=== PATIENT | male | born 1940 | race Caucasian/White ===

== ENCOUNTER 2017-11-10 05:59 | Day surgery (SDC) | payer BC ==
[2017-11-10] VITALS (8 sets, daily range): BP systolic 124–151; BP diastolic 70–96; PULSE 68–101; RESP 18–20; TEMP 97.5–97.6; O2SAT 90–95
[~2017-11-10] VITALS: Ht 182.9 cm; Wt 79.5 kg
[2017-11-10] MEDS ORDERED: ASPI-516 CHEW (06:42)
[2017-11-10] MEDS ORDERED: MULTTAB67 PO (06:42)
[2017-11-10] MEDS ORDERED: SODIUM CHLOR 0.9% 1000 ML INJ 1,000 ML IV SCH (07:00)
[2017-11-10 07:24] LABS: AUTOMATED NEUTROPHIL # 7.4 TH/MM3 (1.8-7.7); BASOPHIL # 0.1 TH/MM3 (0-0.2); BASOPHIL % 1.3 % (0.0-2.0); EOSINOPHIL # 0.4 TH/MM3 (0-0.4); EOSINOPHIL % 3.5 % (0.0-4.0); HEMATOCRIT 37.8 % (39.0-51.0); HEMOGLOBIN 12.8 GM/DL (13.0-17.0); LYMPH % 15.6 % (9.0-44.0); LYMPHOCYTE # 1.6 TH/MM3 (1.0-4.8); MEAN CELL VOLUME 76.3 FL (80.0-100.0); MEAN CORPUSCULAR HEMOGLOBIN 25.8 PG (27.0-34.0); MEAN CORPUSCULAR HGB CONC 33.8 % (32.0-36.0); MEAN PLATELET VOLUME 7.3 FL (7.0-11.0); MONO % 9.2 % (0.0-8.0); NEUT % 70.4 % (16.0-70.0); PLATELET COUNT 310 TH/MM3 (150-450); RED BLOOD COUNT 4.95 MIL/MM3 (4.50-5.90); RED CELL DISTRIBUTION WIDTH 15.3 % (11.6-17.2); WHITE BLOOD COUNT 10.5 TH/MM3 (4.0-11.0)
[2017-11-10 07:41] LABS: INTERNATIONAL NORMALIZED RATIO 1.1 RATIO; PROTHROMBIN TIME - PATIENT 11.5 SEC (9.8-11.6)
[2017-11-10] MEDS ORDERED: LIDOCAINE HCL 1% 20 ML VIAL ONE (07:41)
[2017-11-10] MEDS ORDERED: MIDAZOLAM HCL 2 MG/2 ML VIAL ONE (08:14)
--- NOTE | 2017-11-10 09:54 | RADRPT ---
EXAM DATE/TIME: 11/10/2017 09:19 [facility] COMPARISON: No previous studies available for comparison. INDICATIONS : Evaluate for pneumothorax, post biopsy. MEDICAL HISTORY : None. SURGICAL HISTORY : None. ENCOUNTER: Initial ACUITY: 1 day PAIN SCORE: 0/10 LOCATION: Bilateral chest FINDINGS: There is no evidence of pneumothorax status post right lung biopsy. Right lung base mass is noted. Sc attered streakiness is noted bilaterally. CONCLUSION: No evidence of pneumothorax status post right lung biopsy. Jeffrey Quintero MD on November 10, 2017 at 9:51 Board Certified Radiologist. This report was verified electronically.
--- NOTE | 2017-11-10 10:51 | RADRPT ---
EXAM DATE/TIME: 11/10/2017 08:29 [facility] COMPARISON: No previous studies available for comparison. INDICATIONS : Right lung mass. SEDATION TIME: 20 minutes BIOPSY SITE: Right MEDICATION(S): 1.) 2 mg midazolam (Versed) IV 2.) 75 mcg fentanyl (Sublimaze) IV DEVICE(S): 1.) 18 gauge Temno core biopsy needle MEDICAL HISTORY : Chronic obstructive pulmonary disease. SURGICAL HISTORY : Appendectomy. ENCOUNTER: Initial ACUITY: 1 day PAIN SCORE: 0/10 LOCATION: Right lung A total of one core specimen(s) were obtained and sent to the laboratory for pathologic evaluation. PROCEDURE: 1. CT guided lung biopsy. 2. Conscious sedation with continuous EKG and oximetry monitoring. 3. EKG and oximetry remained stable throughout the procedure. Prior to the procedure informed consent was obtained. Any appropriate prior imaging studies were rev iewed. Using automated exposure control and adjustment of the mA and/or kV according to patient size, radiation dose was kept as low as reasonably achievable to obtain optimal diagnostic quality images. DICOM format image data is available electronically for review and comparison. The site was prepped in a sterile fashion. Full sterile technique was used, including cap, mask, marco rile gloves and gown and a large sterile sheet. Hand hygiene and 2% chlorhexidine and/or betadine/al cohol prep was utilized per protocol for cutaneous antisepsis. The skin and subcutaneous tissues wer e infiltrated with local anesthetic solution. With CT guidance the previously identified target was localized. Biopsy was performed using the presc ribed needle as above. Adequate hemostasis was obtained with compression at the puncture site. Follow-up CT scan reveals no pneumothorax. Conscious sedation was performed with the prescribed dosages and duration as above in the presence of an independent trained radiology nurse to assist in the monitoring of the patient. EKG and oximetry remained stable throughout the procedure. The patient tolerated the procedure well and there were no complications. The patient was sent to Radiology Outpatient Unit in stable condition. CONCLUSION: Uncomplicated CT guided biopsy. Jeffrey Quintero MD on November 10, 2017 at 10:49 Board Certified Radiologist. This report was verified electronically.
== END 2017-11-10 13:22 | disposition home or self-care (01) ==
LOC: HRAD 05:59 → HRIP 06:06 → HRAD 13:22
PROVIDERS: ATTEND Internal Medicine
DX: R91.8 Other nonspecific abnormal finding of lung field (principal); J44.9 Chronic obstructive pulmonary disease, unspecified
CPT/HCPCS: 32405; 71045; 77012; 85025; 85610; 85730; 88305; J2250; J3010; J7030

== ENCOUNTER 2017-11-28 08:16 | Day surgery (SDC) | payer BC ==
[~2017-11-28] VITALS: Ht 182.9 cm; Wt 81.8 kg
[~2017-11-28 08:16] MED LIST: ASPI-516 CHEW; MULTTAB67 PO
[2017-11-28] MEDS ORDERED: ceFAZolin 2 GM PREMIX 50 ML - implanted port/tunneled catheter insertion IV SCH (08:45)
[2017-11-28] MEDS ORDERED: VANCOMYCIN 1000 MG/NS 250 ML - implanted port/tunneled catheter IV SCH ×2 (08:45)
[2017-11-28] MEDS ORDERED: POVIDONE IODINE 5% (ANTISEPSIS KIT) 4 APPLICATIONS EACH NARE SCH (08:45)
[2017-11-28] MEDS ORDERED: CHLORHEXIDINE GLUCONATE 2 % 1 PACK (2 CLOTHS) TOPICAL SCH (08:45)
[2017-11-28 08:58] VITALS: BP 110/68; PULSE 94; RESP 18; TEMP 97.7; O2SAT 92
[2017-11-28] MEDS ORDERED: SODIUM CHLORIDE 0.9% 1000 ML IV SCH (09:00)
[2017-11-28 09:06] LABS: AUTOMATED NEUTROPHIL # 7.9 TH/MM3 (1.8-7.7); BASOPHIL # 0.1 TH/MM3 (0-0.2); BASOPHIL % 1.2 % (0.0-2.0); EOSINOPHIL # 0.2 TH/MM3 (0-0.4); EOSINOPHIL % 2.2 % (0.0-4.0); HEMATOCRIT 37.4 % (39.0-51.0); HEMOGLOBIN 12.6 GM/DL (13.0-17.0); LYMPH % 15.2 % (9.0-44.0); LYMPHOCYTE # 1.6 TH/MM3 (1.0-4.8); MEAN CELL VOLUME 76.3 FL (80.0-100.0); MEAN CORPUSCULAR HEMOGLOBIN 25.7 PG (27.0-34.0); MEAN CORPUSCULAR HGB CONC 33.6 % (32.0-36.0); MEAN PLATELET VOLUME 7.2 FL (7.0-11.0); MONO % 7.9 % (0.0-8.0); MONOCYTE # 0.8 TH/MM3 (0-0.9); NEUT % 73.5 % (16.0-70.0); PLATELET COUNT 354 TH/MM3 (150-450); RED CELL DISTRIBUTION WIDTH 15.4 % (11.6-17.2); WHITE BLOOD COUNT 10.7 TH/MM3 (4.0-11.0)
[2017-11-28 09:19] LABS: INTERNATIONAL NORMALIZED RATIO 1.2 RATIO; PROTHROMBIN TIME - PATIENT 11.7 SEC (9.8-11.6)
[2017-11-28] MEDS ORDERED: LIDOCAINE 1%/EPINEPHrine 1:100,000 SOLN 30 ML VIAL ONE (12:04)
[2017-11-28 13:15] VITALS: BP 150/69; PULSE 93; RESP 18; TEMP 97.5; O2SAT 92
[2017-11-28] MEDS ORDERED: SODIUM CHLORIDE 0.9% FLUSH 10 ML FLUSH IVF PRN (13:15)
--- NOTE | 2017-11-28 13:16 | PD.RAD ---
Post Procedure Progress Note Pre Procedure Diagnosis: (1) Lung cancer Post Procedure Diagnosis: (1) Lung cancer Procedure Date: Nov 28, 2017 Supervising Radiologist: Domenico Brown JR Proceduralist/Assist: Obinna Ragsdale, RT(R), Alex Leroy RT(R) Anesthesia: Local Plan of Activity Patient to Unit: ROPU Patient Condition: Good See PACS Report for procedural detail/treatment Central Venous Access Device Procedure 1 Left Internal Jugular Infusaport Placement single lumen Jamaican: 8 Findings: Patient requested no anesthesia. Port placed utilizing local only. Port in good position and ready for use. OK to use. Plan F/U with IR or a physician in 10-14 days for a site check. Jr Kevin.,Domenico Parks MD Nov 28, 2017 13:16
[2017-11-28 13:30] VITALS: BP 163/75; PULSE 90; RESP 18; O2SAT 92
--- NOTE | 2017-11-28 15:51 | RADRPT ---
EXAM DATE/TIME: 11/28/2017 13:11 [facility] COMPARISON: No previous studies available for comparison. INDICATIONS : Patient presents with lung mass in need of port placement for treatment. MEDICAL HISTORY : Kidney stone COPD Lung cancer History of smoking SURGICAL HISTORY : Appendectomy Cataract surgery Colonoscopy Hernia repair Prostate biopsy Tonsillectomy ENCOUNTER: Initial ACUITY: 3 months PAIN SCORE: 0/10 LOCATION: N/A FLUORO TIME: 1.1 minutes IMAGE SERIES: 1 SEDATION TIME: 0 minutes ACCESS: Left internal jugular vein Prophylactic antibiotics were administered with appropriate pre-procedure timing. Vancomycin within 2 hours of procedure, Ancef (or alternative) within 1 hour of procedure. DEVICE: 1. 8 Frisian single lumen Bard Power Port Vaccess CT PROCEDURE : 1. Continuous pulse oximetry and EKG monitoring. 2. Ultrasound guidance for venous access. 3. Fluoroscopic guided implantable central venous port placement. The patient requested no sedation. The patient was placed supine. The neck was prepped in sterile fas hion. Full sterile technique was used, including cap, mask, sterile gloves and gown, and a large marco rile sheet. Hand hygiene and 2% chlorhexidine Betadine was utilized per protocol for cutaneous antis epsis with appropriate dry time for site. Sterile gel and sterile probe cover were utilized for ultr asound guidance. The skin and subcutaneous tissues were infiltrated with local anesthetic solution. Under direct ultrasound guidance, central venous access was accomplished in the targeted vessel. The ultrasound images depicting access guidance were stored and saved to PACS for permanent record. A s ubcutaneous pocket was created using blunt dissection. The port was introduced to the pocket. The c atheter tubing was fed through a subcutaneous tunnel to the venotomy site. The catheter tubing was c ut to a suitable length and then was introduced through a valved Peel-Away sheath and positioned with catheter tubing tip at the cavo-atrial junction level. The pocket incision was closed with subcutic ular Vicryl suture. Steri-Strips were applied. The port was flushed and locked with heparin solutio n per protocol. Sterile dressing was applied to the site. The patient tolerated the procedure well. EKG and oximetry remained stable throughout the procedure. The patient tolerated the procedure well a nd there were no complications. The patient was sent to post anesthesia recovery in stable condition. CONCLUSION: Uncomplicated ultrasound and fluoroscopic guided implanted central venous port catheter placement as described in detail above. An 8 Frisian Power port was placed. Domenico Brown Jr., MD on November 28, 2017 at 15:47 Board Certified Radiologist. This report was verified electronically.
== END 2017-11-28 14:10 | disposition home or self-care (01) ==
LOC: HROP 08:16 → HRIP 08:18 → HROP 14:10
PROVIDERS: ATTEND Internal Medicine
DX: C34.90 Malignant neoplasm of unspecified part of unspecified bronchus or lung (principal); J44.9 Chronic obstructive pulmonary disease, unspecified; Z87.442 Personal history of urinary calculi; Z87.891 Personal history of nicotine dependence; Z01.818 Encounter for other preprocedural examination
CPT/HCPCS: 36561; 76937; 77001; 85025; 85610; 85730; C1788; J0690; J1642; J3010; J3370; J7030; J7050

== ENCOUNTER 2018-01-19 11:52 | Inpatient (IN) | payer MEDICARE, BC ==
[2018-01-19] VITALS (12 sets, daily range): BP systolic 99–142; BP diastolic 58–77; PULSE 66–122; RESP 16–22; TEMP 97.3–97.6; O2SAT 97–100
[~2018-01-19] VITALS: Ht 182.9 cm; Wt 75.5 kg
--- NOTE | 2018-01-19 12:36 | RADRPT ---
EXAM DATE/TIME: 01/19/2018 12:24 [facility] COMPARISON: CT NEEDLE BIOPSY LUNG, RIGHT, November 10, 2017, 8:29. CHEST EXPIRATION ONLY, November 10, 2017, 9:1 9. INDICATIONS : Chest pain. MEDICAL HISTORY : Chronic obstructive pulmonary disease. Carcinoma, lung. Renal calculi. SURGICAL HISTORY : Appendectomy. Tonsillectomy. Hernia repair. Infusaport placement. ENCOUNTER: Initial ACUITY: 1 week PAIN SCORE: 2/10 LOCATION: Bilateral chest FINDINGS: Frontal and lateral views of the chest demonstrate a normal-sized cardiac silhouette. Left chest wall [id number] is present with distal tip in the SVC. There is a posterior right lower lobe mass, sta ble from the prior study. Abnormal interstitial opacities remain present in the lower lung zones. The re is slight blunting of the right costophrenic sulcus. No pneumothorax is visualized. The bones demo nstrate no acute finding. CONCLUSION: 1. Stable right lower lobe lung mass. No acute abnormality is seen. 2. Background lung changes suggesting emphysema with possible lower lung zone interstitial lung disea se. No pneumothorax is visualized. Song Millan MD on January 19, 2018 at 12:31 Board Certified Radiologist. This report was verified electronically.
[2018-01-19 12:46] LABS: AUTOMATED NEUTROPHIL # 3.4 TH/MM3 (1.8-7.7); BASOPHIL % 0.4 % (0.0-2.0); EOSINOPHIL % 0.4 % (0.0-4.0); HEMATOCRIT 33.4 % (39.0-51.0); HEMOGLOBIN 11.2 GM/DL (13.0-17.0); LYMPH % 5.9 % (9.0-44.0); LYMPHOCYTE # 0.2 TH/MM3 (1.0-4.8); MEAN CORPUSCULAR HEMOGLOBIN 25.5 PG (27.0-34.0); MEAN CORPUSCULAR HGB CONC 33.5 % (32.0-36.0); MEAN PLATELET VOLUME 7.5 FL (7.0-11.0); MONOCYTE # 0.2 TH/MM3 (0-0.9); NEUT % 87.3 % (16.0-70.0); PLATELET COUNT 166 TH/MM3 (150-450); RED BLOOD COUNT 4.39 MIL/MM3 (4.50-5.90); RED CELL DISTRIBUTION WIDTH 17.6 % (11.6-17.2); WHITE BLOOD COUNT 3.8 TH/MM3 (4.0-11.0)
[2018-01-19 12:55] LABS: INTERNATIONAL NORMALIZED RATIO 1.1 RATIO; PROTHROMBIN TIME - PATIENT 11.1 SEC (9.8-11.6)
[2018-01-19 13:03] LABS: AST (GOT) 14 U/L (15-37); BICARBONATE 23.3 MEQ/L (21.0-32.0); BLOOD UREA NITROGEN 22 MG/DL (7-18); CALCIUM 8.8 MG/DL (8.5-10.1); CHLORIDE 107 MEQ/L (98-107); GLOMERULAR FILTRATION RATE 82 ML/MIN (>89); GLUCOSE,RANDOM 116 MG/DL (74-106); SODIUM (NA) 139 MEQ/L (136-145)
[2018-01-19 13:04] LABS: ALT (GPT) 25 U/L (12-78)
[2018-01-19 13:06] LABS: ALKALINE PHOSPHATASE 81 U/L (45-117); TOTAL BILIRUBIN ADULT 0.5 MG/DL (0.2-1.0); TOTAL PROTEIN 7.2 GM/DL (6.4-8.2)
[2018-01-19] MEDS ORDERED: METOPROLOL TARTRATE 5 MG/5 ML VIAL IV PUSH STA (13:08)
[2018-01-19] MEDS ORDERED: VENTAER INH (13:09)
[2018-01-19] MEDS ORDERED: SYMB160A INH (13:09)
[2018-01-19] MEDS ORDERED: ZOLO25TA PO (13:09)
[2018-01-19] MEDS ORDERED: MAGICADU2 SWISH-SWAL (13:09)
[2018-01-19] MEDS ORDERED: DILTIAZEM HCL 60 MG TAB PO ONE (13:15)
--- NOTE | 2018-01-19 13:49 | PD ---
HPI Chief Complaint: Cardiac Complaint Time Seen by Provider: 12:54 Travel History International Travel<30 days: No Contact w/Intl Traveler<30days: No Traveled to known affect area: No History of Present Illness HPI 77-year-old male that presents to the ED for evaluation of abnormal heart rate. Per patient he was seen by his radiologist oncologist today and had radiation therapy. Patient was found to be in atrial fibrillation with an abnormal heart rate in the 120s-150s. Patient has never had this before. Patient denies any chest pain was this feeling more short of breath than usual. Patient also states feeling weak. He does not take any medications for his heart rate or blood pressure. He denies any history of heart disease. Has no office inspector. Patient is currently being treated for lung cancer with radiation and chemotherapy. Last radiation was done today and last chemo was done on Friday. No nausea or bowel med alert in his normal from the chemo. Denies any pressure on his chest. No headache. He does state having some chills but no fevers. No allergies to medication. No other medical issues. PFSH Past Medical History Depression: Yes Cancer: Yes (LUNG, SKIN CA) Diabetes: No Kidney Stones: Yes Respiratory: Yes (lung mass COPD EMPYSEMA) Immunizations Current: No Past Surgical History Abdominal Surgery: Yes (appendectomy, ryan hernia repairs) AICD: No Appendectomy: Yes Joint Replacement: No Oral Surgery: Yes (TONSILLECTOMY) Pacemaker: No Social History Alcohol Use: Yes (rare ) Tobacco Use: No Substance Use: No Allergies-Medications (Allergen,Severity, Reaction): Coded Allergies: No Known Allergies (Verified Allergy, Unknown, 11/28/17) Reported Meds & Prescriptions Reported Meds & Active Scripts Active Reported Ventolin Hfa 18 GM Inh (Albuterol Sulfate) 90 Mcg/Act Aer 2 Puff INH Q4-6H PRN Symbicort Inh (Budesonide/Formoterol Fumarate) 160-4.5 Mcg/Act Aero 1 Puff INH Q12HR Magic Mouthwash Adult Liq (Multi-Ingredient Mouthwash/Gargle) 120 Ml Susp 5 Ml SWISH-SWAL ACHS Each 5mL contains: Nystatin 200,000units, Diphenhydramine 4.25mg, Viscous Lidocaine 10mg, Anand syrup 0.8 mL Zoloft (Sertraline HCl) 25 Mg Tab 25 Mg PO DAILY Multiple Vitamin 1 Tab 1 Tab PO DAILY Aspirin 81 Mg Chew 81 Mg CHEW DAILY Review of Systems Except as stated in HPI: all other systems reviewed are Neg Physical Exam Narrative GENERAL: SKIN: Warm and dry. HEAD: Atraumatic. Normocephalic. EYES: Pupils equal and round. No scleral icterus. No injection or drainage. ENT: No nasal bleeding or discharge. Mucous membranes pink and moist. Tongue is midline. No uvula deviation. NECK: Trachea midline. No JVD. CARDIOVASCULAR: Irregular rate and rhythm. No obvious murmurs, S3, S4. RESPIRATORY: No accessory muscle use. Clear to auscultation. Breath sounds equal bilaterally. GASTROINTESTINAL: Abdomen soft, non-tender, nondistended. Hepatic and splenic margins not palpable. MUSCULOSKELETAL: Extremities without clubbing, cyanosis, or edema. No obvious deformities. Full range of motion of the upper and lower extremities bilaterally. 2+ pulses bilaterally. NEUROLOGICAL: Awake and alert. No obvious cranial nerve deficits. Motor grossly within normal limits. Five out of 5 muscle strength in the arms and legs. Normal speech. PSYCHIATRIC: Appropriate mood and affect; insight and judgment normal. Data Data Last Documented VS Vital Signs Date Time Temp Pulse Resp B/P (MAP) Pulse Ox O2 Delivery O2 Flow Rate FiO2 01/19/18 13:01 123 16 99 Room Air 01/19/18 13:01 131/68 (89) 2.00 01/19/18 12:01 97.3 Orders Orders Electrocardiogram (01/19/18 ) Chest, Pa & Lat (01/19/18 ) Complete Blood Count With Diff (01/19/18 12:06) Comprehensive Metabolic Panel (01/19/18 12:06) Act Partial Throm Time (Ptt) (01/19/18 12:06) Prothrombin Time / Inr (Pt) (01/19/18 12:06) Troponin I (01/19/18 12:55) Ckmb (Isoenzyme) Profile (01/19/18 12:55) Metoprolol Tartrate Inj (Lopressor Inj) (01/19/18 13:08) Diltiazem (Cardizem) (01/19/18 13:15) Thyroid Stimulating Hormone (01/19/18 13:47) Heparin Inj (Heparin Inj) (01/19/18 14:00) Heparin Inj (Heparin Inj) (01/19/18 20:00) Heparin Inj (Heparin Inj) (01/19/18 20:00) Heparin-D5w 25,000 U/250 Ml (Heparin-D5w (01/19/18 14:00) Act Partial Throm Time (Ptt) (01/19/18 13:50) Prothrombin Time / Inr (Pt) (01/19/18 13:50) Cbc No Diff, Includes Plts (01/19/18 13:50) Cbc No Diff, Includes Plts (01/22/18 06:00) Act Partial Throm Time (Ptt) (01/19/18 20:50) Occult Blood (Hemoccult) Stool (01/19/18 13:50) Admit Order (Ed Use Only) (01/19/18 14:20) Labs Laboratory Tests Test 01/19/18 12:26 White Blood Count 3.8 TH/MM3 Red Blood Count 4.39 MIL/MM3 Hemoglobin 11.2 GM/DL Hematocrit 33.4 % Mean Corpuscular Volume 76.0 FL Mean Corpuscular Hemoglobin 25.5 PG Mean Corpuscular Hemoglobin Concent 33.5 % Red Cell Distribution Width 17.6 % Platelet Count 166 TH/MM3 Mean Platelet Volume 7.5 FL Neutrophils (%) (Auto) 87.3 % Lymphocytes (%) (Auto) 5.9 % Monocytes (%) (Auto) 6.0 % Eosinophils (%) (Auto) 0.4 % Basophils (%) (Auto) 0.4 % Neutrophils # (Auto) 3.4 TH/MM3 Lymphocytes # (Auto) 0.2 TH/MM3 Monocytes # (Auto) 0.2 TH/MM3 Eosinophils # (Auto) 0.0 TH/MM3 Basophils # (Auto) 0.0 TH/MM3 CBC Comment DIFF FINAL Differential Comment Prothrombin Time 11.1 SEC Prothromb Time International Ratio 1.1 RATIO Activated Partial Thromboplast Time 26.1 SEC Blood Urea Nitrogen 22 MG/DL Creatinine 0.90 MG/DL Random Glucose 116 MG/DL Total Protein 7.2 GM/DL Albumin 3.0 GM/DL Calcium Level 8.8 MG/DL Alkaline Phosphatase 81 U/L Aspartate Amino Transf (AST/SGOT) 14 U/L Alanine Aminotransferase (ALT/SGPT) 25 U/L Total Bilirubin 0.5 MG/DL Sodium Level 139 MEQ/L Potassium Level 3.1 MEQ/L Chloride Level 107 MEQ/L Carbon Dioxide Level 23.3 MEQ/L Anion Gap 9 MEQ/L Estimat Glomerular Filtration Rate 82 ML/MIN Total Creatine Kinase 61 U/L Troponin I LESS THAN 0.02 NG/ML MDM Medical Decision Making Medical Screen Exam Complete: Yes Emergency Medical Condition: Yes Medical Record Reviewed: Yes Interpretation(s) EKG show atrial fibrillation RVR with a heart rate in the 115s. No signs of acute ischemia CBC & BMP Diagram 01/19/18 12:26 Total Protein 7.2, Albumin 3.0 L, Calcium Level 8.8, Alkaline Phosphatase 81, Aspartate Amino Transf (AST/SGOT) 14 L, Alanine Aminotransferase (ALT/SGPT) 25, Total Bilirubin 0.5 Last Impressions Chest X-Ray 01/19/18 0000 Signed Impressions: Service Date/Time: Friday, January 19, 2018 12:24 - CONCLUSION: 1. Stable right lower lobe lung mass. No acute abnormality is seen. 2. Background lung changes suggesting emphysema with possible lower lung zone interstitial lung disease. No pneumothorax is visualized. Song Millan MD troponin and CKMB negative coags WNL Differential Diagnosis A. fib and RVR versus new onset A. fib versus chest pain versus symptomatic atrial fibrillation Narrative Course 77-year-old male that presents to the ED for evaluation of new onset A. fib. Patient was properly examined and was found to have signs and symptoms very consistent appears to be atrial fibrillation. EKG shows atrial for ablation RVR with a heart rate on the 115's. Patient's heart rate when I was in the room was between 110s 120s but does go up to the 150s. Patient has no history of CHF. No history of this before. I discussed the case with my attending who at this time recommends 5 mg of Lopressor IV as well as 240 mg of Cardizem p.o. for rate control. Patient was given this. Labs and imaging order. Labs and imaging unremarcable other than for atrial fibrillation. Patient HR still high but now in the 100s but continues to creep up. My attending Dr dale aware of findings and recommends admission with heparin bolus and drip, 80 mg/kg. Patient told this and agrees with plan. Discussed case with Dr Moore who agrees to admission. Diagnosis Primary Impression: New onset atrial fibrillation Admitting Information Admitting Physician Requests: Admit Tiago Weaver Jan 19, 2018 13:49
[2018-01-19] MEDS ORDERED: HEPARIN SODIUM - IV 10,000 UNITS/10 ML VIAL IV ONE (14:00)
[2018-01-19] MEDS ORDERED: HEPARIN-D5W 25,000 U/250 ML 250 ML IV PRN (14:00)
[2018-01-19] MEDS ORDERED: SODIUM CHLORIDE 0.9% FLUSH 10 ML FLUSH IV FLUSH PRN (15:15)
[2018-01-19] MEDS ORDERED: LACTULOSE SYRUP 20 GM/30 ML CUP PO PRN (15:15)
[2018-01-19] MEDS ORDERED: NALOXONE HCL 0.4 MG/ML AMP IV PUSH PRN (15:15)
[2018-01-19] MEDS ORDERED: BISACODYL 10 MG SUPP RECTAL PRN (15:15)
[2018-01-19] MEDS ORDERED: MAGNESIUM HYDROXIDE SUSP 30 ML CUP PO PRN (15:15)
[2018-01-19] MEDS ORDERED: SENNOSIDES 8.6 MG TAB PO PRN (15:15)
[2018-01-19] MEDS ORDERED: ACETAMINOPHEN 325 MG TAB PO PRN (15:15)
[2018-01-19] MEDS ORDERED: PILL SPLITTER OTHER PRN (15:15)
[2018-01-19] MEDS ORDERED: ONDANSETRON HCL 4 MG/2 ML VIAL IVP PRN (15:15)
--- NOTE | 2018-01-19 15:43 | HHI.HP ---
[facility] Michelle Rios MD Admission Diagnosis new onset atrial fibrillation in RVR Diagnoses: Travel History International Travel<30 Days: No Contact w/Intl Traveler <30 Da: No Traveled to Known Affected Are: No History of Present Illness 77-year-old male with a recent history of stage III squamous cell carcinoma of the lung has been undergoing a tapering round of radiation treatments to his central chest and presents to the ER today with new onset atrial fibrillation with RVR. Onset was associated with shortness of breath and dizziness, but he denies chest pain. He says that he has had a lot of redness and irritation associated with these radiation treatments, particularly to his central back. He denies any history of disease but he has not seen a primary care provider in many years. His general oncologist is Dr. Michelle Rios. His radiation oncologist is Dr. Shaw. Review of Systems Constitutional: DENIES: Fatigue, Fever, Weight gain, Weight loss Eyes: DENIES: Blurred vision, Diplopia, Eye pain, Vision loss, Photosensitivity Ears, nose, mouth, throat: DENIES: Hearing loss, Vertigo, Oral lesions, Throat pain, Ear Pain, Running Nose, Epistaxis, Sinus Pain Respiratory: DENIES: Apneas, Cough, Snoring, Wheezing, Hemoptysis, Sputum production, Shortness of breath Cardiovascular: COMPLAINS OF: Palpitations, Dyspnea on Exertion, DENIES: Chest pain, Syncope, PND, Lower Extremity Edema, Orthopnea, Claudication Gastrointestinal: DENIES: Abdominal pain, Black stools, Bloody stools, Constipation, Diarrhea, Nausea, Vomiting Musculoskeletal: DENIES: Joint pain, Stiffness, Joint Swelling Neurologic: DENIES: Abnormal gait, Headache, Localized weakness, Paresthesias Psychiatric: DENIES: Anxiety, Confusion, Mood changes, Depression, Hallucinations Past Family Social History Past Medical History Squamous cell lung cancer, radiation esophagitis Past Surgical History Lung biopsy, bilateral hernia repair, appendectomy, tonsillectomy Allergies: Coded Allergies: No Known Allergies (Verified Allergy, Unknown, 11/28/17) Family History Mother at 98 years old (CAD), father at 87 during a procedure Social History 63 years of smoking cigarettes Social alcohol use (occasional) Physical Exam Vital Signs Vital Signs Date Time Temp Pulse Resp B/P (MAP) Pulse Ox O2 Delivery O2 Flow Rate FiO2 01/19/18 15:14 99 2.00 01/19/18 15:00 74 18 100/59 (73) 100 Nasal Cannula 2.00 01/19/18 14:00 88 22 111/65 (80) 97 Nasal Cannula 2.00 01/19/18 13:01 123 16 99 Room Air 01/19/18 13:01 96 18 131/68 (89) 98 Nasal Cannula 2.00 01/19/18 12:01 97.3 122 22 116/63 (80) 97 Physical Exam GENERAL: This is a well-nourished, but weakened appearing man SKIN: Radiation rash on central chest and back, ecchymoses or lesions. Cool and dry. HEAD: Atraumatic. Normocephalic. No temporal or scalp tenderness. EYES: Pupils equal round and reactive. Extraocular motions intact. No scleral icterus. No injection or drainage. ENT: Nose without bleeding, purulent drainage or septal hematoma. Throat without erythema, tonsillar hypertrophy or exudate. Uvula midline. Airway patent. NECK: Trachea midline. No JVD or lymphadenopathy. Supple, nontender, no meningeal signs. CARDIOVASCULAR: Irregular rhythm but rate controlled, 1/6 murmurs, gallops, or rubs. RESPIRATORY: Clear to auscultation. Breath sounds equal bilaterally. No wheezes , rales, or rhonchi. GASTROINTESTINAL: Abdomen soft, non-tender, nondistended. No hepato-splenomegaly , or palpable masses. No guarding. MUSCULOSKELETAL: Extremities without clubbing, cyanosis, or edema. No joint tenderness, effusion, or edema noted. No calf tenderness. Negative Homans sign bilaterally. NEUROLOGICAL: Awake and alert. Cranial nerves II through XII intact. Motor and sensory grossly within normal limits. Five out of 5 muscle strength in all muscle groups. Normal speech. Laboratory Laboratory Tests Test 01/19/18 12:26 White Blood Count 3.8 Red Blood Count 4.39 Hemoglobin 11.2 Hematocrit 33.4 Mean Corpuscular Volume 76.0 Mean Corpuscular Hemoglobin 25.5 Mean Corpuscular Hemoglobin Concent 33.5 Red Cell Distribution Width 17.6 Platelet Count 166 Mean Platelet Volume 7.5 Neutrophils (%) (Auto) 87.3 Lymphocytes (%) (Auto) 5.9 Monocytes (%) (Auto) 6.0 Eosinophils (%) (Auto) 0.4 Basophils (%) (Auto) 0.4 Neutrophils # (Auto) 3.4 Lymphocytes # (Auto) 0.2 Monocytes # (Auto) 0.2 Eosinophils # (Auto) 0.0 Basophils # (Auto) 0.0 CBC Comment DIFF FINAL Differential Comment Prothrombin Time 11.1 Prothromb Time International Ratio 1.1 Activated Partial Thromboplast Time 26.1 Blood Urea Nitrogen 22 Creatinine 0.90 Random Glucose 116 Total Protein 7.2 Albumin 3.0 Calcium Level 8.8 Alkaline Phosphatase 81 Aspartate Amino Transf (AST/SGOT) 14 Alanine Aminotransferase (ALT/SGPT) 25 Total Bilirubin 0.5 Sodium Level 139 Potassium Level 3.1 Chloride Level 107 Carbon Dioxide Level 23.3 Anion Gap 9 Estimat Glomerular Filtration Rate 82 Total Creatine Kinase 61 Troponin I LESS THAN 0.02 Result Diagram: 01/19/18 1226 01/19/18 1226 Caprini VTE Risk Assessment Caprini VTE Risk Assessment: Mod/High Risk (score >= 2) Caprini Risk Assessment Model Point Value = 1 Point Value = 2 Point Value = 3 Point Value = 5 Age 41-60 Minor surgery BMI > 25 kg/m2 Swollen legs Varicose veins or History of unexplained or recurrent spontaneous Oral contraceptives or hormone replacement Sepsis (< 1 month) Serious lung disease, including pneumonia (< 1 month) Abnormal pulmonary function Acute myocardial infarction Congestive heart failure (< 1 month) History of inflammatory bowel disease Medical patient at bed rest Age 61-74 Arthroscopic surgery Major open surgery (> 45 min) Laparoscopic surgery (> 45 min) Malignancy Confined to bed (> 72 hours) Immobilizing plaster cast Central venous access Age >= 75 History of VTE Family history of VTE Factor V Leiden Prothrombin [id number] Lupus anticoagulant Anticardiolipin antibodies Elevated serum homocysteine Heparin-induced thrombocytopenia Other congenital or acquired thrombophilia Stroke (< 1 month) Elective arthroplasty Hip, pelvis, or leg fracture Acute spinal cord injury (< 1 month) Prophylaxis Regimen Total Risk Factor Score Risk Level Prophylaxis Regimen 0-1 Low Early ambulation 2 Moderate Order ONE of the following: *Sequential Compression Device (SCD) *Heparin 5000 units SQ BID 3-4 Higher Order ONE of the following medications: *Heparin 5000 units SQ TID *Enoxaparin/Lovenox 40 mg SQ daily (WT < 150 kg, CrCl > 30 mL/min) *Enoxaparin/Lovenox 30 mg SQ daily (WT < 150 kg, CrCl > 10-29 mL/min) *Enoxaparin/Lovenox 30 mg SQ BID (WT < 150 kg, CrCl > 30 mL/min) AND/OR *Sequential Compression Device (SCD) 5 or more Highest Order ONE of the following medications: *Heparin 5000 units SQ TID (Preferred with Epidurals) *Enoxaparin/Lovenox 40 mg SQ daily (WT < 150 kg, CrCl > 30 mL/min) *Enoxaparin/Lovenox 30 mg SQ daily (WT < 150 kg, CrCl > 10-29 mL/min) *Enoxaparin/Lovenox 30 mg SQ BID (WT < 150 kg, CrCl > 30 mL/min) AND *Sequential Compression Device (SCD) Assessment and Plan Assessment and Plan Atrial fibrillation with RVR New onset, heart rate into the 140s on admission has stabilized into the 70s on Cardizem drip Most likely due to nerve inflammation associated with radiation Heparin drip placed, follow on telemetry, repeat EKG in the morning Cardiology consulted Squamous cell lung cancer Undergoing radiation treatments to central chest Oncology consulted to assist with determination of timing of radiation treatments Radiation esophagitis Symptomatic relief with Magic mouthwash as needed at home Depression Continue home dose of Zoloft 25 mg daily DVT prophylaxis Heparin drip Physician Certification 2 Midnight Certification Type: Admission for Inpatient Services Order for Inpatient Services The services are ordered in accordance with Medicare regulations or non- Medicare payer requirements, as applicable. In the case of services not specified as inpatient-only, they are appropriately provided as inpatient services in accordance with the 2-midnight benchmark. Estimated LOS (days): 4 days is the estimated time the patient will need to remain in the hospital, assuming treatment plan goals are met and no additional complications. Post-Hospital Plan: Home Lasha Moore MD Jan 19, 2018 15:43
[2018-01-19] MEDS: NYSTAT/DIPHENHY/LIDO MOUTHWASH (Adult) 120ML SWISH-SWAL PRN (19:20)
[2018-01-19] MEDS ORDERED: HEPARIN SODIUM - IV 10,000 UNITS/10 ML VIAL IV PRN (20:00)
[2018-01-19] MEDS: SODIUM CHLORIDE 0.9% FLUSH 10 ML FLUSH IV FLUSH SCH (21:00)
[2018-01-20] VITALS (25 sets, daily range): BP systolic 105–139; BP diastolic 5–84; PULSE 20–118; RESP 16–20; TEMP 97.2–98.8; O2SAT 95–99
[2018-01-20] MEDS: DILTIAZEM HCL 60 MG TAB PO SCH ×5 (00:05→21:46)
[2018-01-20] MEDS: HEPARIN SODIUM - IV 10,000 UNITS/10 ML VIAL IV PRN ×2 (00:07→07:01)
[2018-01-20 06:08] LABS: AUTOMATED NEUTROPHIL # 1.7 TH/MM3 (1.8-7.7); BASOPHIL % 0.7 % (0.0-2.0); EOSINOPHIL # 0.1 TH/MM3 (0-0.4); EOSINOPHIL % 2.3 % (0.0-4.0); HEMATOCRIT 31.3 % (39.0-51.0); HEMOGLOBIN 10.6 GM/DL (13.0-17.0); LYMPH % 11.4 % (9.0-44.0); LYMPHOCYTE # 0.2 TH/MM3 (1.0-4.8); MEAN CELL VOLUME 75.4 FL (80.0-100.0); MEAN CORPUSCULAR HEMOGLOBIN 25.6 PG (27.0-34.0); MEAN CORPUSCULAR HGB CONC 33.9 % (32.0-36.0); MEAN PLATELET VOLUME 7.2 FL (7.0-11.0); MONO % 7.4 % (0.0-8.0); MONOCYTE # 0.2 TH/MM3 (0-0.9); NEUT % 78.2 % (16.0-70.0); PLATELET COUNT 143 TH/MM3 (150-450); RED BLOOD COUNT 4.16 MIL/MM3 (4.50-5.90); WHITE BLOOD COUNT 2.2 TH/MM3 (4.0-11.0)
--- NOTE | 2018-01-20 06:33 | MB ---
cc: Michelle Rios MD DATE: 01/19/2018 CHIEF COMPLAINT: 1. Atrial fibrillation. 2. Shortness of breath. 3. Stage IIIA non-small cell lung cancer, currently being treated with concurrent chemotherapy and radiation therapy. HISTORY OF PRESENT ILLNESS: Mr. Titus is a 77-year-old man who was admitted to the hospital with progressively worsening shortness of breath and dizziness. He presented to the emergency room and was found to be in atrial fibrillation with RVR. He is currently on a diltiazem drip and has been started on anticoagulation. His cancer history began when he developed fatigue and dry cough for [address] chest showed a spiculated mass in the right upper lobe with a large soft tissue mass in the posterior right lower lobe. He started radiation therapy on 12/15/2016 and he has been receiving concurrent chemotherapy with carboplatin and paclitaxel. PAST MEDICAL HISTORY: 1. COPD. 2. Non-small cell lung cancer. 3. Nephrolithiasis. PAST SURGICAL HISTORY: 1. Appendectomy. 2. Hernia repair. 3. Prostate biopsy. 4. Tonsillectomy. REVIEW OF SYSTEMS: As above in the HPI. All other review of systems negative. FAMILY HISTORY: Mother with congestive heart failure. Father with congestive heart failure and diabetes. SOCIAL HISTORY: He lives in [place]. He is a former smoker. Occasional alcohol use. ALLERGIES: NO KNOWN DRUG ALLERGIES. PHYSICAL EXAMINATION: GENERAL: Well-developed, well-nourished man in no distress. CARDIOVASCULAR: Regular rate and rhythm. No murmurs. RESPIRATORY: Clear to auscultation bilaterally. NECK: Supple. No palpable lymphadenopathy. SKIN: With a rash present on chest and back from radiation. ABDOMEN: Soft, nontender, nondistended. Bowel sounds present. EXTREMITIES: No edema. NEUROLOGIC: Grossly nonfocal. PSYCHIATRIC: Appropriate mood and affect. ASSESSMENT AND PLAN: 1. Atrial fibrillation, currently rate controlled. Cardiology following. We will be transitioned to oral heart medication and oral anticoagulation per the cardiology team. 2. Non-small cell lung cancer, currently being treated with radiation and chemotherapy. We will alert radiation oncology team that he is inpatient and will need to be brought to radiation to keep treatment on schedule. 3. Cytopenias due to chemotherapy platelet counts have remained high during treatment. Okay to proceed with anticoagulation. Inpatient oncology team will continue to follow. MD LONNY Gill , 01:36 AM , 06:31 AM [facility] NETWORKKarol
[2018-01-20 06:34] LABS: BICARBONATE 26.1 MEQ/L (21.0-32.0); CREATININE 0.67 MG/DL (0.60-1.30)
[2018-01-20] MEDS: SERTRALINE HCL 50 MG TAB PO SCH (08:00)
[2018-01-20] MEDS: APIXABAN 5 MG TABLET PO SCH ×2 (08:00→21:46)
[2018-01-20] MEDS: SODIUM CHLORIDE 0.9% FLUSH 10 ML FLUSH IV FLUSH SCH ×2 (08:01→21:00)
--- NOTE | 2018-01-20 09:48 | MB ---
cc: Reyes Marie DO DATE: 01/19/2018 REASON FOR CONSULTATION: Atrial fibrillation with rapid ventricular response. HISTORY OF PRESENT ILLNESS: Tom Titus is a pleasant 77-year-old male who presented to [facility] Emergency Room due to atrial fibrillation with rapid ventricular response. Apparently, he has been receiving radiation for stage III squamous cell carcinoma of the lung and while there, he was found to be in atrial fibrillation with rapid ventricular response and sent to the emergency room. The patient states that he was mildly short of breath and dizzy with the episode, but denies any chest pain. PAST MEDICAL HISTORY: 1. Squamous cell lung cancer stage III. 2. Radiation esophagitis. PAST SURGICAL HISTORY: 1. Lung biopsy. 2. Bilateral hernia repair. 3. Appendectomy. 4. Tonsillectomy. ALLERGIES: NO KNOWN DRUG ALLERGIES. MEDICATIONS: 1. Albuterol 2 puffs every 4-6 hours as needed for shortness of breath. 2. Aspirin 81 mg daily. 3. Zoloft 25 mg daily. 4. Symbicort 1 puff every 12 hours. 5. Magic mouthwash. FAMILY HISTORY: Mother at the age of 98, had a history of coronary artery disease. Father at the age of 87 during a procedure. SOCIAL HISTORY: The patient has smoked cigarettes for 63 years. He will occasionally drink alcohol. REVIEW OF SYSTEMS: Fourteen systems were reviewed including osteopathic, pertinent positives and negatives above, otherwise negative. PHYSICAL EXAMINATION: VITAL SIGNS: Temperature 97.3, heart rate 82, blood pressure 125/75, respirations 18, pulse oximetry 98% on room air. GENERAL: The patient appears well, in no acute distress, alert, awake and oriented x 3. HEENT: Extraocular muscles intact. Mucous membranes moist. NECK: Supple. No JVD at 45 degrees. No carotid bruits heard bilaterally. Carotid upstroke is brisk in nature. HEART: Irregularly irregular. Positive first and second heart sounds, with no noted murmurs, gallops or rubs. LUNGS: Clear to auscultation bilaterally. No wheezes, rales or rhonchi. ABDOMEN: Soft, nontender, nondistended. No organomegaly noted. EXTREMITIES: Show no clubbing, cyanosis or edema. Femoral and distal pulses are intact bilaterally. NEUROLOGIC: No focal deficits. SKIN: Warm, dry and intact. OSTEOPATHIC: No kyphoscoliosis, lordosis or paraspinal tender points. LABORATORY DATA: Hemoglobin 11.2, hematocrit 33.4, platelets 166. Potassium 3.1, BUN 22, creatinine 0.90. Troponin less than 0.02. TSH 1.36. ELECTROCARDIOGRAM (01/19/2018 AT 1231): Atrial fibrillation with rapid ventricular response. IMPRESSION: 1. New onset atrial fibrillation with rapid ventricular response. 2. Squamous cell lung cancer, stage III, undergoing radiation and chemotherapy. 3. Radiation esophagitis. RECOMMENDATIONS: 1. Mr. Titus presented with atrial fibrillation with rapid ventricular response, which is a new diagnosis for him. 2. As there is a shortage of Cardizem IV, he was given 240 mg p.o. and heart rates have since been controlled. We will plan on continuing this at this time. 3. He does have a CHADS-VASc score of 2 due to his age. I did discuss this with Dr. Rios and overall believe that he could be placed on anticoagulation therapy. We will plan on Eliquis 5 mg b.i.d. Overall, apparently he is almost done with his chemotherapy and so this will be of less risk at that time. 4. We will check a 2D echo to look at his overall left ventricular function, cardiac structure and possible valvulopathies. 5. Further recommendations will be made based on the hospital course. Thank you for allowing me to see Tom Titus. If there are any questions, please do not hesitate to call. DO GUSTAVO Allen/BKEA , 11:41 PM , 12:20 AM
--- NOTE | 2018-01-20 11:56 | PD.CARD.PN ---
Subjective Subjective Remarks Doing well overnight Heart rates mildly up this morning, 90-115 Objective Medications Current Medications Medications (Trade) Dose Ordered Sig/Tirso Route Start Time Stop Time Status Last Admin (NS Flush) 2 ml UNSCH PRN IV FLUSH 01/19/18 15:15 (NS Flush) 2 ml BID IV FLUSH 01/19/18 21:00 01/20/18 08:01 (Tylenol) 650 mg Q4H PRN PO 01/19/18 15:15 (Zofran Inj) 4 mg Q6H PRN IVP 01/19/18 15:15 (Narcan Inj) 0.4 mg UNSCH PRN IV PUSH 01/19/18 15:15 (Milk Of Magnesia Liq) 30 ml Q12H PRN PO 01/19/18 15:15 (Senokot) 17.2 mg Q12H PRN PO 01/19/18 15:15 (Dulcolax Supp) 10 mg DAILY PRN RECTAL 01/19/18 15:15 (Lactulose Liq) 30 ml DAILY PRN PO 01/19/18 15:15 (Magic Mouthwash Adult Liq) 10 ml QID PRN SWISH-SWAL 01/19/18 15:15 01/19/18 19:20 (Zoloft) 25 mg DAILY PO 01/20/18 09:00 01/20/18 08:00 (Pill Splitter) 1 ea UNSCH PRN OTHER 01/19/18 15:15 (Eliquis) 5 mg BID PO 01/20/18 09:00 01/20/18 08:00 (Cardizem) 60 mg Q6HR PO 01/20/18 00:00 01/20/18 06:29 Vital Signs / I&O Vital Signs Date Time Temp Pulse Resp B/P (MAP) Pulse Ox O2 Delivery O2 Flow Rate FiO2 01/20/18 11:01 97.7 95 18 105/70 (82) 98 01/20/18 08:56 97 Nasal Cannula 2.00 01/20/18 08:01 97.5 86 18 106/64 (78) 97 01/20/18 04:05 84 01/20/18 04:00 97.9 20 20 112/74 (87) 95 01/20/18 00:05 94 01/20/18 00:00 98.6 96 18 136/84 (101) 98 01/19/18 20:34 91 01/19/18 20:25 97.6 95 20 114/62 (79) 98 01/19/18 19:56 01/19/18 19:56 95 20 142/67 (92) 97 Nasal Cannula 3.00 01/19/18 19:00 86 16 135/77 (96) 98 Nasal Cannula 2.00 01/19/18 18:00 82 18 125/75 (92) 98 Room Air 01/19/18 17:00 76 16 111/66 (81) 98 Nasal Cannula 2.00 01/19/18 16:00 66 16 99/58 (72) 98 Nasal Cannula 2.00 01/19/18 15:14 99 2.00 01/19/18 15:00 74 18 100/59 (73) 100 Nasal Cannula 2.00 01/19/18 14:00 88 22 111/65 (80) 97 Nasal Cannula 2.00 01/19/18 13:01 123 16 99 Room Air 01/19/18 13:01 96 18 131/68 (89) 98 Nasal Cannula 2.00 01/19/18 12:01 97.3 122 22 116/63 (80) 97 Physical Exam GENERAL: NAD, AAOx3 SKIN: Warm and dry. HEAD: Atraumatic. Normocephalic. EYES: Pupils equal and round. No scleral icterus. No injection or drainage. ENT: No nasal bleeding or discharge. Mucous membranes pink and moist. NECK: Trachea midline. No JVD. CARDIOVASCULAR: Irregularly irregular RESPIRATORY: No accessory muscle use. Clear to auscultation. Breath sounds equal bilaterally. GASTROINTESTINAL: Abdomen soft, non-tender, nondistended. Hepatic and splenic margins not palpable. MUSCULOSKELETAL: Extremities without clubbing, cyanosis, or edema. No obvious deformities. NEUROLOGICAL: Awake and alert. No obvious cranial nerve deficits. Motor grossly within normal limits. Five out of 5 muscle strength in the arms and legs. Normal speech. PSYCHIATRIC: Appropriate mood and affect; insight and judgment normal. Laboratory Laboratory Tests Test 01/19/18 12:26 01/19/18 22:00 01/20/18 05:53 White Blood Count 3.8 TH/MM3 2.2 TH/MM3 Red Blood Count 4.39 MIL/MM3 4.16 MIL/MM3 Hemoglobin 11.2 GM/DL 10.6 GM/DL Hematocrit 33.4 % 31.3 % Mean Corpuscular Volume 76.0 FL 75.4 FL Mean Corpuscular Hemoglobin 25.5 PG 25.6 PG Mean Corpuscular Hemoglobin Concent 33.5 % 33.9 % Red Cell Distribution Width 17.6 % 18.0 % Platelet Count 166 TH/MM3 143 TH/MM3 Mean Platelet Volume 7.5 FL 7.2 FL Neutrophils (%) (Auto) 87.3 % 78.2 % Lymphocytes (%) (Auto) 5.9 % 11.4 % Monocytes (%) (Auto) 6.0 % 7.4 % Eosinophils (%) (Auto) 0.4 % 2.3 % Basophils (%) (Auto) 0.4 % 0.7 % Neutrophils # (Auto) 3.4 TH/MM3 1.7 TH/MM3 Lymphocytes # (Auto) 0.2 TH/MM3 0.2 TH/MM3 Monocytes # (Auto) 0.2 TH/MM3 0.2 TH/MM3 Eosinophils # (Auto) 0.0 TH/MM3 0.1 TH/MM3 Basophils # (Auto) 0.0 TH/MM3 0.0 TH/MM3 CBC Comment DIFF FINAL DIFF FINAL Differential Comment Prothrombin Time 11.1 SEC Prothromb Time International Ratio 1.1 RATIO Activated Partial Thromboplast Time 26.1 SEC 33.3 SEC 39.9 SEC Blood Urea Nitrogen 22 MG/DL 17 MG/DL Creatinine 0.90 MG/DL 0.67 MG/DL Random Glucose 116 MG/DL 97 MG/DL Total Protein 7.2 GM/DL Albumin 3.0 GM/DL Calcium Level 8.8 MG/DL 8.0 MG/DL Alkaline Phosphatase 81 U/L Aspartate Amino Transf (AST/SGOT) 14 U/L Alanine Aminotransferase (ALT/SGPT) 25 U/L Total Bilirubin 0.5 MG/DL Sodium Level 139 MEQ/L 142 MEQ/L Potassium Level 3.1 MEQ/L 3.1 MEQ/L Chloride Level 107 MEQ/L 107 MEQ/L Carbon Dioxide Level 23.3 MEQ/L 26.1 MEQ/L Anion Gap 9 MEQ/L 9 MEQ/L Estimat Glomerular Filtration Rate 82 ML/MIN 115 ML/MIN Total Creatine Kinase 61 U/L Troponin I LESS THAN 0.02 NG/ML Thyroid Stimulating Hormone 3rd Gen 1.360 uIU/ML Assessment and Plan Problem List: (1) New onset atrial fibrillation ICD Codes: I48.91 - Unspecified atrial fibrillation Status: Acute (2) Lung cancer ICD Codes: C34.90 - Malignant neoplasm of unspecified part of unspecified bronchus or lung Assessment and Plan 1) New onset AFib Cardizem 60mg q6hrs Will watch heart rates today, if still high then would increase to 90mg q6hrs CHADSVASc = 2 (agex2) Started on Eliquis 5mg BID Heparin drip stopped 2) 2D echo pending 3) Lung CA, squamous cell stage 3 Radiation/Chemotherapy Its possible radiation lead to Afib, but more than likely due to overall age/ illness Will continue to treat Afib, would not hold back radiation therapy due to AFib Overall more benefit to radiation than harm as Afib can be controlled with medications Reyes Marie DO Jan 20, 2018 11:56
[2018-01-20] MEDS: NYSTAT/DIPHENHY/LIDO MOUTHWASH (Adult) 120ML SWISH-SWAL PRN ×2 (12:17→17:09)
--- NOTE | 2018-01-20 15:17 | EKG ---
Date Performed: 01/20/2018 Time Performed: 06:19:00 PTAGE: 77 years EKG: Sinus tachycardia with PAC(s) Normal ECG except for rate PREVIOUS TRACING : 01/19/2018 12.31 Since the previous tracing, no significant change not ed DOCTOR: Omer Ramos Interpretating Date/Time 01/20/2018 15:14:06
--- NOTE | 2018-01-20 15:17 | EKG ---
Date Performed: 01/19/2018 Time Performed: 12:31:32 PTAGE: 77 years EKG: Consider ATRIAL FIBRILLATION WITH RAPID VENTRICULAR RESPONSE Also consider Sinus rhythm with PACs ABNORMAL RHYTHM ECG NO PREVIOUS TRACING DOCTOR: Omer Ramos Interpretating Date/Time 01/20/2018 15:13:57
[2018-01-20] MEDS ORDERED: SODIUM CHLORID 0.9% 500 ML INJ 500 ML IV SCH (16:15)
--- NOTE | 2018-01-20 16:16 | HHI.PR ---
Subjective Remarks Patient's heart rate has converted from atrial fibrillation 2 now normal sinus rhythm. He states he feels much better. He is being transitioned from IV rhythm controlled to p.o. medications. Objective Vitals Vital Signs Date Time Temp Pulse Resp B/P (MAP) Pulse Ox O2 Delivery O2 Flow Rate FiO2 01/20/18 15:00 94 01/20/18 14:00 100 01/20/18 13:00 98 01/20/18 12:07 97.9 94 20 110/5 (40) 99 01/20/18 12:01 94 01/20/18 11:01 97.7 95 18 105/70 (82) 98 01/20/18 11:00 98 01/20/18 10:00 118 01/20/18 09:00 112 01/20/18 08:56 97 Nasal Cannula 2.00 01/20/18 08:01 97.5 86 18 106/64 (78) 97 01/20/18 08:00 106 01/20/18 07:00 84 01/20/18 04:05 84 01/20/18 04:00 97.9 20 20 112/74 (87) 95 01/20/18 00:05 94 01/20/18 00:00 98.6 96 18 136/84 (101) 98 01/19/18 20:34 91 01/19/18 20:25 97.6 95 20 114/62 (79) 98 01/19/18 19:56 01/19/18 19:56 95 20 142/67 (92) 97 Nasal Cannula 3.00 01/19/18 19:00 86 16 135/77 (96) 98 Nasal Cannula 2.00 01/19/18 18:00 82 18 125/75 (92) 98 Room Air 01/19/18 17:00 76 16 111/66 (81) 98 Nasal Cannula 2.00 Result Diagram: 01/20/18 0553 01/20/18 0553 Objective Remarks GENERAL: Somewhat weak appearing man SKIN: Mild radiation lucas to chest and back HEAD: Normocephalic. EYES: No scleral icterus. No injection or drainage. NECK: Supple, trachea midline. No JVD or lymphadenopathy. CARDIOVASCULAR: Regular rate and rhythm without murmurs, gallops, or rubs. RESPIRATORY: Breath sounds equal bilaterally. No accessory muscle use. GASTROINTESTINAL: Abdomen soft, non-tender, nondistended. EXTREMITIES: No cyanosis, or edema. NEUROLOGICAL: Awake, alert, and oriented x 3. Non-focal. A/P Assessment and Plan Atrial fibrillation with RVR New onset, responded well to Cardizem drip, transitioning to p.o. medicines Most likely due to nerve inflammation associated with radiation Continue to follow on telemetry, planning discharge tomorrow if rhythm stable Cardiology consulted Squamous cell lung cancer Undergoing radiation treatments to central chest Radiation to resume later this week (?) Appreciate Oncology consult Radiation esophagitis Symptomatic relief with Magic mouthwash as needed at home Depression Continue home dose of Zoloft 25 mg daily DVT prophylaxis Heparin Lasha Liang MD Jan 20, 2018 16:16
--- NOTE | 2018-01-20 23:59 | PD.ONC.PN ---
Subjective Subjective Remarks Resting comfortably in bed in no distress. Objective Data Date Time Temp Pulse Resp B/P (MAP) Pulse Ox O2 Delivery O2 Flow Rate FiO2 01/20/18 23:23 95 16 119/62 (81) 97 01/20/18 20:18 97.2 102 16 139/73 (95) 97 01/20/18 16:16 98.1 105 18 119/64 (82) 98 01/20/18 15:00 94 01/20/18 14:00 100 01/20/18 13:00 98 01/20/18 12:07 97.9 94 20 110/5 (40) 99 01/20/18 12:01 94 01/20/18 11:01 97.7 95 18 105/70 (82) 98 01/20/18 11:00 98 01/20/18 10:00 118 01/20/18 09:00 112 01/20/18 08:56 97 Nasal Cannula 2.00 01/20/18 08:01 97.5 86 18 106/64 (78) 97 01/20/18 08:00 106 01/20/18 07:00 84 01/20/18 04:05 84 01/20/18 04:00 97.9 20 20 112/74 (87) 95 01/20/18 00:05 94 01/20/18 00:00 98.6 96 18 136/84 (101) 98 Result Diagram: 01/20/18 0553 01/20/18 0553 Laboratory Results Laboratory Tests Test 01/20/18 05:53 White Blood Count 2.2 TH/MM3 Red Blood Count 4.16 MIL/MM3 Hemoglobin 10.6 GM/DL Hematocrit 31.3 % Mean Corpuscular Volume 75.4 FL Mean Corpuscular Hemoglobin 25.6 PG Mean Corpuscular Hemoglobin Concent 33.9 % Red Cell Distribution Width 18.0 % Platelet Count 143 TH/MM3 Mean Platelet Volume 7.2 FL Neutrophils (%) (Auto) 78.2 % Lymphocytes (%) (Auto) 11.4 % Monocytes (%) (Auto) 7.4 % Eosinophils (%) (Auto) 2.3 % Basophils (%) (Auto) 0.7 % Neutrophils # (Auto) 1.7 TH/MM3 Lymphocytes # (Auto) 0.2 TH/MM3 Monocytes # (Auto) 0.2 TH/MM3 Eosinophils # (Auto) 0.1 TH/MM3 Basophils # (Auto) 0.0 TH/MM3 CBC Comment DIFF FINAL Differential Comment Activated Partial Thromboplast Time 39.9 SEC Blood Urea Nitrogen 17 MG/DL Creatinine 0.67 MG/DL Random Glucose 97 MG/DL Calcium Level 8.0 MG/DL Sodium Level 142 MEQ/L Potassium Level 3.1 MEQ/L Chloride Level 107 MEQ/L Carbon Dioxide Level 26.1 MEQ/L Anion Gap 9 MEQ/L Estimat Glomerular Filtration Rate 115 ML/MIN Administered Medications Medications (Trade) Dose Ordered Sig/Tirso Route PRN Reason Start Time Stop Time Status Last Admin Dose Admin Sodium Chloride (NS Flush) 2 ml BID IV FLUSH 01/19/18 21:00 01/20/18 08:01 Multi-Ingredient Mouthwash/Gargle (Magic Mouthwash Adult Liq) 10 ml QID PRN SWISH-SWAL pain with swallowing 01/19/18 15:15 01/20/18 17:09 Sertraline HCl (Zoloft) 25 mg DAILY PO 01/20/18 09:00 01/20/18 08:00 Apixaban (Eliquis) 5 mg BID PO 01/20/18 09:00 01/20/18 21:46 Diltiazem HCl (Cardizem) 60 mg Q6HR PO 01/20/18 00:00 01/20/18 21:46 Sodium Chloride 500 ml @ 50 mls/hr Q10H IV 01/20/18 16:15 01/21/18 02:14 01/20/18 17:02 Objective Remarks GENERAL: Well-nourished, well-developed patient. HEAD: Normocephalic. RESPIRATORY: No accessory muscle use. EXTREMITIES: No cyanosis, or edema. MUSCULOSKELETAL: Adequate muscle tone. NEUROLOGICAL: No obvious focal deficit. Awake, alert, and oriented x3. PSYCHIATRIC: Appropriate mood and affect; insight and judgment normal. Assessment/Plan Assessment 1.Stage IIIA NSCLC: currently undergoing treatment with concurrent chemotherapy and radiation therapy. At the end of treatment with 8 radiation sessions remaining. 2. Atrial fibrillation: rate controlled, on anticoagulation. Michelle Rios MD Jan 20, 2018 23:59
[2018-01-21] VITALS (31 sets, daily range): BP systolic 123–132; BP diastolic 57–81; PULSE 75–130; RESP 16–22; TEMP 97.4–98.8; O2SAT 97–99
[2018-01-21] MEDS: DILTIAZEM HCL 60 MG TAB PO SCH ×3 (05:58→12:00)
[2018-01-21] MEDS: NYSTAT/DIPHENHY/LIDO MOUTHWASH (Adult) 120ML SWISH-SWAL PRN ×3 (08:05→17:05)
[2018-01-21] MEDS: SODIUM CHLORIDE 0.9% FLUSH 10 ML FLUSH IV FLUSH SCH ×2 (08:42→21:00)
[2018-01-21] MEDS: SERTRALINE HCL 50 MG TAB PO SCH (08:44)
[2018-01-21] MEDS: APIXABAN 5 MG TABLET PO SCH ×2 (08:44→20:16)
[2018-01-21] MEDS ORDERED: POTASSIUM CHLORIDE 8 MEQ CONTROLLED RELEASE TAB PO ONE (10:30)
[2018-01-21] MEDS ORDERED: DILTIAZEM-CD 180 MG CAP ER PO ONE (13:45)
--- NOTE | 2018-01-21 15:11 | PD.CARD.PN ---
Subjective Subjective Remarks Doing well overnight Heart rates mildly up this morning, 90-110 Objective Medications Current Medications Medications (Trade) Dose Ordered Sig/Tirso Route Start Time Stop Time Status Last Admin (NS Flush) 2 ml UNSCH PRN IV FLUSH 01/19/18 15:15 (NS Flush) 2 ml BID IV FLUSH 01/19/18 21:00 01/21/18 08:42 (Tylenol) 650 mg Q4H PRN PO 01/19/18 15:15 (Zofran Inj) 4 mg Q6H PRN IVP 01/19/18 15:15 (Narcan Inj) 0.4 mg UNSCH PRN IV PUSH 01/19/18 15:15 (Milk Of Magnesia Liq) 30 ml Q12H PRN PO 01/19/18 15:15 (Senokot) 17.2 mg Q12H PRN PO 01/19/18 15:15 (Dulcolax Supp) 10 mg DAILY PRN RECTAL 01/19/18 15:15 (Lactulose Liq) 30 ml DAILY PRN PO 01/19/18 15:15 (Magic Mouthwash Adult Liq) 10 ml QID PRN SWISH-SWAL 01/19/18 15:15 01/21/18 12:13 (Zoloft) 25 mg DAILY PO 01/20/18 09:00 01/21/18 08:44 (Pill Splitter) 1 ea UNSCH PRN OTHER 01/19/18 15:15 (Eliquis) 5 mg BID PO 01/20/18 09:00 01/21/18 08:44 (Cardizem) 60 mg Q6HR PO 01/20/18 00:00 01/21/18 05:58 Vital Signs / I&O Vital Signs Date Time Temp Pulse Resp B/P (MAP) Pulse Ox O2 Delivery O2 Flow Rate FiO2 01/21/18 13:00 108 01/21/18 12:00 97 01/21/18 11:30 97.4 97 22 123/57 (79) 98 01/21/18 11:00 115 01/21/18 10:02 98 Nasal Cannula 2.00 01/21/18 10:00 98 01/21/18 09:00 96 01/21/18 08:00 92 01/21/18 07:05 98.8 98 22 129/81 (97) 99 01/21/18 07:00 92 01/21/18 07:00 98.8 98 22 129/81 (97) 99 01/21/18 06:00 94 125/75 (92) 01/21/18 06:00 104 01/21/18 05:00 95 01/21/18 04:00 86 01/21/18 04:00 89 01/21/18 03:33 106 16 123/66 (85) 99 01/21/18 03:00 89 01/21/18 03:00 76 01/21/18 02:00 86 01/21/18 01:00 90 01/21/18 00:00 90 01/21/18 00:00 90 01/20/18 23:23 95 16 119/62 (81) 97 01/20/18 23:00 90 01/20/18 22:00 92 01/20/18 21:00 94 01/20/18 20:18 97.2 102 16 139/73 (95) 97 01/20/18 20:00 98 01/20/18 20:00 116 18 19:00 94 01/20/18 16:16 98.1 105 18 119/64 (82) 98 I/O 01/20/1818 18 18 01/21/18 01/21/18 07:00 15:00 23:00 07:00 15:00 23:00 Intake Total 500 ml 620 ml Balance 500 ml 620 ml Intake Oral 500 ml 120 ml IV Total 500 ml # Voids 3 2 2 # Bowel Movements 1 Physical Exam GENERAL: NAD, AAOx3 SKIN: Warm and dry. HEAD: Atraumatic. Normocephalic. EYES: Pupils equal and round. No scleral icterus. No injection or drainage. ENT: No nasal bleeding or discharge. Mucous membranes pink and moist. NECK: Trachea midline. No JVD. CARDIOVASCULAR: Irregularly irregular RESPIRATORY: No accessory muscle use. Clear to auscultation. Breath sounds equal bilaterally. GASTROINTESTINAL: Abdomen soft, non-tender, nondistended. Hepatic and splenic margins not palpable. MUSCULOSKELETAL: Extremities without clubbing, cyanosis, or edema. No obvious deformities. NEUROLOGICAL: Awake and alert. No obvious cranial nerve deficits. Motor grossly within normal limits. Five out of 5 muscle strength in the arms and legs. Normal speech. PSYCHIATRIC: Appropriate mood and affect; insight and judgment normal. Assessment and Plan Problem List: (1) New onset atrial fibrillation ICD Codes: I48.91 - Unspecified atrial fibrillation Status: Acute (2) Lung cancer ICD Codes: C34.90 - Malignant neoplasm of unspecified part of unspecified bronchus or lung Assessment and Plan 1) New onset AFib Will increase to Cardizem 360mg daily, first dose now Will watch heart rates today, if stable after radiation, may be discharged from a cardiovascular standpoint CHADSVASc = 2 (agex2) Started on Eliquis 5mg BID 2) Will plan on echo outpatient 3) Lung CA, squamous cell stage 3 Radiation/Chemotherapy Its possible radiation lead to Afib, but more than likely due to overall age/ illness Will continue to treat Afib, would not hold back radiation therapy due to AFib Overall more benefit to radiation than harm as Afib can be controlled with medications Reyes Marie DO Jan 21, 2018 15:11
--- NOTE | 2018-01-21 19:24 | HHI.PR ---
Subjective Remarks Patient underwent radiation therapy to his central lung cancer again today. After 3 hours of watching he has not had atrial fibrillation recurrence. It is 7 PM and he has a treatment tomorrow at 11 AM. He requested to be observed overnight and to have his next radiation treatment in the morning prior to being discharged. Objective Vitals Vital Signs Date Time Temp Pulse Resp B/P (MAP) Pulse Ox O2 Delivery O2 Flow Rate FiO2 01/21/18 18:00 88 01/21/18 17:00 98 01/21/18 16:00 96 01/21/18 15:10 97.4 100 20 132/80 (97) 99 01/21/18 15:00 130 01/21/18 13:00 108 01/21/18 12:00 97 01/21/18 11:30 97.4 97 22 123/57 (79) 98 01/21/18 11:00 115 01/21/18 10:02 98 Nasal Cannula 2.00 01/21/18 10:00 98 01/21/18 09:00 96 01/21/18 08:00 92 01/21/18 07:05 98.8 98 22 129/81 (97) 99 01/21/18 07:00 92 01/21/18 07:00 98.8 98 22 129/81 (97) 99 01/21/18 06:00 94 125/75 (92) 01/21/18 06:00 104 01/21/18 05:00 95 01/21/18 04:00 86 01/21/18 04:00 89 01/21/18 03:33 106 16 123/66 (85) 99 01/21/18 03:00 89 01/21/18 03:00 76 01/21/18 02:00 86 01/21/18 01:00 90 01/21/18 00:00 90 01/21/18 00:00 90 01/20/18 23:23 95 16 119/62 (81) 97 01/20/18 23:00 90 01/20/18 22:00 92 01/20/18 21:00 94 01/20/18 20:18 97.2 102 16 139/73 (95) 97 01/20/18 20:00 98 01/20/18 20:00 116 I/O 4/17/18 4/17/18 01/20/18 01/21/18 01/21/18 01/21/18 06:59 14:59 22:59 06:59 14:59 22:59 Intake Total 500 ml 620 ml 720 ml Output Total 320 ml Balance 500 ml 620 ml 400 ml Intake Oral 500 ml 120 ml 720 ml IV Total 500 ml Output Urine Total 320 ml # Voids 3 2 2 # Bowel Movements 1 Result Diagram: 01/20/18 0553 01/20/18 0553 Objective Remarks GENERAL: Somewhat weak appearing man SKIN: Mild radiation lucas to chest and back HEAD: Normocephalic. EYES: No scleral icterus. No injection or drainage. NECK: Supple, trachea midline. No JVD or lymphadenopathy. CARDIOVASCULAR: Regular rate and rhythm without murmurs, gallops, or rubs. RESPIRATORY: Breath sounds equal bilaterally. No accessory muscle use. GASTROINTESTINAL: Abdomen soft, non-tender, nondistended. EXTREMITIES: No cyanosis, or edema. NEUROLOGICAL: Awake, alert, and oriented x 3. Non-focal. A/P Assessment and Plan Atrial fibrillation with RVR New onset, responded well to Cardizem drip and transitioned well to p.o. medicines due to nerve inflammation associated with radiation Continue to follow on telemetry Appreciate cardiology consult Squamous cell lung cancer Undergoing radiation treatments to central chest Radiation treatments resumed today, next treatment tomorrow Appreciate Oncology consult Radiation esophagitis Symptomatic relief with Magic mouthwash as needed at home Depression Continue home dose of Zoloft 25 mg daily DVT prophylaxis Heparin drip Discharge planning Discharge will be placed in the morning Lasha Moore MD Jan 21, 2018 19:24
[2018-01-22] VITALS (18 sets, daily range): BP systolic 90–135; BP diastolic 64–80; PULSE 87–105; RESP 16–24; TEMP 97.4–97.5; O2SAT 96–99
[2018-01-22] MEDS: NYSTAT/DIPHENHY/LIDO MOUTHWASH (Adult) 120ML SWISH-SWAL PRN ×2 (08:07→12:41)
[2018-01-22] MEDS: APIXABAN 5 MG TABLET PO SCH (08:08)
[2018-01-22] MEDS: SERTRALINE HCL 50 MG TAB PO SCH (08:08)
[2018-01-22] MEDS: SODIUM CHLORIDE 0.9% FLUSH 10 ML FLUSH IV FLUSH SCH (08:09)
[2018-01-22] MEDS ORDERED: DILTIAZEM-CD 180 MG CAP ER PO SCH (09:00)
[2018-01-22] MEDS ORDERED: APIX5TAB PO (12:53)
[2018-01-22] MEDS ORDERED: CARD180C5 PO (12:53)
--- NOTE | 2018-01-22 12:57 | HHI.DS ---
Discharge Summary Admission Date Jan 19, 2018 at 14:21 Discharge Date: Jan 22, 2018 Admitting Diagnosis new onset atrial fibrillation in RVR (1) New onset atrial fibrillation ICD Code: I48.91 - Unspecified atrial fibrillation Status: Acute (2) Lung cancer ICD Code: C34.90 - Malignant neoplasm of unspecified part of unspecified bronchus or lung Procedures none Brief History - From Admission 77-year-old male with a recent history of stage III squamous cell carcinoma of the lung has been undergoing a tapering round of radiation treatments to his central chest and presents to the ER today with new onset atrial fibrillation with RVR. Onset was associated with shortness of breath and dizziness, but he denies chest pain. He says that he has had a lot of redness and irritation associated with these radiation treatments, particularly to his central back. He denies any history of disease but he has not seen a primary care provider in many years. His general oncologist is Dr. Michelle Rios. His radiation oncologist is Dr. Shaw. CBC/BMP: 01/20/18 0553 01/20/18 0553 Significant Findings Laboratory Tests Test 01/19/18 22:00 01/20/18 05:53 Activated Partial Thromboplast Time 33.3 SEC (24.3-30.1) 39.9 SEC (24.3-30.1) White Blood Count 2.2 TH/MM3 (4.0-11.0) Red Blood Count 4.16 MIL/MM3 (4.50-5.90) Hemoglobin 10.6 GM/DL (13.0-17.0) Hematocrit 31.3 % (39.0-51.0) Mean Corpuscular Volume 75.4 FL (80.0-100.0) Mean Corpuscular Hemoglobin 25.6 PG (27.0-34.0) Red Cell Distribution Width 18.0 % (11.6-17.2) Platelet Count 143 TH/MM3 (150-450) Neutrophils (%) (Auto) 78.2 % (16.0-70.0) Neutrophils # (Auto) 1.7 TH/MM3 (1.8-7.7) Lymphocytes # (Auto) 0.2 TH/MM3 (1.0-4.8) Calcium Level 8.0 MG/DL (8.5-10.1) Potassium Level 3.1 MEQ/L (3.5-5.1) PE at Discharge GENERAL: Somewhat weak appearing man SKIN: Mild radiation lucas to chest and back HEAD: Normocephalic. EYES: No scleral icterus. No injection or drainage. NECK: Supple, trachea midline. No JVD or lymphadenopathy. CARDIOVASCULAR: Regular rate and rhythm without murmurs, gallops, or rubs. RESPIRATORY: Breath sounds equal bilaterally. No accessory muscle use. GASTROINTESTINAL: Abdomen soft, non-tender, nondistended. EXTREMITIES: No cyanosis, or edema. NEUROLOGICAL: Awake, alert, and oriented x 3. Non-focal. Hospital Course 77-year-old male who is undergoing radiation treatments to his central chest for stage III squamous cell carcinoma of the lung. He presented to the ER 3 days ago with shortness of breath and mild chest discomfort secondary to what was found to be atrial fibrillation with RVR. He was treated with IV Cardizem and heparin drip. His rhythm resolved within 24 hours and he was converted to p.o. Cardizem which has helped his rhythm. He had a test of radiation to his central chest yesterday and the Cardizem seems to have helped this rhythm quite well. Today on exam he has a regular sinus rhythm. His next radiation treatment is scheduled for this morning. We will watch him for 2 hours following the procedure and at that time he will be appropriate to leave the hospital as long as his rhythm remains acceptable. He will be establishing with Dr. Marie for follow-up. Pt Condition on Discharge: Good Discharge Disposition: Discharge Home Discharge Time: <= 30 minutes Discharge Instructions DIET: Follow Instructions for: As Tolerated, No Restrictions Activities you can perform: Regular-No Restrictions Lasha Moore MD Jan 22, 2018 12:57
--- NOTE | 2018-01-22 18:51 | PD.CARD.PN ---
Subjective Subjective Remarks Patient was seen earlier today, late entry note Doing well overnight Heart rates better 80-100 Objective Vital Signs / I&O Vital Signs Date Time Temp Pulse Resp B/P (MAP) Pulse Ox O2 Delivery O2 Flow Rate FiO2 01/22/18 13:00 101 01/22/18 12:00 94 01/22/18 11:32 97.5 89 24 135/64 (87) 97 01/22/18 11:00 105 01/22/18 10:00 96 01/22/18 09:52 97 Nasal Cannula 2.00 01/22/18 09:00 100 01/22/18 08:00 90 01/22/18 07:15 97.4 96 18 126/80 (95) 99 01/22/18 07:00 87 01/22/18 06:00 88 01/22/18 05:00 98 01/22/18 04:59 99 16 90/71 (77) 96 01/22/18 04:00 90 01/22/18 04:00 87 01/22/18 03:00 91 01/22/18 02:00 94 01/22/18 01:00 92 01/22/18 00:00 92 01/22/18 00:00 94 01/22/18 00:00 94 16 01/21/18 23:00 108 01/21/18 22:00 92 01/21/18 21:00 96 01/21/18 20:02 97.8 90 16 131/74 (93) 97 01/21/18 20:00 92 01/21/18 19:44 99 Nasal Cannula 2.00 01/21/18 19:37 75 01/21/18 19:00 118 I/O 01/21/18 01/21/18 01/21/18 01/22/18 01/22/18 01/22/18 07:00 15:00 23:00 07:00 15:00 23:00 Intake Total 620 ml 720 ml 240 ml Output Total 320 ml 800 ml Balance 620 ml 400 ml -560 ml Intake Oral 120 ml 720 ml 240 ml IV Total 500 ml Output Urine Total 320 ml 800 ml # Voids 2 Physical Exam GENERAL: NAD, AAOx3 SKIN: Warm and dry. HEAD: Atraumatic. Normocephalic. EYES: Pupils equal and round. No scleral icterus. No injection or drainage. ENT: No nasal bleeding or discharge. Mucous membranes pink and moist. NECK: Trachea midline. No JVD. CARDIOVASCULAR: Irregularly irregular RESPIRATORY: No accessory muscle use. Clear to auscultation. Breath sounds equal bilaterally. GASTROINTESTINAL: Abdomen soft, non-tender, nondistended. Hepatic and splenic margins not palpable. MUSCULOSKELETAL: Extremities without clubbing, cyanosis, or edema. No obvious deformities. NEUROLOGICAL: Awake and alert. No obvious cranial nerve deficits. Motor grossly within normal limits. Five out of 5 muscle strength in the arms and legs. Normal speech. PSYCHIATRIC: Appropriate mood and affect; insight and judgment normal. Assessment and Plan Problem List: (1) New onset atrial fibrillation ICD Codes: I48.91 - Unspecified atrial fibrillation Status: Acute (2) Lung cancer ICD Codes: C34.90 - Malignant neoplasm of unspecified part of unspecified bronchus or lung Assessment and Plan 1) New onset AFib Cardizem 360mg daily CHADSVASc = 2 (agex2) Started on Eliquis 5mg BID 2) Will plan on echo outpatient 3) Lung CA, squamous cell stage 3 Radiation/Chemotherapy Its possible radiation lead to Afib, but more than likely due to overall age/ illness Will continue to treat Afib, would not hold back radiation therapy due to AFib Overall more benefit to radiation than harm as Afib can be controlled with medications 4) Cardiovascularly stable for discharge Reyes Marie DO Jan 22, 2018 18:51
== END 2018-01-22 13:50 | disposition home or self-care (01) | DRG 309 ==
LOC: NEPE 11:52 → NEDH 14:21 → HCIS 20:12
PROVIDERS: ADMIT Family Medicine; ATTEND Family Medicine
DX: I48.91 Unspecified atrial fibrillation (principal); C34.90 Malignant neoplasm of unspecified part of unspecified bronchus or lung; J44.9 Chronic obstructive pulmonary disease, unspecified; F32.9 Major depressive disorder, single episode, unspecified; K20.8 Other esophagitis; D75.9 Disease of blood and blood-forming organs, unspecified; Z85.828 Personal history of other malignant neoplasm of skin; Z87.442 Personal history of urinary calculi; Z82.49 Family history of ischemic heart disease and other diseases of the circulatory system; Z87.891 Personal history of nicotine dependence; Z83.3 Family history of diabetes mellitus; Y84.2 Radiological procedure and radiotherapy as the cause of abnormal reaction of the patient, or of later complication, without mention of misadventure at the time of the procedure; T45.1X5A Adverse effect of antineoplastic and immunosuppressive drugs, initial encounter
CPT/HCPCS: 71046; 80048; 80053; 82550; 84443; 84484; 85025; 85610; 85730; 93005; 96374; J1644; J7040

== ENCOUNTER 2018-03-06 15:00 | Inpatient (IN) | payer BC ==
[2018-03-06] VITALS (7 sets, daily range): BP systolic 95–116; BP diastolic 54–60; PULSE 95–117; RESP 19–28; TEMP 97.5–97.9; O2SAT 90–93
[~2018-03-06] VITALS: Ht 182.9 cm; Wt 76.0 kg
[~2018-03-06 15:00] MED LIST changes: +APIX5TAB PO; +CARD180C5 PO; +MAGICADU2 SWISH-SWAL; +SYMB160A INH; +VENTAER INH; +ZOLO25TA PO
[2018-03-06] MEDS ORDERED: IOHEXOL 350 MG/ML 10 ML VIAL (for RAD DIAG) IVCONTRAST ONE (15:01)
[2018-03-06] MEDS: RESP: ALBUTEROL 2.5 MG/IPRATROPIUM 0.5 MG NEB (SCH) INH ×2 (15:30→15:31)
[2018-03-06] MEDS ORDERED: SODIUM CHLORIDE 0.9% FLUSH 10 ML FLUSH IVF PRN (15:30)
--- NOTE | 2018-03-06 15:38 | PD ---
HPI Chief Complaint: Respiratory Distress Time Seen by Provider: 15:09 Travel History International Travel<30 days: No Contact w/Intl Traveler<30days: No Traveled to known affect area: No History of Present Illness HPI Patient is a 77-year-old male with history of afib, COPD, stage III squamous cell carcinoma of the lung currently undergoing radiation and chemotherapy, presents the emergency room with complaints of shortness of breath. Patient reports that for the past 3 days, he has been short of breath at rest as well as on exertion. Reports that he has been following up with his oncologist, Dr. Michelle Rios, his radiation oncologist Dr. Shaw and his loan and credit manager Dr. Barrera. Reports that for the past 2 days, he has had a dry in a productive cough, he did follow-up with Dr. Barrera today and was told to go directly to the emergency room for treatment and admission to the hospital. Patient is currently taking eliquis 5mg bid for his afib diagnosis. PFSH Past Medical History Hx Anticoagulant Therapy: Yes (ELIQUIS) Atrial Fibrillation: Yes Depression: Yes Cancer: Yes (LUNG, SKIN CA) Cardiovascular Problems: Yes (A-FIB) Chemotherapy: Yes (6 WEEKS AGO) Diabetes: No Kidney Stones: Yes Musculoskeletal: No Neurologic: No Respiratory: Yes (STAGE 3 LUNG CA) Immunizations Current: No Radiation Therapy: Yes (PRESENT TIME) Past Surgical History Abdominal Surgery: Yes (appendectomy, ryan hernia repairs) AICD: No Appendectomy: Yes Joint Replacement: No Oral Surgery: Yes (TONSILLECTOMY) Pacemaker: No Tonsillectomy: Yes Social History Alcohol Use: Yes (rare ) Tobacco Use: No Substance Use: No Allergies-Medications (Allergen,Severity, Reaction): Coded Allergies: prednisone (Verified Allergy, Severe, Seizures, 03/06/18) Reported Meds & Prescriptions Reported Meds & Active Scripts Active Cardizem CD 24 HR (Diltiazem CD 24 HR) 180 Mg Caper 360 Mg PO DAILY 30 Days Eliquis (Apixaban) 5 Mg Tab 5 Mg PO BID 30 Days Reported Miralax Powder (Polyethylene Glycol 3350 Powder) 17 Gm Powd 17 Gm PO DAILY Mix and dissolve one measuring cap-ful (17 grams) in water or juice. Dulcolax Stool Softener (Docusate Sodium) 100 Mg Cap 100 Mg PO DAILY Ventolin Hfa 18 GM Inh (Albuterol Sulfate) 90 Mcg/Act Aer 2 Puff INH Q4-6H PRN Symbicort Inh (Budesonide/Formoterol Fumarate) 160-4.5 Mcg/Act Aero 1 Puff INH Q12HR Zoloft (Sertraline HCl) 25 Mg Tab 50 Mg PO DAILY Multiple Vitamin 1 Tab 1 Tab PO DAILY Review of Systems General / Constitutional: No: Fever Eyes: No: Visual changes HENT: No: Headaches Cardiovascular: Positive: Palpitations, No: Chest Pain or Discomfort Respiratory: Positive: Cough, Shortness of Breath, Wheezing Gastrointestinal: No: Abdominal Pain Genitourinary: No: Dysuria Musculoskeletal: No: Pain Skin: No Rash Neurologic: No: Weakness Psychiatric: No: Depression Endocrine: No: Polydipsia Hematologic/Lymphatic: No: Easy Bruising Physical Exam Narrative GENERAL: Moderate distress SKIN: Focused skin assessment warm/dry. HEAD: Atraumatic. Normocephalic. EYES: Pupils equal and round. No scleral icterus. No injection or drainage. ENT: No nasal bleeding or discharge. Mucous membranes pink and moist. NECK: Trachea midline. No JVD. CARDIOVASCULAR: Patient is tachycardic. No murmur appreciated. RESPIRATORY: patient with increased work of breathing on exam, he is tachypneic with scattered wheezing on exam. Breath sounds equal bilaterally. GASTROINTESTINAL: Abdomen soft, non-tender, nondistended. Hepatic and splenic margins not palpable. MUSCULOSKELETAL: No obvious deformities. No clubbing. No cyanosis. No edema. NEUROLOGICAL: Awake and alert. No obvious cranial nerve deficits. Motor grossly within normal limits. Normal speech. PSYCHIATRIC: Appropriate mood and affect; insight and judgment normal. Data Data Last Documented VS Vital Signs Date Time Temp Pulse Resp B/P (MAP) Pulse Ox O2 Delivery O2 Flow Rate FiO2 03/06/18 17:18 115 28 107/56 (73) 92 Nasal Cannula 3.00 03/06/18 15:06 97.5 Orders Orders Complete Blood Count With Diff (03/06/18 15:20) Comprehensive Metabolic Panel (03/06/18 15:20) B-Type Natriuretic Peptide (03/06/18 15:20) Act Partial Throm Time (Ptt) (03/06/18 15:20) Prothrombin Time / Inr (Pt) (03/06/18 15:20) Magnesium (Mg) (03/06/18 15:20) Ckmb (Isoenzyme) Profile (03/06/18 15:20) Troponin I (03/06/18 15:20) Arterial Blood Gas (Abg) (03/06/18 15:20) Urinalysis - C+S If Indicated (03/06/18 15:20) Blood Culture (03/06/18 15:20) Iv Access Insert/Monitor (03/06/18 15:20) Electrocardiogram (03/06/18 15:20) Ecg Monitoring (03/06/18 15:20) Oximetry (03/06/18 15:20) Oxygen Administration (03/06/18 15:20) Chest, Single Ap (03/06/18 15:20) Sodium Chloride 0.9% Flush (Ns Flush) (03/06/18 15:30) Albuterol-Ipratropium Neb (Duoneb Neb) (03/06/18 15:30) Lactic Acid Sepsis Protocol (03/06/18 15:23) Magnesium Sulfate 1 Gm Premix (Magnesium (03/06/18 15:30) Ckmb (Isoenzyme) Profile (03/06/18 15:34) Troponin I (03/06/18 15:34) Ceftriaxone Inj (Rocephin Inj) (03/06/18 16:45) Azithromycin Inj (Zithromax Inj) (03/06/18 16:45) Ct Pulmonary Angiogram (03/06/18 16:32) Sodium Chlor 0.9% 1000 Ml Inj (Ns 1000 M (03/06/18 17:15) Iohexol 350 Inj (Omnipaque 350 Inj) (03/06/18 15:01) Admit Order (Ed Use Only) (03/06/18 18:10) Labs Laboratory Tests Test 03/06/18 15:30 03/06/18 15:33 03/06/18 15:37 03/06/18 17:15 White Blood Count 10.2 TH/MM3 Red Blood Count 3.79 MIL/MM3 Hemoglobin 10.4 GM/DL Hematocrit 31.2 % Mean Corpuscular Volume 82.3 FL Mean Corpuscular Hemoglobin 27.3 PG Mean Corpuscular Hemoglobin Concent 33.2 % Red Cell Distribution Width 22.4 % Platelet Count 242 TH/MM3 Mean Platelet Volume 7.1 FL Neutrophils (%) (Auto) 83.6 % Lymphocytes (%) (Auto) 6.3 % Monocytes (%) (Auto) 9.3 % Eosinophils (%) (Auto) 0.4 % Basophils (%) (Auto) 0.4 % Neutrophils # (Auto) 8.5 TH/MM3 Lymphocytes # (Auto) 0.6 TH/MM3 Monocytes # (Auto) 0.9 TH/MM3 Eosinophils # (Auto) 0.0 TH/MM3 Basophils # (Auto) 0.0 TH/MM3 CBC Comment DIFF FINAL Differential Comment Prothrombin Time 12.0 SEC Prothromb Time International Ratio 1.2 RATIO Activated Partial Thromboplast Time 34.5 SEC Blood Urea Nitrogen 15 MG/DL Creatinine 0.95 MG/DL Random Glucose 125 MG/DL Total Protein 7.0 GM/DL Albumin 2.5 GM/DL Calcium Level 8.4 MG/DL Magnesium Level 2.4 MG/DL Alkaline Phosphatase 95 U/L Aspartate Amino Transf (AST/SGOT) 14 U/L Alanine Aminotransferase (ALT/SGPT) 24 U/L Total Bilirubin 0.5 MG/DL Sodium Level 137 MEQ/L Potassium Level 4.0 MEQ/L Chloride Level 102 MEQ/L Carbon Dioxide Level 24.5 MEQ/L Anion Gap 11 MEQ/L Estimat Glomerular Filtration Rate 77 ML/MIN Total Creatine Kinase 46 U/L Troponin I LESS THAN 0.02 NG/ML B-Type Natriuretic Peptide 131 PG/ML Lactic Acid Level 2.9 mmol/L Blood Gas Puncture Site RT RADIAL Blood Gas Patient Temperature 98.6 Blood Gas HCO3 24 mmol/L Blood Gas Base Excess 1.3 mmol/L Blood Gas Oxygen Saturation 90 % Arterial Blood pH 7.51 Arterial Blood Partial Pressure CO2 30 mmHg Arterial Blood Partial Pressure O2 60 mmHG Arterial Blood Oxygen Content 14.0 Vol % Arterial Blood Carboxyhemoglobin 2.5 % Arterial Blood Methemoglobin 0.3 % Blood Gas Hemoglobin 11.0 G/DL Oxygen Delivery Device NASAL CANNULA Blood Gas Liter Flow 2.5 L/M Urine Color DARK-YELLOW Urine Turbidity CLEAR Urine pH 6.0 Urine Specific [place] 1.024 Urine Protein 30 mg/dL Urine Glucose (UA) NEG mg/dL Urine Ketones NEG mg/dL Urine Occult Blood NEG Urine Nitrite NEG Urine Bilirubin NEG Urine Urobilinogen 2.0 MG/DL Urine Leukocyte Esterase NEG Urine WBC 3 /hpf Urine Squamous Epithelial Cells <1 /hpf Urine Hyaline Casts 2 /lpf Urine Mucus MANY /lpf Microscopic Urinalysis Comment CULT NOT INDICATED MDM Medical Decision Making Medical Screen Exam Complete: Yes Emergency Medical Condition: Yes Medical Record Reviewed: Yes Interpretation(s) Vital Signs Date Time Temp Pulse Resp B/P (MAP) Pulse Ox O2 Delivery O2 Flow Rate FiO2 03/06/18 15:24 93 Nasal Cannula 2.00 03/06/18 15:24 (68) Nasal Cannula 2.00 03/06/18 15:17 117 27 95/54 (68) 91 Nasal Cannula 2.00 03/06/18 15:11 112 33 95 Nasal Cannula 2.00 03/06/18 15:06 97.5 113 26 116/60 (78) 91 Differential Diagnosis Pneumonia, PE, bronchitis, COPD exacerbation, pneumothorax Narrative Course Patient is a 77 year old male with history of lung cancer, presents to the ER with c/o of sob x 3 days. He was sent to the ER by his loan and credit manager Dr. Barrera for evaluation, treatment and admission to the hospital. During the course of the patients emergency department visit, the patients history, examination, and differential diagnosis were reviewed with the patient. The patient was placed on a lunchroom monitor with oximetry and frequent blood pressure monitoring. The patient had an IV access obtained and blood work sent for analysis. A septic workup was initiated as patient is tachycardic with increased RR. he is also hypoxic with a pulse ox of 91% on room air - he is not on home oxygen The patient was initially provided IVF as well as duonebs, IV steroids were held as patient reports allergy to prednisone The patients laboratory studies were reviewed and remarkable for Laboratory Tests Test 03/06/18 15:30 03/06/18 15:33 03/06/18 15:37 03/06/18 17:15 White Blood Count 10.2 TH/MM3 (4.0-11.0) Red Blood Count 3.79 MIL/MM3 (4.50-5.90) Hemoglobin 10.4 GM/DL (13.0-17.0) Hematocrit 31.2 % (39.0-51.0) Mean Corpuscular Volume 82.3 FL (80.0-100.0) Mean Corpuscular Hemoglobin 27.3 PG (27.0-34.0) Mean Corpuscular Hemoglobin Concent 33.2 % (32.0-36.0) Red Cell Distribution Width 22.4 % (11.6-17.2) Platelet Count 242 TH/MM3 (150-450) Mean Platelet Volume 7.1 FL (7.0-11.0) Neutrophils (%) (Auto) 83.6 % (16.0-70.0) Lymphocytes (%) (Auto) 6.3 % (9.0-44.0) Monocytes (%) (Auto) 9.3 % (0.0-8.0) Eosinophils (%) (Auto) 0.4 % (0.0-4.0) Basophils (%) (Auto) 0.4 % (0.0-2.0) Neutrophils # (Auto) 8.5 TH/MM3 (1.8-7.7) Lymphocytes # (Auto) 0.6 TH/MM3 (1.0-4.8) Monocytes # (Auto) 0.9 TH/MM3 (0-0.9) Eosinophils # (Auto) 0.0 TH/MM3 (0-0.4) Basophils # (Auto) 0.0 TH/MM3 (0-0.2) CBC Comment DIFF FINAL Differential Comment Prothrombin Time 12.0 SEC (9.8-11.6) Prothromb Time International Ratio 1.2 RATIO Activated Partial Thromboplast Time 34.5 SEC (24.3-30.1) Blood Urea Nitrogen 15 MG/DL (7-18) Creatinine 0.95 MG/DL (0.60-1.30) Random Glucose 125 MG/DL (74-106) Total Protein 7.0 GM/DL (6.4-8.2) Albumin 2.5 GM/DL (3.4-5.0) Calcium Level 8.4 MG/DL (8.5-10.1) Magnesium Level 2.4 MG/DL (1.5-2.5) Alkaline Phosphatase 95 U/L (45-117) Aspartate Amino Transf (AST/SGOT) 14 U/L (15-37) Alanine Aminotransferase (ALT/SGPT) 24 U/L (12-78) Total Bilirubin 0.5 MG/DL (0.2-1.0) Sodium Level 137 MEQ/L (136-145) Potassium Level 4.0 MEQ/L (3.5-5.1) Chloride Level 102 MEQ/L (98-107) Carbon Dioxide Level 24.5 MEQ/L (21.0-32.0) Anion Gap 11 MEQ/L (5-15) Estimat Glomerular Filtration Rate 77 ML/MIN (>89) Total Creatine Kinase 46 U/L (39-308) Troponin I LESS THAN 0.02 NG/ML B-Type Natriuretic Peptide 131 PG/ML (0-100) Lactic Acid Level 2.9 mmol/L (0.4-2.0) Blood Gas Puncture Site RT RADIAL Blood Gas Patient Temperature 98.6 Blood Gas HCO3 24 mmol/L (22-26) Blood Gas Base Excess 1.3 mmol/L (-2-2) Blood Gas Oxygen Saturation 90 % (90-100) Arterial Blood pH 7.51 (7.380-7.420) Arterial Blood Partial Pressure CO2 30 mmHg (38-42) Arterial Blood Partial Pressure O2 60 mmHG (61-120) Arterial Blood Oxygen Content 14.0 Vol % (12.0-20.0) Arterial Blood Carboxyhemoglobin 2.5 % (0-4) Arterial Blood Methemoglobin 0.3 % (0-2) Blood Gas Hemoglobin 11.0 G/DL (12.0-16.0) Oxygen Delivery Device NASAL CANNULA Blood Gas Liter Flow 2.5 L/M Urine Color DARK-YELLOW (YELLW/STRAW) Urine Turbidity CLEAR (CLEAR) Urine pH 6.0 (5.0-8.5) Urine Specific [place] 1.024 (1.002-1.035) Urine Protein 30 mg/dL (NEG-TRACE) Urine Glucose (UA) NEG mg/dL (NEG) Urine Ketones NEG mg/dL (NEG) Urine Occult Blood NEG (NEG) Urine Nitrite NEG (NEG) Urine Bilirubin NEG (NEG) Urine Urobilinogen 2.0 MG/DL (LESS THAN Urine Leukocyte Esterase NEG (NEG) Urine WBC 3 /hpf (0-5) Urine Squamous Epithelial Cells <1 /hpf (0-5) Urine Hyaline Casts 2 /lpf (RARE) Urine Mucus MANY /lpf (OCC) Microscopic Urinalysis Comment CULT NOT INDICATED Radiology studies were reviewed and remarkable for Last Impressions CT Angiography 03/06/18 1572 Signed Impressions: CONCLUSION: 1. 5.8 x 4.5 cm mass in the posterior aspect of the right lower lobe. 1.8 cm l ymph node in the right harrison. Findings are concerning for malignancy. The exam a lso demonstrates an 8 mm nodule in the medial aspect of the right upper lobe. 2. Advanced COPD changes. 3. No pulmonary embolus identified. 4. Study is compared to a previous dated 10/03/2017 the overall size of the ma ss at the right lung base is slightly decreased. The nodule in the medial aspec t of the right upper lobe is slightly decreased in size as well. The effusion o n the right is new. 5. There has been interval worsening of the interstitial fibrotic change. Chest X-Ray 03/06/18 1520 Signed Impressions: CONCLUSION: Abnormal chest x-ray with increased interstitial changes in the right lower lob e. [id number] in good position. Patient feeling much better, plan to admit for copd exacerbation Physician Communication Physician Communication case reviewed with Dr. Maddox who accepts pt to service Diagnosis Primary Impression: COPD exacerbation Additional Impression: Hypoxia Admitting Information Admitting Physician Requests: Observation Juju Coon DO Mar 06, 2018 15:38
[2018-03-06 15:57] LABS: AUTOMATED NEUTROPHIL # 8.5 TH/MM3 (1.8-7.7); BASOPHIL % 0.4 % (0.0-2.0); EOSINOPHIL % 0.4 % (0.0-4.0); HEMATOCRIT 31.2 % (39.0-51.0); HEMOGLOBIN 10.4 GM/DL (13.0-17.0); LYMPH % 6.3 % (9.0-44.0); LYMPHOCYTE # 0.6 TH/MM3 (1.0-4.8); MEAN CELL VOLUME 82.3 FL (80.0-100.0); MEAN CORPUSCULAR HEMOGLOBIN 27.3 PG (27.0-34.0); MEAN CORPUSCULAR HGB CONC 33.2 % (32.0-36.0); MEAN PLATELET VOLUME 7.1 FL (7.0-11.0); MONO % 9.3 % (0.0-8.0); MONOCYTE # 0.9 TH/MM3 (0-0.9); NEUT % 83.6 % (16.0-70.0); PLATELET COUNT 242 TH/MM3 (150-450); RED BLOOD COUNT 3.79 MIL/MM3 (4.50-5.90); RED CELL DISTRIBUTION WIDTH 22.4 % (11.6-17.2); WHITE BLOOD COUNT 10.2 TH/MM3 (4.0-11.0)
[2018-03-06] MEDS: MAGNESIUM SULFATE 1 GM PREMIX 100 ML IV SCH ×2 (15:57→16:47)
--- NOTE | 2018-03-06 16:03 | RADRPT ---
EXAM DATE: 03/06/2018 3:58 PM EDT AGE/SEX: 77 years / Male INDICATIONS: Shortness of breath. CLINICAL DATA: This is the patient's initial encounter. Patient reports that signs and symptoms have been present for 1 day and indicates a pain score of 0/10. MEDICAL/SURGICAL HISTORY: Chronic obstructive pulmonary disease. Carcinoma, lung. Appendectomy . Tonsillectomy. COMPARISON: [facility], XR CHEST PA AND LAT, 03/06/2018. . FINDINGS: Coarse interstitial changes in the right lung. Minimal interstitial changes on the left. The heart an d pulmonary vascularity are normal. The portion of the bony skeleton visualized is unremarkable. CONCLUSION: Abnormal chest x-ray with increased interstitial changes in the right lower lobe. [id number] in go od position. Electronically signed by: Yamil Romero MD 03/06/2018 4:02 PM EDT
[2018-03-06 16:06] LABS: ALBUMIN 2.5 GM/DL (3.4-5.0); ALT (GPT) 24 U/L (12-78); AST (GOT) 14 U/L (15-37); BICARBONATE 24.5 MEQ/L (21.0-32.0); BLOOD UREA NITROGEN 15 MG/DL (7-18); CALCIUM 8.4 MG/DL (8.5-10.1); CHLORIDE 102 MEQ/L (98-107); CREATININE 0.95 MG/DL (0.60-1.30); GLOMERULAR FILTRATION RATE 77 ML/MIN (>89); GLUCOSE,RANDOM 125 MG/DL (74-106); MAGNESIUM 2.4 MG/DL (1.5-2.5); SODIUM (NA) 137 MEQ/L (136-145)
[2018-03-06 16:09] LABS: LACTIC ACID SEPSIS PROTOCOL 2.9 mmol/L (0.4-2.0)
[2018-03-06 16:10] LABS: ALKALINE PHOSPHATASE 95 U/L (45-117); TOTAL BILIRUBIN ADULT 0.5 MG/DL (0.2-1.0); TROPONIN I LESS THAN 0.02 NG/ML (0.02-0.05)
[2018-03-06] MEDS ORDERED: DULC100C PO (16:16)
[2018-03-06] MEDS ORDERED: MIRA3350 PO (16:16)
[2018-03-06 16:18] LABS: INTERNATIONAL NORMALIZED RATIO 1.2 RATIO
[2018-03-06] MEDS ORDERED: cefTRIAXone INJ 1,000 MG in SODIUM CHLORIDE 0.9% INJ 100 ML IV ONE (16:45)
[2018-03-06] MEDS ORDERED: AZITHROMYCIN INJ 500 MG in SODIUM CHLOR 0.9% 250 ML INJ 250 ML IV ONE (16:45)
[2018-03-06] MEDS ORDERED: SODIUM CHLOR 0.9% 1000 ML INJ 1,000 ML IV ONE (17:15)
[2018-03-06 17:46] LABS: BILIRUBIN, URINE NEG (NEG); BLOOD, URINE NEG (NEG); GLUCOSE,URINE NEG (NEG); HYALINE CAST, URINE 2 /lpf (RARE); KETONE, URINE NEG (NEG); MUCUS URINE MANY /lpf (OCC); NITRITE,URINE NEG (NEG); SQUAMOUS EPITHELIAL CELL URINE <1 /hpf (0-5); URINE COLOR DARK-YELLOW (YELLW/STRAW); URINE LEUKOCYTE ESTERASE NEG (NEG)
--- NOTE | 2018-03-06 18:01 | RADRPT ---
EXAM DATE: 03/06/2018 5:44 PM EDT AGE/SEX: 77 years / Male INDICATIONS: Shortness of breath for 3 days. CLINICAL DATA: This is the patient's initial encounter. Patient reports that signs and symptoms have been present for 3 days and indicates a pain score of 2/10. MEDICAL/SURGICAL HISTORY: Cardiovascular disease. Carcinoma, skin cancer. Stage 3 lung cancer. A ppendectomy. RADIATION DOSE: 16.75 CTDI (mGy) COMPARISON: PCI, CT CHEST W/ CONTRAST, 10/03/2017. . TECHNIQUE: Volumetric scanning was performed using a multi-row detector CT scanner during bolus infu muna of 75 ml Omnipaque 350 (iohexol) nonionic water-soluble contrast as a single exam dose. The loren a was post processed with a variety of visualization algorithms including full volume maximum intensi ty projection and sliding thin slab reformation. Using automated exposure control and adjustment of the mA and/or kV according to patient size, radiation dose was kept as low as reasonably achievable t o obtain optimal diagnostic quality images. FINDINGS: The examination is of adequate diagnostic quality. No large or central pulmonary embolus is identifie d. The heart is normal in size. There is mild atherosclerotic plaquing in the coronary arteries. No sign ificant mediastinal adenopathy is seen. The examination does demonstrate a 1.8 cm node in the right h carroll. Note is made of [id number] in place in the left chest. Examination of the pulmonary parenchyma demonstrates advanced COPD changes. There is a 5.8 x 4.5 cm m asslike density in the posterior aspect of the right lower lobe. There is central cavitation within t his. This would be concerning for malignancy. There is minimal pleural effusion on the right. The visualized osseous structures are grossly intact. The limited portions of upper abdomen visualized are unremarkable. CONCLUSION: 1. 5.8 x 4.5 cm mass in the posterior aspect of the right lower lobe. 1.8 cm lymph node in the right harrison. Findings are concerning for malignancy. The exam also demonstrates an 8 mm nodule in the media l aspect of the right upper lobe. 2. Advanced COPD changes. 3. No pulmonary embolus identified. 4. Study is compared to a previous dated 10/03/2017 the overall size of the mass at the right lung b ase is slightly decreased. The nodule in the medial aspect of the right upper lobe is slightly decrea sed in size as well. The effusion on the right is new. 5. There has been interval worsening of the interstitial fibrotic change. Electronically signed by: Edmund Romero MD 03/06/2018 6:00 PM EDT
[2018-03-06] MEDS ORDERED: MAGNESIUM HYDROXIDE SUSP 30 ML CUP PO PRN (18:15)
[2018-03-06] MEDS ORDERED: SENNOSIDES 8.6 MG TAB PO PRN (18:15)
[2018-03-06] MEDS ORDERED: SODIUM CHLORIDE 0.9% FLUSH 10 ML FLUSH IV FLUSH PRN (18:15)
[2018-03-06] MEDS ORDERED: BISACODYL 10 MG SUPP RECTAL PRN (18:15)
[2018-03-06] MEDS ORDERED: NALOXONE HCL 0.4 MG/ML AMP IV PUSH PRN (18:15)
[2018-03-06] MEDS ORDERED: LACTULOSE SYRUP 20 GM/30 ML CUP PO PRN (18:15)
[2018-03-06] MEDS: RESP: ALBUTEROL 2.5 MG/IPRATROPIUM 0.5 MG NEB (SCH) NEB (19:53)
[2018-03-06] MEDS ORDERED: methylPREDNISolone SOD SUCC 125 MG/2 ML VIAL IV PUSH ONE (20:45)
[2018-03-06] MEDS ORDERED: RESP: ALBUTEROL 2.5 MG/IPRATROPIUM 0.5 MG NEB (SCH) NEB ONE (20:45)
[2018-03-06] MEDS: DOCUSATE SODIUM 50 MG/SENNA 8.6 MG TAB PO SCH (21:05)
[2018-03-06] MEDS: SODIUM CHLORIDE 0.9% FLUSH 10 ML FLUSH IV FLUSH SCH (21:06)
--- NOTE | 2018-03-06 22:28 | HHI.HP ---
HPI Service [facility] Primary Care Physician Usha Kerr MD Admission Diagnosis COPD Exacerbation Diagnoses: Travel History International Travel<30 Days: No Contact w/Intl Traveler <30 Da: No Traveled to Known Affected Are: No History of Present Illness 77-year-old male with a past medical history significant for stage III non- small cell lung cancer, COPD and atrial fibrillation anticoagulated on Eliquis presents to the emergency department for the evaluation of 2 days of increasing shortness of breath. The patient was seen by his thermoforming operator, Dr. Mann, earlier today who was concerned about a pulmonary embolism and sent the patient to the emergency department for further evaluation. The patient denies any chest pain. He denies any abdominal pain. No nausea/vomiting/diarrhea. No fatigue. No lateralizing signs/symptoms. No fever/chills. Review of Systems Except as stated in HPI: all other systems reviewed are Neg Past Family Social History Past Medical History stage III non-small cell lung cancer, COPD and atrial fibrillation anticoagulated on Eliquis Past Surgical History Lung biopsy Bilateral hernia repair Tonsillectomy Appendectomy Reported Medications Reported Meds & Active Scripts Active Cardizem CD 24 HR (Diltiazem CD 24 HR) 180 Mg Caper 360 Mg PO DAILY 30 Days Eliquis (Apixaban) 5 Mg Tab 5 Mg PO BID 30 Days Reported Miralax Powder (Polyethylene Glycol 3350 Powder) 17 Gm Powd 17 Gm PO DAILY Mix and dissolve one measuring cap-ful (17 grams) in water or juice. Dulcolax Stool Softener (Docusate Sodium) 100 Mg Cap 100 Mg PO DAILY Ventolin Hfa 18 GM Inh (Albuterol Sulfate) 90 Mcg/Act Aer 2 Puff INH Q4-6H PRN Symbicort Inh (Budesonide/Formoterol Fumarate) 160-4.5 Mcg/Act Aero 1 Puff INH Q12HR Zoloft (Sertraline HCl) 25 Mg Tab 50 Mg PO DAILY Multiple Vitamin 1 Tab 1 Tab PO DAILY Allergies: Coded Allergies: prednisone (Verified Allergy, Severe, Seizures, 6/1/18) Family History Negative for CAD/DM Social History Quit tobacco in 09/2017. Rare alcohol. Denies illicit drugs. Physical Exam Vital Signs Vital Signs Date Time Temp Pulse Resp B/P (MAP) Pulse Ox O2 Delivery O2 Flow Rate FiO2 03/06/18 19:57 90 Nasal Cannula 3.00 03/06/18 19:33 Nasal Cannula 3.00 03/06/18 19:25 97.9 95 19 114/56 (75) 91 03/06/18 18:45 101 24 107/56 (73) 92 Nasal Cannula 3.00 03/06/18 17:18 115 28 107/56 (73) 92 Nasal Cannula 3.00 03/06/18 16:13 115 23 103/56 (72) 93 Nasal Cannula 3.00 03/06/18 15:24 93 Nasal Cannula 2.00 03/06/18 15:24 (68) Nasal Cannula 2.00 03/06/18 15:17 117 27 95/54 (68) 91 Nasal Cannula 2.00 03/06/18 15:11 112 33 95 Nasal Cannula 2.00 03/06/18 15:06 97.5 113 26 116/60 (78) 91 Physical Exam GENERAL: male sitting up in bed SKIN: No rashes, ecchymoses or lesions. Cool and dry. HEAD: Atraumatic. Normocephalic. No temporal or scalp tenderness. EYES: Pupils equal round and reactive. Extraocular motions intact. No scleral icterus. No injection or drainage. ENT: Nose without bleeding, purulent drainage or septal hematoma. Throat without erythema, tonsillar hypertrophy or exudate. Uvula midline. Airway patent. NECK: Trachea midline. No JVD or lymphadenopathy. Supple, nontender, no meningeal signs. CARDIOVASCULAR: Regular rate and rhythm without murmurs, gallops, or rubs. RESPIRATORY: Poor air movement. Bilateral crackles. GASTROINTESTINAL: Abdomen soft, non-tender, nondistended. No hepato-splenomegaly , or palpable masses. No guarding. MUSCULOSKELETAL: Extremities without clubbing, cyanosis, or edema. No joint tenderness, effusion, or edema noted. No calf tenderness. NEUROLOGICAL: Awake and alert. Cranial nerves II through XII intact. Motor and sensory grossly within normal limits. Normal speech. Laboratory Laboratory Tests Test 03/06/18 15:30 03/06/18 15:33 03/06/18 15:37 6/1/18 17:15 White Blood Count 10.2 Red Blood Count 3.79 Hemoglobin 10.4 Hematocrit 31.2 Mean Corpuscular Volume 82.3 Mean Corpuscular Hemoglobin 27.3 Mean Corpuscular Hemoglobin Concent 33.2 Red Cell Distribution Width 22.4 Platelet Count 242 Mean Platelet Volume 7.1 Neutrophils (%) (Auto) 83.6 Lymphocytes (%) (Auto) 6.3 Monocytes (%) (Auto) 9.3 Eosinophils (%) (Auto) 0.4 Basophils (%) (Auto) 0.4 Neutrophils # (Auto) 8.5 Lymphocytes # (Auto) 0.6 Monocytes # (Auto) 0.9 Eosinophils # (Auto) 0.0 Basophils # (Auto) 0.0 CBC Comment DIFF FINAL Differential Comment Prothrombin Time 12.0 Prothromb Time International Ratio 1.2 Activated Partial Thromboplast Time 34.5 Blood Urea Nitrogen 15 Creatinine 0.95 Random Glucose 125 Total Protein 7.0 Albumin 2.5 Calcium Level 8.4 Magnesium Level 2.4 Alkaline Phosphatase 95 Aspartate Amino Transf (AST/SGOT) 14 Alanine Aminotransferase (ALT/SGPT) 24 Total Bilirubin 0.5 Sodium Level 137 Potassium Level 4.0 Chloride Level 102 Carbon Dioxide Level 24.5 Anion Gap 11 Estimat Glomerular Filtration Rate 77 Total Creatine Kinase 46 Troponin I LESS THAN 0.02 B-Type Natriuretic Peptide 131 Lactic Acid Level 2.9 Blood Gas Puncture Site RT RADIAL Blood Gas Patient Temperature 98.6 Blood Gas HCO3 24 Blood Gas Base Excess 1.3 Blood Gas Oxygen Saturation 90 Arterial Blood pH 7.51 Arterial Blood Partial Pressure CO2 30 Arterial Blood Partial Pressure O2 60 Arterial Blood Oxygen Content 14.0 Arterial Blood Carboxyhemoglobin 2.5 Arterial Blood Methemoglobin 0.3 Blood Gas Hemoglobin 11.0 Oxygen Delivery Device NASAL CANNULA Blood Gas Liter Flow 2.5 Urine Color DARK-YELLOW Urine Turbidity CLEAR Urine pH 6.0 Urine Specific [place] 1.024 Urine Protein 30 Urine Glucose (UA) NEG Urine Ketones NEG Urine Occult Blood NEG Urine Nitrite NEG Urine Bilirubin NEG Urine Urobilinogen 2.0 Urine Leukocyte Esterase NEG Urine WBC 3 Urine Squamous Epithelial Cells <1 Urine Hyaline Casts 2 Urine Mucus MANY Microscopic Urinalysis Comment CULT NOT INDICATED Test 03/06/18 18:27 Lactic Acid Level 2.0 Date/Time Source Procedure Growth Status 03/06/18 15:30 Blood Peripheral Aerobic Blood Culture Pending Received 03/06/18 15:30 Blood Peripheral Anaerobic Blood Culture Pending Received Result Diagram: 03/06/18 1530 03/06/18 1530 Caprini VTE Risk Assessment Caprini VTE Risk Assessment: Mod/High Risk (score >= 2) Caprini Risk Assessment Model Point Value = 1 Point Value = 2 Point Value = 3 Point Value = 5 Age 41-60 Minor surgery BMI > 25 kg/m2 Swollen legs Varicose veins or History of unexplained or recurrent spontaneous Oral contraceptives or hormone replacement Sepsis (< 1 month) Serious lung disease, including pneumonia (< 1 month) Abnormal pulmonary function Acute myocardial infarction Congestive heart failure (< 1 month) History of inflammatory bowel disease Medical patient at bed rest Age 61-74 Arthroscopic surgery Major open surgery (> 45 min) Laparoscopic surgery (> 45 min) Malignancy Confined to bed (> 72 hours) Immobilizing plaster cast Central venous access Age >= 75 History of VTE Family history of VTE Factor V Leiden Prothrombin [id number] Lupus anticoagulant Anticardiolipin antibodies Elevated serum homocysteine Heparin-induced thrombocytopenia Other congenital or acquired thrombophilia Stroke (< 1 month) Elective arthroplasty Hip, pelvis, or leg fracture Acute spinal cord injury (< 1 month) Prophylaxis Regimen Total Risk Factor Score Risk Level Prophylaxis Regimen 0-1 Low Early ambulation 2 Moderate Order ONE of the following: *Sequential Compression Device (SCD) *Heparin 5000 units SQ BID 3-4 Higher Order ONE of the following medications: *Heparin 5000 units SQ TID *Enoxaparin/Lovenox 40 mg SQ daily (WT < 150 kg, CrCl > 30 mL/min) *Enoxaparin/Lovenox 30 mg SQ daily (WT < 150 kg, CrCl > 10-29 mL/min) *Enoxaparin/Lovenox 30 mg SQ BID (WT < 150 kg, CrCl > 30 mL/min) AND/OR *Sequential Compression Device (SCD) 5 or more Highest Order ONE of the following medications: *Heparin 5000 units SQ TID (Preferred with Epidurals) *Enoxaparin/Lovenox 40 mg SQ daily (WT < 150 kg, CrCl > 30 mL/min) *Enoxaparin/Lovenox 30 mg SQ daily (WT < 150 kg, CrCl > 10-29 mL/min) *Enoxaparin/Lovenox 30 mg SQ BID (WT < 150 kg, CrCl > 30 mL/min) AND *Sequential Compression Device (SCD) Assessment and Plan Assessment and Plan Assessment/plan: 1. Shortness of breath/COPD exacerbation/SIRS CT pulmonary angiogram negative for PE Patient tachycardic with elevated lactic acid Patient with increased work of breathing and worsening shortness of breath WBC 10.2, previously leukopenic Azithromycin/Rocephin Duo nebs IV steroids Supplemental oxygen as needed (on 2 L nasal cannula at home) 2. Atrial fibrillation Continue anticoagulation with Eliquis Continue home medications 3. Non-small cell lung cancer Completed radiation therapy approximately 3-4 weeks ago Last chemotherapy approximately 3 weeks ago Medical oncology consulted, appreciate recommendations FEN Heart healthy diet Electrolytes: Monitor and replete as needed Flor Physician Certification 2 Midnight Certification Type: Admission for Inpatient Services Order for Inpatient Services The services are ordered in accordance with Medicare regulations or non- Medicare payer requirements, as applicable. In the case of services not specified as inpatient-only, they are appropriately provided as inpatient services in accordance with the 2-midnight benchmark. Estimated LOS (days): 2 2 days is the estimated time the patient will need to remain in the hospital, assuming treatment plan goals are met and no additional complications. Post-Hospital Plan: Not yet determined Juju Choe MD Mar 06, 2018 22:28
[2018-03-06 23:02] LABS: TROPONIN I LESS THAN 0.02 NG/ML (0.02-0.05)
[2018-03-07] VITALS (7 sets, daily range): BP systolic 95–108; BP diastolic 50–59; PULSE 87–110; RESP 18–20; TEMP 97.2–97.8; O2SAT 92–94
[2018-03-07 07:31] LABS: AUTOMATED NEUTROPHIL # 6.3 TH/MM3 (1.8-7.7); BASOPHIL % 0.1 % (0.0-2.0); HEMATOCRIT 29.3 % (39.0-51.0); HEMOGLOBIN 9.8 GM/DL (13.0-17.0); LYMPH % 4.7 % (9.0-44.0); LYMPHOCYTE # 0.3 TH/MM3 (1.0-4.8); MEAN CELL VOLUME 82.2 FL (80.0-100.0); MEAN CORPUSCULAR HEMOGLOBIN 27.5 PG (27.0-34.0); MEAN CORPUSCULAR HGB CONC 33.5 % (32.0-36.0); MEAN PLATELET VOLUME 7.2 FL (7.0-11.0); MONO % 1.3 % (0.0-8.0); MONOCYTE # 0.1 TH/MM3 (0-0.9); NEUT % 93.9 % (16.0-70.0); PLATELET COUNT 213 TH/MM3 (150-450); RED BLOOD COUNT 3.56 MIL/MM3 (4.50-5.90); RED CELL DISTRIBUTION WIDTH 21.8 % (11.6-17.2); WHITE BLOOD COUNT 6.7 TH/MM3 (4.0-11.0)
[2018-03-07 07:47] LABS: BICARBONATE 24.1 MEQ/L (21.0-32.0); CALCIUM 8.2 MG/DL (8.5-10.1); CREATININE 0.71 MG/DL (0.60-1.30)
[2018-03-07] MEDS: RESP: ALBUTEROL 2.5 MG/IPRATROPIUM 0.5 MG NEB (SCH) NEB ×3 (08:00→21:15)
[2018-03-07] MEDS: DOCUSATE SODIUM 50 MG/SENNA 8.6 MG TAB PO SCH ×2 (08:39→20:29)
[2018-03-07] MEDS: APIXABAN 5 MG TABLET PO SCH ×2 (08:40→20:29)
[2018-03-07] MEDS: methylPREDNISolone SOD SUCC 40 MG/1 ML VIAL IV PUSH SCH ×2 (08:40→15:56)
[2018-03-07] MEDS: SERTRALINE HCL 50 MG TAB PO SCH (08:40)
[2018-03-07] MEDS: DILTIAZEM-CD 180 MG CAP ER PO SCH (08:40)
[2018-03-07] MEDS: SODIUM CHLORIDE 0.9% FLUSH 10 ML FLUSH IV FLUSH SCH ×2 (08:40→20:29)
[2018-03-07] MEDS: BUDESONIDE-FORMOTEROL 160/4.5 MCG INHALER INH SCH ×2 (08:52→20:30)
[2018-03-07] MEDS: MULTIVITAMIN TAB PO SCH (09:00)
--- NOTE | 2018-03-07 09:35 | HHI.PR ---
Subjective Remarks Follow-up visit COPD exacerbation, non-small cell lung cancer. Patient seen and examined today sitting in bed. Reports he is doing a lot better. Continue with O2 nasal cannula. States that he has home O2 that he used continuously. Otherwise breathing has improved. Denies pain and discomfort. Denies chest pain , palpitations, headaches, dizziness. Denies fevers, chills, n/v/d. Denies dysuria. Objective Vitals Vital Signs Date Time Temp Pulse Resp B/P (MAP) Pulse Ox O2 Delivery O2 Flow Rate FiO2 03/07/18 08:00 Nasal Cannula 3.00 03/07/18 08:00 97.7 87 18 97/50 (66) 94 03/07/18 04:00 97.8 87 20 95/52 (66) 94 03/07/18 00:00 97.5 100 20 108/57 (74) 92 03/06/18 19:57 90 Nasal Cannula 3.00 03/06/18 19:33 Nasal Cannula 3.00 03/06/18 19:25 97.9 95 19 114/56 (75) 91 03/06/18 18:45 101 24 107/56 (73) 92 Nasal Cannula 3.00 03/06/18 17:18 115 28 107/56 (73) 92 Nasal Cannula 3.00 03/06/18 16:13 115 23 103/56 (72) 93 Nasal Cannula 3.00 03/06/18 15:24 93 Nasal Cannula 2.00 03/06/18 15:24 (68) Nasal Cannula 2.00 03/06/18 15:17 117 27 95/54 (68) 91 Nasal Cannula 2.00 03/06/18 15:11 112 33 95 Nasal Cannula 2.00 03/06/18 15:06 97.5 113 26 116/60 (78) 91 I/O 03/06/18 03/06/18 03/06/18 03/07/18 03/07/18 03/07/18 07:00 15:00 23:00 07:00 15:00 23:00 Intake Total 1550 ml 480 ml Balance 1550 ml 480 ml Intake Oral 480 ml IV Total 1550 ml # Voids 2 # Bowel Movements 1 0 Result Diagram: 03/07/18 0626 03/07/18 [address] Angiography 03/06/18 1632 Signed Impressions: CONCLUSION: 1. 5.8 x 4.5 cm mass in the posterior aspect of the right lower lobe. 1.8 cm l ymph node in the right harrison. Findings are concerning for malignancy. The exam a lso demonstrates an 8 mm nodule in the medial aspect of the right upper lobe. 2. Advanced COPD changes. 3. No pulmonary embolus identified. 4. Study is compared to a previous dated 10/03/2017 the overall size of the ma ss at the right lung base is slightly decreased. The nodule in the medial aspec t of the right upper lobe is slightly decreased in size as well. The effusion o n the right is new. 5. There has been interval worsening of the interstitial fibrotic change. Chest X-Ray 03/06/18 1520 Signed Impressions: CONCLUSION: Abnormal chest x-ray with increased interstitial changes in the right lower lob e. [id number] in good position. Objective Remarks GENERAL: This is a thin appearing, well-developed patient, in no apparent distress. SKIN: Warm and dry. HEENT: Normocephalic. Pupils equal round and reactive. Nose without bleeding. Airway patent. NECK: Trachea midline. No JVD. Supple. CARDIOVASCULAR: Regular rate and rhythm without murmurs, gallops, or rubs. RESPIRATORY: Mild fine crackles right base. No wheezes, rales, or rhonchi. GASTROINTESTINAL: Abdomen soft, non-tender, nondistended. Bowel Sounds normoactive x4. MUSCULOSKELETAL: Extremities without clubbing, cyanosis, or edema. NEUROLOGICAL: Awake and alert. Oriented to time, place, person. No focal neuro deficit. Moves all extremities. Normal speech. A/P Assessment and Plan 77-year-old male with a past medical history significant for stage III non- small cell lung cancer, COPD and atrial fibrillation anticoagulated on Eliquis presents to the emergency department for the evaluation of 2 days of increasing shortness of breath. COPD exacerbation, SIRS -CT angio negative for PE -Continue azithromycin, Rocephin -Continue duo nebs scheduled and as needed -Continue IV steroids Solu-Medrol. Will taper dose to Medrol Dosepak. Patient states he is allergic to prednisone reaction noted as seizure -Continue supplemental O2, keep O2 sat greater than 90% -Patient continues to be treated with non-small cell cancer with last chemotherapy approximately 3 weeks ago Atrial fibrillation -Continue anticoagulation with Eliquis -Continue home medications Non-small cell lung cancer -Completed radiation therapy approximately 3-4 weeks ago -Last chemotherapy approximately 3 weeks ago -Medical oncology consulted, appreciate recommendations DVT prop Eliquis Discharge Planning Plan to DC home when clinically improved Rick Bay Mar 07, 2018 09:35
[2018-03-07 09:49] LABS: OVALOCYTES 1+ (NORMAL); TEARDROP RBCS 1+ (NORMAL)
--- NOTE | 2018-03-07 13:58 | EKG ---
Date Performed: 03/06/2018 Time Performed: 15:25:51 PTAGE: 77 years EKG: SINUS TACHYCARDIA ABNORMAL RHYTHM ECG PREVIOUS TRACING : 01/20/2018 06.19 Since previous tracing, heart rate is somewhat slower and P ACs have resolved. DOCTOR: Adam Taylor Interpretating Date/Time 03/07/2018 13:58:18
[2018-03-07] MEDS ORDERED: cefTRIAXone INJ 1,000 MG in SODIUM CHLORIDE 0.9% INJ 100 ML IV SCH (16:00)
[2018-03-07] MEDS ORDERED: AZITHROMYCIN INJ 500 MG in SODIUM CHLOR 0.9% 250 ML INJ 250 ML IV SCH (17:00)
[2018-03-08 00:10] VITALS: BP 124/67; PULSE 97; RESP 19; TEMP 98.1; O2SAT 90
[2018-03-08] MEDS: methylPREDNISolone SOD SUCC 40 MG/1 ML VIAL IV PUSH SCH ×2 (00:40→08:49)
[2018-03-08 03:08] VITALS: BP 103/58; PULSE 94; RESP 19; TEMP 98.1; O2SAT 92
[2018-03-08 08:00] VITALS: BP 116/66; PULSE 89; RESP 18; TEMP 97.3; O2SAT 94
[2018-03-08] MEDS: RESP: ALBUTEROL 2.5 MG/IPRATROPIUM 0.5 MG NEB (SCH) NEB (08:00)
[2018-03-08] MEDS: DOCUSATE SODIUM 50 MG/SENNA 8.6 MG TAB PO SCH (08:49)
[2018-03-08] MEDS: APIXABAN 5 MG TABLET PO SCH (08:49)
[2018-03-08] MEDS: BUDESONIDE-FORMOTEROL 160/4.5 MCG INHALER INH SCH (08:49)
[2018-03-08] MEDS: SODIUM CHLORIDE 0.9% FLUSH 10 ML FLUSH IV FLUSH SCH (08:49)
[2018-03-08] MEDS: DILTIAZEM-CD 180 MG CAP ER PO SCH (08:49)
[2018-03-08] MEDS: SERTRALINE HCL 50 MG TAB PO SCH (08:50)
[2018-03-08] MEDS: MULTIVITAMIN TAB PO SCH (08:50)
--- NOTE | 2018-03-08 09:36 | HHI.PR ---
Subjective Remarks Follow-up visit COPD exacerbation, non-small cell lung cancer. Patient seen and examined today. States no acute issues overnight. Significantly improved feeling. Continues to have occasional shortness of breath and dyspnea with exertion. On O2 nasal cannula. Patient states this is his baseline he gets short of breath if he does activities. Denies pain and discomfort. Denies chest pain, palpitations, headaches, dizziness. Denies fevers, chills, n/v/d. Denies dysuria. Objective Vitals Vital Signs Date Time Temp Pulse Resp B/P (MAP) Pulse Ox O2 Delivery O2 Flow Rate FiO2 03/08/18 09:10 Nasal Cannula 3.00 03/08/18 08:00 97.3 89 18 116/66 (83) 94 03/08/18 07:49 Nasal Cannula 3.00 03/08/18 03:08 98.1 94 19 103/58 (73) 92 03/08/18 00:40 95 Nasal Cannula 3.00 03/08/18 00:10 98.1 97 19 124/67 (86) 90 03/07/18 21:15 92 Nasal Cannula 3.00 03/07/18 20:15 Nasal Cannula 3.00 03/07/18 19:00 97.4 110 19 104/58 (73) 94 03/07/18 16:00 97.2 103 19 97/51 (66) 92 03/07/18 12:00 97.6 92 18 108/59 (75) 93 03/07/18 09:43 Nasal Cannula 3.00 I/O 03/07/18 03/07/18 03/07/18 03/08/18 03/08/18 03/08/18 07:00 15:00 23:00 07:00 15:00 23:00 Intake Total 480 ml 1150 ml 360 ml Balance 480 ml 1150 ml 360 ml Intake Oral 480 ml 800 ml 360 ml IV Total 350 ml # Voids 2 2 3 # Bowel Movements 0 1 0 Result Diagram: 03/07/1862503/07/18 [address] Angiography 03/06/18 1632 Signed Impressions: CONCLUSION: 1. 5.8 x 4.5 cm mass in the posterior aspect of the right lower lobe. 1.8 cm l ymph node in the right harrison. Findings are concerning for malignancy. The exam a lso demonstrates an 8 mm nodule in the medial aspect of the right upper lobe. 2. Advanced COPD changes. 3. No pulmonary embolus identified. 4. Study is compared to a previous dated 10/03/2017 the overall size of the ma ss at the right lung base is slightly decreased. The nodule in the medial aspec t of the right upper lobe is slightly decreased in size as well. The effusion o n the right is new. 5. There has been interval worsening of the interstitial fibrotic change. Chest X-Ray 03/06/18 1520 Signed Impressions: CONCLUSION: Abnormal chest x-ray with increased interstitial changes in the right lower lob e. [id number] in good position. Objective Remarks GENERAL: This is a thin appearing, well-developed patient, in no apparent distress. SKIN: Warm and dry. HEENT: Normocephalic. Pupils equal round and reactive. Nose without bleeding. Airway patent. NECK: Trachea midline. No JVD. Supple. CARDIOVASCULAR: Regular rate and rhythm without murmurs, gallops, or rubs. RESPIRATORY: Mild fine crackles base. No wheezes, rales, or rhonchi. GASTROINTESTINAL: Abdomen soft, non-tender, nondistended. Bowel Sounds normoactive x4. MUSCULOSKELETAL: Extremities without clubbing, cyanosis, or edema. NEUROLOGICAL: Awake and alert. Oriented to time, place, person. No focal neuro deficit. Moves all extremities. Normal speech. A/P Assessment and Plan 77-year-old male with a past medical history significant for stage III non- small cell lung cancer, COPD and atrial fibrillation anticoagulated on Eliquis presents to the emergency department for the evaluation of 2 days of increasing shortness of breath. COPD exacerbation, SIRS -CT angio negative for PE -Continue azithromycin, Rocephin. Switch azithromycin to p.o. -Continue duo nebs scheduled and as needed -Continue IV steroids Solu-Medrol. Switch over IV Solu-Medrol to Medrol dose 32 mg 7 days as per GOLD standard. Patient states he is allergic to prednisone reaction noted as seizure -Continue supplemental O2, keep O2 sat greater than 90% -Patient continues to be treated with non-small cell cancer with last chemotherapy approximately 3 weeks ago Atrial fibrillation -Continue anticoagulation with Eliquis -Continue home medications Non-small cell lung cancer -Completed radiation therapy approximately 3-4 weeks ago -Last chemotherapy approximately 3 weeks ago -Medical oncology consulted, appreciate recommendations DVT prop Eliquis Discharge Planning Plan to DC home today when clinically improved Rick Bay Mar 08, 2018 09:36
[2018-03-08] MEDS ORDERED: AZITHROMYCIN 250 MG TAB PO SCH (10:00)
--- NOTE | 2018-03-08 10:38 | HHI.DS ---
Discharge Summary Admission Date Mar 06, 2018 at 18:29 Discharge Date: Mar 08, 2018 Admitting Diagnosis COPD Exacerbation (1) COPD exacerbation ICD Code: J44.1 - Chronic obstructive pulmonary disease with (acute) exacerbation Status: Acute Procedures None Brief History - From Admission 77-year-old male with a past medical history significant for stage III non- small cell lung cancer, COPD and atrial fibrillation anticoagulated on Eliquis presents to the emergency department for the evaluation of 2 days of increasing shortness of breath. The patient was seen by his gaggerman, Dr. Mann, earlier today who was concerned about a pulmonary embolism and sent the patient to the emergency department for further evaluation. The patient denies any chest pain. He denies any abdominal pain. No nausea/vomiting/diarrhea. No fatigue. No lateralizing signs/symptoms. No fever/chills. CBC/BMP: 03/07/18 0626 03/07/18 0626 Significant Findings Laboratory Tests Test 03/06/18 15:30 03/06/18 15:33 03/06/18 15:37 03/06/18 17:15 Red Blood Count 3.79 MIL/MM3 (4.50-5.90) Hemoglobin 10.4 GM/DL (13.0-17.0) Hematocrit 31.2 % (39.0-51.0) Red Cell Distribution Width 22.4 % (11.6-17.2) Neutrophils (%) (Auto) 83.6 % (16.0-70.0) Lymphocytes (%) (Auto) 6.3 % (9.0-44.0) Monocytes (%) (Auto) 9.3 % (0.0-8.0) Neutrophils # (Auto) 8.5 TH/MM3 (1.8-7.7) Lymphocytes # (Auto) 0.6 TH/MM3 (1.0-4.8) Prothrombin Time 12.0 SEC (9.8-11.6) Activated Partial Thromboplast Time 34.5 SEC (24.3-30.1) Random Glucose 125 MG/DL (74-106) Albumin 2.5 GM/DL (3.4-5.0) Calcium Level 8.4 MG/DL (8.5-10.1) Aspartate Amino Transf (AST/SGOT) 14 U/L (15-37) Estimat Glomerular Filtration Rate 77 ML/MIN (>89) Troponin I LESS THAN 0.02 NG/ML B-Type Natriuretic Peptide 131 PG/ML (0-100) Lactic Acid Level 2.9 mmol/L (0.4-2.0) Arterial Blood pH 7.51 (7.380-7.420) Arterial Blood Partial Pressure CO2 30 mmHg (38-42) Arterial Blood Partial Pressure O2 60 mmHG (61-120) Blood Gas Hemoglobin 11.0 G/DL (12.0-16.0) Urine Color DARK-YELLOW (YELLW/STRAW) Urine Protein 30 mg/dL (NEG-TRACE) Urine Mucus MANY /lpf (OCC) Test 03/06/18 18:27 03/06/18 22:15 03/07/18 06:26 Troponin I LESS THAN 0.02 NG/ML Red Blood Count 3.56 MIL/MM3 (4.50-5.90) Hemoglobin 9.8 GM/DL (13.0-17.0) Hematocrit 29.3 % (39.0-51.0) Red Cell Distribution Width 21.8 % (11.6-17.2) Neutrophils (%) (Auto) 93.9 % (16.0-70.0) Lymphocytes (%) (Auto) 4.7 % (9.0-44.0) Lymphocytes # (Auto) 0.3 TH/MM3 (1.0-4.8) Tear Drop Cells 1+ (NORMAL) Ovalocytes 1+ (NORMAL) Random Glucose 179 MG/DL (74-106) Calcium Level 8.2 MG/DL (8.5-10.1) Imaging Last Impressions CT Angiography 03/06/18 1632 Signed Impressions: CONCLUSION: 1. 5.8 x 4.5 cm mass in the posterior aspect of the right lower lobe. 1.8 cm l ymph node in the right harrison. Findings are concerning for malignancy. The exam a lso demonstrates an 8 mm nodule in the medial aspect of the right upper lobe. 2. Advanced COPD changes. 3. No pulmonary embolus identified. 4. Study is compared to a previous dated 10/03/2017 the overall size of the ma ss at the right lung base is slightly decreased. The nodule in the medial aspec t of the right upper lobe is slightly decreased in size as well. The effusion o n the right is new. 5. There has been interval worsening of the interstitial fibrotic change. Chest X-Ray 03/06/18 1520 Signed Impressions: CONCLUSION: Abnormal chest x-ray with increased interstitial changes in the right lower lob e. Oysuwn-f-[id number] in good position. PE at Discharge GENERAL: This is a thin appearing, well-developed patient, in no apparent distress. SKIN: Warm and dry. HEENT: Normocephalic. Pupils equal round and reactive. Nose without bleeding. Airway patent. NECK: Trachea midline. No JVD. Supple. CARDIOVASCULAR: Regular rate and rhythm without murmurs, gallops, or rubs. RESPIRATORY: Mild fine crackles base. No wheezes, rales, or rhonchi. GASTROINTESTINAL: Abdomen soft, non-tender, nondistended. Bowel Sounds normoactive x4. MUSCULOSKELETAL: Extremities without clubbing, cyanosis, or edema. NEUROLOGICAL: Awake and alert. Oriented to time, place, person. No focal neuro deficit. Moves all extremities. Normal speech. Pt update on day of discharge Follow-up visit COPD exacerbation, non-small cell lung cancer. Patient seen and examined today. States no acute issues overnight. Significantly improved feeling. Continues to have occasional shortness of breath and dyspnea with exertion. On O2 nasal cannula. Patient states this is his baseline he gets short of breath if he does activities. Denies pain and discomfort. Denies chest pain, palpitations, headaches, dizziness. Denies fevers, chills, n/v/d. Denies dysuria. Hospital Course 77-year-old male with a past medical history significant for stage III non- small cell lung cancer, COPD and atrial fibrillation anticoagulated on Eliquis presents to the emergency department for the evaluation of 2 days of increasing shortness of breath. The patient was seen by his gaggerman, Dr. Lainez, earlier who was concerned about a pulmonary embolism and sent the patient to the emergency department for further evaluation. CT angio showed no pulmonary embolus identified. Advanced COPD changes. There is also 5.8 x 4.5 cm mass in the posterior aspect of the right lower lobe. 1.8 cm lymph node in the right harrison. Findings are concerning for malignancy. Exam also demonstrates an 8 mm nodule in the medial aspect of the right upper lobe. Study was compared to previous dated 10/03/17 overall size of the mass at the right lung base is slightly decreased. A nodule in the medial aspect of the right upper lobe is slightly decreased in size as well. Effusion on the right is new. There has been interval worsening of interstitial fibrotic change. Chest x-ray showed abnormal chest x-ray with increased interstitial change in the right lower lobe. Zurile-l-Lxtb in good position. He was treated with IV azithromycin and I recently try Exelon. He was also given Solu-Medrol IV. He continued his home medication Eliquis, Symbicort. He is also on duo nebs. Patient appears to be clinically improved. He was also seen and evaluated by oncology hematology and wanted him to follow-up and outpatient. Plan to discharge home with follow-up with his PCP and Dr. Lainez. Patient has met maximal benefits of hospitalization. Clinically stable for discharge. Pt Condition on Discharge: Stable Discharge Disposition: Disch w/ Home Health Serv Discharge Time: > 30 minutes Discharge Instructions DIET: Follow Instructions for: Heart Healthy Diet Activities you can perform: Regular-No Restrictions Follow up Referrals: Oncology/Hematology - 1 Week with Kashif Gray MD PCP Follow-up - 2-3 Days Pulmonology - 3-5 Days with Usha Kerr MD New Medications: Azithromycin (Azithromycin) 250 Mg Tab 500 MG PO DAILY for Infection, #3 TAB Methylprednisolone (Medrol) 16 Mg Tab 32 MG PO DAILY for COPD, #6 TAB Continued Medications: Albuterol 18 GM Inh (Ventolin Hfa 18 GM Inh) 90 Mcg/Act Aer 2 PUFF INH Q4-6H PRN for SHORTNESS OF BREATH, #1 INHALER 0 Refills Apixaban (Eliquis) 5 Mg Tab 5 MG PO BID for Blood Clot Prevention for 30 Days, #60 TAB Budesonide-Formoterol Inh (Symbicort Inh) 160-4.5 Mcg/Act Aero 1 PUFF INH Q12HR, #1 INHALER 0 Refills Diltiazem CD 24 HR (Cardizem CD 24 HR) 180 Mg Caper 360 MG PO DAILY for atrial fibrillation for 30 Days, #60 CAP Docusate Sodium (Dulcolax Stool Softener) 100 Mg Cap 100 MG PO DAILY for Prevent Constipation, #60 CAP 0 Refills Multiple Vitamin (Multiple Vitamin) 1 Tab 1 TAB PO DAILY for Nutritional Supplement, TAB 0 Refills Polyethylene Glycol 3350 Powder (Miralax Powder) 17 Gm Powd 17 GM PO DAILY for Constipation, #1 CAN 0 Refills Mix and dissolve one measuring cap-ful (17 grams) in water or juice. Sertraline (Zoloft) 25 Mg Tab 50 MG PO DAILY, #30 TAB 0 Refills [place] Mar 08, 2018 10:38 Domenica Negrete MD Mar 10, 2018 18:34
--- NOTE | 2018-03-08 10:38 | HHI.DCPOC ---
Discharge Care Plan Diagnosis: (1) COPD exacerbation (2) Hypoxia Your Health Problems Are: Anxiety Cough Shortness of Breath Goals to Promote Your Health * To prevent worsening of your condition and complications * To maintain your health at the optimal level Directions to Meet Your Goals Take your medications as prescribed Follow your dietary instruction Follow activity as directed Keep your appointments as scheduled Take your immunizations and boosters as scheduled If your symptoms worsen call your PCP, if no PCP go to Urgent Care Center or Emergency Room Smoking is Dangerous to Your Health. Avoid second hand smoke Call the 24-hour hour crisis hotline for domestic abuse at [place] [facility] Mar 08, 2018 10:38
--- NOTE | 2018-03-08 11:03 | PD.ONC.PN ---
Subjective Subjective Remarks Afebrile overnight. Patient states he is feeling better today. much less dyspneic. he states he still gets dyspneic with movement/exertion, but feels much better than when he came into the hospital. Objective Data Date Time Temp Pulse Resp B/P (MAP) Pulse Ox O2 Delivery O2 Flow Rate FiO2 03/08/18 09:10 Nasal Cannula 3.00 03/08/18 08:00 97.3 89 18 116/66 (83) 94 03/08/18 07:49 Nasal Cannula 3.00 03/08/18 03:08 98.1 94 19 103/58 (73) 92 03/08/18 00:40 95 Nasal Cannula 3.00 03/08/18 00:10 98.1 97 19 124/67 (86) 90 03/07/18 21:15 92 Nasal Cannula 3.00 03/07/18 20:15 Nasal Cannula 3.00 03/07/18 19:00 97.4 110 19 104/58 (73) 94 03/07/18 16:00 97.2 103 19 97/51 (66) 92 03/07/18 12:00 97.6 92 18 108/59 (75) 93 03/08/18 03/08/18 03/08/18 07:00 15:00 23:00 Intake Total 360 ml Balance 360 ml Result Diagram: 03/07/1862503/07/18625 Culture Results Microbiology Date/Time Source Procedure Growth Status 03/06/18 15:30 Blood Peripheral Aerobic Blood Culture - Preliminary NO GROWTH IN 1 DAY Resulted 03/06/18 15:30 Blood Peripheral Anaerobic Blood Culture - Preliminary NO GROWTH IN 1 DAY Resulted 03/06/18 15:23 Blood Peripheral Aerobic Blood Culture - Preliminary NO GROWTH IN 1 DAY Resulted 03/06/18 15:23 Blood Peripheral Anaerobic Blood Culture - Preliminary NO GROWTH IN 1 DAY Resulted Administered Medications Medications (Trade) Dose Ordered Sig/Tirso Route PRN Reason Start Time Stop Time Status Last Admin Dose Admin Sodium Chloride (NS Flush) 2 ml BID IV FLUSH 03/06/18 21:00 03/08/18 08:49 Senna/Docusate Sodium (Debbie-Colace) 1 tab BID PO 03/06/18 21:00 03/08/18 08:49 Albuterol/ Ipratropium (Duoneb Neb) 1 ampule Q6HR WHILE AWAKE NEB NEB 03/06/18 20:00 03/08/18 08:00 Ceftriaxone Sodium 1000 mg/ Sodium Chloride 100 ml @ 200 mls/hr Q24H IV 03/07/18 16:00 03/07/18 15:57 Apixaban (Eliquis) 5 mg BID PO 03/07/18 09:00 03/08/18 08:49 Budesonide/ Formoterol Fumarate (Symbicort 160-4.5 Mcg Inh) 1 puff Q12HR INH 03/07/18 09:00 03/08/18 08:49 Diltiazem HCl (Cardizem Cd) 360 mg DAILY PO 03/07/18 09:00 03/08/18 08:49 Sertraline HCl (Zoloft) 50 mg DAILY PO 03/07/18 09:00 03/08/18 08:50 Multivitamins (Theragran) 1 tab DAILY PO 03/07/18 09:00 03/08/18 08:50 Objective Remarks GENERAL: Elderly male, sitting up in bed on O2 via NC. becomes dyspneic with minimal exertion. SKIN: Warm and dry. HEAD: Normocephalic. EYES: No injection or drainage. NECK: Supple, trachea midline. CARDIOVASCULAR: +S1/S2 RESPIRATORY: diminished breath sounds right lower lobe. scattered rhonchi. On O2 via NC GASTROINTESTINAL: Abdomen soft, non-tender, nondistended. EXTREMITIES: No cyanosis, or edema. MUSCULOSKELETAL: Adequate muscle tone. NEUROLOGICAL: No obvious focal deficit. Awake, alert, and oriented x3. Assessment/Plan Assessment 77y/o male with h/o NSCLC admitted with dyspnea. h/o COPD, h/o afib on Eliquis. Plan 1. dyspnea: appears to have improved with antibiotics + steroids. --likely d/t COPD exacerbation --CTA showed no PE 2. NSCLC: follow up in clinic upon discharge for further treatment. Yaneli Molina Mar 08, 2018 11:03
[2018-03-08 12:00] VITALS: BP 112/62; PULSE 91; RESP 18; TEMP 97.2; O2SAT 95
--- NOTE | 2018-03-08 12:24 | MB ---
cc: Kashif Gray MD DATE: 03/07/2018 REASON FOR CONSULTATION: The patient with a diagnosis of non-small cell lung cancer, status post concurrent chemotherapy and radiation treatments, presents today with dyspnea. HISTORY OF PRESENT ILLNESS: This is a 77-year-old male who has a diagnosis of stage IIIA non-small cell lung cancer, who completed concurrent chemotherapy and radiation treatments. His last treatment was approximately 1 week ago. He had originally presented with cough and fatigue and a CT scan of the chest showed a spiculated mass in the right upper lobe, which was approximately 2.5 x 2.5 cm, with a large soft tissue mass in the posterior right lobe measuring 7.7 x 5.5 cm. A PET scan did not show metastatic disease. Pathology was consistent with squamous cell carcinoma. He follows with Dr. Rios in the oncology clinic. On his last visit discussion regarding extended adjuvant immunotherapy was discussed with the patient. The patient now presents to the emergency room with acute dyspnea. He states that he was having difficulty breathing over the past 2 days. He saw his catering cook, Dr. Kerr, who was concerned about a pulmonary embolism. He sent him to the emergency department. The patient had a CT angiogram, which showed a 5.8 x 4.5 cm mass in the posterior aspect of the right lower lobe. There was a 1.8 cm lymph node in the right hilum. There was no evidence of pulmonary embolism. Based on the comparison to a CT scan from 09/2017, the overall size of the mass in the right lung base had slightly decreased. The nodule in the medial aspect of the right upper lobe had also decreased in size. There was also a new right-sided pleural effusion. There was interval worsening of the interstitial fibrotic changes. The patient was admitted to the hospital. He was started on breathing treatments, IV antibiotics and steroids, as well as supplemental oxygen. He states that he is considerably feeling better. He denies any cough, no hemoptysis. He does not have any lower extremity edema. He states that he would like to go home soon. With reference to his history of atrial fibrillation, he is rate controlled and he is currently on Eliquis. REVIEW OF SYSTEMS: A comprehensive review of systems was completed which is negative, except as described in the HPI. PAST MEDICAL HISTORY: Squamous cell carcinoma of the lung, stage III, status post concurrent chemotherapy and radiation treatments, history of lung biopsy, history of bilateral hernia repair, tonsillectomy, appendectomy. MEDICATIONS: 1. Solu-Medrol 32 mg p.o. daily. 2. Azithromycin 500 mg p.o. daily. 3. Ceftriaxone. 4. Eliquis 5 mg p.o. b.i.d. 5. Diltiazem 360 mg p.o. daily. 6. 50 mg p.o. daily. 7. Senna and docusate p.o. b.i.d. 8. DuoNebs. 9. Milk of Magnesia. 10.Senna p.r.n. ALLERGIES: HE IS ALLERGIC TO PREDNISONE. FAMILY HISTORY: Reviewed and is noncontributory to this admission. SOCIAL HISTORY: He quit smoking in 09/2017, he has more than 66-lhos-wclc smoking history. He rarely drinks alcohol. No illicit drug use. PHYSICAL EXAMINATION: VITAL SIGNS: Blood pressure is 97/50, pulse is in the 80s. Temperature 97.7, O2 saturations are 94% on 3 liters of nasal cannula. GENERAL: Thin appearing male in no apparent distress. HEENT: Pupils are equal, round, reactive to light. EOMI. No thrush or oral lesions. NECK: Supple. No JVD. No bruits. No lymphadenopathy. CHEST: Clear to auscultation bilaterally. CARDIAC: S1, S2. Regular rate and rhythm. ABDOMEN: Soft, nontender, nondistended. Bowel sounds are present. EXTREMITIES: Without any edema, erythema or cyanosis. SKIN: Without any petechiae, lesion or bruises. NEUROLOGIC: No focal deficits. PSYCHIATRIC: Mood and affect is appropriate. LABORATORY DATA: WBC 6.7, hemoglobin 9.8, platelet count 213. Serum chemistry shows sodium 139, potassium 4.3, chloride 106, CO2 4.1, creatinine 0.71, GFR is 108, lactic acid is 2.9. IMAGING: CT of the chest was reviewed and discussed as in HPI. ASSESSMENT AND PLAN: This is a 77-year-old male with a diagnosis of stage III, non-small cell lung cancer with squamous cell histology, history of COPD and atrial fibrillation, who presents today for a 2-day history of increasing shortness of breath. 1. Acute dyspnea and respiratory difficulty due to chronic obstructive pulmonary disease exacerbation. A CT scan of the chest reveals persistent lung cancer. There is also increasing interstitial fibrosis. These findings are contributing to his acute dyspnea. I agree with antibiotics. There is no evidence of pulmonary embolism on the CT angiogram. I agree with breathing treatments and steroids. Continue supplemental oxygen. 2. Atrial fibrillation, currently on Eliquis. 3. Stage III non-small cell lung cancer with squamous cell histology. He appears to have persistent disease. Further recommendations will be made in the outpatient setting. Thank you for allowing me to participate in the care of this patient. If the patient continues to improve clinically, then he could be discharged from the hospital. He will followup with Dr. Rios. MD TJ Reyes/SAGE , 11:06 AM , 12:24 PM
[2018-03-08] MEDS ORDERED: FUROSEMIDE 20 MG/2 ML VIAL IV PUSH ONE (14:00)
[2018-03-08] MEDS ORDERED: POTASSIUM CHLORIDE 10 MEQ CONTROLLED RELEASE TAB PO ONE (14:00)
[2018-03-08] MEDS ORDERED: HYDROCORTISONE 1% LOTN 120 ML BTL TOPICAL SCH (14:00)
--- NOTE | 2018-03-08 14:14 | HHI.FF ---
Face to Face Verification Diagnosis: (1) COPD exacerbation (2) Hypoxia Physical Therapy Order: Evaluate and Treat Home Health Nursing Order: Signs/symptoms of disease process Medication education-adverse effect Nursing assessment with vital signs I have seen patient Tom Titus on 03/08/18. My clinical findings support the need for the requested home health care services because: Ltd mobility - disease progression Patient has SOB Deconditioned w/ increased weakness High risk of falls Infection w/ risk of complications I certify that my clinical findings support that this patient is homebound because: Hx COPD- exertion dyspnea/weakness Unsteady gait/balance [place] Mar 08, 2018 14:14
[2018-03-08] MEDS ORDERED: AZIT250T3 PO (14:38)
[2018-03-08] MEDS ORDERED: [UNRECOGNIZED DRUG - CODE] PO (14:38)
== END 2018-03-08 15:57 | disposition home or self-care (01) | DRG 191 ==
LOC: NEPC 15:00 → NEDA 18:11 → OBSVTOIN 18:29 → N06B 18:54
PROVIDERS: ADMIT Family Medicine; ATTEND Family Medicine
DX: J44.1 Chronic obstructive pulmonary disease with (acute) exacerbation (principal); J90 Pleural effusion, not elsewhere classified; J84.10 Pulmonary fibrosis, unspecified; R65.10 Systemic inflammatory response syndrome (SIRS) of non-infectious origin without acute organ dysfunction; Z99.81 Dependence on supplemental oxygen; I48.91 Unspecified atrial fibrillation; C34.11 Malignant neoplasm of upper lobe, right bronchus or lung; R09.02 Hypoxemia; F32.9 Major depressive disorder, single episode, unspecified; Z79.01 Long term (current) use of anticoagulants; Z87.891 Personal history of nicotine dependence; Z92.21 Personal history of antineoplastic chemotherapy; Z92.3 Personal history of irradiation
CPT/HCPCS: 36600; 71045; 71275; 80048; 80053; 81001; 82550; 82805; 83605; 83735; 83880; 84439; 84443; 84484; 85025; 85610; 85730; 87040; 93005; 94640; 94664; 96523; J0456; J0696; J1642; J1940; J2920; J2930; J3475; J7030; J7050; J7509; Q9967

== ENCOUNTER 2018-04-17 17:03 | Observation (INO) ==
--- NOTE | 2018-04-17 17:39 | ED ---
HPI General Chief complaint: Respiratory Symptoms Stated complaint: respiratory/CA pt Time Seen by Provider: 04/17/18 17:18 History of Present Illness HPI narrative: Patient presents to the emergency department complaining of shortness of breath, weakness, inability to walk secondary to shortness of breath. Family states patient has been short of breath since Gabriela and has been getting worse. He does have a history of lung cancer has had 31 radiation treatments and 6 chemo treatments. Family states that last Friday he had a treatment to "keep his immune system up" and he gets the treatments every 2 weeks for year. He has only had 2 treatments today. Shortness of breath is with exertion and he is on oxygen 2 L 24, 7. His O2 sats according to the family normally runs in the low 80s when he is exerting himself to the mid 90s when he is at rest. He denies lower extremity edema, fever, recent travel. He does endorse a dry cough. Also having history of chest pain which is sternal, nonradiating, no chest pain now, happened several times throughout the day, hours in duration, no alleviating or aggravating factors. Related Data Home Medications Medication Instructions Recorded Confirmed albuterol sulfate 2 puff INHALATION Q4H PRN 04/17/18 04/17/18 apixaban [Eliquis] 5 mg PO BID 04/17/18 04/17/18 budesonide-formoterol [Symbicort] 2 puff INHALATION Q12H 04/17/18 04/17/18 diltiazem HCl [Cardizem CD] 180 mg PO DAILY 04/17/18 04/17/18 docusate sodium 100 mg PO DAILY 04/17/18 04/17/18 polyethylene glycol 3350 [Miralax] 17 g PO DAILY 04/17/18 04/17/18 sertraline 25 mg PO DAILY 04/17/18 04/17/18 Allergies Allergy/AdvReac Type Severity Reaction Status Date / Time prednisone Allergy Severe Seizures Verified 04/17/18 17:29 Review of Systems ROS Unobtainable All other systems reviewed negative except as stated in HPI [facility] Medical History Medical History A-fib (Acute) Depression (Acute) FH: chemotherapy (Acute) Hx of radiation therapy (Acute) Lung cancer (Acute) Oxygen dependent (Acute) Social History Social History Substance History: No History of Abuse Second Hand Smoke Exposure: No Smoking Status: Former smoker How Often Do You Have a Drink Containing Alcohol: 2 to 4 times a month Recent Travel in [place] within the Last 8 Weeks: No Recent Out of Country Travel within the Last 8 Weeks: No Immunization History Tetanus Immunization: <5 Years Hx Influenza Vaccine This Season: No Exam Narrative Exam Narrative: GENERAL:Mild respiratory distress. SKIN: Focused skin assessment warm/dry. HEAD: Atraumatic. Normocephalic. EYES: Pupils equal and round. No scleral icterus. No injection or drainage. ENT: No nasal bleeding or discharge. Mucous membranes pink and moist. NECK: Trachea midline. No JVD. CARDIOVASCULAR: Tachycardia. No murmur appreciated. RESPIRATORY: Increased work of breathing. Decrease breath sounds equal bilaterally. GASTROINTESTINAL: Abdomen soft, non-tender, nondistended. MUSCULOSKELETAL: No obvious deformities. No clubbing. No cyanosis. No edema. NEUROLOGICAL: Awake and alert. No obvious cranial nerve deficits. Motor grossly within normal limits. Normal speech. PSYCHIATRIC: Appropriate mood and affect; insight and judgment normal. Course Initial Documented Vital Signs Temperature 97.3 F L 04/17/18 17:09 Pulse Rate 120 H 04/17/18 17:09 Respiratory Rate 28 H 04/17/18 17:09 Blood Pressure 124/74 04/17/18 17:09 Pulse Oximetry 94 L 04/17/18 17:09 Last Documented Vital Signs Temperature 97.3 F L 04/17/18 17:09 Pulse Rate 114 H 04/17/18 17:30 Respiratory Rate 24 04/17/18 17:30 Blood Pressure 137/80 04/17/18 17:30 Pulse Oximetry 94 L 04/17/18 17:30 Medical Decision Making [facility] Narrative Medical decision making narrative: Patient presents to the emergency department with known lung cancer in complaining of shortness of breath. Patient placed on electronic device monitor, continuous pulse ox, and 2 L of oxygen via nasal cannula, and IV access obtained. Labs, chest x-ray, EKG ordered. CBC shows slightly decreased hemoglobin hematocrit. Elevated troponin, patient given 325mg po ASA. CXR shows "Bilateral interstitial disease being worse on the right. There is some increased density seen in the right perihilar region which may be related to alveolar consolidation or atelectasis. Compared to the prior exam, these findings appear unchanged.Mild blunting of the right costophrenic angle. A mild right pleural effusion can be considered.Right volume loss with shift of heart and is not structures towards the right." CTA chest: "CONCLUSION:1. No pulmonary embolus. 2. Persistent 6.4 cm cavitary mass in the right lower lobe. 3. Widespread chronic interstitial disease and emphysematous change. 4. Right lower lobe atelectasis or consolidation seen inferior to the large cavitary mass." 1939: Patient resting comfortably. HR 98, BP 122/67, O2 sat 96% on 2L. Awaiting CTA results. 1956: Spoke to Dr. Small, cardiology industrial relations representative for Dr. Marie. Recommend to give ASA, 1/2 in NTG to Chest wall q 6hrs, trend troponins, formal cardiology consult and they will see in the morning. 2006: Admitted to hospitalist. Differential Diagnosis Differential Diagnosis: PE, ACS, CHF, pulmonary edema, pleural effusion Lab Data Result diagrams: 04/17/18 17:40 04/17/18 17:40 Lab Results 04/17/18 04/17/18 04/17/18 Range/Units 17:40 17:40 17:40 WBC 10.2 (4.0-11.0) th/mm3 RBC 3.87 L (4.50-5.90) mil/mm3 Hgb 10.8 L (13.0-17.0) gm/dL Hct 31.6 L (39.0-51.0) % MCV 81.7 (80.0-100.0) fL MCH 27.8 (27.0-34.0) pg MCHC 34.1 (32.0-36.0) % RDW 17.7 H (11.6-17.2) % Plt Count 315 (150-450) th/mm3 MPV 7.2 (7.0-11.0) fL Neut % (Auto) 88.1 H (16.0-70.0) % Lymph % (Auto) 5.8 L (9.0-44.0) % [place]kin % (Auto) 5.6 (0.0-8.0) % Eos % (Auto) 0.1 (0.0-4.0) % Baso % (Auto) 0.4 (0.0-2.0) % Neut # (Auto) 9.0 H (1.8-7.7) th/mm3 Lymph # (Auto) 0.6 L (1.0-4.8) th/mm3 [place]umpkin # (Auto) 0.6 (0.0-0.9) th/mm3 Eos # (Auto) 0.0 (0.0-0.4) th/mm3 Baso # (Auto) 0.0 (0.0-0.2) th/mm3 WBC Differential . Differential Comment Auto diff final PT 12.1 H (9.8-11.6) sec INR 1.2 Ratio APTT 33.6 H (24.3-30.1) sec Sodium 140 (136-145) meq/L Potassium 4.0 (3.5-5.1) meq/L Chloride 102 (98-107) meq/L Carbon Dioxide 25.0 (21.0-32.0) meq/L Anion Gap 13 (5-15) meq/L BUN 17 (7-18) mg/dL Creatinine 1.01 (0.60-1.30) mg/dL Estimated GFR 72 L (>89) mL/min Random Glucose 128 H (74-106) mg/dL Calcium 9.4 (8.5-10.1) mg/dL Magnesium 2.5 (1.5-2.5) mg/dL Total Bilirubin 0.3 (0.2-1.0) mg/dL AST 14 L (15-37) U/L ALT 23 (12-78) U/L Alkaline Phosphatase 88 (45-117) U/L Total Creatine Kinase 39 (39-308) U/L Troponin I 0.19 H (0.02-0.05) ng/mL B-Natriuretic Peptide (0-100) pg/mL Total Protein 7.5 (6.4-8.2) g/dL Albumin 2.8 L (3.4-5.0) g/dL 04/17/18 Range/Units 17:40 WBC (4.0-11.0) th/mm3 RBC (4.50-5.90) mil/mm3 Hgb (13.0-17.0) gm/dL Hct (39.0-51.0) % MCV (80.0-100.0) fL MCH (27.0-34.0) pg MCHC (32.0-36.0) % RDW (11.6-17.2) % Plt Count (150-450) th/mm3 MPV (7.0-11.0) fL Neut % (Auto) (16.0-70.0) % Lymph % (Auto) (9.0-44.0) % [place]kin % (Auto) (0.0-8.0) % Eos % (Auto) (0.0-4.0) % Baso % (Auto) (0.0-2.0) % Neut # (Auto) (1.8-7.7) th/mm3 Lymph # (Auto) (1.0-4.8) th/mm3 Lumpkin # (Auto) (0.0-0.9) th/mm3 Eos # (Auto) (0.0-0.4) th/mm3 Baso # (Auto) (0.0-0.2) th/mm3 WBC Differential Differential Comment PT (9.8-11.6) sec INR Ratio APTT (24.3-30.1) sec Sodium (136-145) meq/L Potassium (3.5-5.1) meq/L Chloride (98-107) meq/L Carbon Dioxide (21.0-32.0) meq/L Anion Gap (5-15) meq/L BUN (7-18) mg/dL Creatinine (0.60-1.30) mg/dL Estimated GFR (>89) mL/min Random Glucose (74-106) mg/dL Calcium (8.5-10.1) mg/dL Magnesium (1.5-2.5) mg/dL Total Bilirubin (0.2-1.0) mg/dL AST (15-37) U/L ALT (12-78) U/L Alkaline Phosphatase (45-117) U/L Total Creatine Kinase (39-308) U/L Troponin I (0.02-0.05) ng/mL B-Natriuretic Peptide 95 (0-100) pg/mL Total Protein (6.4-8.2) g/dL Albumin (3.4-5.0) g/dL Imaging Data Radiologist's impression: Chest CTA 04/17/18 17:32 CONCLUSION: 1. No pulmonary embolus. 2. Persistent 6.4 cm cavitary mass in the right lower lobe. 3. Widespread chronic interstitial disease and emphysematous change. 4. Right lower lobe atelectasis or consolidation seen inferior to the large cavitary mass. Chest X-Ray 04/17/18 17:32 CONCLUSION: Bilateral interstitial disease being worse on the right. There is some increased density seen in the right perihilar region which may be related to alveolar consolidation or atelectasis. Compared to the prior exam, these findings appear unchanged. Mild blunting of the right costophrenic angle. A mild right pleural effusion can be considered. Right volume loss with shift of heart and is not structures towards the right. ECG Data EKG Prior to Arrival: No Attestation: I personally reviewed and interpreted this ECG as follows: (Sinus tachycardia at 112, normal axis, QTC 403, normal intervals, left atrial enlargement) Discharge Plan Discharge Disposition Patient Disposition: 30 Still Patient Discharge Condition Condition: Stable Discharge Details Diagnosis: Lung cancer, Dyspnea, Chest pain, Elevated troponin Physicians Team ED Provider: Giuliana Dumont Primary Care Provider: Song Crisostomo Rxs /Orders / Referrals /Forms Prescriptions: No Action polyethylene glycol 3350 [Miralax] 17 gram Powder In Packet 17 g PO DAILY RF: 0 diltiazem HCl [Cardizem CD] 180 mg Capsule,Extended Release 24hr 180 mg PO DAILY RF: 0 sertraline 25 mg Tablet 25 mg PO DAILY RF: 0 albuterol sulfate 90 mcg/actuation Hfa Aerosol Inhaler 2 puff INHALATION Q4H PRN (Reason: Shortness Of Breath) RF: 0 docusate sodium 100 mg Tablet 100 mg PO DAILY RF: 0 budesonide-formoterol [Symbicort] 160-4.5 mcg/actuation Hfa Aerosol Inhaler 2 puff INHALATION Q12H RF: 0 apixaban [Eliquis] 5 mg Tablet 5 mg PO BID RF: 0 Discharge Interventions Interventions: Vital Signs Last Done: 04/17/18 20:00 Status ED Status: With Doctor
[2018-04-17 18:11] LABS: Baso % (Auto) 0.4 % (0.0-2.0); Eos % (Auto) 0.1 % (0.0-4.0); Hematocrit 31.6 % (39.0-51.0); Hemoglobin 10.8 gm/dL (13.0-17.0); Lymph # (Auto) 0.6 th/mm3 (1.0-4.8); Lymph % (Auto) 5.8 % (9.0-44.0); Mean Corpuscular HGB Conc 34.1 % (32.0-36.0); Mean Corpuscular Hemoglobin 27.8 pg (27.0-34.0); Mean Corpuscular Volume 81.7 fL (80.0-100.0); Mean Platelet Volume 7.2 fL (7.0-11.0); Mono # (Auto) 0.6 th/mm3 (0.0-0.9); Mono % (Auto) 5.6 % (0.0-8.0); Neut % (Auto) 88.1 % (16.0-70.0); Platelet Count 315 th/mm3 (150-450); Red Blood Count 3.87 mil/mm3 (4.50-5.90); Red Cell Distribution Width 17.7 % (11.6-17.2); White Blood Count 10.2 th/mm3 (4.0-11.0)
[2018-04-17 18:26] LABS: Activated Partial Thrombo Time 33.6 sec (24.3-30.1); INR 1.2 Ratio; Prothrombin Time 12.1 sec (9.8-11.6)
--- NOTE | 2018-04-17 18:32 | XR ---
EXAM DATE: 04/17/2018 6:25 PM EDT AGE/SEX: 77 years / Male INDICATIONS: Shortness of breath. CLINICAL DATA: This is the patient's initial encounter. Patient reports that signs and symptoms have been present for 1 day and indicates a pain score of 0/10. MEDICAL/SURGICAL HISTORY: . Cardiovascular disease. Carcinoma, skin cancer. Stage 3 lung cancer . . Appendectomy. COMPARISON: [facility] [place], CHEST SINGLE AP, 03/06/2018. . FINDINGS: The heart size is normal. There is increased density at the mid and lower right lung. There appears t o be some volume loss with shift of heart and mediastinal structures towards the right. There is inte rstitial disease seen at the left base. The patient has a CT compatible [id number] seen on the lef t side. There is minimal blunting of the right costophrenic angle. Left costophrenic angle is clear. CONCLUSION: Bilateral interstitial disease being worse on the right. There is some increased density seen in the right perihilar region which may be related to alveolar consolidation or atelectasis. Compared to the prior exam, these findings appear unchanged. Mild blunting of the right costophrenic angle. A mild right pleural effusion can be considered. Right volume loss with shift of heart and is not structures towards the right. Electronically signed by: Song Alexander MD 04/17/2018 6:31 PM EDT
[2018-04-17 18:37] LABS: Alanine Aminotransferase 23 U/L (12-78); Albumin 2.8 g/dL (3.4-5.0); Anion Gap 13 meq/L (5-15); Aspartate Aminotransferase 14 U/L (15-37); Blood Urea Nitrogen 17 mg/dL (7-18); Calcium 9.4 mg/dL (8.5-10.1); Chloride 102 meq/L (98-107); Glomerular Filtration Rate 72 mL/min (>89); Glucose,Random 128 mg/dL (74-106); Magnesium 2.5 mg/dL (1.5-2.5); Sodium 140 meq/L (136-145)
[2018-04-17 18:42] LABS: Alkaline Phosphatase 88 U/L (45-117); Creatine Kinase 39 U/L (39-308); Total Protein 7.5 g/dL (6.4-8.2); Troponin I 0.19 ng/mL (0.02-0.05)
[2018-04-17] MEDS ORDERED: Aspirin 325 MG Tablet PO ONE (19:19)
--- NOTE | 2018-04-17 19:54 | CT ---
EXAM DATE: 04/17/2018 7:20 PM EDT AGE/SEX: 77 years / Male INDICATIONS: Shortness of breath; rule out pulmonary embolus. CLINICAL DATA: This is the patient's initial encounter. Patient reports that signs and symptoms have been present for 1 day and indicates a pain score of 0/10. MEDICAL/SURGICAL HISTORY: Carcinoma, lung. Atrial fibrillation None. RADIATION DOSE: 9.1 CTDI (mGy) COMPARISON: [facility], CT CHEST W AND W/O CONTRAST, 03/11/2018. . TECHNIQUE: Volumetric scanning was performed using a multi-row detector CT scanner during bolus infu muna of 74 ml Omnipaque 350 (iohexol) nonionic water-soluble contrast as a single exam dose. The loren a was post processed with a variety of visualization algorithms including full volume maximum intensi ty projection and sliding thin slab reformation. Using automated exposure control and adjustment of t he mA and/or kV according to patient size, radiation dose was kept as low as reasonably achievable to obtain optimal diagnostic quality images. DICOM format image data is available electronically for r eview and comparison. FINDINGS: Pulmonary Arteries: No filling defects are seen in the pulmonary arteries out to the subsegmental ve ssels. The left and right pulmonary arteries are normal in diameter. Lung: There is a 6.4 cm cavitary mass in the right lower lobe. There is widespread interstitial dise ase. There is emphysematous change seen throughout the lungs. There is increased parenchymal density seen in the posterior inferior right lower lobe likely related to some consolidation or atelectasis. Effusion: There is a mild right pleural effusion. Mediastinum: No evidence of mediastinal or hilar adenopathy. At the sclerotic calcifications are see n at the coronary arteries and the aortic arch. Other: The axilla is unremarkable. There is a left-sided [id number] in place. CONCLUSION: 1. No pulmonary embolus. 2. Persistent 6.4 cm cavitary mass in the right lower lobe. 3. Widespread chronic interstitial disease and emphysematous change. 4. Right lower lobe atelectasis or consolidation seen inferior to the large cavitary mass. Electronically signed by: Song Alexander MD 04/17/2018 7:53 PM EDT
[2018-04-17] MEDS ORDERED: Morphine Inj 4 MG/ML Vial IV.PUSH PRN (20:15)
[2018-04-17] MEDS ORDERED: Acetaminophen 325 MG Tablet PO PRN (20:17)
[2018-04-17] MEDS ORDERED: Bisacodyl 10 MG Supp RECTAL PRN (20:17)
[2018-04-17] MEDS ORDERED: Temazepam 15 MG Capsule PO PRN (20:17)
--- NOTE | 2018-04-17 20:20 | P.HPIM ---
History of Present Illness Primary Care Physician: Song Crisostomo MD History of Present Illness: This is a 77-year-old male with a PMH of HTN, Lung CA, O2 Dependent, Depression and h/o A-fib who presented to the ER w/ complaints of generalized weakness and progressive SOB. States SOB has been ongoing for several months, however now more pronounced. Reports intermittent episodes of chest pain, substernal, moderate, 6/10, non-radiating. Follows w/ Dr. Rios for Lung Ca, s/p Chemo/ Radiation. Denies fever, chills or cough. On arrival, BP 124/74, HR 120, O2 sat 94% on 2L NC, Afebrile. CBC essentially unremarkable. INR 1.2. Chemistry unremarkable. Troponin 0.19. CXR with bilateral interstitial disease worse on the right. CTA Chest negative for PE, persistent 6.4 cm cavitary mass right lower lobe, widespread interstitial disease and emphysematous changes. Follows w/ Dr. Marie as outpatient, Dr. Small consulted, recommended ASA/NTG and will eval in am. Pt currently chest pain free. - Diagnosis (1) Chest pain (2) Elevated troponin (3) Lung cancer Inpatient Certification: I certify that the inpatient services were ordered in accordance with Medicare regulations governing the order. This includes certification that hospital inpatient services are reasonable and necessary and in the case of services not specified as inpatient-only under 42 CFR 419.22(n), that they are appropriately provided as inpatient services in accordance to with the 2-midnight benchmark under 43 CFR 412.3(e) Review of Systems All other systems reviewed negative except as stated in HPI PMF[facility] - History History Provided By: Patient - Medical History Medical History: Medical History (Last Updated 04/17/18 @ 17:26 by Yasmeen Johnston) A-fib Depression FH: chemotherapy Hx of radiation therapy Lung cancer Oxygen dependent - Tobacco History Second Hand Smoke Exposure: No Smoking Status: Former smoker - Alcohol History How Often Do You Have a Drink Containing Alcohol: 2 to 4 times a month - Substance Use History Substance History: No History of Abuse - Travel History Recent Travel in the [place] Within the Last 8 Weeks: No Recent Travel Out of the Country Within the Last 8 Weeks: No - Immunization History Tetanus Immunization: <5 Years Hx Influenza Vaccine This Season: No Medications and Allergies Allergies Allergy/AdvReac Type Severity Reaction Status Date / Time prednisone Allergy Severe Seizures Verified 04/17/18 17:29 Home Medications Medication Instructions Recorded Confirmed Type albuterol sulfate 2 puff INHALATION Q4H PRN 04/17/18 04/17/18 History apixaban [Eliquis] 5 mg PO BID 04/17/18 04/17/18 History budesonide-formoterol [Symbicort] 2 puff INHALATION Q12H 04/17/18 04/17/18 History diltiazem HCl [Cardizem CD] 180 mg PO DAILY 04/17/18 04/17/18 History docusate sodium 100 mg PO DAILY 04/17/18 04/17/18 History polyethylene glycol 3350 [Miralax] 17 g PO DAILY 04/17/18 04/17/18 History sertraline 25 mg PO DAILY 04/17/18 04/17/18 History Exam Vital signs: Vital Signs 04/17/18 17:09 04/17/18 17:30 04/17/18 20:00 Temperature 97.3 F L Pulse Rate 120 H 114 H 96 H Respiratory Rate 28 H 24 18 Blood Pressure 124/74 137/80 110/75 Pulse Oximetry 94 L 94 L 95 Intake & Output 04/17/18 04/17/18 04/18/18 06:59 18:59 06:59 Weight 73.936 kg Narrative: PE: GENERAL: Pleasant elderly white male in no acute distress. Sitting up eating dinner. Family at bedside HEENT: VANNESA RAMIREZ. No scleral icterus or conjunctival pallor. No lid lag or facial droop. CARDIOVASCULAR: Regular rate and rhythm. No obvious murmurs to auscultation. No chest tenderness to palpation. RESPIRATORY: No obvious rhonchi or wheezing. Clear to auscultation. Breath sounds equal bilaterally. GASTROINTESTINAL: Abdomen soft, non-tender, nondistended. BS normal. MUSCULOSKELETAL: Extremities without clubbing, cyanosis, or edema. No obvious deformities. NEUROLOGICAL: Awake, alert and oriented x4. No focal neurologic deficits. Moving both upper and lower extremities spontaneously. Results - Labs CBC & Chem 7: 04/17/18 17:40 04/17/18 17:40 Labs: Short CBC 04/17/18 Range/Units 17:40 WBC 10.2 (4.0-11.0) th/mm3 Hgb 10.8 L (13.0-17.0) gm/dL Hct 31.6 L (39.0-51.0) % Plt Count 315 (150-450) th/mm3 BMP 04/17/18 17:40 Sodium 140 Potassium 4.0 Chloride 102 Carbon Dioxide 25.0 BUN 17 Creatinine 1.01 Calcium 9.4 Cardiac Enzymes 04/17/18 Range/Units 17:40 Total Creatine Kinase 39 (39-308) U/L Troponin I 0.19 H (0.02-0.05) ng/mL Liver Function 04/17/18 Range/Units 17:40 Total Bilirubin 0.3 (0.2-1.0) mg/dL AST 14 L (15-37) U/L ALT 23 (12-78) U/L Alkaline Phosphatase 88 (45-117) U/L Albumin 2.8 L (3.4-5.0) g/dL - Imaging Impressions Chest CTA 04/17/18 17:32 CONCLUSION: 1. No pulmonary embolus. 2. Persistent 6.4 cm cavitary mass in the right lower lobe. 3. Widespread chronic interstitial disease and emphysematous change. 4. Right lower lobe atelectasis or consolidation seen inferior to the large cavitary mass. Chest X-Ray 04/17/18 17:32 CONCLUSION: Bilateral interstitial disease being worse on the right. There is some increased density seen in the right perihilar region which may be related to alveolar consolidation or atelectasis. Compared to the prior exam, these findings appear unchanged. Mild blunting of the right costophrenic angle. A mild right pleural effusion can be considered. Right volume loss with shift of heart and is not structures towards the right. Caprini VTE Risk Assessment Caprini VTE Risk Assessment: No/Low Risk (score <= 1) Caprini Risk Assessment Model: Point Value = 1 Point Value = 2 Point Value = 3 Point Value = 5 Age 41-60 Minor surgery BMI > 25 kg/m2 Swollen legs Varicose veins or History of unexplained or recurrent spontaneous Oral contraceptives or hormone replacement Sepsis (< 1 month) Serious lung disease, including pneumonia (< 1 month) Abnormal pulmonary function Acute myocardial infarction Congestive heart failure (< 1 month) History of inflammatory bowel disease Medical patient at bed rest Age 61-74 Arthroscopic surgery Major open surgery (> 45 min) Laparoscopic surgery (> 45 min) Malignancy Confined to bed (> 72 hours) Immobilizing plaster cast Central venous access Age >= 75 History of VTE Family history of VTE Factor V Leiden Prothrombin [id number] Lupus anticoagulant Anticardiolipin antibodies Elevated serum homocysteine Heparin-induced thrombocytopenia Other congenital or acquired thrombophilia Stroke (< 1 month) Elective arthroplasty Hip, pelvis, or leg fracture Acute spinal cord injury (< 1 month) Prophylaxis Regimen: Total Risk Factor Score Risk Level Prophylaxis Regimen 0-1 Low Early ambulation 2 Moderate Order ONE of the following: *Sequential Compression Device (SCD) *Heparin 5000 units SQ BID 3-4 Higher Order ONE of the following medications: *Heparin 5000 units SQ TID *Enoxaparin/Lovenox 40 mg SQ daily (WT < 150 kg, CrCl > 30 mL/min) *Enoxaparin/Lovenox 30 mg SQ daily (WT < 150 kg, CrCl > 10-29 mL/min) *Enoxaparin/Lovenox 30 mg SQ BID (WT < 150 kg, CrCl > 30 mL/min) AND/OR *Sequential Compression Device (SCD) 5 or more Highest Order ONE of the following medications: *Heparin 5000 units SQ TID (Preferred with Epidurals) *Enoxaparin/Lovenox 40 mg SQ daily (WT < 150 kg, CrCl > 30 mL/min) *Enoxaparin/Lovenox 30 mg SQ daily (WT < 150 kg, CrCl > 10-29 mL/min) *Enoxaparin/Lovenox 30 mg SQ BID (WT < 150 kg, CrCl > 30 mL/min) AND *Sequential Compression Device (SCD) Assessment and Plan - Assessment (1) Chest pain Code(s): R07.9 - Chest pain, unspecified Status: Acute (2) Elevated troponin Code(s): R74.8 - Abnormal levels of other serum enzymes Status: Acute (3) Lung cancer Code(s): C34.90 - Malignant neoplasm of unspecified part of unspecified bronchus or lung Status: Acute - Plan A/P: 1. Chest Pain: w/ associated SOB, CXR w/ bilateral interstitial disease, CTA Chest negative for PE, images reviewed by me. DuoNeb prn. NTG/Morphine prn, telemetry. 2. Elevated Trop: Trop 0.19, EKG w/ no acute ischemia, follows w/ Dr. Marie , Dr. Small consulted, recommendation for ASA/NTG and further eval in am. Admit to [facility], telemetry, ASA, Statin. 3. Lung CA: Follows w/ Dr. Rios, s/p Chemo/Radiation, will consult for further evaluation/recommendations. 4. DVT Prophylaxis: SCD/Teds 5. Social work for d/c planning as needed 6. Case discussed w/ ER physician at length, labs/records/imaging reviewed by me. (1) Chest pain Qualifiers: Chest pain type: other chest pain Qualified Code(s): R07.89 - Other chest pain; R07.8 - Other chest pain (3) Lung cancer Qualifiers: Laterality: unspecified laterality Lung location: unspecified part of lung Qualified Code(s): C34.90 - Malignant neoplasm of unspecified part of unspecified bronchus or lung
[2018-04-17] MEDS: Sod Chloride 0.9% Inj 1,000 ML IV.CONT SCH (23:43)
[2018-04-17] MEDS: Budesonide-Formoterol 160/4.5 MCG 6 GM Inhaler INH SCH (23:44)
[2018-04-17] MEDS: Senna/Docusate Sodium 8.6/50 MG Tablet PO SCH (23:46)
[2018-04-18] MEDS: Sod Chloride 0.9% Inj 1,000 ML IV.CONT SCH ×4 (05:55→20:00)
[2018-04-18 06:07] LABS: Baso % (Auto) 0.5 % (0.0-2.0); Eos # (Auto) 0.1 th/mm3 (0.0-0.4); Hematocrit 26.4 % (39.0-51.0); Hemoglobin 8.7 gm/dL (13.0-17.0); Lymph # (Auto) 0.7 th/mm3 (1.0-4.8); Lymph % (Auto) 9.4 % (9.0-44.0); Mean Corpuscular Hemoglobin 27.1 pg (27.0-34.0); Mean Platelet Volume 7.1 fL (7.0-11.0); Mono # (Auto) 0.7 th/mm3 (0.0-0.9); Mono % (Auto) 9.3 % (0.0-8.0); Neut # (Auto) 6.3 th/mm3 (1.8-7.7); Neut % (Auto) 79.8 % (16.0-70.0); Platelet Count 253 th/mm3 (150-450); Red Blood Count 3.22 mil/mm3 (4.50-5.90); Red Cell Distribution Width 17.7 % (11.6-17.2)
[2018-04-18 07:30] LABS: Alanine Aminotransferase 20 U/L (12-78); Albumin 2.4 g/dL (3.4-5.0); Alkaline Phosphatase 72 U/L (45-117); Anion Gap 9 meq/L (5-15); Aspartate Aminotransferase 9 U/L (15-37); Blood Urea Nitrogen 20 mg/dL (7-18); Calcium 8.5 mg/dL (8.5-10.1); Carbon Dioxide 26.2 meq/L (21.0-32.0); Chloride 109 meq/L (98-107); Glomerular Filtration Rate Greater Than 89 mL/min (>89); Glucose,Random 105 mg/dL (74-106); Potassium 4.1 meq/L (3.5-5.1); Sodium 144 meq/L (136-145); Total Protein 6.6 g/dL (6.4-8.2)
--- NOTE | 2018-04-18 08:23 | ECG ---
Date Performed: 04/17/2018 Time Performed: 17:48:33 PTAGE: 77 years EKG: SINUS TACHYCARDIA POSSIBLE LEFT ATRIAL ENLARGEMENT ABNORMAL RHYTHM ECG PREVIOUS TRACING : 03/06/2018 15.25 DOCTOR: Jeffery Antoine Interpretating Date/Time 04/18/2018 08:19:50
[2018-04-18] MEDS: Sertraline 50 MG Tablet PO SCH (09:21)
[2018-04-18] MEDS: Senna/Docusate Sodium 8.6/50 MG Tablet PO SCH ×2 (09:21→21:24)
[2018-04-18] MEDS: dilTIAZem CD 180 MG Capsule PO SCH (09:21)
[2018-04-18] MEDS: Budesonide-Formoterol 160/4.5 MCG 6 GM Inhaler INH SCH ×2 (09:21→21:24)
--- NOTE | 2018-04-18 11:56 | P.PNFP ---
Subjective Interval history: Pt seen and examined. AFVSS. No acute events overnight. Pt reports his breathing is about the same and continues to have exertional SOB and a mild degree at rest as well. Denies any chest pain, wheezing, palpitations, or dizziness. He reports he is feeling physically weak. He goes to outpatient three times a week. His significant other is concerned because she states he is almost completely dependent on her to function. She reports it takes them over two hours to get him out of bed and showered. She is becoming frustrated because she feels like he is depressed but in denial. The patient denies feeling depressed, down, or hopeless. He would like to be able to go home soon. He states he is eating fine; no nausea or vomiting. Results - Labs Result diagrams: 04/18/18 05:16 04/18/18 05:16 Abnormal lab results 04/17/18 04/17/18 04/17/18 Range/Units 17:40 17:40 17:40 RBC 3.87 L (4.50-5.90) mil/mm3 Hgb 10.8 L (13.0-17.0) gm/dL Hct 31.6 L (39.0-51.0) % RDW 17.7 H (11.6-17.2) % Neut % (Auto) 88.1 H (16.0-70.0) % Lymph % (Auto) 5.8 L (9.0-44.0) % [place] % (Auto) (0.0-8.0) % Neut # (Auto) 9.0 H (1.8-7.7) th/mm3 Lymph # (Auto) 0.6 L (1.0-4.8) th/mm3 PT 12.1 H (9.8-11.6) sec APTT 33.6 H (24.3-30.1) sec Chloride (98-107) meq/L BUN (7-18) mg/dL Estimated GFR 72 L (>89) mL/min Random Glucose 128 H (74-106) mg/dL AST 14 L (15-37) U/L Troponin I 0.19 H (0.02-0.05) ng/mL Albumin 2.8 L (3.4-5.0) g/dL 04/18/18 04/18/18 04/18/18 Range/Units 00:54 05:16 05:16 RBC 3.22 L (4.50-5.90) mil/mm3 Hgb 8.7 L D (13.0-17.0) gm/dL Hct 26.4 L (39.0-51.0) % RDW 17.7 H (11.6-17.2) % Neut % (Auto) 79.8 H (16.0-70.0) % Lymph % (Auto) (9.0-44.0) % [place] % (Auto) 9.3 H (0.0-8.0) % Neut # (Auto) (1.8-7.7) th/mm3 Lymph # (Auto) 0.7 L (1.0-4.8) th/mm3 PT (9.8-11.6) sec APTT (24.3-30.1) sec Chloride 109 H (98-107) meq/L BUN 20 H (7-18) mg/dL Estimated GFR (>89) mL/min Random Glucose (74-106) mg/dL AST 9 L (15-37) U/L Troponin I 0.22 H (0.02-0.05) ng/mL Albumin 2.4 L (3.4-5.0) g/dL 04/18/18 Range/Units 05:16 RBC (4.50-5.90) mil/mm3 Hgb (13.0-17.0) gm/dL Hct (39.0-51.0) % RDW (11.6-17.2) % Neut % (Auto) (16.0-70.0) % Lymph % (Auto) (9.0-44.0) % [place] % (Auto) (0.0-8.0) % Neut # (Auto) (1.8-7.7) th/mm3 Lymph # (Auto) (1.0-4.8) th/mm3 PT (9.8-11.6) sec APTT (24.3-30.1) sec Chloride (98-107) meq/L BUN (7-18) mg/dL Estimated GFR (>89) mL/min Random Glucose (74-106) mg/dL AST (15-37) U/L Troponin I 0.21 H (0.02-0.05) ng/mL Albumin (3.4-5.0) g/dL Short CBC 04/17/18 04/18/18 Range/Units 17:40 05:16 WBC 10.2 8.0 (4.0-11.0) th/mm3 Hgb 10.8 L 8.7 L D (13.0-17.0) gm/dL Hct 31.6 L 26.4 L (39.0-51.0) % Plt Count 315 253 (150-450) th/mm3 BMP 04/17/18 04/18/18 17:40 05:16 Sodium 140 144 Potassium 4.0 4.1 Chloride 102 109 H Carbon Dioxide 25.0 26.2 BUN 17 20 H Creatinine 1.01 0.80 Calcium 9.4 8.5 D Cardiac Enzymes 04/17/18 04/18/18 04/18/18 Range/Units 17:40 00:54 05:16 Total Creatine Kinase 39 (39-308) U/L Troponin I 0.19 H 0.22 H 0.21 H (0.02-0.05) ng/mL Liver Function 04/17/18 04/18/18 Range/Units 17:40 05:16 Total Bilirubin 0.3 0.3 (0.2-1.0) mg/dL AST 14 L 9 L (15-37) U/L ALT 23 20 (12-78) U/L Alkaline Phosphatase 88 72 (45-117) U/L Albumin 2.8 L 2.4 L (3.4-5.0) g/dL - Imaging Impressions Chest CTA 04/17/18 17:32 CONCLUSION: 1. No pulmonary embolus. 2. Persistent 6.4 cm cavitary mass in the right lower lobe. 3. Widespread chronic interstitial disease and emphysematous change. 4. Right lower lobe atelectasis or consolidation seen inferior to the large cavitary mass. Chest X-Ray 04/17/18 17:32 CONCLUSION: Bilateral interstitial disease being worse on the right. There is some increased density seen in the right perihilar region which may be related to alveolar consolidation or atelectasis. Compared to the prior exam, these findings appear unchanged. Mild blunting of the right costophrenic angle. A mild right pleural effusion can be considered. Right volume loss with shift of heart and is not structures towards the right. Physical Exam Vital signs: Vital Signs 04/17/18 17:09 04/17/18 17:30 04/17/18 20:00 Temperature 97.3 F L Pulse Rate 120 H 114 H 96 H Respiratory Rate 28 H 24 18 Blood Pressure 124/74 137/80 110/75 Pulse Oximetry 94 L 94 L 95 04/17/18 20:44 04/17/18 21:53 04/18/18 00:00 Temperature 97.4 F L Pulse Rate 67 75 89 Respiratory Rate 18 18 Blood Pressure 117/78 103/59 L Pulse Oximetry 94 L 04/18/18 04:00 04/18/18 08:00 04/18/18 09:00 Temperature 98.1 F 98.5 F Pulse Rate 82 86 82 Respiratory Rate 18 16 Blood Pressure 102/65 109/67 Pulse Oximetry 93 L 94 L 04/18/18 10:00 Temperature Pulse Rate 101 H Respiratory Rate Blood Pressure Pulse Oximetry Intake & Output 04/17/18 04/18/18 04/18/18 18:59 06:59 18:59 Intake Total 999 / 999 Balance 1000 / 999 Weight 73.936 kg 73.5 kg Intake: IV 999 / 999 NS Inj 1,000 ML @ 100 mls/hr IV 999 / 999 .CONT .Q10H [facility] Rx#:[id number] Narrative: GENERAL: WN, WD male resting in bed in [facility]. SKIN: Warm and dry. HEENT: AT/NC. Pupils equal and round. MMM. NECK: Supple no tender LAD or JVD. HEART: IRR no appreciable murmurs. LUNGS: CTAB without wheezes or crackles. ABDOMEN: +BS, soft, NT, ND. EXTREMITIES: No LE edema. NEURO: Awake and alert. Nonfocal. PSYCH: Appropriate mood and affect. Assessment and Plan - Assessment (1) Chest pain Code(s): R07.9 - Chest pain, unspecified Status: Acute (2) Elevated troponin Code(s): R74.8 - Abnormal levels of other serum enzymes Status: Acute (3) Lung cancer Code(s): C34.90 - Malignant neoplasm of unspecified part of unspecified bronchus or lung Status: Acute (4) Dyspnea Code(s): R06.00 - Dyspnea, unspecified Status: Acute - Assessment and Plan 77 YOWM with HTN, lung cancer s/p chemo/radiation, oxygen dependence, depression and A-fib who presented to the ER w/ complaints of generalized weakness and progressive SOB. 1. Chest Pain - EKG with sinus tachycardia, no ST or T wave changes - Troponins mildly elevated at 0.19, 0.22, and 0.21 - CXR demonstrating bilateral interstitial disease, R>L and increased density in R perihilar region, both findings unchanged from prior study - CTA negative for PE. There is a persistent 6.4 cm cavitary mass in the right lower lobe with widespread chronic interstitial disease and emphysematous changes. There is also right lower lobe consolidation or atelectasis seen inferior to the large cavitary mass - NTG and morphine PRN - Continue ASA - Cardiology consulted - Monitor on telemetry 2. Dyspnea - Chest imaging as described above - Supplemental O2 - Schedule DuoNebs Q4H as patient states he does this at home - Check 2D echo - Pulmonology consulted, patient known to Dr. Kerr 3. 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 Rios; consulted for further eval/reccs - S/p chemo/radiation 4. Atrial fibrillation - Currently rate controlled - Continue home Cardizem 5. Depression - Continue home Zoloft 6. HLD - Continue home statin 7. Emphysema - Continue home Symbicort - Supplemental O2 - Bronchodilators 8. Anemia - Likely from malignancy but Hb dropped from ~10 to ~8 this morning - No signs of active bleeding and hemodynamically stable - Continue to monitor closely - If continues to drop consider GI consult for possible colonoscopy - Transfuse if Hb <7 DVT prophylaxis: Lovenox (1) Chest pain Qualifiers: Chest pain type: other chest pain Qualified Code(s): R07.89 - Other chest pain; R07.8 - Other chest pain (3) Lung cancer Qualifiers: Laterality: unspecified laterality Lung location: unspecified part of lung Qualified Code(s): C34.90 - Malignant neoplasm of unspecified part of unspecified bronchus or lung (4) Dyspnea Qualifiers: Dyspnea type: dyspnea on exertion Qualified Code(s): R06.09 - Other forms of dyspnea
--- NOTE | 2018-04-18 14:27 | MB ---
cc: Jeffery Antoine MD DATE: 04/18/2018 REASON FOR CONSULTATION: Chest pain. HISTORY OF PRESENT ILLNESS: Mr. Titus is a 77-year-old gentleman with history of atrial fibrillation, COPD, high blood pressure, lung CA, status post chemotherapy, followed by my partner, Dr. Marie, was at home yesterday. He said he did not feel too well. The girlfriend tricked him to came to the emergency room (this is a patient's words) for chest pain. He was admitted. He was found to have a troponin of 0.19. The patient is asymptomatic since hospitalization. I was consulted for evaluation and management. The chart was reviewed. The patient was evaluated. ALLERGIES: PREDNISONE. SOCIAL HISTORY: The patient stopped smoking. Drinks occasionally. FAMILY HISTORY: Noncontributory to his current medical condition. MEDICATIONS: Currently, he is on Tylenol p.r.n. He is on aspirin 325 mg a day. He is on Cardizem 180 mg a day. He is on [place]. He is on magnesium, Pravachol 40 mg at bedtime, sertraline 25 mg at bedtime and Restoril 15 mg p.o. at bedtime. REVIEW OF SYSTEMS: Currently, referred no chest pain, no chest discomfort, no shortness of breath. No fever. PHYSICAL EXAMINATION: GENERAL: Alert, fully oriented. VITAL SIGNS: His blood pressure 109/69, pulse 88, respiratory rate 18. LUNGS: Ventilated. CARDIOVASCULAR: S1, S2 regular. No gallop. No murmur. ABDOMEN: Soft. No mass. EXTREMITIES: No edema. ELECTROCARDIOGRAM: Sinus rhythm. No acute ST and T-wave changes. LABORATORY DATA: Hemoglobin is 8.7, coming down from 10.8 from yesterday. White blood cell 8.0, platelet is 253. INR 1.2. Potassium is 4.1, creatinine is 0.80. Troponin today 0.21. ASSESSMENT AND RECOMMENDATIONS: Mr. Titus currently is asymptomatic. He has no chest pain, no chest discomfort. His hemoglobin dropped from 10.3 to around 8.5. Troponin is increasing. There is no acute ST or T-wave changes. There was a previous hospitalization at the beginning of 03/2018. There is no previous ischemic workup. I am not sure this is necessary at this point because this gentleman has a lung squamous cell carcinoma stage III and there is no ST elevation, no significant change, troponin is very mildly elevated. At this point, my recommendation is observation. I will request only an echocardiogram to evaluate wall motion and valvular function. is okay, gentleman can be observed and discharged home whenever it is okay with the managing team. Case discussed extensively with him. I will monitor him during hospitalization. Jeffery Antoine MD HS/SB , 12:19 PM , 02:25 PM
--- NOTE | 2018-04-18 15:09 | MB ---
cc: Drea Vides MD, Tara DATE: 04/18/2018 REFERRING PHYSICIAN: Dr. Ruth Fernandez. CHIEF COMPLAINT: Dr. Fernandez requested consultation for Mr. Titus regarding lung cancer, dyspnea and confusion. HISTORY OF PRESENT ILLNESS: Mr. Titus is a 77-year-old man, well known patient to Dr. Michelle Rios. He has a history of stage IIIA, T4 N0 M0 non-small cell lung cancer, squamous cell histology. He completed concurrent chemotherapy and radiation. He is on adjuvant durvalumab. He appears to be tolerating his checkpoint inhibitor well. He has had admissions for COPD and shortness of breath. He follows with Dr. Kerr. He reports having shortness of breath. His history is supplemented by his significant other at the bedside. He denies having memory loss. His significant other reports that he has been quite confused and dizzy and lightheaded. They alerted Dr. Kerr that they were on their way to the emergency room. He has a decrease in appetite. He has lost weight. He denies any headaches. No nausea or vomiting. Denies any fevers, chills or night sweats. All in all, he feels that he is tolerating durvalumab well. He was seen in the emergency room with respiratory symptoms, dry cough. Noted to have troponin I slight elevation. His hemoglobin on admission was 10.8 and decreased to 8.7 at the time of the consultation. His PT and PTT are both prolonged. He denies any overt bleeding. No melena or bright red blood per rectum. He is aware of his anemia. Iron deficiency was suspected and he therefore was given oral iron. Last ferritin was elevated, although this does not exclude an iron deficiency. Review of the electronic medical record shows a MCV of 76 back in 11/2017. Current MCV is 84.6. He has a chronic anemia. Hematology/Oncology is consulted for his non-small cell lung cancer. PAST MEDICAL HISTORY: COPD, emphysema, nephrolithiasis, unresectable non-small cell lung cancer locally advanced, chronic anemia, possible iron deficiency. PAST SURGICAL HISTORY: Appendectomy, hernia repair, prostate biopsy, tonsillectomy, colonoscopy. ALLERGIES: NO KNOWN DRUG ALLERGIES. FAMILY HISTORY: Both parents are . There is no significant family history of cancer. There is family history for coronary artery disease, diabetes, and CVA. SOCIAL HISTORY: Mr. Titus is . He has a [id number] smoking history. He has a significant other/girlfriend. PHYSICAL EXAMINATION: VITAL SIGNS: Temperature 97.4, heart rate 90, respiratory rate 16, blood pressure 111/70, saturation 93%. GENERAL: Mr. Titus is a well-developed, elderly man who looks his stated age. HEENT: His pupils are round, reactive to light and accommodation. Conjunctivae are pale. Oropharynx is clear. NECK: Supple. LUNGS: With diminished breath sounds throughout. No wheezing. CARDIOVASCULAR: Reveals a normal rate and rhythm. ABDOMEN: Benign. EXTREMITIES: Lower extremities with no edema. NEUROLOGIC: Nonfocal. He seems awake, alert, oriented. LABORATORY DATA: As described above. Hemoglobin decreased to 8.7, MCV 82. PT, PTT are prolonged. RADIOGRAPHIC EVALUATION: Included a CT angiogram that shows no pulmonary embolism. There is a persistent 6.4 cm cavitary mass in the right lower lobe. There is widespread chronic interstitial disease and emphysematous changes. There is possible atelectasis or consolidation inferior to the large cavitary mass. ASSESSMENT AND PLAN: Mr. Titus is a 77-year-old man with multiple medical problems. He had recent admission to the hospital for dyspnea and shortness of breath. He comes with similar symptoms. There is added complaint from his significant other about his memory. He has high-risk stage IIIA non-small cell lung cancer with squamous cell histology. He is receiving adjuvant therapy with a checkpoint inhibitor, which improves his chances of staying in remission. He seems to be tolerating the treatment well. I made a note of the worsening anemia. There are no overt signs of blood loss. He denies any melena or bright red blood per rectum. He denies any hematuria. He appears to have an iron deficiency with initial presentation of anemia, microcytosis. We will check stool for Hemoccult. I will repeat a CBC in light of a significant decrease in his hemoglobin over the last 24 hours. LDH will be checked. Reticulocyte count will be evaluated. Noted is a prolonged PT, PTT. He is on anticoagulant therapy. 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 We will alert Dr. Kerr of his admission. Dr. Rios will resume his care on Friday. He appears to be doing well from the treatment without obvious evidence of progression from his non-small cell lung cancer. His CT PET scan have been scheduled for next week. We will monitor closely for etiology for his exacerbation of shortness of breath. His pulmonary treatment will be optimized. His hemoglobin will be monitored. MD ELIAS Ledesma/BARB , 02:03 PM , 03:07 PM
[2018-04-18 15:31] LABS: Hematocrit 27.3 % (39.0-51.0); Hemoglobin 8.9 gm/dL (13.0-17.0); Mean Corpuscular HGB Conc 32.6 % (32.0-36.0); Mean Corpuscular Hemoglobin 26.8 pg (27.0-34.0); Mean Corpuscular Volume 82.3 fL (80.0-100.0); Mean Platelet Volume 6.9 fL (7.0-11.0); Platelet Count 248 th/mm3 (150-450); Red Blood Count 3.32 mil/mm3 (4.50-5.90); Red Cell Distribution Width 17.8 % (11.6-17.2); Reticulocyte Percent 3.4 % (0.4-3.0); White Blood Count 7.9 th/mm3 (4.0-11.0)
[2018-04-18 15:52] LABS: % Iron Saturation 10.7 % (20-50)
--- NOTE | 2018-04-18 16:43 | MB ---
cc: Usha Kerr MD DATE: 04/18/2018 REASON FOR CONSULTATION: Lung cancer, COPD, respiratory failure. HISTORY OF PRESENT ILLNESS: Mr. Titus is a 77-year-old male with a known history of lung cancer, post-radiation and chemotherapy. The patient has a history of severe COPD, respiratory failure on home oxygen therapy, admitted with increasing shortness of breath and unspecified substernal chest pain. His troponin was elevated upon presentation. The patient is without chest pain at present. Has an occasional cough, small amount of whitish sputum. Denies history of fever or chills. No hemoptysis. No history of TB or industrial exposure. PAST MEDICAL HISTORY: 1. Lung cancer post-radiation and chemotherapy. 2. Atrial fibrillation. 3. Mood disorder, namely depression. 4. Chronic obstructive pulmonary disease. 5. Chronic respiratory failure, on oxygen therapy. SOCIAL HISTORY: Long heavy smoking history, does not smoke at present. Drinks alcohol socially. FAMILY HISTORY: Noncontributory. HOME MEDICATIONS: Include Symbicort twice daily, p.r.n. albuterol, diltiazem 180 mg daily, sertraline. ALLERGIES: QUESTIONABLY PREDNISONE. REVIEW OF SYSTEMS: A 12-point review of systems as per HPI and past history, otherwise negative. PHYSICAL EXAMINATION: GENERAL: The patient is alert, in no acute distress at rest. VITAL SIGNS: Temperature 97, pulse 110, respirations 22, blood pressure 126/76, oxygen saturation 94% on oxygen 2 liters via nasal cannula. HEENT: Unremarkable. Eyes without icterus. NECK: Without adenopathy or thyroid enlargement. Central trachea. CHEST: Few scattered rhonchi bilaterally. CARDIAC: PMI not appreciated. S1, S2 audible. No murmur. No rub. ABDOMEN: Lax, audible bowel sounds. PSYCHIATRIC: No clubbing, cyanosis or edema. SKIN: Normal. No lymphadenopathy. LABORATORY DATA: White count 10,000; hemoglobin 10; hematocrit 31; platelets 315,000. Sodium 140, potassium 4.0, BUN 17, creatinine 1.0. IMAGING STUDIES: CT scan of the chest without evidence of pulmonary embolism. A 6 cm mass right lower lung is noted to diffuse interstitial disease and emphysematous change. IMPRESSION: 1. Chronic obstructive pulmonary disease. 2. Question pneumonia. 3. Chest pain, nonspecific. 4. Hypertension. 5. Atrial fibrillation. PLAN: The patient is receiving oxygen therapy at present, will be continued. Antibiotic therapy on an empiric basis for possible pneumonia will be appropriate as well. Bronchodilator therapy will be continued. Cardiac evaluation for possible explanation for the patient's chest pain. He seems to be doing well at present; however, his main problem is dyspnea with minimal exertion. He will probably need to go to a rehab facility for a few weeks post discharge to increase his exercise tolerance. PROGNOSIS: His prognosis with multiple medical problems is poor. I do thank you for asking me to partake in Mr. Titus's care. MD HERBER Coats/BARB , 03:56 PM , 04:41 PM
[2018-04-19 05:23] LABS: Baso % (Auto) 0.5 % (0.0-2.0); Eos % (Auto) 0.6 % (0.0-4.0); Hematocrit 25.2 % (39.0-51.0); Hemoglobin 8.2 gm/dL (13.0-17.0); Lymph # (Auto) 0.6 th/mm3 (1.0-4.8); Lymph % (Auto) 7.6 % (9.0-44.0); Mean Corpuscular HGB Conc 32.6 % (32.0-36.0); Mean Corpuscular Hemoglobin 26.3 pg (27.0-34.0); Mean Corpuscular Volume 80.8 fL (80.0-100.0); Mean Platelet Volume 7.1 fL (7.0-11.0); Mono # (Auto) 0.6 th/mm3 (0.0-0.9); Mono % (Auto) 7.5 % (0.0-8.0); Neut # (Auto) 6.7 th/mm3 (1.8-7.7); Neut % (Auto) 83.8 % (16.0-70.0); Platelet Count 224 th/mm3 (150-450); Red Blood Count 3.12 mil/mm3 (4.50-5.90); Red Cell Distribution Width 17.6 % (11.6-17.2)
[2018-04-19 05:50] LABS: Anion Gap 13 meq/L (5-15); Blood Urea Nitrogen 13 mg/dL (7-18); Calcium 8.1 mg/dL (8.5-10.1); Carbon Dioxide 22.4 meq/L (21.0-32.0); Chloride 108 meq/L (98-107); Glucose,Random 114 mg/dL (74-106); Potassium 3.3 meq/L (3.5-5.1); Sodium 143 meq/L (136-145)
[2018-04-19 06:03] LABS: Glomerular Filtration Rate Greater Than 89 mL/min (>89)
[2018-04-19] MEDS: Sod Chloride 0.9% Inj 1,000 ML IV.CONT SCH ×2 (06:16→12:53)
[2018-04-19] MEDS: Sertraline 50 MG Tablet PO SCH (08:32)
[2018-04-19] MEDS: levoFLOXacin 250 MG Tablet PO SCH (08:32)
[2018-04-19] MEDS: Senna/Docusate Sodium 8.6/50 MG Tablet PO SCH ×2 (08:33→21:02)
[2018-04-19] MEDS: dilTIAZem CD 180 MG Capsule PO SCH (08:33)
[2018-04-19] MEDS: Budesonide-Formoterol 160/4.5 MCG 6 GM Inhaler INH SCH ×2 (08:33→21:03)
--- NOTE | 2018-04-19 11:39 | P.PNONC ---
Subjective Interval history: Afebrile Patient reports his breathing is improved Hoping to go home today Denies obvious bleeding Objective Vital Signs/Intake & Output: Vital Signs 04/18/18 12:00 04/18/18 13:00 04/18/18 14:00 Temperature 97.4 F L Pulse Rate 90 88 83 Respiratory Rate 16 Blood Pressure 111/70 Pulse Oximetry 93 L 04/18/18 15:00 04/18/18 16:00 04/18/18 17:00 Temperature 98.1 F Pulse Rate 90 87 94 H Respiratory Rate 18 Blood Pressure 120/67 Pulse Oximetry 93 L 04/18/18 17:47 04/18/18 18:00 04/18/18 19:00 Temperature Pulse Rate 78 100 H 97 H Respiratory Rate 14 Blood Pressure Pulse Oximetry 04/18/18 19:46 04/18/18 20:00 04/18/18 21:00 Temperature 97.4 F L Pulse Rate 93 H 94 H 92 H Respiratory Rate 16 22 Blood Pressure 161/78 H Pulse Oximetry 04/18/18 22:00 04/18/18 23:00 04/19/18 00:00 Temperature 97.8 F Pulse Rate 88 89 88 Respiratory Rate 18 Blood Pressure 168/83 H Pulse Oximetry 93 L 04/19/18 00:20 04/19/18 01:00 04/19/18 02:00 Temperature Pulse Rate 90 100 H 104 H Respiratory Rate 18 Blood Pressure Pulse Oximetry 04/19/18 03:00 04/19/18 04:00 04/19/18 04:36 Temperature 97.8 F Pulse Rate 92 H 100 H 102 H Respiratory Rate 22 14 Blood Pressure 137/82 Pulse Oximetry 93 L 04/19/18 05:00 04/19/18 06:00 04/19/18 07:00 Temperature Pulse Rate 106 H 110 H 118 H Respiratory Rate Blood Pressure Pulse Oximetry 04/19/18 07:27 04/19/18 08:00 04/19/18 09:00 Temperature 98.3 F Pulse Rate 101 H 107 H 124 H Respiratory Rate 16 16 Blood Pressure 147/80 H Pulse Oximetry 95 94 L 04/19/18 10:00 04/19/18 11:03 Temperature Pulse Rate 105 H 103 H Respiratory Rate 16 Blood Pressure Pulse Oximetry Intake & Output 04/18/18 04/19/18 04/19/18 18:59 06:59 18:59 Intake Total 2500 / 2500 2240 / 2240 Output Total 600 / 600 875 / 875 Balance 1900 / 1900 1365 / 1365 Weight 161 lb 13.109 oz Intake: IV 1999 NS Inj 1,000 ML @ 100 mls/hr IV 1999 .CONT .Q10H [facility] Rx#:[id number] Oral 500 / 500 240 / 240 Output: Urine 600 / 600 875 / 875 Other: # Voids 1 1 Date of Last Bowel Movement 04/18/18 04/18/18 # Bowel Movements 1 Result Diagrams: 04/19/18 04:45 04/19/18 04:45 Laboratory Results: Laboratory Results - last 24 hr 04/18/18 04/18/18 04/18/18 15:06 15:06 15:06 WBC 7.9 RBC 3.32 L Hgb 8.9 L Hct 27.3 L MCV 82.3 MCH 26.8 L MCHC 32.6 RDW 17.8 H Plt Count 248 MPV 6.9 L Neut % (Auto) Lymph % (Auto) [place] % (Auto) Eos % (Auto) Baso % (Auto) Neut # (Auto) Lymph # (Auto) [place] # (Auto) Eos # (Auto) Baso # (Auto) WBC Differential Differential Comment Retic Count 3.4 H Absolute Retic 112.1 Sodium Potassium Chloride Carbon Dioxide Anion Gap BUN Creatinine Estimated GFR Random Glucose Calcium Iron 24 L TIBC 224 L % Saturation 10.7 L Ferritin 352 Lactate Dehydrogenase 151 Vitamin B12 04/18/18 04/19/18 04/19/18 15:06 04:45 04:45 WBC 8.0 RBC 3.12 L Hgb 8.2 L Hct 25.2 L MCV 80.8 MCH 26.3 L MCHC 32.6 RDW 17.6 H Plt Count 224 MPV 7.1 Neut % (Auto) 83.8 H Lymph % (Auto) 7.6 L [place] % (Auto) 7.5 Eos % (Auto) 0.6 Baso % (Auto) 0.5 Neut # (Auto) 6.7 Lymph # (Auto) 0.6 L [place] # (Auto) 0.6 Eos # (Auto) 0.0 Baso # (Auto) 0.0 WBC Differential . Differential Comment Auto diff final Retic Count Absolute Retic Sodium 143 Potassium 3.3 L D Chloride 108 H Carbon Dioxide 22.4 Anion Gap 13 BUN 13 Creatinine 0.62 Estimated GFR Greater than 89 Random Glucose 114 H Calcium 8.1 L Iron TIBC % Saturation Ferritin Lactate Dehydrogenase Vitamin B12 643 Culture Results: Microbiology 04/18/18 16:59 Occult Blood - Final Stool Hemoccult negative Medications: Active Medications Generic Name Dose Route Start Last Admin Trade Name Freq PRN Reason Stop Dose Admin Albuterol 1 ampul 04/18/18 16:00 04/19/18 11:01 Duoneb Neb ([facility]) NEB 1 ampul Q4HR NEB [facility] Administration Budesonide/Formoterol Fumarate 2 puff 04/17/18 21:00 04/19/18 08:33 Symbicort 160/4.5 Mcg Inh INH 2 puff Q12H [facility] Administration Diltiazem HCl 180 mg 04/18/18 09:00 04/19/18 08:33 Cardizem Cd 24hr PO 180 mg DAILY [facility] Administration Sodium Chloride 1,000 mls @ 100 mls/hr 04/17/18 21:00 04/19/18 06:16 Ns Inj IV.CONT 100 mls/hr .Q10H [facility] Administration Levofloxacin 250 mg 04/19/18 09:00 04/19/18 08:32 Levaquin PO 250 mg DAILY [facility] Administration Nitroglycerin 0.5 inch 04/18/18 00:00 04/19/18 11:28 Nitro-Bid 2% Oint TOPICAL 0.5 inch Q6HR [facility] Administration Pravastatin Sodium 40 mg 04/17/18 21:00 04/18/18 21:24 Pravachol PO 40 mg HS [facility] Administration Senna/Docusate Sodium 1 tab 04/17/18 21:00 04/19/18 08:33 Debbie-Colace PO Not Given BID [facility] Sertraline HCl 25 mg 04/18/18 09:00 04/19/18 08:32 Zoloft PO 25 mg DAILY [facility] Administration Objective Remarks: GENERAL: Elderly male resting in bed in no obvious distress SKIN: Warm and dry. Xerosis on legs. HEAD: Normocephalic. EYES: No scleral icterus. No injection or drainage. NECK: Supple, trachea midline. No JVD or lymphadenopathy. CARDIOVASCULAR: Regular rate and rhythm. Mildly tachycardic. RESPIRATORY: Breath sounds clear but diminished anteriorly. GASTROINTESTINAL: Abdomen soft, non-tender, nondistended. EXTREMITIES: No cyanosis, or edema. MUSCULOSKELETAL: Adequate muscle tone. NEUROLOGICAL: No obvious focal deficit. Awake, alert, and oriented x3. Assessment/Plan - Plan Patient is a 77-year-old male with history of stage IIIa, T4 N0 M0 non-small cell lung cancer with squamous cell histology. He is currently on adjuvant therapy with nivolumab after completing chemotherapy and radiation. He was admitted with shortness of breath. Hem/Onc consulted for continuity of care as well as anemia. 1. Patient had iron studies that are somewhat difficult to decipher. The patient reports he does take an [id number] iron supplement at home. I discussed giving him 1 dose of IV iron sucrose here in the hospital. He is agreeable to this. 2. Monitor CBC. The elevated reticulocyte count along with the drop in hemoglobin is concerning for GI bleed however a stool for occult blood was shown to be negative. 3. 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 Further treatment for his lung cancer will be done on an outpatient basis. - Attending Statement The exam, history, and the medical decision-making described in the above note were completed with the assistance of the mid-level provider. I reviewed and agree with the findings presented. I attest that I had a [id number] encounter with the patient on the same day, and personally performed and documented my assessment and findings in the medical record. Patient seen and examined. He was working with physical therapy this morning. CT head with and without contrast still pending. Hemoglobin continues to decrease. Anticipate transfusing if hemoglobin is less than 8.2 or increased symptoms of dizziness and shortness of breath. Dr. Rios to resume his care tomorrow
--- NOTE | 2018-04-19 12:02 | P.PNFP ---
Subjective Interval history: Pt seen and examined. Tachycardic with HR low 100s. BP stable. Reports he is feeling fine and like his usual self. Endorses dyspnea with minimal exertion. Hasn't really been out of bed. Hasn't been evaluated by PT yet. Denies CP, abdominal pain. Reports he vomited after breakfast and attributes this to eating too quickly. He denies current nausea. Results - Labs Result diagrams: 04/19/18 04:45 04/19/18 04:45 Abnormal lab results 04/18/18 04/18/18 04/19/18 Range/Units 15:06 15:06 04:45 RBC 3.32 L 3.12 L (4.50-5.90) mil/mm3 Hgb 8.9 L 8.2 L (13.0-17.0) gm/dL Hct 27.3 L 25.2 L (39.0-51.0) % MCH 26.8 L 26.3 L (27.0-34.0) pg RDW 17.8 H 17.6 H (11.6-17.2) % MPV 6.9 L (7.0-11.0) fL Neut % (Auto) 83.8 H (16.0-70.0) % Lymph % (Auto) 7.6 L (9.0-44.0) % Lymph # (Auto) 0.6 L (1.0-4.8) th/mm3 Retic Count 3.4 H (0.4-3.0) % Potassium (3.5-5.1) meq/L Chloride (98-107) meq/L Random Glucose (74-106) mg/dL Calcium (8.5-10.1) mg/dL Iron 24 L (65-175) mcg/dL TIBC 224 L (250-450) mcg/dL % Saturation 10.7 L (20-50) % 04/19/18 Range/Units 04:45 RBC (4.50-5.90) mil/mm3 Hgb (13.0-17.0) gm/dL Hct (39.0-51.0) % MCH (27.0-34.0) pg RDW (11.6-17.2) % MPV (7.0-11.0) fL Neut % (Auto) (16.0-70.0) % Lymph % (Auto) (9.0-44.0) % Lymph # (Auto) (1.0-4.8) th/mm3 Retic Count (0.4-3.0) % Potassium 3.3 L D (3.5-5.1) meq/L Chloride 108 H (98-107) meq/L Random Glucose 114 H (74-106) mg/dL Calcium 8.1 L (8.5-10.1) mg/dL Iron (65-175) mcg/dL TIBC (250-450) mcg/dL % Saturation (20-50) % Short CBC 04/18/18 04/19/18 Range/Units 15:06 04:45 WBC 7.9 8.0 (4.0-11.0) th/mm3 Hgb 8.9 L 8.2 L (13.0-17.0) gm/dL Hct 27.3 L 25.2 L (39.0-51.0) % Plt Count 248 224 (150-450) th/mm3 [facility] 04/19/18 04:45 Sodium 143 Potassium 3.3 L D Chloride 108 H Carbon Dioxide 22.4 BUN 13 Creatinine 0.62 Calcium 8.1 L Physical Exam Vital signs: Vital Signs 04/18/18 12:00 04/18/18 13:00 04/18/18 14:00 Temperature 97.4 F L Pulse Rate 90 88 83 Respiratory Rate 16 Blood Pressure 111/70 Pulse Oximetry 93 L 04/18/18 15:00 04/18/18 16:00 04/18/18 17:00 Temperature 98.1 F Pulse Rate 90 87 94 H Respiratory Rate 18 Blood Pressure 120/67 Pulse Oximetry 93 L 04/18/18 17:47 04/18/18 18:00 04/18/18 19:00 Temperature Pulse Rate 78 100 H 97 H Respiratory Rate 14 Blood Pressure Pulse Oximetry 04/18/18 19:46 04/18/18 20:00 04/18/18 21:00 Temperature 97.4 F L Pulse Rate 93 H 94 H 92 H Respiratory Rate 16 22 Blood Pressure 161/78 H Pulse Oximetry 04/18/18 22:00 04/18/18 23:00 04/19/18 00:00 Temperature 97.8 F Pulse Rate 88 89 88 Respiratory Rate 18 Blood Pressure 168/83 H Pulse Oximetry 93 L 04/19/18 00:20 04/19/18 01:00 04/19/18 02:00 Temperature Pulse Rate 90 100 H 104 H Respiratory Rate 18 Blood Pressure Pulse Oximetry 04/19/18 03:00 04/19/18 04:00 04/19/18 04:36 Temperature 97.8 F Pulse Rate 92 H 100 H 102 H Respiratory Rate 22 14 Blood Pressure 137/82 Pulse Oximetry 93 L 04/19/18 05:00 04/19/18 06:00 04/19/18 07:00 Temperature Pulse Rate 106 H 110 H 118 H Respiratory Rate Blood Pressure Pulse Oximetry 04/19/18 07:27 04/19/18 08:00 04/19/18 09:00 Temperature 98.3 F Pulse Rate 101 H 107 H 124 H Respiratory Rate 16 16 Blood Pressure 147/80 H Pulse Oximetry 95 94 L 04/19/18 10:00 04/19/18 11:03 Temperature Pulse Rate 105 H 103 H Respiratory Rate 16 Blood Pressure Pulse Oximetry Intake & Output 04/18/18 04/19/18 04/19/18 18:59 06:59 18:59 Intake Total 2500 / 2500 2240 / 2240 Output Total 600 / 600 875 / 875 Balance 1900 / 1900 1365 / 1365 Weight 73.4 kg Intake: IV 1999 NS Inj 1,000 ML @ 100 mls/hr IV 1999 .CONT .Q10H [facility] Rx#:[id number] Oral 500 / 500 240 / 240 Output: Urine 600 / 600 875 / 875 Other: # Voids 1 1 Date of Last Bowel Movement 04/18/18 04/18/18 # Bowel Movements 1 Narrative: GENERAL: WN, WD male resting in bed in [facility]. SKIN: Warm and dry. HEENT: AT/NC. Pupils equal and round. MMM. NECK: Supple no tender LAD or JVD. HEART: Tachycardic, IRR no appreciable murmurs. LUNGS: Course breath sounds but otherwise no appreciable crackles or wheezing. ABDOMEN: +BS, soft, NT, ND. EXTREMITIES: No LE edema. NEURO: Awake and alert. Nonfocal. PSYCH: Appropriate mood and affect. Assessment and Plan - Assessment (1) Chest pain Code(s): R07.9 - Chest pain, unspecified Status: Acute (2) Elevated troponin Code(s): R74.8 - Abnormal levels of other serum enzymes Status: Acute (3) Lung cancer Code(s): C34.90 - Malignant neoplasm of unspecified part of unspecified bronchus or lung Status: Chronic (4) Dyspnea Code(s): R06.00 - Dyspnea, unspecified Status: Acute - Assessment and Plan 77 YOWM with HTN, lung cancer s/p chemo/radiation, oxygen dependence, depression and A-fib who presented to the ER w/ complaints of generalized weakness and progressive SOB. 1. Chest Pain - EKG with sinus tachycardia, no ST or T wave changes - Troponins mildly elevated at 0.19, 0.22, and 0.21 - CXR demonstrating bilateral interstitial disease, R>L and increased density in R perihilar region, both findings unchanged from prior study - CTA negative for PE. There is a persistent 6.4 cm cavitary mass in the right lower lobe with widespread chronic interstitial disease and emphysematous changes. There is also right lower lobe consolidation or atelectasis seen inferior to the large cavitary mass - 2D echo ordered - NTG and morphine PRN - Continue ASA - Cardiology consulted - Monitor on telemetry 2. Dyspnea, PNA - Chest imaging as described above - Supplemental O2 - Schedule DuoNebs Q4H - 2d echo ordered - Pulmonology consulted, patient known to Dr. Kerr. Recommending continued bronchodilators, abx, and likely short term rehab - Continue Levaquin - PT consulted 3. Lung cancer - State IIIa T4 N0 M0 non-small cell lung cancer, squamous cell carcinoma s/p chemo/rxt - On continuous 2L O2 at home - Follows with Dr. Rios; consulted for further eval/reccs 4. Atrial fibrillation - HR 100-120s - Increase Cardizem to 240 mg 5. Depression - Continue home Zoloft 6. HLD - Continue home statin 7. Emphysema - Continue home Symbicort - Supplemental O2 - Bronchodilators 8. Anemia - Likely from malignancy but Hb dropped from ~10 to ~8 - No signs of active bleeding and hemodynamically stable - Elevated retic count at 3.4, normal LDH, low iron and % sat but oddly TIBC is also low and ferritin is normal - Heme/onc following - Planning for iron transfusion today - Consider transfusing if Hb <8 DVT prophylaxis: Lovenox Discharge Planning: Anticipate D/C tomorrow, continuing to monitor CBC for acute anemia and echocardiogram still needs to be done (1) Chest pain Qualifiers: Chest pain type: other chest pain Qualified Code(s): R07.89 - Other chest pain; R07.8 - Other chest pain (3) Lung cancer Qualifiers: Laterality: unspecified laterality Lung location: unspecified part of lung Qualified Code(s): C34.90 - Malignant neoplasm of unspecified part of unspecified bronchus or lung (4) Dyspnea Qualifiers: Dyspnea type: dyspnea on exertion Qualified Code(s): R06.09 - Other forms of dyspnea
[2018-04-19] MEDS ORDERED: Iron Sucrose Inj 200 MG in Sodium Chlor 0.9% Inj 100 ML IV.SIG ONE (13:00)
--- NOTE | 2018-04-19 15:14 | ECHRPT ---
Indication: CHEST PAIN CONCLUSIONS Normal left ventricular size. Wall thickness is normal. The left ventricular systolic function is low normal with an estimated ejection fraction in the rang e of 50- 55%. Mild diatolic dysfunction Mitral annular calcification is present. Trace mitral valve regurgitation. BP: / HR: Rhythm: MEASUREMENTS (Male / Female) Normal Values Technical Quality:Technically difficult study 2D ECHO LV Diastolic Diameter PLAX 4.2 cm 4.2 - 5.9 / 3.9 - 5.3 cm LV Systolic Diameter PLAX 2.9 cm IVS Diastolic Thickness 0.7 cm 0.6 - 1.0 / 0.6 - 0.9 cm LVPW Diastolic Thickness 0.6 cm 0.6 - 1.0 / 0.6 - 0.9 cm LV Relative Wall Thickness 0.3 RV Internal Dim ED PLAX 1.8 cm DOPPLER Mitral E Point Velocity 74.7 cm/s Mitral A Point Velocity 112.0 cm/s Mitral E to A Ratio 0.7 Right Atrial Pressure 10.0 mmHg FINDINGS LEFT VENTRICLE Normal left ventricular size. Wall thickness is normal. The left ventricular systolic function is low normal with an estimated ejection fraction in the rang e of 50- 55%. RIGHT VENTRICLE Normal right ventricular size and systolic function. LEFT ATRIUM The left atrial size is normal. RIGHT ATRIUM The right atrial size is normal. ATRIAL SEPTUM Normal atrial septal thickness without atrial level shunting by limited color doppler interrogation. AORTA The aortic root and proximal ascending aorta are normal in size on limited imaging. MITRAL VALVE Mitral annular calcification is present. Trace mitral valve regurgitation. AORTIC VALVE Trileaflet aortic valve. No aortic valve stenosis or regurgitation. TRICUSPID VALVE Structurally normal tricuspid valve. No tricuspid valve stenosis or regurgitation. PULMONARY VALVE The pulmonary valve is not well visualized. VESSELS The inferior vena cava is normal in size. PERICARDIUM No pericardial effusion. Jeffery Antoine MD (Electronically Signed) Final Date:19 April 2018 15:13 Amended: 19 April 2018 15:16
--- NOTE | 2018-04-19 15:36 | P.PN ---
Subjective Interval history: alert on O2 NC vomited once today Physical Exam Vital signs: Vital Signs 04/18/18 16:00 04/18/18 17:00 04/18/18 17:47 Temperature 98.1 F Pulse Rate 87 94 H 78 Respiratory Rate 18 14 Blood Pressure 120/67 Pulse Oximetry 93 L 04/18/18 18:00 04/18/18 19:00 04/18/18 19:46 Temperature Pulse Rate 100 H 97 H 93 H Respiratory Rate 16 Blood Pressure Pulse Oximetry 04/18/18 20:00 04/18/18 21:00 04/18/18 22:00 Temperature 97.4 F L Pulse Rate 94 H 92 H 88 Respiratory Rate 22 Blood Pressure 161/78 H Pulse Oximetry 04/18/18 23:00 04/19/18 00:00 04/19/18 00:20 Temperature 97.8 F Pulse Rate 89 88 90 Respiratory Rate 18 18 Blood Pressure 168/83 H Pulse Oximetry 93 L 04/19/18 01:00 04/19/18 02:00 04/19/18 03:00 Temperature Pulse Rate 100 H 104 H 92 H Respiratory Rate Blood Pressure Pulse Oximetry 04/19/18 04:00 04/19/18 04:36 04/19/18 05:00 Temperature 97.8 F Pulse Rate 100 H 102 H 106 H Respiratory Rate 22 14 Blood Pressure 137/82 Pulse Oximetry 93 L 04/19/18 06:00 04/19/18 07:00 04/19/18 07:27 Temperature Pulse Rate 110 H 118 H 101 H Respiratory Rate 16 Blood Pressure Pulse Oximetry 95 04/19/18 08:00 04/19/18 09:00 04/19/18 10:00 Temperature 98.3 F Pulse Rate 107 H 124 H 105 H Respiratory Rate 16 Blood Pressure 147/80 H Pulse Oximetry 94 L 04/19/18 11:00 04/19/18 11:03 04/19/18 12:00 Temperature 98.9 F Pulse Rate 113 H 103 H 111 H Respiratory Rate 16 16 Blood Pressure 148/88 H Pulse Oximetry 92 L 04/19/18 13:00 04/19/18 14:00 04/19/18 15:00 Temperature Pulse Rate 105 H 97 H 89 Respiratory Rate 16 Blood Pressure Pulse Oximetry Intake & Output 07/14/18 07/15/18 07/15/18 18:59 06:59 18:59 Intake Total 2500 / 2500 2240 / 2240 1000 / 1000 Output Total 600 / 600 875 / 875 Balance 1900 / 1900 1365 / 1365 1000 / 1000 Weight 73.4 kg Intake: IV 1999 1000 / 1000 NS Inj 1,000 ML @ 100 mls/hr IV 1999 1000 / 1000 .CONT .Q10H [facility] Rx#:[id number] Oral 500 / 500 240 / 240 Output: Urine 600 / 600 875 / 875 Other: # Voids 1 1 Date of Last Bowel Movement 04/18/18 04/18/18 # Bowel Movements 1 Narrative: GENERAL: WN, WD male resting in bed in [place]. SKIN: Warm and dry. HEENT: AT/NC. Pupils equal and round. MMM. NECK: Supple no tender LAD or JVD. HEART: Tachycardic, IRR no appreciable murmurs. LUNGS: Course breath sounds but otherwise no appreciable crackles or wheezing. ABDOMEN: +BS, soft, NT, ND. EXTREMITIES: No LE edema. NEURO: Awake and alert. Nonfocal. PSYCH: Appropriate mood and affect. Results - Labs CBC & Chem 7: 04/19/18 04:45 04/19/18 04:45 Laboratory Results - last 24 hr 04/18/18 04/18/18 04/18/18 15:06 15:06 15:06 WBC RBC Hgb Hct MCV MCH MCHC RDW Plt Count MPV Neut % (Auto) Lymph % (Auto) [place] % (Auto) Eos % (Auto) Baso % (Auto) Neut # (Auto) Lymph # (Auto) [place] # (Auto) Eos # (Auto) Baso # (Auto) WBC Differential Differential Comment Sodium Potassium Chloride Carbon Dioxide Anion Gap BUN Creatinine Estimated GFR Random Glucose Calcium Iron 24 L TIBC 224 L % Saturation 10.7 L Ferritin 352 Lactate Dehydrogenase 151 Vitamin B12 643 04/19/18 04/19/18 04:45 04:45 WBC 8.0 RBC 3.12 L Hgb 8.2 L Hct 25.2 L MCV 80.8 MCH 26.3 L MCHC 32.6 RDW 17.6 H Plt Count 224 MPV 7.1 Neut % (Auto) 83.8 H Lymph % (Auto) 7.6 L [place] % (Auto) 7.5 Eos % (Auto) 0.6 Baso % (Auto) 0.5 Neut # (Auto) 6.7 Lymph # (Auto) 0.6 L [place] # (Auto) 0.6 Eos # (Auto) 0.0 Baso # (Auto) 0.0 WBC Differential . Differential Comment Auto diff final Sodium 143 Potassium 3.3 L D Chloride 108 H Carbon Dioxide 22.4 Anion Gap 13 BUN 13 Creatinine 0.62 Estimated GFR Greater than 89 Random Glucose 114 H Calcium 8.1 L Iron TIBC % Saturation Ferritin Lactate Dehydrogenase Vitamin B12 Microbiology 04/18/18 16:59 Stool Occult Blood - Final Hemoccult negative Assessment and Plan - Plan o2 as needed bronchodilator therapy' antibx'F/U CXRAY
--- NOTE | 2018-04-19 15:37 | P.CON ---
History of Present Illness Primary Care Provider: Song Crisostomo MD Family Provider: Usha Kerr MD [facility] - History History Provided By: Patient - Medical History Medical History: Medical History (Last Updated 04/17/18 @ 17:26 by Yasmeen Johnston) A-fib Depression FH: chemotherapy Hx of radiation therapy Lung cancer Oxygen dependent - Tobacco History Second Hand Smoke Exposure: No Smoking Status: Former smoker Tobacco Type: Cigarettes - Alcohol History How Often Do You Have a Drink Containing Alcohol: 2 to 4 times a month - Substance Use History Substance History: No History of Abuse - Travel History Recent Travel in the [place] Within the Last 8 Weeks: No Recent Travel Out of the Country Within the Last 8 Weeks: No - Immunization History Tetanus Immunization: <5 Years Hx Influenza Vaccine This Season: No Medications and Allergies Active Medications: Active Medications Acetaminophen (Tylenol) 650 mg PO Q4H PRN PRN Reason: Temp > 100.4 Hydrocodone Bitart/Acetaminophen (Selah 5/325) 1 tab PO Q4H PRN PRN Reason: PAIN 3-5 Al Hydroxide/Mg Hydroxide (Milk Of Magnesia Liq) 30 ml PO Q12H PRN PRN Reason: Mild Constipation Albuterol (Duoneb Neb (Tirso)) 1 ampul NEB Q4HR NEB [facility] Last Admin: 04/19/18 15:00 Dose: 1 ampul Bisacodyl (Dulcolax Supp) 10 mg RECTAL DAILY PRN PRN Reason: SEVERE CONSITIPATION Budesonide/Formoterol Fumarate (Symbicort 160/4.5 Mcg Inh) 2 puff INH Q12H [facility] Last Admin: 04/19/18 08:33 Dose: 2 puff Diltiazem HCl (Cardizem Cd 24hr) 240 mg PO DAILY [facility] Sodium Chloride (Ns Inj) 1,000 mls @ 100 mls/hr IV.CONT .Q10H [facility] Last Admin: 04/19/18 12:53 Dose: 100 mls/hr Lactulose (Lactulose Liq) 30 ml PO DAILY PRN PRN Reason: SEVERE CONSITIPATION Levofloxacin (Levaquin) 250 mg PO DAILY [facility] Last Admin: 04/19/18 08:32 Dose: 250 mg Miscellaneous (Pill Splitter) 0 each OTHER UNSCH PRN PRN Reason: PILL SPLT Morphine Sulfate (Morphine Inj) 2 mg IV.PUSH Q4H PRN PRN Reason: PAIN 6-10 Nitroglycerin (Nitro-Bid 2% Oint) 0.5 inch TOPICAL Q6HR [facility] Last Admin: 04/19/18 11:28 Dose: 0.5 inch Pravastatin Sodium (Pravachol) 40 mg PO HS [facility] Last Admin: 04/18/18 21:24 Dose: 40 mg Senna/Docusate Sodium (Debbie-Colace) 1 tab PO BID [facility] Last Admin: 04/19/18 08:33 Dose: Not Given Sennosides (Senokot) 17.2 mg PO Q12H PRN PRN Reason: Moderate Constipation Sertraline HCl (Zoloft) 25 mg PO DAILY [facility] Last Admin: 04/19/18 08:32 Dose: 25 mg Temazepam (Restoril) 15 mg PO HS PRN PRN Reason: INSOMNIA Allergies Allergy/AdvReac Type Severity Reaction Status Date / Time prednisone Allergy Severe Seizures Verified 04/17/18 17:29 Home Medications Medication Instructions Recorded Confirmed Type albuterol sulfate 2 puff INHALATION Q4H PRN 04/17/18 04/17/18 History apixaban [Eliquis] 5 mg PO BID 04/17/18 04/17/18 History budesonide-formoterol [Symbicort] 2 puff INHALATION Q12H 04/17/18 04/17/18 History diltiazem HCl [Cardizem CD] 180 mg PO DAILY 04/17/18 04/17/18 History docusate sodium 100 mg PO DAILY 04/17/18 04/17/18 History polyethylene glycol 3350 [Miralax] 17 g PO DAILY 04/17/18 04/17/18 History sertraline 25 mg PO DAILY 04/17/18 04/17/18 History Physical Exam Vital signs: Vital Signs 04/18/18 16:00 04/18/18 17:00 04/18/18 17:47 Temperature 98.1 F Pulse Rate 87 94 H 78 Respiratory Rate 18 14 Blood Pressure 120/67 Pulse Oximetry 93 L 04/18/18 18:00 04/18/18 19:00 04/18/18 19:46 Temperature Pulse Rate 100 H 97 H 93 H Respiratory Rate 16 Blood Pressure Pulse Oximetry 04/18/18 20:00 04/18/18 21:00 04/18/18 22:00 Temperature 97.4 F L Pulse Rate 94 H 92 H 88 Respiratory Rate 22 Blood Pressure 161/78 H Pulse Oximetry 04/18/18 23:00 04/19/18 00:00 04/19/18 00:20 Temperature 97.8 F Pulse Rate 89 88 90 Respiratory Rate 18 18 Blood Pressure 168/83 H Pulse Oximetry 93 L 04/19/18 01:00 04/19/18 02:00 04/19/18 03:00 Temperature Pulse Rate 100 H 104 H 92 H Respiratory Rate Blood Pressure Pulse Oximetry 04/19/18 04:00 04/19/18 04:36 04/19/18 05:00 Temperature 97.8 F Pulse Rate 100 H 102 H 106 H Respiratory Rate 22 14 Blood Pressure 137/82 Pulse Oximetry 93 L 04/19/18 06:00 04/19/18 07:00 04/19/18 07:27 Temperature Pulse Rate 110 H 118 H 101 H Respiratory Rate 16 Blood Pressure Pulse Oximetry 95 04/19/18 08:00 04/19/18 09:00 04/19/18 10:00 Temperature 98.3 F Pulse Rate 107 H 124 H 105 H Respiratory Rate 16 Blood Pressure 147/80 H Pulse Oximetry 94 L 04/19/18 11:00 04/19/18 11:03 04/19/18 12:00 Temperature 98.9 F Pulse Rate 113 H 103 H 111 H Respiratory Rate 16 16 Blood Pressure 148/88 H Pulse Oximetry 92 L 04/19/18 13:00 04/19/18 14:00 04/19/18 15:00 Temperature Pulse Rate 105 H 97 H 89 Respiratory Rate 16 Blood Pressure Pulse Oximetry Intake & Output 04/18/18 04/19/18 04/19/18 18:59 06:59 18:59 Intake Total 2500 / 2500 2240 / 2240 1000 / 1000 Output Total 600 / 600 875 / 875 Balance 1900 / 1900 1365 / 1365 1000 / 1000 Weight 73.4 kg Intake: IV 1999 1000 / 1000 NS Inj 1,000 ML @ 100 mls/hr IV 1999 1000 / 1000 .CONT .Q10H [facility] Rx#:[id number] Oral 500 / 500 240 / 240 Output: Urine 600 / 600 875 / 875 Other: # Voids 1 1 Date of Last Bowel Movement 04/18/18 04/18/18 # Bowel Movements 1 Assessment and Plan - Plan o2 as needed bronchodilator therapy' antibx'F/U CXRAY
--- NOTE | 2018-04-19 15:45 | P.PN ---
Subjective Interval history: Doing better Physical Exam Vital signs: Vital Signs 04/18/18 16:00 04/18/18 17:00 04/18/18 17:47 Temperature 98.1 F Pulse Rate 87 94 H 78 Respiratory Rate 18 14 Blood Pressure 120/67 Pulse Oximetry 93 L 04/18/18 18:00 04/18/18 19:00 04/18/18 19:46 Temperature Pulse Rate 100 H 97 H 93 H Respiratory Rate 16 Blood Pressure Pulse Oximetry 04/18/18 20:00 04/18/18 21:00 04/18/18 22:00 Temperature 97.4 F L Pulse Rate 94 H 92 H 88 Respiratory Rate 22 Blood Pressure 161/78 H Pulse Oximetry 04/18/18 23:00 04/19/18 00:00 04/19/18 00:20 Temperature 97.8 F Pulse Rate 89 88 90 Respiratory Rate 18 18 Blood Pressure 168/83 H Pulse Oximetry 93 L 04/19/18 01:00 04/19/18 02:00 04/19/18 03:00 Temperature Pulse Rate 100 H 104 H 92 H Respiratory Rate Blood Pressure Pulse Oximetry 04/19/18 04:00 04/19/18 04:36 04/19/18 05:00 Temperature 97.8 F Pulse Rate 100 H 102 H 106 H Respiratory Rate 22 14 Blood Pressure 137/82 Pulse Oximetry 93 L 04/19/18 06:00 04/19/18 07:00 04/19/18 07:27 Temperature Pulse Rate 110 H 118 H 101 H Respiratory Rate 16 Blood Pressure Pulse Oximetry 95 04/19/18 08:00 04/19/18 09:00 04/19/18 10:00 Temperature 98.3 F Pulse Rate 107 H 124 H 105 H Respiratory Rate 16 Blood Pressure 147/80 H Pulse Oximetry 94 L 04/19/18 11:00 04/19/18 11:03 04/19/18 12:00 Temperature 98.9 F Pulse Rate 113 H 103 H 111 H Respiratory Rate 16 16 Blood Pressure 148/88 H Pulse Oximetry 92 L 04/19/18 13:00 04/19/18 14:00 04/19/18 15:00 Temperature Pulse Rate 105 H 97 H 89 Respiratory Rate 16 Blood Pressure Pulse Oximetry Intake & Output 04/18/18 04/19/18 04/19/18 18:59 06:59 18:59 Intake Total 2500 / 2500 2240 / 2240 1000 / 1000 Output Total 600 / 600 875 / 875 Balance 1900 / 1900 1365 / 1365 1000 / 1000 Weight 73.4 kg Intake: IV 1999 1000 / 1000 NS Inj 1,000 ML @ 100 mls/hr IV 1999 1000 / 1000 .CONT .Q10H [facility] Rx#:[id number] Oral 500 / 500 240 / 240 Output: Urine 600 / 600 875 / 875 Other: # Voids 1 1 Date of Last Bowel Movement 04/18/18 04/18/18 # Bowel Movements 1 - Constitutional no acute distress - Routine HEENT Exam Head: Present: normocephalic Eye: Present: PERRL ENT: Present: mucous membranes moist - Routine Neck Exam Present: normal carotid upstroke - Routine Respiratory Exam Present: CTA bilaterally - Routine Cardiovascular Exam Present: RRR, S1, S2 - Routine Abdominal Exam Present: soft - Routine Extremities Exam Present: normal capillary refill - Routine Neurological Exam Present: alert, oriented X3 Results - Labs CBC & Chem 7: 04/19/18 04:45 04/19/18 04:45 Laboratory Results - last 24 hr 04/18/18 04/18/18 04/18/18 15:06 15:06 15:06 WBC RBC Hgb Hct MCV MCH MCHC RDW Plt Count MPV Neut % (Auto) Lymph % (Auto) Cobb % (Auto) Eos % (Auto) Baso % (Auto) Neut # (Auto) Lymph # (Auto) Cobb # (Auto) Eos # (Auto) Baso # (Auto) WBC Differential Differential Comment Sodium Potassium Chloride Carbon Dioxide Anion Gap BUN Creatinine Estimated GFR Random Glucose Calcium Iron 24 L TIBC 224 L % Saturation 10.7 L Ferritin 352 Lactate Dehydrogenase 151 Vitamin B12 643 04/19/18 04/19/18 04:45 04:45 WBC 8.0 RBC 3.12 L Hgb 8.2 L Hct 25.2 L MCV 80.8 MCH 26.3 L MCHC 32.6 RDW 17.6 H Plt Count 224 MPV 7.1 Neut % (Auto) 83.8 H Lymph % (Auto) 7.6 L Cobb % (Auto) 7.5 Eos % (Auto) 0.6 Baso % (Auto) 0.5 Neut # (Auto) 6.7 Lymph # (Auto) 0.6 L Cobb # (Auto) 0.6 Eos # (Auto) 0.0 Baso # (Auto) 0.0 WBC Differential . Differential Comment Auto diff final Sodium 143 Potassium 3.3 L D Chloride 108 H Carbon Dioxide 22.4 Anion Gap 13 BUN 13 Creatinine 0.62 Estimated GFR Greater than 89 Random Glucose 114 H Calcium 8.1 L Iron TIBC % Saturation Ferritin Lactate Dehydrogenase Vitamin B12 Microbiology 04/18/18 16:59 Stool Occult Blood - Final Hemoccult negative Assessment and Plan - Assessment (1) Chest pain Code(s): R07.9 - Chest pain, unspecified Status: Acute Plan: Patient stable No chest pain Doing better Normal EF case discussed with him and his girlfriend. She apparently wants patient to go to rehab Can be discharge whenever it is ok with the managing team (1) Chest pain Qualifiers: Chest pain type: other chest pain Qualified Code(s): R07.89 - Other chest pain; R07.8 - Other chest pain
--- NOTE | 2018-04-19 20:55 | CT ---
EXAM DATE: 04/19/2018 8:34 PM EDT AGE/SEX: 77 years / Male INDICATIONS: Memory loss; possible CLINICAL DATA: This is the patient's initial encounter. Patient reports that signs and symptoms have been present for 2 days and indicates a pain score of 4/10. MEDICAL/SURGICAL HISTORY: Carcinoma, lung. Atrial fibrillation None. RADIATION DOSE: 56.35 CTDI (mGy) COMPARISON: [facility], MR BRAIN W/O CONTRAST, 10/21/2017. . TECHNIQUE: Axial images of the head were acquired without contrast and after intravenous administrat ion of 65 ml Omnipaque 350 (iohexol) nonionic water-soluble contrast as a single exam dose. Using automated exposure control and adjustment of the mA and/or kV according to patient size, radiation do se was kept as low as reasonably achievable to obtain optimal diagnostic quality images. DICOM forma t image data is available electronically for review and comparison. FINDINGS: Cerebrum: Several masses are seen including a 0.1 cm mass at the lateral right frontal lobe, a 0.8 c m mass at the posterior right parietal lobe, a 1.3 cm mass in the right parietal lobe, and 1.9 cm mas s at the posterior left parietal lobe. There is surrounding vasogenic edema seen. Significant midline shift is not seen. There is some mass effect on the frontal horn of the right lateral ventricle othe rwise the lateral and third ventricles are patent. No evidence hemorrhage or acute infarction. No e xtraaxial fluid collections are seen. Posterior Fossa: There is a 3.2 cm suspected mass at the right cerebellar hemisphere with surrounding edema. There is mass effect on the fourth ventricle. Extracranial: The visualized portion of the orbits is intact. Skull: The calvaria is intact. No evidence of skull fracture. Post Contrast: The above-described masses clearly demonstrate enhancement. CONCLUSION: Multiple brain masses as described above with vasogenic edema. The largest mass is in the right cereb ellar hemisphere. Given the chest history, these likely represent metastatic lesions. Electronically signed by: Song Alexander MD 04/19/2018 8:53 PM EDT
[2018-04-20] MEDS: Sod Chloride 0.9% Inj 1,000 ML IV.CONT SCH ×3 (00:48→20:52)
[2018-04-20 06:30] LABS: Baso % (Auto) 0.6 % (0.0-2.0); Eos # (Auto) 0.1 th/mm3 (0.0-0.4); Eos % (Auto) 0.9 % (0.0-4.0); Hematocrit 26.2 % (39.0-51.0); Hemoglobin 8.6 gm/dL (13.0-17.0); Lymph # (Auto) 0.8 th/mm3 (1.0-4.8); Lymph % (Auto) 9.4 % (9.0-44.0); Mean Corpuscular Hemoglobin 26.5 pg (27.0-34.0); Mean Corpuscular Volume 80.3 fL (80.0-100.0); Mean Platelet Volume 7.1 fL (7.0-11.0); Mono # (Auto) 0.7 th/mm3 (0.0-0.9); Mono % (Auto) 7.4 % (0.0-8.0); Neut # (Auto) 7.2 th/mm3 (1.8-7.7); Neut % (Auto) 81.7 % (16.0-70.0); Platelet Count 242 th/mm3 (150-450); Red Blood Count 3.26 mil/mm3 (4.50-5.90); Red Cell Distribution Width 17.8 % (11.6-17.2); White Blood Count 8.8 th/mm3 (4.0-11.0)
[2018-04-20 07:12] LABS: Anion Gap 12 meq/L (5-15); Blood Urea Nitrogen 7 mg/dL (7-18); Calcium 8.4 mg/dL (8.5-10.1); Carbon Dioxide 23.2 meq/L (21.0-32.0); Chloride 106 meq/L (98-107); Glomerular Filtration Rate Greater Than 89 mL/min (>89); Glucose,Random 105 mg/dL (74-106); Potassium 3.1 meq/L (3.5-5.1); Sodium 141 meq/L (136-145)
[2018-04-20] MEDS: dilTIAZem CD 240 MG Capsule PO SCH (08:47)
[2018-04-20] MEDS: Budesonide-Formoterol 160/4.5 MCG 6 GM Inhaler INH SCH ×2 (08:47→20:46)
[2018-04-20] MEDS: Sertraline 50 MG Tablet PO SCH (08:47)
[2018-04-20] MEDS: Senna/Docusate Sodium 8.6/50 MG Tablet PO SCH ×2 (08:48→20:45)
[2018-04-20] MEDS: levoFLOXacin 250 MG Tablet PO SCH (08:48)
--- NOTE | 2018-04-20 10:05 | P.PNFP ---
Subjective Interval history: Pt seen and examined. Reports he is feeling ok and is at his baseline. Agreeable to going to a SNF. Denies CP, abdominal pain, N/V. Breathing is at his baseline. On continuous O2 at home. Results - Labs Result diagrams: 04/20/18 04:58 04/20/18 04:58 Abnormal lab results 04/20/18 04/20/18 Range/Units 04:58 04:58 RBC 3.26 L (4.50-5.90) mil/mm3 Hgb 8.6 L (13.0-17.0) gm/dL Hct 26.2 L (39.0-51.0) % MCH 26.5 L (27.0-34.0) pg RDW 17.8 H (11.6-17.2) % Neut % (Auto) 81.7 H (16.0-70.0) % Lymph # (Auto) 0.8 L (1.0-4.8) th/mm3 Potassium 3.1 L (3.5-5.1) meq/L Creatinine 0.54 L (0.60-1.30) mg/dL Calcium 8.4 L (8.5-10.1) mg/dL Short CBC 04/20/18 Range/Units 04:58 WBC 8.8 (4.0-11.0) th/mm3 Hgb 8.6 L (13.0-17.0) gm/dL Hct 26.2 L (39.0-51.0) % Plt Count 242 (150-450) th/mm3 BMP 04/20/18 04:58 Sodium 141 Potassium 3.1 L Chloride 106 Carbon Dioxide 23.2 BUN 7 Creatinine 0.54 L Calcium 8.4 L - Imaging Impressions Head CT 04/19/18 00:00 CONCLUSION: Multiple brain masses as described above with vasogenic edema. The largest mass is in the right cerebellar hemisphere. Given the chest history, these likely represent metastatic lesions. Physical Exam Vital signs: Vital Signs 04/19/18 11:00 04/19/18 11:03 04/19/18 12:00 Temperature 98.9 F Pulse Rate 113 H 103 H 111 H Respiratory Rate 16 16 Blood Pressure 148/88 H Pulse Oximetry 92 L 04/19/18 13:00 04/19/18 14:00 04/19/18 15:00 Temperature Pulse Rate 105 H 97 H 104 H Respiratory Rate 16 Blood Pressure Pulse Oximetry 04/19/18 16:00 04/19/18 17:00 04/19/18 18:00 Temperature 98.8 F Pulse Rate 105 H 93 H 99 H Respiratory Rate 24 Blood Pressure 148/75 H Pulse Oximetry 92 L 04/19/18 19:09 04/19/18 19:41 04/19/18 19:58 Temperature 97.6 F Pulse Rate 89 87 85 Respiratory Rate 18 22 Blood Pressure 146/80 H Pulse Oximetry 93 L 95 04/19/18 20:00 04/19/18 21:00 04/19/18 21:13 Temperature Pulse Rate 101 H 113 H 95 H Respiratory Rate 20 Blood Pressure Pulse Oximetry 94 L 04/19/18 22:07 04/19/18 22:08 04/19/18 23:05 Temperature Pulse Rate 120 H 105 H 103 H Respiratory Rate Blood Pressure Pulse Oximetry 04/19/18 23:52 04/19/18 23:55 04/20/18 00:34 Temperature 98.4 F Pulse Rate 100 H 102 H 105 H Respiratory Rate 18 20 Blood Pressure 150/88 H Pulse Oximetry 96 04/20/18 00:56 04/20/18 02:11 04/20/18 03:04 Temperature Pulse Rate 105 H 106 H 104 H Respiratory Rate Blood Pressure Pulse Oximetry 04/20/18 03:57 04/20/18 04:00 04/20/18 04:26 Temperature 97.5 F L Pulse Rate 103 H 101 H 102 H Respiratory Rate 18 18 Blood Pressure 127/78 Pulse Oximetry 94 L 04/20/18 05:03 04/20/18 06:07 04/20/18 07:00 Temperature 97.2 F L Pulse Rate 105 H 102 H 102 H Respiratory Rate 24 Blood Pressure 143/89 H Pulse Oximetry 94 L 04/20/18 07:03 04/20/18 07:44 04/20/18 08:00 Temperature Pulse Rate 101 H 102 H 114 H Respiratory Rate Blood Pressure Pulse Oximetry 04/20/18 08:15 04/20/18 09:00 Temperature Pulse Rate 102 H 104 H Respiratory Rate 16 Blood Pressure Pulse Oximetry 94 L Intake & Output 04/19/18 04/20/18 04/20/18 18:59 06:59 18:59 Intake Total 1590 / 1590 1240 / 1240 Output Total 1350 / 1350 1275 / 1275 Balance 240 / 240 -35 / -35 Weight 73.5 kg Intake: IV 1110 / 1110 1000 / 1000 NS Inj 1,000 ML @ 100 mls/hr IV 1000 / 1000 1000 / 1000 .CONT .Q10H [facility] Rx#:[id number] Venofer Inj 200 MG In NS Inj 110 / 110 100 ML @ 110 mls/hr IV.SIG ONCE ONE Rx#:[id number] Oral 480 / 480 240 / 240 Output: Urine 1350 / 1350 1275 / 1275 Other: Date of Last Bowel Movement 04/18/18 04/18/18 Narrative: GENERAL: WN, WD male resting in bed in NAD. SKIN: Warm and dry. HEENT: AT/NC. Pupils equal and round. MMM. NECK: Supple no tender LAD or JVD. HEART: IRR. LUNGS: CTAB without wheezing or crackles. ABDOMEN: +BS, soft, NT, ND. EXTREMITIES: No LE edema. NEURO: Awake and alert. Nonfocal. PSYCH: Appropriate mood and affect. Assessment and Plan - Assessment (1) Dyspnea Code(s): R06.00 - Dyspnea, unspecified Status: Acute (2) Chest pain Code(s): R07.9 - Chest pain, unspecified Status: Acute (3) Elevated troponin Code(s): R74.8 - Abnormal levels of other serum enzymes Status: Acute (4) Lung cancer Code(s): C34.90 - Malignant neoplasm of unspecified part of unspecified bronchus or lung Status: Chronic - Assessment and Plan 77 YOWM with HTN, lung cancer s/p chemo/radiation, oxygen dependence, depression and A-fib who presented to the ER on 04/17 w/ complaints of generalized weakness and progressive SOB. 1. Chest Pain - Resolved - EKG with sinus tachycardia, no ST or T wave changes - Troponins mildly elevated at 0.19, 0.22, and 0.21 - CXR demonstrating bilateral interstitial disease, R>L and increased density in R perihilar region, both findings unchanged from prior study - CTA negative for PE. There is a persistent 6.4 cm cavitary mass in the right lower lobe with widespread chronic interstitial disease and emphysematous changes. There is also right lower lobe consolidation or atelectasis seen inferior to the large cavitary mass - 2D echo with EF 50-55% - Continue ASA - Cardiology consulted, no invasive intervention at this time and has cleared for discharge 2. Dyspnea, PNA - Chest imaging as described above - Supplemental O2 - Schedule DuoNebs Q4H - Pulmonology consulted, patient known to Dr. Kerr. Recommending continued bronchodilators, abx, and likely short term rehab - Continue Levaquin for a total of 7 days - PT consulted, recommending rehab 3. Lung cancer - State IIIa T4 N0 M0 non-small cell lung cancer, squamous cell carcinoma s/p chemo/rxt - On continuous 2L O2 at home - Follows with Dr. Rios, continue to follow as OP 4. Atrial fibrillation - HR improved after increasing Cardizem to 240 mg 5. Depression - Continue home Zoloft 6. Emphysema - Continue home Symbicort - Supplemental O2 - Bronchodilators 7. Anemia - Likely from malignancy but Hb dropped from ~10 to ~8 and has since stabilized around 8 - No signs of active bleeding and hemodynamically stable - Elevated retic count at 3.4, normal LDH, low iron and % sat but oddly TIBC is also low and ferritin is normal - Heme/onc following and gave him an iron transfusion yesterday - F/U with PCP as OP - Report any active bleeding Discharge Planning: D/C to SNF today (1) Dyspnea Qualifiers: Dyspnea type: dyspnea on exertion Qualified Code(s): R06.09 - Other forms of dyspnea (2) Chest pain Qualifiers: Chest pain type: other chest pain Qualified Code(s): R07.89 - Other chest pain; R07.8 - Other chest pain (4) Lung cancer Qualifiers: Laterality: unspecified laterality Lung location: unspecified part of lung Qualified Code(s): C34.90 - Malignant neoplasm of unspecified part of unspecified bronchus or lung
--- NOTE | 2018-04-20 10:10 | P.DS ---
Date of admission: 04/17/18 20:09 Primary care physician: Song Crisostomo MD Attending physician on discharge: Ruth Fernandez Anticipated date of discharge: 04/20/18 Brief History from admission: This is a 77-year-old male with a PMH of HTN, Lung CA, O2 Dependent, Depression and h/o A-fib who presented to the ER w/ complaints of generalized weakness and progressive SOB. States SOB has been ongoing for several months, however now more pronounced. Reports intermittent episodes of chest pain, substernal, moderate, 6/10, non-radiating. Follows w/ Dr. Rios for Lung Ca, s/p Chemo/ Radiation. Denies fever, chills or cough. On arrival, BP 124/74, HR 120, O2 sat 94% on 2L NC, Afebrile. CBC essentially unremarkable. INR 1.2. Chemistry unremarkable. Troponin 0.19. CXR with bilateral interstitial disease worse on the right. CTA Chest negative for PE, persistent 6.4 cm cavitary mass right lower lobe, widespread interstitial disease and emphysematous changes. Follows w/ Dr. Marie as outpatient, Dr. Small consulted, recommended ASA/NTG and will eval in am. Pt currently chest pain free. DS: Diagnosis - Discharge Diagnosis (1) Dyspnea Status: Acute (2) Chest pain Status: Acute (3) Elevated troponin Status: Acute (4) Lung cancer Status: Chronic DS: Summary Hospital Course: 77 YOWM with HTN, lung cancer s/p chemo/radiation, oxygen dependence, depression and A-fib who presented to the ER on 04/17 w/ complaints of generalized weakness and progressive SOB. He also had endorsed some chest pain and troponins were noted to be mildly elevated. Cardiology was consulted and since he no longer had active chest pain or acute EKG changes and since he has stage III lung cancer, it was recommended to observe. CXR showed bilateral interstitial disease and increased density in R perihilar region, and CT showed a persistent 6.4 cm cavitary mass in the right lower lobe with widespread chronic interstitial disease and emphysematous changes. There was also right lower lobe consolidation or atelectasis seen inferior to the large cavitary mass. Pulmonology and oncology were also consulted. The patient was treated with Levaquin, supplemental O2, and bronchodilators. He returned to his baseline and was discharged to a SNF on 04/20 in stable condition. - Time Spent with Patient Total time spent providing and/or coordinating discharge services: Greater than 30 minutes Exam Vital signs: Vital Signs 04/19/18 11:00 04/19/18 11:03 04/19/18 12:00 Temperature 98.9 F Pulse Rate 113 H 103 H 111 H Respiratory Rate 16 16 Blood Pressure 148/88 H Pulse Oximetry 92 L 04/19/18 13:00 04/19/18 14:00 04/19/18 15:00 Temperature Pulse Rate 105 H 97 H 104 H Respiratory Rate 16 Blood Pressure Pulse Oximetry 04/19/18 16:00 04/19/18 17:00 04/19/18 18:00 Temperature 98.8 F Pulse Rate 105 H 93 H 99 H Respiratory Rate 24 Blood Pressure 148/75 H Pulse Oximetry 92 L 04/19/18 19:09 04/19/18 19:41 04/19/18 19:58 Temperature 97.6 F Pulse Rate 89 87 85 Respiratory Rate 18 22 Blood Pressure 146/80 H Pulse Oximetry 93 L 95 04/19/18 20:00 04/19/18 21:00 04/19/18 21:13 Temperature Pulse Rate 101 H 113 H 95 H Respiratory Rate 20 Blood Pressure Pulse Oximetry 94 L 04/19/18 22:07 04/19/18 22:08 04/19/18 23:05 Temperature Pulse Rate 120 H 105 H 103 H Respiratory Rate Blood Pressure Pulse Oximetry 04/19/18 23:52 04/19/18 23:55 04/20/18 00:34 Temperature 98.4 F Pulse Rate 100 H 102 H 105 H Respiratory Rate 18 20 Blood Pressure 150/88 H Pulse Oximetry 96 04/20/18 00:56 04/20/18 02:11 04/20/18 03:04 Temperature Pulse Rate 105 H 106 H 104 H Respiratory Rate Blood Pressure Pulse Oximetry 04/20/18 03:57 04/20/18 04:00 04/20/18 04:26 Temperature 97.5 F L Pulse Rate 103 H 101 H 102 H Respiratory Rate 18 18 Blood Pressure 127/78 Pulse Oximetry 94 L 04/20/18 05:03 04/20/18 06:07 04/20/18 07:00 Temperature 97.2 F L Pulse Rate 105 H 102 H 102 H Respiratory Rate 24 Blood Pressure 143/89 H Pulse Oximetry 94 L 04/20/18 07:03 04/20/18 07:44 04/20/18 08:00 Temperature Pulse Rate 101 H 102 H 114 H Respiratory Rate Blood Pressure Pulse Oximetry 04/20/18 08:15 04/20/18 09:00 Temperature Pulse Rate 102 H 104 H Respiratory Rate 16 Blood Pressure Pulse Oximetry 94 L Intake & Output 04/19/18 04/20/18 04/20/18 18:59 06:59 18:59 Intake Total 1590 / 1590 1240 / 1240 Output Total 1350 / 1350 1275 / 1275 Balance 240 / 240 -35 / -35 Weight 73.5 kg Intake: IV 1110 / 1110 1000 / 1000 NS Inj 1,000 ML @ 100 mls/hr IV 1000 / 1000 1000 / 1000 .CONT .Q10H [facility] Rx#:[id number] Venofer Inj 200 MG In NS Inj 110 / 110 100 ML @ 110 mls/hr IV.SIG ONCE ONE Rx#:[id number] Oral 480 / 480 240 / 240 Output: Urine 1350 / 1350 1275 / 1275 Other: Date of Last Bowel Movement 04/18/18 04/18/18 Narrative: GENERAL: WN, WD male resting in bed in NAD. SKIN: Warm and dry. HEENT: AT/NC. Pupils equal and round. MMM. NECK: Supple no tender LAD or JVD. HEART: IRR. LUNGS: CTAB without wheezing or crackles. ABDOMEN: +BS, soft, NT, ND. EXTREMITIES: No LE edema. NEURO: Awake and alert. Nonfocal. PSYCH: Appropriate mood and affect. Results Procedures completed during hospitalization: None Completed studies during hospitalization: 2D echocardiogram 04/19 EF 50-55% Labs on day of discharge: Labs from last 24 hours 04/20/18 04/20/18 04:58 04:58 WBC 8.8 RBC 3.26 L Hgb 8.6 L Hct 26.2 L MCV 80.3 MCH 26.5 L MCHC 33.0 RDW 17.8 H Plt Count 242 MPV 7.1 Neut % (Auto) 81.7 H Lymph % (Auto) 9.4 [place] % (Auto) 7.4 Eos % (Auto) 0.9 Baso % (Auto) 0.6 Neut # (Auto) 7.2 Lymph # (Auto) 0.8 L [place] # (Auto) 0.7 Eos # (Auto) 0.1 Baso # (Auto) 0.0 WBC Differential . Differential Comment Auto diff final Sodium 141 Potassium 3.1 L Chloride 106 Carbon Dioxide 23.2 Anion Gap 12 BUN 7 Creatinine 0.54 L Estimated GFR Greater than 89 Random Glucose 105 Calcium 8.4 L - Impressions ITS Impressions Chest CTA 04/17/18 17:32 CONCLUSION: 1. No pulmonary embolus. 2. Persistent 6.4 cm cavitary mass in the right lower lobe. 3. Widespread chronic interstitial disease and emphysematous change. 4. Right lower lobe atelectasis or consolidation seen inferior to the large cavitary mass. Chest X-Ray 04/17/18 17:32 CONCLUSION: Bilateral interstitial disease being worse on the right. There is some increased density seen in the right perihilar region which may be related to alveolar consolidation or atelectasis. Compared to the prior exam, these findings appear unchanged. Mild blunting of the right costophrenic angle. A mild right pleural effusion can be considered. Right volume loss with shift of heart and is not structures towards the right. Head CT 04/19/18 00:00 CONCLUSION: Multiple brain masses as described above with vasogenic edema. The largest mass is in the right cerebellar hemisphere. Given the chest history, these likely represent metastatic lesions. Discharge Plan - Discharge Disposition Patient Disposition: 03 Discharge to SNF - Discharge Condition Condition: Stable - Discharge Order Discharge Orders: Discharge Order (Routine); Ordered 04/20/18 Ordered By: Ruth Fernandez - Discharge Details Anticipated Discharge Date: 04/20/18 - Physicians Team Primary Care Provider: Song Crisostomo Attending Provider: Ruth Fernandez Other Providers: Jeffery Antoine MD ; Weston Tang MD ; Michelle Rios ; [facility],[place]
--- NOTE | 2018-04-20 10:50 | P.CONNS ---
History of Present Illness Primary Care Provider: Song Crisostomo MD Family Provider: U[facility] Kerr [facility] - History History Provided By: Patient - Medical History Medical History: Medical History (Last Updated 04/17/18 @ 17:26 by Yasmeen Johnston) A-fib Depression FH: chemotherapy Hx of radiation therapy Lung cancer Oxygen dependent - Tobacco History Second Hand Smoke Exposure: No Smoking Status: Former smoker Tobacco Type: Cigarettes - Alcohol History How Often Do You Have a Drink Containing Alcohol: 2 to 4 times a month - Substance Use History Substance History: No History of Abuse - Travel History Recent Travel in the [place] Within the Last 8 Weeks: No Recent Travel Out of the Country Within the Last 8 Weeks: No - Immunization History Tetanus Immunization: <5 Years Hx Influenza Vaccine This Season: No Medications and Allergies Active Medications: Active Medications Acetaminophen (Tylenol) 650 mg PO Q4H PRN PRN Reason: Temp > 100.4 Hydrocodone Bitart/Acetaminophen ([place] 5/325) 1 tab PO Q4H PRN PRN Reason: PAIN 3-5 Al Hydroxide/Mg Hydroxide (Milk Of Magnesia Liq) 30 ml PO Q12H PRN PRN Reason: Mild Constipation Albuterol (Duoneb Neb (Tirso)) 1 ampul NEB Q4HR NEB [facility] Last Admin: 04/20/18 08:11 Dose: 1 ampul Bisacodyl (Dulcolax Supp) 10 mg RECTAL DAILY PRN PRN Reason: SEVERE CONSITIPATION Budesonide/Formoterol Fumarate (Symbicort 160/4.5 Mcg Inh) 2 puff INH Q12H [facility] Last Admin: 04/20/18 08:47 Dose: 2 puff Diltiazem HCl (Cardizem Cd 24hr) 240 mg PO DAILY [facility] Last Admin: 04/20/18 08:47 Dose: 240 mg Sodium Chloride (Ns Inj) 1,000 mls @ 100 mls/hr IV.CONT .Q10H [facility] Last Admin: 04/20/18 00:48 Dose: 100 mls/hr Lactulose (Lactulose Liq) 30 ml PO DAILY PRN PRN Reason: SEVERE CONSITIPATION Levofloxacin (Levaquin) 250 mg PO DAILY [facility] Last Admin: 04/20/18 08:48 Dose: 250 mg Miscellaneous (Pill Splitter) 0 each OTHER UNSCH PRN PRN Reason: PILL SPLT Morphine Sulfate (Morphine Inj) 2 mg IV.PUSH Q4H PRN PRN Reason: PAIN 6-10 Nitroglycerin (Nitro-Bid 2% Oint) 0.5 inch TOPICAL Q6HR [facility] Last Admin: 04/20/18 05:56 Dose: 0.5 inch Pravastatin Sodium (Pravachol) 40 mg PO HS [facility] Last Admin: 04/19/18 21:02 Dose: 40 mg Senna/Docusate Sodium (Debbie-Colace) 1 tab PO BID [facility] Last Admin: 04/20/18 08:48 Dose: 1 tab Sennosides (Senokot) 17.2 mg PO Q12H PRN PRN Reason: Moderate Constipation Sertraline HCl (Zoloft) 25 mg PO DAILY [facility] Last Admin: 04/20/18 08:47 Dose: 25 mg Sodium Chloride (Ns Flush) 2 ml IV.FLUSH BID [facility] Last Admin: 04/20/18 09:00 Dose: Not Given Sodium Chloride (Ns Flush) 2 ml IV.FLUSH PRN PRN PRN Reason: FLUSH AFTER USING IV ACCESS Temazepam (Restoril) 15 mg PO HS PRN PRN Reason: INSOMNIA Allergies Allergy/AdvReac Type Severity Reaction Status Date / Time prednisone Allergy Severe Seizures Verified 04/17/18 17:29 Home Medications Medication Instructions Recorded Confirmed Type albuterol sulfate 2 puff INHALATION Q4H PRN 04/17/18 04/17/18 History apixaban [Eliquis] 5 mg PO BID 04/17/18 04/17/18 History budesonide-formoterol [Symbicort] 2 puff INHALATION Q12H 04/17/18 04/17/18 History diltiazem HCl [Cardizem CD] 180 mg PO DAILY 04/17/18 04/17/18 History docusate sodium 100 mg PO DAILY 04/17/18 04/17/18 History polyethylene glycol 3350 [Miralax] 17 g PO DAILY 04/17/18 04/17/18 History sertraline 25 mg PO DAILY 04/17/18 04/17/18 History Exam Vital signs: Vital Signs 04/19/18 11:00 04/19/18 11:03 04/19/18 12:00 Temperature 98.9 F Pulse Rate 113 H 103 H 111 H Respiratory Rate 16 16 Blood Pressure 148/88 H Pulse Oximetry 92 L 04/19/18 13:00 04/19/18 14:00 04/19/18 15:00 Temperature Pulse Rate 105 H 97 H 104 H Respiratory Rate 16 Blood Pressure Pulse Oximetry 04/19/18 16:00 04/19/18 17:00 04/19/18 18:00 Temperature 98.8 F Pulse Rate 105 H 93 H 99 H Respiratory Rate 24 Blood Pressure 148/75 H Pulse Oximetry 92 L 04/19/18 19:09 04/19/18 19:41 04/19/18 19:58 Temperature 97.6 F Pulse Rate 89 87 85 Respiratory Rate 18 22 Blood Pressure 146/80 H Pulse Oximetry 93 L 95 04/19/18 20:00 04/19/18 21:00 04/19/18 21:13 Temperature Pulse Rate 101 H 113 H 95 H Respiratory Rate 20 Blood Pressure Pulse Oximetry 94 L 04/19/18 22:07 04/19/18 22:08 04/19/18 23:05 Temperature Pulse Rate 120 H 105 H 103 H Respiratory Rate Blood Pressure Pulse Oximetry 04/19/18 23:52 04/19/18 23:55 04/20/18 00:34 Temperature 98.4 F Pulse Rate 100 H 102 H 105 H Respiratory Rate 18 20 Blood Pressure 150/88 H Pulse Oximetry 96 04/20/18 00:56 04/20/18 02:11 04/20/18 03:04 Temperature Pulse Rate 105 H 106 H 104 H Respiratory Rate Blood Pressure Pulse Oximetry 04/20/18 03:57 04/20/18 04:00 04/20/18 04:26 Temperature 97.5 F L Pulse Rate 103 H 101 H 102 H Respiratory Rate 18 18 Blood Pressure 127/78 Pulse Oximetry 94 L 04/20/18 05:03 04/20/18 06:07 04/20/18 07:00 Temperature 97.2 F L Pulse Rate 105 H 102 H 102 H Respiratory Rate 24 Blood Pressure 143/89 H Pulse Oximetry 94 L 04/20/18 07:03 04/20/18 07:44 04/20/18 08:00 Temperature Pulse Rate 101 H 102 H 114 H Respiratory Rate Blood Pressure Pulse Oximetry 04/20/18 08:15 04/20/18 09:00 04/20/18 10:08 Temperature Pulse Rate 102 H 104 H 101 H Respiratory Rate 16 Blood Pressure Pulse Oximetry 94 L Intake & Output 04/19/18 04/20/18 04/20/18 18:59 06:59 18:59 Intake Total 1590 / 1590 1240 / 1240 Output Total 1350 / 1350 1275 / 1275 Balance 240 / 240 -35 / -35 Weight 73.5 kg Intake: IV 1110 / 1110 1000 / 1000 NS Inj 1,000 ML @ 100 mls/hr IV 1000 / 1000 1000 / 1000 .CONT .Q10H [facility] Rx#:[id number] Venofer Inj 200 MG In NS Inj 110 / 110 100 ML @ 110 mls/hr IV.SIG ONCE ONE Rx#:[id number] Oral 480 / 480 240 / 240 Output: Urine 1350 / 1350 1275 / 1275 Other: Date of Last Bowel Movement 04/18/18 04/18/18 Results - Laboratory Findings CBC and BMP: 04/20/18 04:58 04/20/18 04:58 Abnormal lab findings: Abnormal Labs 04/17/18 04/17/18 04/17/18 17:40 17:40 17:40 RBC 3.87 L Hgb 10.8 L Hct 31.6 L MCH RDW 17.7 H MPV Neut % (Auto) 88.1 H Lymph % (Auto) 5.8 L [place] % (Auto) Neut # (Auto) 9.0 H Lymph # (Auto) 0.6 L Retic Count PT 12.1 H APTT 33.6 H Potassium Chloride BUN Creatinine Estimated GFR 72 L Random Glucose 128 H Calcium Iron TIBC % Saturation AST 14 L Troponin I 0.19 H Albumin 2.8 L 04/18/18 04/18/18 04/18/18 00:54 05:16 05:16 RBC 3.22 L Hgb 8.7 L D Hct 26.4 L MCH RDW 17.7 H MPV Neut % (Auto) 79.8 H Lymph % (Auto) [place] % (Auto) 9.3 H Neut # (Auto) Lymph # (Auto) 0.7 L Retic Count PT APTT Potassium Chloride 109 H BUN 20 H Creatinine Estimated GFR Random Glucose Calcium Iron TIBC % Saturation AST 9 L Troponin I 0.22 H Albumin 2.4 L 07/14/18 07/14/18 07/14/18 05:16 15:06 15:06 RBC 3.32 L Hgb 8.9 L Hct 27.3 L MCH 26.8 L RDW 17.8 H MPV 6.9 L Neut % (Auto) Lymph % (Auto) [place] % (Auto) Neut # (Auto) Lymph # (Auto) Retic Count 3.4 H PT APTT Potassium Chloride BUN Creatinine Estimated GFR Random Glucose Calcium Iron 24 L TIBC 224 L % Saturation 10.7 L AST Troponin I 0.21 H Albumin 04/19/18 04/19/18 04/20/18 04:45 04:45 04:58 RBC 3.12 L 3.26 L Hgb 8.2 L 8.6 L Hct 25.2 L 26.2 L MCH 26.3 L 26.5 L RDW 17.6 H 17.8 H MPV Neut % (Auto) 83.8 H 81.7 H Lymph % (Auto) 7.6 L [place] % (Auto) Neut # (Auto) Lymph # (Auto) 0.6 L 0.8 L Retic Count PT APTT Potassium 3.3 L D Chloride 108 H BUN Creatinine Estimated GFR Random Glucose 114 H Calcium 8.1 L Iron TIBC % Saturation AST Troponin I Albumin 04/20/18 04:58 RBC Hgb Hct MCH RDW MPV Neut % (Auto) Lymph % (Auto) [place] % (Auto) Neut # (Auto) Lymph # (Auto) Retic Count PT APTT Potassium 3.1 L Chloride BUN Creatinine 0.54 L Estimated GFR Random Glucose Calcium 8.4 L Iron TIBC % Saturation AST Troponin I Albumin Assessment and Plan - Assessment (1) Dyspnea Code(s): R06.00 - Dyspnea, unspecified Status: Acute (2) Chest pain Code(s): R07.9 - Chest pain, unspecified Status: Acute (3) Elevated troponin Code(s): R74.8 - Abnormal levels of other serum enzymes Status: Acute (4) Lung cancer Code(s): C34.90 - Malignant neoplasm of unspecified part of unspecified bronchus or lung Status: Chronic (1) Dyspnea Qualifiers: Dyspnea type: dyspnea on exertion Qualified Code(s): R06.09 - Other forms of dyspnea (2) Chest pain Qualifiers: Chest pain type: other chest pain Qualified Code(s): R07.89 - Other chest pain; R07.8 - Other chest pain (4) Lung cancer Qualifiers: Laterality: unspecified laterality Lung location: unspecified part of lung Qualified Code(s): C34.90 - Malignant neoplasm of unspecified part of unspecified bronchus or lung
--- NOTE | 2018-04-20 16:13 | P.PNONC ---
Subjective Interval history: Resting comfortably in bed. Significant other at bedside. Reports mild improvement in breathing since hospital admission. Objective Vital Signs/Intake & Output: Vital Signs 04/19/18 17:00 04/19/18 18:00 04/19/18 19:09 Temperature Pulse Rate 93 H 99 H 89 Respiratory Rate Blood Pressure Pulse Oximetry 04/19/18 19:41 04/19/18 19:58 04/19/18 20:00 Temperature 97.6 F Pulse Rate 87 85 101 H Respiratory Rate 18 22 Blood Pressure 146/80 H Pulse Oximetry 93 L 95 04/19/18 21:00 04/19/18 21:13 04/19/18 22:07 Temperature Pulse Rate 113 H 95 H 120 H Respiratory Rate 20 Blood Pressure Pulse Oximetry 94 L 04/19/18 22:08 04/19/18 23:05 04/19/18 23:52 Temperature Pulse Rate 105 H 103 H 100 H Respiratory Rate Blood Pressure Pulse Oximetry 04/19/18 23:55 04/20/18 00:34 04/20/18 00:56 Temperature 98.4 F Pulse Rate 102 H 105 H 105 H Respiratory Rate 18 20 Blood Pressure 150/88 H Pulse Oximetry 96 04/20/18 02:11 04/20/18 03:04 04/20/18 03:57 Temperature Pulse Rate 106 H 104 H 103 H Respiratory Rate Blood Pressure Pulse Oximetry 04/20/18 04:00 04/20/18 04:26 04/20/18 05:03 Temperature 97.5 F L Pulse Rate 101 H 102 H 105 H Respiratory Rate 18 18 Blood Pressure 127/78 Pulse Oximetry 94 L 04/20/18 06:07 04/20/18 07:00 04/20/18 07:03 Temperature 97.2 F L Pulse Rate 102 H 102 H 101 H Respiratory Rate 24 Blood Pressure 143/89 H Pulse Oximetry 94 L 04/20/18 07:44 04/20/18 08:00 04/20/18 08:15 Temperature Pulse Rate 102 H 114 H 102 H Respiratory Rate 16 Blood Pressure Pulse Oximetry 94 L 04/20/18 09:00 04/20/18 10:08 04/20/18 11:13 Temperature 97.5 F L Pulse Rate 104 H 101 H 104 H Respiratory Rate 32 H Blood Pressure 147/89 H Pulse Oximetry 93 L 04/20/18 11:14 04/20/18 12:10 04/20/18 12:12 Temperature Pulse Rate 107 H 105 H 97 H Respiratory Rate 18 Blood Pressure Pulse Oximetry 04/20/18 13:08 04/20/18 15:41 04/20/18 15:52 Temperature 97.7 F Pulse Rate 106 H 94 H 80 Respiratory Rate 28 H 18 Blood Pressure 111/70 Pulse Oximetry 96 Intake & Output 04/19/18 04/20/18 04/20/18 18:59 06:59 18:59 Intake Total 1590 / 1590 1240 / 1240 1000 / 1000 Output Total 1350 / 1350 1275 / 1275 Balance 240 / 240 -35 / -35 1000 / 1000 Weight 73.5 kg Intake: IV 1110 / 1110 1000 / 1000 1000 / 1000 NS Inj 1,000 ML @ 100 mls/hr IV 1000 / 1000 1000 / 1000 1000 / 1000 .CONT .Q10H [facility] Rx#:[id number] Venofer Inj 200 MG In NS Inj 110 / 110 100 ML @ 110 mls/hr IV.SIG ONCE ONE Rx#:[id number] Oral 480 / 480 240 / 240 Output: Urine 1350 / 1350 1275 / 1275 Other: Date of Last Bowel Movement 04/18/18 04/18/18 Result Diagrams: 04/20/18 04:58 04/20/18 04:58 Laboratory Results: Laboratory Results - last 24 hr 04/20/18 04/20/18 04:58 04:58 WBC 8.8 RBC 3.26 L Hgb 8.6 L Hct 26.2 L MCV 80.3 MCH 26.5 L MCHC 33.0 RDW 17.8 H Plt Count 242 MPV 7.1 Neut % (Auto) 81.7 H Lymph % (Auto) 9.4 [place] % (Auto) 7.4 Eos % (Auto) 0.9 Baso % (Auto) 0.6 Neut # (Auto) 7.2 Lymph # (Auto) 0.8 L [place] # (Auto) 0.7 Eos # (Auto) 0.1 Baso # (Auto) 0.0 WBC Differential . Differential Comment Auto diff final Sodium 141 Potassium 3.1 L Chloride 106 Carbon Dioxide 23.2 Anion Gap 12 BUN 7 Creatinine 0.54 L Estimated GFR Greater than 89 Random Glucose 105 Calcium 8.4 L Culture Results: Microbiology 04/18/18 16:59 Occult Blood - Final Stool Hemoccult negative Imaging Studies: Impressions Head CT 04/19/18 00:00 CONCLUSION: Multiple brain masses as described above with vasogenic edema. The largest mass is in the right cerebellar hemisphere. Given the chest history, these likely represent metastatic lesions. Medications: Active Medications Generic Name Dose Route Start Last Admin Trade Name Freq PRN Reason Stop Dose Admin Albuterol 1 ampul 04/18/18 16:00 04/20/18 15:49 Duoneb Neb (Tirso) NEB 1 ampul Q4HR NEB [facility] Administration Budesonide/Formoterol Fumarate 2 puff 04/17/18 21:00 04/20/18 08:47 Symbicort 160/4.5 Mcg Inh INH 2 puff Q12H [facility] Administration Diltiazem HCl 240 mg 04/20/18 09:00 04/20/18 08:47 Cardizem Cd 24hr PO 240 mg DAILY [facility] Administration Sodium Chloride 1,000 mls @ 100 mls/hr 04/17/18 21:00 04/20/18 12:46 Ns Inj IV.CONT 100 mls/hr .Q10H [facility] Administration Levofloxacin 250 mg 04/19/18 09:00 04/20/18 08:48 Levaquin PO 250 mg DAILY [facility] Administration Nitroglycerin 0.5 inch 04/18/18 00:00 04/20/18 11:43 Nitro-Bid 2% Oint TOPICAL 0.5 inch Q6HR [facility] Administration Pravastatin Sodium 40 mg 04/17/18 21:00 04/19/18 21:02 Pravachol PO 40 mg HS [facility] Administration Senna/Docusate Sodium 1 tab 04/17/18 21:00 04/20/18 08:48 Debbie-Colace PO 1 tab BID [facility] Administration Sertraline HCl 25 mg 04/18/18 09:00 04/20/18 08:47 Zoloft PO 25 mg DAILY [facility] Administration Sodium Chloride 2 ml 04/20/18 09:00 04/20/18 09:00 Ns Flush IV.FLUSH Not Given BID [facility] Objective Remarks: GENERAL: Well-nourished, well-developed patient. SKIN: Warm and dry. HEAD: Normocephalic. EYES: No scleral icterus. No injection or drainage. NECK: Supple, trachea midline. No JVD or lymphadenopathy. LYMPHATIC: No adenopathy. CARDIOVASCULAR: Regular rate and rhythm without murmurs. RESPIRATORY: Breath sounds equal bilaterally. No accessory muscle use. GASTROINTESTINAL: Abdomen soft, non-tender, nondistended. EXTREMITIES: No cyanosis, or edema. NEUROLOGICAL: No obvious focal deficit. Awake, alert, and oriented x3. PSYCHIATRIC: Appropriate mood and affect; insight and judgment normal. Assessment/Plan (1) Anemia Code(s): D64.9 - Anemia, unspecified Status: Acute (2) Lung cancer Code(s): C34.90 - Malignant neoplasm of unspecified part of unspecified bronchus or lung Status: Chronic - Plan 1. SOB/COPD exacerbation: followed by pulmonology. Management per pulmonology team. 2. Anemia: mixed ACD/DELVIN. Baseline approximately 10 now 8 while inpatient. S/ p IV iron sucrose. 3. Stage III lung cancer [id number] s/p concurrent chemotherapy and radiation therapy currently undergoing treatment with adjuvant durvalumab. (2) Lung cancer Qualifiers: Laterality: unspecified laterality Lung location: unspecified part of lung Qualified Code(s): C34.90 - Malignant neoplasm of unspecified part of unspecified bronchus or lung
--- NOTE | 2018-04-20 17:01 | P.PN ---
Subjective Interval history: alert on o2 NC Physical Exam Vital signs: Vital Signs 04/19/18 17:00 04/19/18 18:00 04/19/18 19:09 Temperature Pulse Rate 93 H 99 H 89 Respiratory Rate Blood Pressure Pulse Oximetry 04/19/18 19:41 04/19/18 19:58 04/19/18 20:00 Temperature 97.6 F Pulse Rate 87 85 101 H Respiratory Rate 18 22 Blood Pressure 146/80 H Pulse Oximetry 93 L 95 04/19/18 21:00 04/19/18 21:13 04/19/18 22:07 Temperature Pulse Rate 113 H 95 H 120 H Respiratory Rate 20 Blood Pressure Pulse Oximetry 94 L 04/19/18 22:08 04/19/18 23:05 04/19/18 23:52 Temperature Pulse Rate 105 H 103 H 100 H Respiratory Rate Blood Pressure Pulse Oximetry 04/19/18 23:55 04/20/18 00:34 04/20/18 00:56 Temperature 98.4 F Pulse Rate 102 H 105 H 105 H Respiratory Rate 18 20 Blood Pressure 150/88 H Pulse Oximetry 96 04/20/18 02:11 04/20/18 03:04 04/20/18 03:57 Temperature Pulse Rate 106 H 104 H 103 H Respiratory Rate Blood Pressure Pulse Oximetry 04/20/18 04:00 04/20/18 04:26 04/20/18 05:03 Temperature 97.5 F L Pulse Rate 101 H 102 H 105 H Respiratory Rate 18 18 Blood Pressure 127/78 Pulse Oximetry 94 L 04/20/18 06:07 04/20/18 07:00 04/20/18 07:03 Temperature 97.2 F L Pulse Rate 102 H 102 H 101 H Respiratory Rate 24 Blood Pressure 143/89 H Pulse Oximetry 94 L 04/20/18 07:44 04/20/18 08:00 04/20/18 08:15 Temperature Pulse Rate 102 H 114 H 102 H Respiratory Rate 16 Blood Pressure Pulse Oximetry 94 L 04/20/18 09:00 04/20/18 10:08 04/20/18 11:13 Temperature 97.5 F L Pulse Rate 104 H 101 H 104 H Respiratory Rate 32 H Blood Pressure 147/89 H Pulse Oximetry 93 L 04/20/18 11:14 04/20/18 12:10 04/20/18 12:12 Temperature Pulse Rate 107 H 105 H 97 H Respiratory Rate 18 Blood Pressure Pulse Oximetry 04/20/18 13:08 04/20/18 14:00 04/20/18 15:00 Temperature Pulse Rate 106 H 104 H 100 H Respiratory Rate Blood Pressure Pulse Oximetry 04/20/18 15:41 04/20/18 15:52 04/20/18 16:12 Temperature 97.7 F Pulse Rate 94 H 80 106 H Respiratory Rate 28 H 18 Blood Pressure 111/70 Pulse Oximetry 96 Intake & Output 04/19/18 04/20/18 04/20/18 18:59 06:59 18:59 Intake Total 1590 / 1590 1240 / 1240 1000 / 1000 Output Total 1350 / 1350 1275 / 1275 Balance 240 / 240 -35 / -35 1000 / 1000 Weight 73.5 kg Intake: IV 1110 / 1110 1000 / 1000 1000 / 1000 NS Inj 1,000 ML @ 100 mls/hr IV 1000 / 1000 1000 / 1000 1000 / 1000 .CONT .Q10H NORMAN Rx#:[id number] Venofer Inj 200 MG In NS Inj 110 / 110 100 ML @ 110 mls/hr IV.SIG ONCE ONE Rx#:[id number] Oral 480 / 480 240 / 240 Output: Urine 1350 / 1350 1275 / 1275 Other: Date of Last Bowel Movement 04/18/18 04/18/18 Narrative: GENERAL: WN, WD male resting in bed in [facility]. SKIN: Warm and dry. HEENT: AT/NC. Pupils equal and round. MMM. NECK: Supple no tender LAD or JVD. HEART: IRR. LUNGS: CTAB without wheezing or crackles. ABDOMEN: +BS, soft, NT, ND. EXTREMITIES: No LE edema. NEURO: Awake and alert. Nonfocal. PSYCH: Appropriate mood and affect. Results - Labs CBC & Chem 7: 04/20/18 04:58 04/20/18 04:58 Laboratory Results - last 24 hr 04/20/18 04/20/18 04:58 04:58 WBC 8.8 RBC 3.26 L Hgb 8.6 L Hct 26.2 L MCV 80.3 MCH 26.5 L MCHC 33.0 RDW 17.8 H Plt Count 242 MPV 7.1 Neut % (Auto) 81.7 H Lymph % (Auto) 9.4 Foster % (Auto) 7.4 Eos % (Auto) 0.9 Baso % (Auto) 0.6 Neut # (Auto) 7.2 Lymph # (Auto) 0.8 L Foster # (Auto) 0.7 Eos # (Auto) 0.1 Baso # (Auto) 0.0 WBC Differential . Differential Comment Auto diff final Sodium 141 Potassium 3.1 L Chloride 106 Carbon Dioxide 23.2 Anion Gap 12 BUN 7 Creatinine 0.54 L Estimated GFR Greater than 89 Random Glucose 105 Calcium 8.4 L - Imaging Impressions Head CT 04/19/18 00:00 CONCLUSION: Multiple brain masses as described above with vasogenic edema. The largest mass is in the right cerebellar hemisphere. Given the chest history, these likely represent metastatic lesions. - Procedures None Assessment and Plan - Plan o2 as needed bronchodilator therapy' antibx'
[2018-04-21] MEDS: Sod Chloride 0.9% Inj 1,000 ML IV.CONT SCH (08:52)
[2018-04-21] MEDS: Senna/Docusate Sodium 8.6/50 MG Tablet PO SCH (08:52)
[2018-04-21] MEDS: Sertraline 50 MG Tablet PO SCH (08:53)
[2018-04-21] MEDS: dilTIAZem CD 240 MG Capsule PO SCH (08:53)
[2018-04-21] MEDS: levoFLOXacin 250 MG Tablet PO SCH (08:54)
[2018-04-21] MEDS: Budesonide-Formoterol 160/4.5 MCG 6 GM Inhaler INH SCH (08:55)
--- NOTE | 2018-04-21 10:06 | P.PN ---
Physical Exam Vital signs: Vital Signs 04/20/18 10:08 04/20/18 11:13 04/20/18 11:14 Temperature 97.5 F L Pulse Rate 101 H 104 H 107 H Respiratory Rate 32 H Blood Pressure 147/89 H Pulse Oximetry 93 L 04/20/18 12:10 04/20/18 12:12 04/20/18 13:08 Temperature Pulse Rate 105 H 97 H 106 H Respiratory Rate 18 Blood Pressure Pulse Oximetry 04/20/18 14:00 04/20/18 15:00 04/20/18 15:41 Temperature 97.7 F Pulse Rate 104 H 100 H 94 H Respiratory Rate 28 H Blood Pressure 111/70 Pulse Oximetry 96 04/20/18 15:52 04/20/18 16:12 04/20/18 17:00 Temperature Pulse Rate 80 106 H 100 H Respiratory Rate 18 Blood Pressure Pulse Oximetry 04/20/18 18:00 04/20/18 19:00 04/20/18 19:35 Temperature Pulse Rate 110 H 109 H 97 H Respiratory Rate 18 Blood Pressure Pulse Oximetry 93 L 04/20/18 20:00 04/20/18 21:00 04/20/18 22:00 Temperature 98.2 F Pulse Rate 100 H 102 H 103 H Respiratory Rate 26 H Blood Pressure 128/79 Pulse Oximetry 92 L 04/20/18 23:00 04/20/18 23:33 04/21/18 00:00 Temperature 98.5 F Pulse Rate 98 H 100 H 98 H Respiratory Rate 18 30 H Blood Pressure 144/86 H Pulse Oximetry 94 L 04/21/18 01:00 04/21/18 02:00 04/21/18 03:00 Temperature Pulse Rate 106 H 104 H 100 H Respiratory Rate Blood Pressure Pulse Oximetry 04/21/18 03:02 04/21/18 04:00 04/21/18 05:00 Temperature 98.4 F Pulse Rate 90 98 H 100 H Respiratory Rate 18 22 Blood Pressure 123/73 Pulse Oximetry 98 04/21/18 06:00 04/21/18 07:00 04/21/18 08:00 Temperature 98.4 F Pulse Rate 97 H 141 H 96 H Respiratory Rate 28 H Blood Pressure 130/86 Pulse Oximetry 95 04/21/18 08:20 04/21/18 09:26 04/21/18 09:30 Temperature Pulse Rate 93 H 104 H Respiratory Rate 20 28 H Blood Pressure Pulse Oximetry 94 L Intake & Output 04/20/18 04/21/18 04/21/18 18:59 06:59 18:59 Intake Total 1000 / 1000 2480 / 2480 Output Total 1155 / 1155 1350 / 1350 Balance -155 / -155 1130 / 1130 Weight 72.5 kg Intake: IV 1000 / 1000 1999 NS Inj 1,000 ML @ 100 mls/hr IV 1000 / 1000 1999 .CONT .Q10H [place]MAN Rx#:[id number] Oral 480 / 480 Output: Urine 1155 / 1155 1350 / 1350 Narrative: Subjective Interval history: Plan to DC to SNF when arrangements are done , CM is ff. Satting well on 2L NC No events overnight. Physical Exam GENERAL: WN, WD male resting in bed in [place]. SKIN: Warm and dry. HEENT: AT/NC. Pupils equal and round. MMM. NECK: Supple no tender LAD or JVD. HEART: IRR. LUNGS: CTAB without wheezing or crackles. ABDOMEN: +BS, soft, NT, ND. EXTREMITIES: No LE edema. NEURO: Awake and alert. Nonfocal. PSYCH: Appropriate mood and affect. Assessment and Plan 77 YOWM with HTN, lung cancer s/p chemo/radiation, oxygen dependence, depression and A-fib who presented to the ER on 04/17 w/ complaints of generalized weakness and progressive SOB. 1. Chest Pain - Resolved - EKG with sinus tachycardia, no ST or T wave changes - Troponins mildly elevated at 0.19, 0.22, and 0.21 - CXR demonstrating bilateral interstitial disease, R>L and increased density in R perihilar region, both findings unchanged from prior study - CTA negative for PE. There is a persistent 6.4 cm cavitary mass in the right lower lobe with widespread chronic interstitial disease and emphysematous changes. There is also right lower lobe consolidation or atelectasis seen inferior to the large cavitary mass - 2D echo with EF 50-55% - Continue ASA - Cardiology consulted, no invasive intervention at this time and has cleared for discharge 2. Dyspnea, PNA - Chest imaging as described above - Supplemental O2 - Schedule DuoNebs Q4H - Pulmonology consulted, patient known to Dr. Kerr. Recommending continued bronchodilators, abx, and likely short term rehab - Continue Levaquin for a total of 7 days - PT consulted, recommending rehab 3. Lung cancer - State IIIa T4 N0 M0 non-small cell lung cancer, squamous cell carcinoma s/p chemo/rxt - On continuous 2L O2 at home - Follows with Dr. Rios, continue to follow as OP 4. Atrial fibrillation - HR improved after increasing Cardizem to 240 mg 5. Depression - Continue home Zoloft 6. Emphysema - Continue home Symbicort - Supplemental O2 - Bronchodilators 7. Anemia - Likely from malignancy but Hb dropped from ~10 to ~8 and has since stabilized around 8 - No signs of active bleeding and hemodynamically stable - Elevated retic count at 3.4, normal LDH, low iron and % sat but oddly TIBC is also low and ferritin is normal - Heme/onc following and gave him an iron transfusion yesterday - F/U with PCP as OP - Report any active bleeding Discharge Planning: D/C to SNF when arrangements are done Results - Labs CBC & Chem 7: 04/20/18 04:58 04/20/18 04:58 - Procedures None Assessment and Plan - Assessment (1) Dyspnea Code(s): R06.00 - Dyspnea, unspecified Status: Acute (2) Chest pain Code(s): R07.9 - Chest pain, unspecified Status: Acute (3) Elevated troponin Code(s): R74.8 - Abnormal levels of other serum enzymes Status: Acute (4) Lung cancer Code(s): C34.90 - Malignant neoplasm of unspecified part of unspecified bronchus or lung Status: Chronic (1) Dyspnea Qualifiers: Dyspnea type: dyspnea on exertion Qualified Code(s): R06.09 - Other forms of dyspnea (2) Chest pain Qualifiers: Chest pain type: other chest pain Qualified Code(s): R07.89 - Other chest pain; R07.8 - Other chest pain (4) Lung cancer Qualifiers: Laterality: unspecified laterality Lung location: unspecified part of lung Qualified Code(s): C34.90 - Malignant neoplasm of unspecified part of unspecified bronchus or lung
[2018-04-21 15:21] VITALS: RESP 18
[2018-04-21 15:23] VITALS: O2SAT 95
[2018-04-21 16:22] VITALS: PULSE 112
[2018-04-21 16:23] VITALS: BP 125/79; TEMP 98.3
== END 2018-04-21 16:58 ==
LOC: HCIS 17:03 → NEPE 17:03 → NEDA 20:09 → INTOOBSV 20:17 → HCIS 22:32
PROVIDERS: ADMIT Hospitalist; ATTEND Hospitalist
DX: J44.1 Chronic obstructive pulmonary disease with (acute) exacerbation; G93.6 Cerebral edema; J18.9 Pneumonia, unspecified organism; Z87.891 Personal history of nicotine dependence; I10 Essential (primary) hypertension; Z92.3 Personal history of irradiation; Z79.01 Long term (current) use of anticoagulants; R07.89 Other chest pain; J96.10 Chronic respiratory failure, unspecified whether with hypoxia or hypercapnia; D50.9 Iron deficiency anemia, unspecified; Z92.21 Personal history of antineoplastic chemotherapy; E78.5 Hyperlipidemia, unspecified; R74.8 Abnormal levels of other serum enzymes; J44.0 Chronic obstructive pulmonary disease with (acute) lower respiratory infection; Z79.899 Other long term (current) drug therapy; Z85.118 Personal history of other malignant neoplasm of bronchus and lung; Z99.81 Dependence on supplemental oxygen; R79.1 Abnormal coagulation profile; F32.9 Major depressive disorder, single episode, unspecified

== ENCOUNTER 2018-05-06 14:26 | Inpatient (IN) ==
[2018-05-06] MEDS ORDERED: Sodium Chlor 0.9% Inj 250 ML IV.SIG SCH ×2 (15:00→23:00)
--- NOTE | 2018-05-06 15:00 | ED ---
HPI General Chief Complaint: Shortness of Breath/Dyspnea Stated Complaint: respiratory Time Seen by Provider: 05/06/18 14:29 Source: patient and family Mode of arrival: EMS Limitations: no limitations History of Present Illness MD Complaint: shortness of breath Onset (ago): day(s) (2) Context: recent travel (Lung cancer and COPD) Severity: moderate Consistency/Duration: constant Relieving factors: oxygen Exacerbating factors: exertion Known history of: COPD Associated symptoms: other (Anemic. Dark stools for last 2 weeks.) Treatment prior to arrival: oxygen Related Data Home oxygen amount: 3 liters Home Medications Medication Instructions Recorded Confirmed albuterol sulfate 2 puff INHALATION Q4H PRN 04/17/18 04/17/18 apixaban [Eliquis] 5 mg PO BID 04/17/18 04/17/18 budesonide-formoterol [Symbicort] 2 puff INHALATION Q12H 04/17/18 04/17/18 docusate sodium 100 mg PO DAILY 04/17/18 04/17/18 polyethylene glycol 3350 [Miralax] 17 g PO DAILY 04/17/18 04/17/18 sertraline 25 mg PO DAILY 04/17/18 04/17/18 Previous Rx's Medication Instructions Recorded diltiazem HCl 240 mg PO DAILY #30 cap 04/20/18 levofloxacin 250 mg PO DAILY #5 tab 04/20/18 Allergies Allergy/AdvReac Type Severity Reaction Status Date / Time prednisone Allergy Severe Seizures Verified 05/06/18 14:30 Review of Systems Except as stated in HPI: all other systems reviewed are negative [facility] Medical History Medical History A-fib (Acute) Depression (Acute) FH: chemotherapy (Acute) Hx of radiation therapy (Acute) Lung cancer (Acute) Oxygen dependent (Acute) Social History Social History Substance History: No History of Abuse Second Hand Smoke Exposure: No Smoking Status: Former smoker Tobacco Type: Cigarettes How Often Do You Have a Drink Containing Alcohol: Never Recent Travel in [place] within the Last 8 Weeks: No Recent Out of Country Travel within the Last 8 Weeks: No Immunization History Tetanus Immunization: Unsure Hx Influenza Vaccine This Season: Yes Exam Const General: cooperative, well developed and acute distress respiratory Nutritional Appearance: cachectic HENMT Head: normal to inspection, normocephalic and atraumatic Eyes Conjunctivae: conjunctivae normal Sclera: sclerae normal EOM: EOM intact bilaterally Neck Neck: normal visual inspection and full ROM Chest Chest: normal inspection of the chest Resp Effort & Inspection: labored and respiratory distress Auscultation: clear to auscultation bilaterally Cardio Rate: regular rate Rhythm: regular rhythm GI Inspection: normal to inspection Palpation: soft Rectal Exam: abnormal stool black and heme positive stool External: normal external exam Back/Spine/Pelvis Cervical Spine: cervical ROM normal Thoracic/Lumbar Spine: thoraco-lumbar ROM normal Skin General: turgor normal and pallor Neuro General: alert, awake, oriented x3, moves all extremities and CN's II-XI intact bilaterally Extrem General: normal to inspection and full ROM Psych Appearance: grossly normal Mental Status: mental status grossly normal Speech and Movement: speech and movement normal Mood: congruent mood Affect: normal affect Attitude: cooperative Thought Process: normal Thought Content: normal Judgment: judgment good Procedures Hemaprompt Stool Procedural Steps Taken: controls appropriately positive and negative Hemaprompt Stool Result: positive Course Consultations Consultation #1: Dr. Jo will admit Time: 16:12 Initial Documented Vital Signs Temperature 99.5 F 05/06/18 14:30 Pulse Rate 117 H 05/06/18 14:30 Respiratory Rate 23 05/06/18 14:30 Blood Pressure 134/60 05/06/18 14:30 Pulse Oximetry 97 05/06/18 14:30 Last Documented Vital Signs Temperature 99.5 F 05/06/18 14:30 Pulse Rate 117 H 05/06/18 14:30 Respiratory Rate 23 05/06/18 14:30 Blood Pressure 134/60 05/06/18 14:30 Pulse Oximetry 96 05/06/18 14:37 Critical Care Time Critical Care Time: Yes Total Critical Care Time: 30 Attestation: Time to perform other separately billable procedures was not included in the critical care time. My time did not include minutes spent treating any other patients simultaneously or on activities that did not directly contribute to the patient's treatment. The services I provided to this patient were to treat and/or prevent clinically significant deterioration due to dyspnea, severe anemia I provided critical care services requiring my management, as noted below: Chart data review, documentation time, medication orders and management, vital sign assessments/reviewing monitor data, ordering and reviewing lab tests, ordering and interpreting/reviewing x-rays and diagnostic studies, care of the patient and discussion of the patient with the admitting physicians Medical Decision Making MDM Narrative Medical decision making narrative: This patient was sent to us from a rehab facility because of dyspnea. Most of the history is obtained from his . She states that his symptoms have waxed and waned in the recent past. His dyspnea has been worsening for the last couple of days. She reports that he is on an anticoagulant and that his stools have been black for at least a week. He has become increasingly pale. This patient is tachypnea but is maintaining his oxygen saturation in the high 90s on oxygen. I have ordered 2 units of blood. [facility]. Differential Diagnosis Differential Diagnosis: Differential diagnosis of dyspnea includes but is not limited to congestive heart failure, pneumonia, wheezing, pneumothorax, pulmonary embolism Medical Records Medical records reviewed: Yes I reviewed the patient's medical records. The patient was most recently admitted here from April 17 until April 20 because of increasing dyspnea and chest discomfort. [facility] at that time. Lab Data Lab results reviewed: Yes I reviewed the patient's lab results. Result diagrams: 05/06/18 14:36 05/06/18 14:36 Lab Results 05/06/18 05/06/18 05/06/18 Range/Units 14:36 14:36 14:49 WBC 10.9 (4.0-11.0) th/mm3 RBC 1.85 L (4.50-5.90) mil/mm3 Hgb 6.2 L* (13.0-17.0) gm/dL Hct 17.3 L* (39.0-51.0) % MCV 93.7 (80.0-100.0) fL MCH 33.4 (27.0-34.0) pg MCHC 35.6 (32.0-36.0) % RDW 19.7 H (11.6-17.2) % Plt Count 264 (150-450) th/mm3 MPV 7.9 (7.0-11.0) fL Prelim Diff (Auto) Slide review pending Neut % (Auto) 86.8 H (16.0-70.0) % Lymph % (Auto) 4.2 L (9.0-44.0) % [place] % (Auto) 6.3 (0.0-8.0) % Eos % (Auto) 0.6 (0.0-4.0) % Baso % (Auto) 2.1 H (0.0-2.0) % Neut # (Auto) 9.4 H (1.8-7.7) th/mm3 Lymph # (Auto) 0.5 L (1.0-4.8) th/mm3 [place] # (Auto) 0.7 (0.0-0.9) th/mm3 Eos # (Auto) 0.1 (0.0-0.4) th/mm3 Baso # (Auto) 0.2 (0.0-0.2) th/mm3 Differential Comment . Sodium 149 H (136-145) meq/L Potassium 3.7 (3.5-5.1) meq/L Chloride 114 H (98-107) meq/L Carbon Dioxide 25.6 (21.0-32.0) meq/L Anion Gap 9 (5-15) meq/L BUN 27 H (7-18) mg/dL Creatinine 0.99 (0.60-1.30) mg/dL Estimated GFR 73 L (>89) mL/min Random Glucose 127 H (74-106) mg/dL Calcium 8.9 (8.5-10.1) mg/dL Total Bilirubin 0.3 (0.2-1.0) mg/dL AST 15 (15-37) U/L ALT 24 (12-78) U/L Alkaline Phosphatase 93 (45-117) U/L Troponin I Less than 0.02 L (0.02-0.05) ng/mL Total Protein 6.0 L (6.4-8.2) g/dL Albumin 2.1 L (3.4-5.0) g/dL Blood Type A Negative Blood Type Recheck Required Antibody Screen Negative Imaging Data Attestation: I personally reviewed and interpreted this imaging study as follows : Radiologist's impression: Chest X-Ray 05/06/18 14:29 CONCLUSION: Consolidation and emphysema identified. Since the previous study the consolidation has increased particularly at the right lung base. ECG Data EKG Prior to Arrival: No Attestation: I personally reviewed and interpreted this ECG as follows: (EKG shows atrial fibrillation with a rate of 109. No acute ST segment changes.) Discharge Plan Discharge Disposition Patient Disposition: 30 Still Patient Discharge Details Diagnosis: Anemia, Lung cancer, Dyspnea Physicians Team ED Provider: Juliette Palma Primary Care Provider: Usha Kerr Rxs /Orders / Referrals /Forms Prescriptions: No Action polyethylene glycol 3350 [Miralax] 17 gram Powder In Packet 17 g PO DAILY RF: 0 sertraline 25 mg Tablet 25 mg PO DAILY RF: 0 albuterol sulfate 90 mcg/actuation Hfa Aerosol Inhaler 2 puff INHALATION Q4H PRN (Reason: Shortness Of Breath) RF: 0 docusate sodium 100 mg Tablet 100 mg PO DAILY RF: 0 budesonide-formoterol [Symbicort] 160-4.5 mcg/actuation Hfa Aerosol Inhaler 2 puff INHALATION Q12H RF: 0 apixaban [Eliquis] 5 mg Tablet 5 mg PO BID RF: 0 levofloxacin 250 mg Tablet 250 mg PO DAILY Qty: 5 RF: 0 diltiazem HCl 240 mg Capsule,Extended Release 24hr 240 mg PO DAILY Qty: 30 RF: 0 Status ED Status: Pending Admission
[2018-05-06 15:02] LABS: Baso # (Auto) 0.2 th/mm3 (0.0-0.2); Baso % (Auto) 2.1 % (0.0-2.0); Eos # (Auto) 0.1 th/mm3 (0.0-0.4); Eos % (Auto) 0.6 % (0.0-4.0); Lymph # (Auto) 0.5 th/mm3 (1.0-4.8); Lymph % (Auto) 4.2 % (9.0-44.0); Mean Corpuscular HGB Conc 35.6 % (32.0-36.0); Mean Corpuscular Hemoglobin 33.4 pg (27.0-34.0); Mean Corpuscular Volume 93.7 fL (80.0-100.0); Mean Platelet Volume 7.9 fL (7.0-11.0); Mono # (Auto) 0.7 th/mm3 (0.0-0.9); Mono % (Auto) 6.3 % (0.0-8.0); Neut # (Auto) 9.4 th/mm3 (1.8-7.7); Neut % (Auto) 86.8 % (16.0-70.0); Platelet Count 264 th/mm3 (150-450); Red Blood Count 1.85 mil/mm3 (4.50-5.90); Red Cell Distribution Width 19.7 % (11.6-17.2); White Blood Count 10.9 th/mm3 (4.0-11.0)
[2018-05-06 15:14] LABS: Alanine Aminotransferase 24 U/L (12-78); Albumin 2.1 g/dL (3.4-5.0); Anion Gap 9 meq/L (5-15); Aspartate Aminotransferase 15 U/L (15-37); Blood Urea Nitrogen 27 mg/dL (7-18); Calcium 8.9 mg/dL (8.5-10.1); Carbon Dioxide 25.6 meq/L (21.0-32.0); Chloride 114 meq/L (98-107); Glomerular Filtration Rate 73 mL/min (>89); Glucose,Random 127 mg/dL (74-106); Potassium 3.7 meq/L (3.5-5.1); Sodium 149 meq/L (136-145)
[2018-05-06 15:17] LABS: Hematocrit 17.3 % (39.0-51.0); Hemoglobin 6.2 gm/dL (13.0-17.0)
[2018-05-06 15:18] LABS: Alkaline Phosphatase 93 U/L (45-117)
--- NOTE | 2018-05-06 15:30 | XR ---
EXAM DATE: 05/06/2018 3:04 PM EDT AGE/SEX: 77 years / Male INDICATIONS: Shortness of breath and chest pain. CLINICAL DATA: This is the patient's initial encounter. Patient reports that signs and symptoms have been present for 2 days and indicates a pain score of 8/10. MEDICAL/SURGICAL HISTORY: Carcinoma, lung. Chronic obstructive pulmonary disease. . Port for c hemotherapy. COMPARISON: [facility], [facility]A PULMONARY W CONTRAST W 3D, 04/17/2018. . FINDINGS: There is severe emphysema bilaterally, dense consolidation and volume loss on the right most pronounc ed in the right lower lobe. A small right effusion is suspected. The right lower lobe cavitary mass i s partially obscured by surrounding consolidation. Mild streaky infiltrate at the left base. Left kaylee ed portacatheter is present and the tip overlies the SVC. There is a right sided effusion extending t o the apex. CONCLUSION: Consolidation and emphysema identified. Since the previous study the consolidation has increased part icularly at the right lung base. Electronically signed by: Wellington Wei MD 05/06/2018 3:29 PM EDT
[2018-05-06] MEDS ORDERED: Acetaminophen 325 MG Tablet PO PRN (16:55)
[2018-05-06] MEDS ORDERED: Bisacodyl 10 MG Supp RECTAL PRN (16:55)
[2018-05-06] MEDS ORDERED: Temazepam 15 MG Capsule PO PRN (16:55)
--- NOTE | 2018-05-06 16:55 | P.HPIM ---
History of Present Illness Primary Care Physician: Usha Kerr MD Chief Complaint: SOB History of Present Illness: This is a 77-year-old male with history of lung cancer and radiation, hypertension, atrial fibrillation Eliquis, presented emergency department from assisted facility for shortness of breath. Of note, the patient was recently seen at [facility] for generalized weakness and progressive shortness of breath. Patient was found to have pneumonia and finished a course of antibiotics. Patient was then discharged to rehab on 04/20/2018. While at the rehab facility, patient became progressively more short of breath in the last 3 days associated with a dry cough. There is no note of hemoptysis or hematuria. No active bleeding. Upon emergency department evaluation, the patient was found to have a positive guaiac stool and hemoglobin of 6.2. Patient denies any fever, nausea, vomiting, chest pain, abdominal pain or chills. Family history: Noncontributory. Inpatient Certification: I certify that the inpatient services were ordered in accordance with Medicare regulations governing the order. This includes certification that hospital inpatient services are reasonable and necessary and in the case of services not specified as inpatient-only under 42 CFR 419.22(n), that they are appropriately provided as inpatient services in accordance to with the 2-midnight benchmark under 43 CFR 412.3(e) Review of Systems All other pertinent systems were reviewed and are negative. PMFSH - History History Provided By: Patient, Turner Off / EMT - Medical History Medical History: Medical History (Last Reviewed 05/06/18 @ 14:58 by Juliette Palma) A-fib Depression FH: chemotherapy Hx of radiation therapy Lung cancer Oxygen dependent - Tobacco History Second Hand Smoke Exposure: No Smoking Status: Former smoker Tobacco Type: Cigarettes - Alcohol History How Often Do You Have a Drink Containing Alcohol: Never - Substance Use History Substance History: No History of Abuse - Travel History Recent Travel in the [place] Within the Last 8 Weeks: No Recent Travel Out of the Country Within the Last 8 Weeks: No - Immunization History Tetanus Immunization: Unsure Hx Influenza Vaccine This Season: Yes Medications and Allergies Active Medications: Active Medications Sodium Chloride (Ns Inj) 250 mls @ 15 mls/hr IV.SIG ONCE NORMAN Stop: 05/07/18 07:39 Allergies Allergy/AdvReac Type Severity Reaction Status Date / Time prednisone Allergy Severe Seizures Verified 05/06/18 14:30 Home Medications Medication Instructions Recorded Confirmed Type albuterol sulfate 2 puff INHALATION Q4H PRN 04/17/18 04/17/18 History apixaban [Eliquis] 5 mg PO BID 04/17/18 04/17/18 History budesonide-formoterol [Symbicort] 2 puff INHALATION Q12H 04/17/18 04/17/18 History docusate sodium 100 mg PO DAILY 04/17/18 04/17/18 History polyethylene glycol 3350 [Miralax] 17 g PO DAILY 04/17/18 04/17/18 History sertraline 25 mg PO DAILY 04/17/18 04/17/18 History Exam Vital signs: Vital Signs 05/06/18 14:30 05/06/18 14:37 Temperature 99.5 F Pulse Rate 117 H Respiratory Rate 23 Blood Pressure 134/60 Pulse Oximetry 97 96 Intake & Output 05/05/18 05/06/18 05/06/18 18:59 06:59 18:59 Weight 72.575 kg Narrative: In mild respiratory distress, mildly tachypneic. Appears weak. PERRL, pale conjunctivae conjunctiva without injection, anicteric Nose without bleeding, airway patent, oropharynx clear Supple neck, no masses or thyromegaly, trachea midline Borderline tachycardic, no murmurs. Positive crackles in the right base, no wheezing. Normal bowel sounds, soft, non-tender, nondistended, no guarding. Extremities without clubbing, cyanosis, or edema. No rash of generalized distribution. AAO x3, no cranial nerve deficits, moves all 4 extremities, no focal neurologic deficits Results - Labs CBC & Chem 7: 05/06/18 14:36 05/06/18 14:36 Labs: Short CBC 05/06/18 Range/Units 14:36 WBC 10.9 (4.0-11.0) th/mm3 Hgb 6.2 L* (13.0-17.0) gm/dL Hct 17.3 L* (39.0-51.0) % Plt Count 264 (150-450) th/mm3 BMP 05/06/18 14:36 Sodium 149 H Potassium 3.7 Chloride 114 H Carbon Dioxide 25.6 BUN 27 H Creatinine 0.99 Calcium 8.9 Cardiac Enzymes 05/06/18 Range/Units 14:36 Troponin I Less than 0.02 L (0.02-0.05) ng/mL Liver Function 05/06/18 Range/Units 14:36 Total Bilirubin 0.3 (0.2-1.0) mg/dL AST 15 (15-37) U/L ALT 24 (12-78) U/L Alkaline Phosphatase 93 (45-117) U/L Albumin 2.1 L (3.4-5.0) g/dL - Imaging Impressions Chest X-Ray 05/06/18 14:29 CONCLUSION: Consolidation and emphysema identified. Since the previous study the consolidation has increased particularly at the right lung base. Caprini VTE Risk Assessment Caprini VTE Risk Assessment: Moderate/High Risk (score >= 2) VTE Pharmacological Exception Reason: Hemorrhage Caprini Risk Assessment Model: Point Value = 1 Point Value = 2 Point Value = 3 Point Value = 5 Age 41-60 Minor surgery BMI > 25 kg/m2 Swollen legs Varicose veins or History of unexplained or recurrent spontaneous Oral contraceptives or hormone replacement Sepsis (< 1 month) Serious lung disease, including pneumonia (< 1 month) Abnormal pulmonary function Acute myocardial infarction Congestive heart failure (< 1 month) History of inflammatory bowel disease Medical patient at bed rest Age 61-74 Arthroscopic surgery Major open surgery (> 45 min) Laparoscopic surgery (> 45 min) Malignancy Confined to bed (> 72 hours) Immobilizing plaster cast Central venous access Age >= 75 History of VTE Family history of VTE Factor V Leiden Prothrombin [id number] Lupus anticoagulant Anticardiolipin antibodies Elevated serum homocysteine Heparin-induced thrombocytopenia Other congenital or acquired thrombophilia Stroke (< 1 month) Elective arthroplasty Hip, pelvis, or leg fracture Acute spinal cord injury (< 1 month) Prophylaxis Regimen: Total Risk Factor Score Risk Level Prophylaxis Regimen 0-1 Low Early ambulation 2 Moderate Order ONE of the following: *Sequential Compression Device (SCD) *Heparin 5000 units SQ BID 3-4 Higher Order ONE of the following medications: *Heparin 5000 units SQ TID *Enoxaparin/Lovenox 40 mg SQ daily (WT < 150 kg, CrCl > 30 mL/min) *Enoxaparin/Lovenox 30 mg SQ daily (WT < 150 kg, CrCl > 10-29 mL/min) *Enoxaparin/Lovenox 30 mg SQ BID (WT < 150 kg, CrCl > 30 mL/min) AND/OR *Sequential Compression Device (SCD) 5 or more Highest Order ONE of the following medications: *Heparin 5000 units SQ TID (Preferred with Epidurals) *Enoxaparin/Lovenox 40 mg SQ daily (WT < 150 kg, CrCl > 30 mL/min) *Enoxaparin/Lovenox 30 mg SQ daily (WT < 150 kg, CrCl > 10-29 mL/min) *Enoxaparin/Lovenox 30 mg SQ BID (WT < 150 kg, CrCl > 30 mL/min) AND *Sequential Compression Device (SCD) Assessment and Plan - Plan This is a 77-year-old male with history of lung cancer status post chemotherapy and radiation, depression, atrial fibrillation and anticoagulation presents emergency department for shortness of breath Shortness of breath likely secondary to anemia possibly secondary to GI bleeding versus anemia of chronic disease - patient on anticoagulation, hemoglobin of 6.2, check hemoglobin every 12 hours. No obvious source of bleeding noted in the GI tract. Consult GI, hold Eliquis. Check iron panel. 2 units of packed red blood cells ordered from the emergency department. Atrial fibrillation-currently controlled, hold anticoagulation, restart Cardizem. Hypoxic respiratory failure-chest x-ray is right lower lobe vascular infiltrates , on exam, he also has crackles in that area. Atelectasis versus pneumonia. Since patient is immune compromised, will start antibiotics for possible healthcare associated pneumonia with vancomycin. Patient however does not have any leukocytosis but with neutrophilia. Duo nebs around the clock and as needed Need to reconcile medications once medical reconciliation is done. Lung cancer-needs follow-up as outpatient, needs a PET scan as outpatient. requesting that the patient be routed to PET scan prior to SNF admission on discharge. DVT prophylaxis: High risk, pharmacological prophylaxis contraindicated because of possible GI bleed.
[2018-05-06 17:08] LABS: Lymphocytes 7 % (9-44); Monocytes 8 % (0-8); Tallied Nucleated RBC 2 (0-0)
[2018-05-06 17:10] LABS: Polychromasia 4.4 % (0.0-1.9)
[2018-05-06 17:11] LABS: Platelet Estimate Normal (Normal); Platelet Morphology Normal (Normal)
[2018-05-06] MEDS ORDERED: Vancomycin Inj 1 GM/200 ML PIGGYBACK IV.SIG SCH (18:00)
[2018-05-06] MEDS ORDERED: Vancomycin Consult Pharmacy 1 EACH OTHER SCH (18:00)
--- NOTE | 2018-05-06 20:41 | MB ---
cc: Usha Kerr MD, [place] W MD DATE: 05/06/2018 REASON FOR CONSULTATION: Lung cancer, pneumonia. HISTORY OF PRESENT ILLNESS: The patient is a 77-year-old male with a known history of lung cancer, post-radiation therapy, who was recently hospitalized and discharged to a correction; however, in the correction, the patient had been complaining for 2 to 3 days now of increasing shortness of breath. He has no cough or expectoration. He feels cold at times; however, had no fever. The patient's chest x-ray upon presentation is with worsening lung infiltrate, underlying pneumonitis is PAST MEDICAL HISTORY: 1. Lung cancer as mentioned above. 2. Chronic obstructive pulmonary disease. 3. Atrial fibrillation. 4. Respiratory failure, on oxygen therapy. SOCIAL HISTORY: Does not smoke at present; however, does have a long smoking history. Does not drink any alcohol and does not use drugs. FAMILY HISTORY: Noncontributory. REVIEW OF SYSTEMS: A 12-point review of systems as per HPI and past history, otherwise, negative. MEDICATIONS: 1. Acetaminophen. 2. Albuterol. 3. Diltiazem. 4. Pantoprazole. 5. Piperacillin/tazobactam 6. Vancomycin. ALLERGIES: ? Prednisone. PHYSICAL EXAMINATION: GENERAL: The patient is alert. VITAL SIGNS: Temperature 98, pulse 90, respirations 20, blood pressure 101/50, oxygen saturation 93% on 4 liters oxygen nasal cannula. Chest x-ray on presentation with consolidation and volume loss in the right lung, especially right lower lung lobe. The patient did have a cavitary mass in the right lower lung, which is not well seen, related to other atelectatic change or worsening infiltrate. IMPRESSION: 1. Lung cancer. 2. Pneumonia. 3. Chronic obstructive pulmonary disease. 4. Respiratory failure. PLAN: The patient is on oxygen therapy, which will be continued. Bronchodilator therapy is given as well. Antibiotic therapy has been initiated as outlined above and appropriately so. The patient is with advanced lung cancer and a poor prognosis. We will follow his course along with you and, depending on progress, proceed further. I do thank you for asking me to partake in Mr. Titus's care. Usha Kerr MD WWW/ , 08:18 PM , 08:27 PM
[2018-05-06 20:55] LABS: % Iron Saturation 16.2 % (20-50); Iron 34 mcg/dL (65-175); Total Iron Binding Capacity 210 mcg/dL (250-450)
[2018-05-06] MEDS ORDERED: Senna/Docusate Sodium 8.6/50 MG Tablet PO SCH (21:00)
[2018-05-06] MEDS: Piperacil/Tazo 3.375 GM Premix 50 ML IV.SIG SCH (22:13)
[2018-05-06] MEDS: Pantoprazole Inj 40 MG Vial IV.PUSH SCH (22:15)
[2018-05-06] MEDS: Vancomycin Inj 1,250 MG in Sodium Chlor 0.9% Inj 250 ML IV.SIG SCH (22:16)
[2018-05-07] MEDS: Piperacil/Tazo 3.375 GM Premix 50 ML IV.SIG SCH ×5 (01:01→23:33)
[2018-05-07] MEDS: Pantoprazole Inj 40 MG Vial IV.PUSH SCH ×2 (05:06→18:45)
[2018-05-07 06:27] LABS: Albumin 1.8 g/dL (3.4-5.0); Anion Gap 11 meq/L (5-15); Aspartate Aminotransferase 13 U/L (15-37); Blood Urea Nitrogen 24 mg/dL (7-18); Calcium 8.6 mg/dL (8.5-10.1); Carbon Dioxide 22.4 meq/L (21.0-32.0); Chloride 115 meq/L (98-107); Glomerular Filtration Rate 78 mL/min (>89); Glucose,Random 89 mg/dL (74-106); Potassium 3.6 meq/L (3.5-5.1); Sodium 148 meq/L (136-145)
[2018-05-07 06:28] LABS: Alanine Aminotransferase 19 U/L (12-78)
[2018-05-07 06:31] LABS: Alkaline Phosphatase 80 U/L (45-117); Total Protein 5.3 g/dL (6.4-8.2)
--- NOTE | 2018-05-07 09:04 | P.PN ---
Subjective Interval history: alert weak appetite poor Physical Exam Vital signs: Vital Signs 05/06/18 14:30 05/06/18 14:37 05/06/18 18:04 Temperature 99.5 F Pulse Rate 117 H 90 Respiratory Rate 23 16 Blood Pressure 134/60 Pulse Oximetry 97 96 05/06/18 18:40 05/06/18 19:03 05/06/18 19:30 Temperature 97.7 F Pulse Rate 98 H Respiratory Rate 20 22 Blood Pressure 101/48 L Pulse Oximetry 93 L 05/06/18 20:00 05/06/18 20:40 05/06/18 22:40 Temperature 98.1 F Pulse Rate 91 H Respiratory Rate 20 Blood Pressure 104/56 L Pulse Oximetry 94 L 92 L 100 05/06/18 23:45 05/07/18 00:00 05/07/18 00:55 Temperature Pulse Rate 90 96 H Respiratory Rate 18 Blood Pressure Pulse Oximetry 97 97 05/07/18 00:57 05/07/18 01:12 05/07/18 01:22 Temperature 98.4 F 98.4 F Pulse Rate 117 H 110 H Respiratory Rate 20 19 19 Blood Pressure 126/65 122/60 115/62 Pulse Oximetry 100 100 100 05/07/18 02:00 05/07/18 04:00 05/07/18 04:31 Temperature 98.4 F Pulse Rate 84 Respiratory Rate 20 Blood Pressure 107/64 Pulse Oximetry 100 100 100 05/07/18 04:52 05/07/18 05:10 05/07/18 05:15 Temperature 98.4 F Pulse Rate 90 86 Respiratory Rate 19 22 Blood Pressure 109/63 123/64 Pulse Oximetry 100 99 05/07/18 07:36 05/07/18 07:39 05/07/18 07:40 Temperature Pulse Rate 92 H 96 H Respiratory Rate 12 Blood Pressure Pulse Oximetry 99 05/07/18 07:50 05/07/18 08:04 Temperature 97.3 F L Pulse Rate 108 H Respiratory Rate 20 Blood Pressure 118/64 Pulse Oximetry 96 94 L Intake & Output 05/06/18 05/07/18 05/07/18 18:59 06:59 18:59 Intake Total 812.5 / 812.5 400 / 400 Output Total 800 / 800 Balance 12.5 / 12.5 400 / 400 Weight 72.575 kg 72.5 kg Intake: IV 412.5 / 412.5 Zosyn 3.375 GM Premix 50 ML @ 150 / 150 100 mls/hr IV.SIG Q6H NORMAN Rx#: [id number] Vancomycin Inj 1,250 MG In NS 262.5 / 262.5 Inj 250 ML @ 250 mls/hr IV.SIG Q24H NORMAN Rx#:[id number] Intake (Blood Product) Amt 400 / 400 400 / 400 Rbc As-3 Leukoreduced Unit 400 / 400 [id number] Rbc As-3 Leukoreduced Unit 0 / 0 400 / 400 [id number] Output: Urine 800 / 800 Other: # Voids 1 # Urine Diapers 1 - Constitutional no acute distress - Routine HEENT Exam Head: Present: normocephalic ENT: Present: mucous membranes moist - Routine Neck Exam Present: supple - Routine Respiratory Exam Present: rhonchi - Routine Cardiovascular Exam Present: RRR - Routine Abdominal Exam Present: soft - Routine Neurological Exam Present: alert, oriented X3 Results - Labs CBC & Chem 7: 05/06/18 23:50 05/07/18 05:00 Laboratory Results - last 24 hr 05/06/18 05/06/18 05/06/18 14:36 14:36 14:36 WBC 10.9 RBC 1.85 L Hgb 6.2 L* Hct 17.3 L* MCV 93.7 MCH 33.4 MCHC 35.6 RDW 19.7 H Plt Count 264 MPV 7.9 Prelim Diff (Auto) Slide review pending Neut % (Auto) 86.8 H Lymph % (Auto) 4.2 L [place] % (Auto) 6.3 Eos % (Auto) 0.6 Baso % (Auto) 2.1 H Neut # (Auto) 9.4 H Lymph # (Auto) 0.5 L [place] # (Auto) 0.7 Eos # (Auto) 0.1 Baso # (Auto) 0.2 WBC Differential Manual diff final Seg Neuts % (Manual) 82 H Band Neuts % (Manual) 1 Lymphocytes % (Manual) 7 L Monocytes % (Manual) 8 Basophils % (Manual) 2 Abs Neuts (Manual) 9.0 H Nucleated RBCs/100 WBC 2 H Differential Comment . Platelet Estimate Normal Platelet Morphology Normal Polychromasia 4.4 H Sodium 149 H Potassium 3.7 Chloride 114 H Carbon Dioxide 25.6 Anion Gap 9 BUN 27 H Creatinine 0.99 Estimated GFR 73 L Random Glucose 127 H Calcium 8.9 Iron 34 L TIBC 210 L % Saturation 16.2 L Total Bilirubin 0.3 AST 15 ALT 24 Alkaline Phosphatase 93 Troponin I Less than 0.02 L B-Natriuretic Peptide 120 H Total Protein 6.0 L Albumin 2.1 L Blood Type Blood Type Recheck Antibody Screen MTS Gel Crossmatch 05/06/18 05/06/18 05/06/18 14:36 14:49 22:42 WBC RBC Hgb Hct MCV MCH MCHC RDW Plt Count MPV Prelim Diff (Auto) Neut % (Auto) Lymph % (Auto) [place] % (Auto) Eos % (Auto) Baso % (Auto) Neut # (Auto) Lymph # (Auto) [place] # (Auto) Eos # (Auto) Baso # (Auto) WBC Differential Seg Neuts % (Manual) Band Neuts % (Manual) Lymphocytes % (Manual) Monocytes % (Manual) Basophils % (Manual) Abs Neuts (Manual) Nucleated RBCs/100 WBC Differential Comment Platelet Estimate Platelet Morphology Polychromasia Sodium Potassium Chloride Carbon Dioxide Anion Gap BUN Creatinine Estimated GFR Random Glucose Calcium Iron Cancelled TIBC Cancelled % Saturation Cancelled Total Bilirubin AST ALT Alkaline Phosphatase Troponin I B-Natriuretic Peptide Total Protein Albumin Blood Type A Negative Blood Type Recheck Required Antibody Screen Negative MTS Gel Crossmatch See Detail 05/06/18 05/07/18 23:50 05:00 WBC RBC Hgb 5.6 L* Hct MCV MCH MCHC RDW Plt Count MPV Prelim Diff (Auto) Neut % (Auto) Lymph % (Auto) [place] % (Auto) Eos % (Auto) Baso % (Auto) Neut # (Auto) Lymph # (Auto) [place] # (Auto) Eos # (Auto) Baso # (Auto) WBC Differential Seg Neuts % (Manual) Band Neuts % (Manual) Lymphocytes % (Manual) Monocytes % (Manual) Basophils % (Manual) Abs Neuts (Manual) Nucleated RBCs/100 WBC Differential Comment Platelet Estimate Platelet Morphology Polychromasia Sodium 148 H Potassium 3.6 Chloride 115 H Carbon Dioxide 22.4 Anion Gap 11 BUN 24 H Creatinine 0.94 Estimated GFR 78 L Random Glucose 89 Calcium 8.6 Iron TIBC % Saturation Total Bilirubin 2.1 H AST 13 L ALT 19 Alkaline Phosphatase 80 Troponin I B-Natriuretic Peptide Total Protein 5.3 L D Albumin 1.8 L Blood Type Blood Type Recheck Antibody Screen MTS Gel Crossmatch - Imaging Impressions Chest X-Ray 05/06/18 14:29 CONCLUSION: Consolidation and emphysema identified. Since the previous study the consolidation has increased particularly at the right lung base. Assessment and Plan - Plan lung CA PNA [place] PLAN O2 NEEDED SWALLOW EVAL. TODAY ANTIBX PULM TOILET
[2018-05-07] MEDS: dilTIAZem CD 240 MG Capsule PO SCH (10:52)
--- NOTE | 2018-05-07 11:25 | P.PNIM ---
Subjective Interval history: This is a 77-year-old male with history of lung cancer and radiation, hypertension, atrial fibrillation Eliquis, presented emergency department from halfway facility for shortness of breath. Of note, the patient was recently seen at [facility] for generalized weakness and progressive shortness of breath. Patient was found to have pneumonia and finished a course of antibiotics. Patient was then discharged to rehab on 04/20/2018. While at the rehab facility, patient became progressively more short of breath in the last 3 days associated with a dry cough. There is no note of hemoptysis or hematuria. No active bleeding. Upon emergency department evaluation, the patient was found to have a positive guaiac stool and hemoglobin of 6.2. Patient denies any fever, nausea, vomiting, chest pain, abdominal pain or chills. 8-2 HAD TRANSFUSION FOLLOW UP ON ANEMIA WILL GET LABS NOW AM LABS DW RN AND PT AND FAMILY CONSULT GI AND ONCOLOGY RESTART HOME MEDS Physical Exam Vital signs: Vital Signs 05/06/18 14:30 05/06/18 14:37 05/06/18 18:04 Temperature 99.5 F Pulse Rate 117 H 90 Respiratory Rate 23 16 Blood Pressure 134/60 Pulse Oximetry 97 96 05/06/18 18:40 05/06/18 19:03 05/06/18 19:30 Temperature 97.7 F Pulse Rate 98 H Respiratory Rate 20 22 Blood Pressure 101/48 L Pulse Oximetry 93 L 05/06/18 20:00 05/06/18 20:40 05/06/18 22:40 Temperature 98.1 F Pulse Rate 91 H Respiratory Rate 20 Blood Pressure 104/56 L Pulse Oximetry 94 L 92 L 100 05/06/18 23:45 05/07/18 00:00 05/07/18 00:55 Temperature Pulse Rate 90 96 H Respiratory Rate 18 Blood Pressure Pulse Oximetry 97 97 05/07/18 00:57 05/07/18 01:12 05/07/18 01:22 Temperature 98.4 F 98.4 F Pulse Rate 117 H 110 H Respiratory Rate 20 19 19 Blood Pressure 126/65 122/60 115/62 Pulse Oximetry 100 100 100 05/07/18 02:00 05/07/18 04:00 05/07/18 04:31 Temperature 98.4 F Pulse Rate 84 Respiratory Rate 20 Blood Pressure 107/64 Pulse Oximetry 100 100 100 05/07/18 04:52 05/07/18 05:10 05/07/18 05:15 Temperature 98.4 F Pulse Rate 90 86 Respiratory Rate 19 22 Blood Pressure 109/63 123/64 Pulse Oximetry 100 99 05/07/18 07:36 05/07/18 07:39 05/07/18 07:40 Temperature Pulse Rate 92 H 96 H Respiratory Rate 12 Blood Pressure Pulse Oximetry 99 05/07/18 07:50 05/07/18 08:04 05/07/18 10:56 Temperature 97.3 F L Pulse Rate 108 H Respiratory Rate 20 Blood Pressure 118/64 Pulse Oximetry 96 94 L 99 Intake & Output 05/06/18 05/07/18 05/07/18 18:59 06:59 18:59 Intake Total 812.5 / 812.5 400 / 400 Output Total 800 / 800 Balance 12.5 / 12.5 400 / 400 Weight 72.575 kg 72.5 kg Intake: IV 412.5 / 412.5 Zosyn 3.375 GM Premix 50 ML @ 150 / 150 100 mls/hr IV.SIG Q6H NORMAN Rx#: [id number] Vancomycin Inj 1,250 MG In NS 262.5 / 262.5 Inj 250 ML @ 250 mls/hr IV.SIG Q24H NORMAN Rx#:[id number] Intake (Blood Product) Amt 400 / 400 400 / 400 Rbc As-3 Leukoreduced Unit 400 / 400 [id number] Rbc As-3 Leukoreduced Unit 0 / 0 400 / 400 [id number] Output: Urine 800 / 800 Other: # Voids 1 # Urine Diapers 1 Narrative: In VERY mild respiratory distress, mildly tachypneic. Appears weak. PERRL, pale conjunctivae conjunctiva without injection, anicteric Nose without bleeding, airway patent, oropharynx clear Supple neck, no masses or thyromegaly, trachea midline Borderline tachycardic, no murmurs. Positive crackles in the right base, no wheezing. Normal bowel sounds, soft, non-tender, nondistended, no guarding. Extremities without clubbing, cyanosis, or edema. No rash of generalized distribution. AAO x3, no cranial nerve deficits, moves all 4 extremities, no focal neurologic deficits Insight and judgment is good Mood and behavior somewhat appropriate Results - Labs CBC & Chem 7: 05/06/18 23:50 05/07/18 05:00 Laboratory Results - last 24 hr 05/06/18 05/06/18 05/06/18 14:36 14:36 14:36 WBC 10.9 RBC 1.85 L Hgb 6.2 L* Hct 17.3 L* MCV 93.7 MCH 33.4 MCHC 35.6 RDW 19.7 H Plt Count 264 MPV 7.9 Prelim Diff (Auto) Slide review pending Neut % (Auto) 86.8 H Lymph % (Auto) 4.2 L [place] % (Auto) 6.3 Eos % (Auto) 0.6 Baso % (Auto) 2.1 H Neut # (Auto) 9.4 H Lymph # (Auto) 0.5 L [place] # (Auto) 0.7 Eos # (Auto) 0.1 Baso # (Auto) 0.2 WBC Differential Manual diff final Seg Neuts % (Manual) 82 H Band Neuts % (Manual) 1 Lymphocytes % (Manual) 7 L Monocytes % (Manual) 8 Basophils % (Manual) 2 Abs Neuts (Manual) 9.0 H Nucleated RBCs/100 WBC 2 H Differential Comment . Platelet Estimate Normal Platelet Morphology Normal Polychromasia 4.4 H Sodium 149 H Potassium 3.7 Chloride 114 H Carbon Dioxide 25.6 Anion Gap 9 BUN 27 H Creatinine 0.99 Estimated GFR 73 L Random Glucose 127 H Calcium 8.9 Iron 34 L TIBC 210 L % Saturation 16.2 L Total Bilirubin 0.3 AST 15 ALT 24 Alkaline Phosphatase 93 Troponin I Less than 0.02 L B-Natriuretic Peptide 120 H Total Protein 6.0 L Albumin 2.1 L Blood Type Blood Type Recheck Antibody Screen MTS Gel Crossmatch 05/06/18 05/06/18 05/06/18 14:36 14:49 22:42 WBC RBC Hgb Hct MCV MCH MCHC RDW Plt Count MPV Prelim Diff (Auto) Neut % (Auto) Lymph % (Auto) [place] % (Auto) Eos % (Auto) Baso % (Auto) Neut # (Auto) Lymph # (Auto) [place] # (Auto) Eos # (Auto) Baso # (Auto) WBC Differential Seg Neuts % (Manual) Band Neuts % (Manual) Lymphocytes % (Manual) Monocytes % (Manual) Basophils % (Manual) Abs Neuts (Manual) Nucleated RBCs/100 WBC Differential Comment Platelet Estimate Platelet Morphology Polychromasia Sodium Potassium Chloride Carbon Dioxide Anion Gap BUN Creatinine Estimated GFR Random Glucose Calcium Iron Cancelled TIBC Cancelled % Saturation Cancelled Total Bilirubin AST ALT Alkaline Phosphatase Troponin I B-Natriuretic Peptide Total Protein Albumin Blood Type A Negative Blood Type Recheck Required Antibody Screen Negative MTS Gel Crossmatch See Detail 05/06/18 05/07/18 23:50 05:00 WBC RBC Hgb 5.6 L* Hct MCV MCH MCHC RDW Plt Count MPV Prelim Diff (Auto) Neut % (Auto) Lymph % (Auto) [place] % (Auto) Eos % (Auto) Baso % (Auto) Neut # (Auto) Lymph # (Auto) [place] # (Auto) Eos # (Auto) Baso # (Auto) WBC Differential Seg Neuts % (Manual) Band Neuts % (Manual) Lymphocytes % (Manual) Monocytes % (Manual) Basophils % (Manual) Abs Neuts (Manual) Nucleated RBCs/100 WBC Differential Comment Platelet Estimate Platelet Morphology Polychromasia Sodium 148 H Potassium 3.6 Chloride 115 H Carbon Dioxide 22.4 Anion Gap 11 BUN 24 H Creatinine 0.94 Estimated GFR 78 L Random Glucose 89 Calcium 8.6 Iron TIBC % Saturation Total Bilirubin 2.1 H AST 13 L ALT 19 Alkaline Phosphatase 80 Troponin I B-Natriuretic Peptide Total Protein 5.3 L D Albumin 1.8 L Blood Type Blood Type Recheck Antibody Screen MTS Gel Crossmatch Microbiology 05/06/18 23:55 Blood - Peripheral Anaerobic Blood Culture - Final QNS - See aerobic report. - Imaging Impressions Chest X-Ray 05/06/18 14:29 CONCLUSION: Consolidation and emphysema identified. Since the previous study the consolidation has increased particularly at the right lung base. Assessment and Plan - Plan This is a 77-year-old male with history of lung cancer status post chemotherapy and radiation, depression, atrial fibrillation and anticoagulation presents emergency department for shortness of breath Shortness of breath likely secondary to anemia possibly secondary to GI bleeding versus anemia of chronic disease - patient on anticoagulation, hemoglobin of 6.2, check hemoglobin every 12 hours. No obvious source of bleeding noted in the GI tract. Consult GI, hold Eliquis. Check iron panel. 2 units of packed red blood cells ordered from the emergency department. Atrial fibrillation-currently controlled, hold anticoagulation, restart Cardizem. Hypoxic respiratory failure-chest x-ray is right lower lobe vascular infiltrates , on exam, he also has crackles in that area. Atelectasis versus pneumonia. Since patient is immune compromised, will start antibiotics for possible healthcare associated pneumonia with vancomycin. Patient however does not have any leukocytosis but with neutrophilia. Duo nebs around the clock and as needed Need to reconcile medications once medical reconciliation is done.--NOW DONE DUE TO BEING AVAILABLE Lung cancer-needs follow-up as outpatient, needs a PET scan as outpatient. requesting that the patient be routed to PET scan prior to SNF admission on discharge. DVT prophylaxis: High risk, pharmacological prophylaxis contraindicated because of possible GI bleed. CONSULT GI AND ONCOLOGY Code Status: FULL CODE Discussed Condition With: RN AND PT AND FAMILY AND CM Discharge Planning: PENDING CLEARANCE BY GI AND ONCOLOGY AND PULMONARY
[2018-05-07 11:55] LABS: Baso # (Auto) 0.1 th/mm3 (0.0-0.2); Baso % (Auto) 0.5 % (0.0-2.0); Eos # (Auto) 0.1 th/mm3 (0.0-0.4); Hematocrit 22.4 % (39.0-51.0); Hemoglobin 8.3 gm/dL (13.0-17.0); Lymph # (Auto) 0.3 th/mm3 (1.0-4.8); Lymph % (Auto) 2.5 % (9.0-44.0); Mean Corpuscular Hemoglobin 34.5 pg (27.0-34.0); Mono # (Auto) 0.6 th/mm3 (0.0-0.9); Mono % (Auto) 5.1 % (0.0-8.0); Neut # (Auto) 10.9 th/mm3 (1.8-7.7); Neut % (Auto) 90.9 % (16.0-70.0); Platelet Count 209 th/mm3 (150-450); Red Blood Count 2.41 mil/mm3 (4.50-5.90); Red Cell Distribution Width 17.2 % (11.6-17.2)
[2018-05-07] MEDS ORDERED: Morphine Sulfate Inj 2 MG/ML Vial IV.PUSH PRN (12:00)
[2018-05-07] MEDS ORDERED: Naloxone Inj 0.4 MG/ML Vial IV.PUSH PRN (12:00)
[2018-05-07] MEDS ORDERED: oxyCODONE/Acetaminophen 10/325 Tablet PO PRN (12:00)
[2018-05-07] MEDS ORDERED: Morphine Inj 4 MG/ML Vial IV.PUSH PRN (12:00)
[2018-05-07 12:05] LABS: Mean Corpuscular HGB Conc 37.2 % (32.0-36.0)
[2018-05-07 12:17] LABS: Alanine Aminotransferase 20 U/L (12-78); Anion Gap 10 meq/L (5-15); Aspartate Aminotransferase 14 U/L (15-37); Blood Urea Nitrogen 26 mg/dL (7-18); Calcium 8.7 mg/dL (8.5-10.1); Carbon Dioxide 26.5 meq/L (21.0-32.0); Chloride 112 meq/L (98-107); Glomerular Filtration Rate 59 mL/min (>89); Glucose,Random 115 mg/dL (74-106); Potassium 3.5 meq/L (3.5-5.1); Sodium 148 meq/L (136-145)
[2018-05-07 12:20] LABS: Alkaline Phosphatase 88 U/L (45-117); Total Protein 5.7 g/dL (6.4-8.2)
--- NOTE | 2018-05-07 13:06 | P.CONGI ---
History of Present Illness Consult date: 05/07/18 Consult reason: GIB, anemia Chief complaint: anemia, lung ca History of Present Illness: This is a 77 yo M with history of lung cancer who was on a maintenance regimen of chemotherapy, however this is currently on hold while pt is in rehab and regains some of his strength. Pt was sent to the ER from rehab yesterday for work up of anemia with worsening of SOB. Our service has been consulted to evaluate pt for anemia with Hemoccult positive stools. Pt denies any nausea and vomiting. He denies any abdominal pain, however according to daughter at bedside pt was complaining of pain in his abdomen earlier prior to eating. According to pts at bedside he has not had a formed BM in about a week, he has been having diarrhea, approximately one episode a day. She reports black stools. Of note, pt is on iron supplements. She states she has not received any reports from workers at the rehabs that pt has had any BRB in his stools. Last colonoscopy was approximately 8 years ago, states diverticulosis and one polyp. Last EGD in 1970, states was done because he was a heavy drinker at that time. <Liana Marques - Last Filed: 05/07/18 12:51> Review of Systems Gastrointestinal: Reports abdominal pain, Reports black, tarry stools, Reports loose stools, Denies bright, red blood in stools, Denies nausea, Denies vomiting <Liaan Marques - Last Filed: 05/07/18 12:51> PMFSH - History History Provided By: Significant Other - Medical History Medical History: Medical History (Last Reviewed 05/07/18 @ 07:56 by Jagdeep Mayen) A-fib Depression FH: chemotherapy Hx of radiation therapy Lung cancer Oxygen dependent - Tobacco History Second Hand Smoke Exposure: No Smoking Status: Former smoker Tobacco Type: Cigarettes - Alcohol History How Often Do You Have a Drink Containing Alcohol: Never - Substance Use History Substance History: No History of Abuse - Travel History Recent Travel in the [place] Within the Last 8 Weeks: No Recent Travel Out of the Country Within the Last 8 Weeks: No - Immunization History Tetanus Immunization: Unsure Hx Influenza Vaccine This Season: Yes <Liana Marques - Last Filed: 05/07/18 12:51> - Medical History Medical History: Medical History (Last Reviewed 05/07/18 @ 07:56 by Jagdeep Mayen) A-fib Depression FH: chemotherapy Hx of radiation therapy Lung cancer Oxygen dependent <Tatum Moore - Last Filed: 05/07/18 17:12> Medications and Allergies Active Medications: Active Medications Acetaminophen (Tylenol) 650 mg PO Q4H PRN PRN Reason: Temp > 100.4 Al Hydroxide/Mg Hydroxide (Milk Of Magnesia Liq) 30 ml PO Q12H PRN PRN Reason: Mild Constipation Albuterol (Albuterol Neb (Tirso)) 2.5 mg NEB Q8HR NEB [facility] Last Admin: 05/07/18 07:37 Dose: 2.5 mg Albuterol (Albuterol Neb (Prn)) 2.5 mg NEB Q4HR NEB PRN PRN Reason: SOB/wheezing Last Admin: 05/06/18 18:01 Dose: 2.5 mg Bisacodyl (Dulcolax Supp) 10 mg RECTAL DAILY PRN PRN Reason: SEVERE CONSITIPATION Budesonide/Formoterol Fumarate (Symbicort 160/4.5 Mcg Inh) 2 puff INH Q12H [facility] Diltiazem HCl (Cardizem Cd 24hr) 240 mg PO DAILY [facility] Last Admin: 05/07/18 10:52 Dose: 240 mg Ferrous Sulfate (Ferosul) 325 mg PO TID [facility] Pharmacy Profile Note (Vancomycin Consult Pharmacy) 0 mls @ 0 mls/hr OTHER UNSCH [facility] Piperacillin/Tazobactam/Dextrose (Zosyn 3.375 Gm Premix) 50 mls @ 100 mls/hr IV.SIG Q6H [facility] Last Admin: 05/07/18 11:48 Dose: 100 mls/hr Vancomycin HCl 1,250 mg/ (Sodium Chloride) 262.5 mls @ 250 mls/hr IV.SIG Q24H [facility] Last Infusion: 05/07/18 00:01 Dose: Infused Sodium Chloride (Ns Inj) 250 mls @ 15 mls/hr IV.SIG ONCE [facility] Stop: 05/07/18 15:39 Last Admin: 05/07/18 01:16 Dose: 15 mls/hr Lactulose (Lactulose Liq) 30 ml PO DAILY PRN PRN Reason: SEVERE CONSITIPATION Mirtazapine (Remeron) 15 mg PO DAILY [facility] Miscellaneous Information ([facility] [place] [facility] Ordered Lab Info) 0 each OTHER ONCE ONE Stop: 05/09/18 19:46 Morphine Sulfate (Morphine Inj) 4 mg IV.PUSH Q3H PRN PRN Reason: PAIN 6-10;IF UNABLE TO TAKE PO Morphine Sulfate (Morphine Inj) 2 mg IV.PUSH Q3H PRN PRN Reason: PAIN 3-5; IF UABLE TO TAKE PO Naloxone HCl (Narcan Inj) 0.4 mg IV.PUSH UNSCH PRN PRN Reason: SEE LABEL COMMENTS Non-Formulary Medication (Docusate Sodium [Docusate Sodium]) 100 mg PO DAILY [facility] Non-Formulary Medication (Sertraline [Sertraline]) 50 mg PO DAILY [facility] Non-Formulary Medication (Rosuvastatin) 10 mg PO DAILY [facility] Ondansetron HCl (Zofran Inj) 4 mg IV.PUSH Q6H PRN PRN Reason: NAUSEA OR VOMITING Oxycodone/Acetaminophen (Percocet 10/325 Mg) 1 tab PO Q6H PRN PRN Reason: PAIN SCALE 6 TO 10 Oxycodone/Acetaminophen (Percocet 5/325 Mg) 1 tab PO Q6H PRN PRN Reason: PAIN SCALE 3 TO 5 Pantoprazole Sodium (Protonix Inj) 40 mg IV.PUSH Q12H [facility] Last Admin: 05/07/18 05:06 Dose: 40 mg Polyethylene Glycol (Miralax) 17 gm PO DAILY [facility] Senna/Docusate Sodium (Debbie-Colace) 1 tab PO BID [facility] Last Admin: 05/06/18 22:13 Dose: Not Given Sennosides (Senokot) 17.2 mg PO Q12H PRN PRN Reason: Moderate Constipation Temazepam (Restoril) 15 mg PO HS PRN PRN Reason: INSOMNIA <Liana Marques - Last Filed: 05/07/18 12:51> Active Medications: Active Medications Acetaminophen (Tylenol) 650 mg PO Q4H PRN PRN Reason: Temp > 100.4 Last Admin: 05/07/18 15:03 Dose: 650 mg Al Hydroxide/Mg Hydroxide (Milk Of Magnesia Liq) 30 ml PO Q12H PRN PRN Reason: Mild Constipation Albuterol (Albuterol Neb ([facility])) 2.5 mg NEB Q8HR NEB [facility] Last Admin: 05/07/18 07:37 Dose: 2.5 mg Albuterol (Albuterol Neb (Prn)) 2.5 mg NEB Q4HR NEB PRN PRN Reason: SOB/wheezing Last Admin: 05/06/18 18:01 Dose: 2.5 mg Atorvastatin Calcium (Lipitor) 20 mg PO DAILY [facility] Last Admin: 05/07/18 15:17 Dose: 20 mg Bisacodyl (Dulcolax Supp) 10 mg RECTAL DAILY PRN PRN Reason: SEVERE CONSITIPATION Budesonide/Formoterol Fumarate (Symbicort 160/4.5 Mcg Inh) 2 puff INH Q12H [facility] Last Admin: 05/07/18 16:31 Dose: Not Given Diltiazem HCl (Cardizem Cd 24hr) 240 mg PO DAILY [facility] Last Admin: 05/07/18 10:52 Dose: 240 mg Docusate Sodium (Colace) 100 mg PO DAILY [facility] Last Admin: 05/07/18 15:04 Dose: 100 mg Ferrous Sulfate (Ferosul) 325 mg PO TID [facility] Last Admin: 05/07/18 15:04 Dose: 325 mg Pharmacy Profile Note (Vancomycin Consult Pharmacy) 0 mls @ 0 mls/hr OTHER UNSCH [facility] Piperacillin/Tazobactam/Dextrose (Zosyn 3.375 Gm Premix) 50 mls @ 100 mls/hr IV.SIG Q6H [facility] Last Admin: 05/07/18 11:48 Dose: 100 mls/hr Vancomycin HCl 1,250 mg/ (Sodium Chloride) 262.5 mls @ 250 mls/hr IV.SIG Q24H [facility] Last Infusion: 05/07/18 00:01 Dose: Infused Lactulose (Lactulose Liq) 30 ml PO DAILY PRN PRN Reason: SEVERE CONSITIPATION Magnesium Citrate (Citroma Liq) 300 ml PO ONCE ONE Stop: 05/07/18 18:01 Mirtazapine (Remeron) 15 mg PO DAILY [facility] Last Admin: 05/07/18 15:04 Dose: 15 mg Miscellaneous Information ([facility] [place] [facility] Ordered Lab Info) 0 each OTHER ONCE ONE Stop: 05/09/18 19:46 Morphine Sulfate (Morphine Inj) 4 mg IV.PUSH Q3H PRN PRN Reason: PAIN 6-10;IF UNABLE TO TAKE PO Morphine Sulfate (Morphine Inj) 2 mg IV.PUSH Q3H PRN PRN Reason: PAIN 3-5; IF UABLE TO TAKE PO Naloxone HCl (Narcan Inj) 0.4 mg IV.PUSH UNSCH PRN PRN Reason: SEE LABEL COMMENTS Ondansetron HCl (Zofran Inj) 4 mg IV.PUSH Q6H PRN PRN Reason: NAUSEA OR VOMITING Oxycodone/Acetaminophen (Percocet 10/325 Mg) 1 tab PO Q6H PRN PRN Reason: PAIN SCALE 6 TO 10 Oxycodone/Acetaminophen (Percocet 5/325 Mg) 1 tab PO Q6H PRN PRN Reason: PAIN SCALE 3 TO 5 Pantoprazole Sodium (Protonix Inj) 40 mg IV.PUSH Q12H [facility] Last Admin: 05/07/18 05:06 Dose: 40 mg Polyethylene Glycol (Miralax) 17 gm PO DAILY [facility] Last Admin: 05/07/18 15:04 Dose: Not Given Sennosides (Senokot) 17.2 mg PO Q12H PRN PRN Reason: Moderate Constipation Sertraline HCl (Zoloft) 50 mg PO DAILY [facility] Last Admin: 05/07/18 15:03 Dose: 50 mg Temazepam (Restoril) 15 mg PO HS PRN PRN Reason: INSOMNIA <Tatum Moore - Last Filed: 05/07/18 17:12> Allergies Allergy/AdvReac Type Severity Reaction Status Date / Time prednisone Allergy Severe Seizures Verified 05/06/18 14:30 Home Medications Medication Instructions Recorded Confirmed Type albuterol sulfate 2 puff INHALATION Q4H PRN 04/17/18 04/17/18 History apixaban [Eliquis] 5 mg PO BID 04/17/18 05/06/18 History budesonide-formoterol [Symbicort] 2 puff INHALATION Q12H 04/17/18 04/17/18 History docusate sodium 100 mg PO DAILY 04/17/18 04/17/18 History polyethylene glycol 3350 [Miralax] 17 g PO DAILY 04/17/18 05/07/18 History sertraline 50 mg PO DAILY 04/17/18 05/07/18 History diltiazem HCl 180 mg PO DAILY 05/06/18 05/06/18 History mirtazapine 15 mg PO DAILY 05/06/18 05/06/18 History mirtazapine [Remeron] 05/06/18 History rosuvastatin [Crestor] 10 mg PO DAILY 05/06/18 05/06/18 History ferrous sulfate [Iron (ferrous 325 mg PO TID 05/07/18 05/07/18 History sulfate)] nitroglycerin 1 patch TRANSDERMAL DAILY 05/07/18 05/07/18 History ondansetron HCl 4 mg PO Q6-8H PRN 05/07/18 05/07/18 History Exam Vital signs: Vital Signs 05/06/18 14:30 05/06/18 14:37 05/06/18 18:04 Temperature 99.5 F Pulse Rate 117 H 90 Respiratory Rate 23 16 Blood Pressure 134/60 Pulse Oximetry 97 96 05/06/18 18:40 05/06/18 19:03 05/06/18 19:30 Temperature 97.7 F Pulse Rate 98 H Respiratory Rate 20 22 Blood Pressure 101/48 L Pulse Oximetry 93 L 05/06/18 20:00 05/06/18 20:40 05/06/18 22:40 Temperature 98.1 F Pulse Rate 91 H Respiratory Rate 20 Blood Pressure 104/56 L Pulse Oximetry 94 L 92 L 100 05/06/18 23:45 05/07/18 00:00 05/07/18 00:55 Temperature Pulse Rate 90 96 H Respiratory Rate 18 Blood Pressure Pulse Oximetry 97 97 05/07/18 00:57 05/07/18 01:12 05/07/18 01:22 Temperature 98.4 F 98.4 F Pulse Rate 117 H 110 H Respiratory Rate 20 19 19 Blood Pressure 126/65 122/60 115/62 Pulse Oximetry 100 100 100 05/07/18 02:00 05/07/18 04:00 05/07/18 04:31 Temperature 98.4 F Pulse Rate 84 Respiratory Rate 20 Blood Pressure 107/64 Pulse Oximetry 100 100 100 05/07/18 04:52 05/07/18 05:10 05/07/18 05:15 Temperature 98.4 F Pulse Rate 90 86 Respiratory Rate 19 22 Blood Pressure 109/63 123/64 Pulse Oximetry 100 99 05/07/18 07:36 05/07/18 07:39 05/07/18 07:40 Temperature Pulse Rate 92 H 96 H Respiratory Rate 12 Blood Pressure Pulse Oximetry 99 08/02/18 07:50 05/07/18 08:04 05/07/18 10:56 Temperature 97.3 F L Pulse Rate 108 H Respiratory Rate 20 Blood Pressure 118/64 Pulse Oximetry 96 94 L 99 Intake & Output 05/06/18 05/07/18 05/07/18 18:59 06:59 18:59 Intake Total 812.5 / 812.5 400 / 400 Output Total 800 / 800 Balance 12.5 / 12.5 400 / 400 Weight 72.575 kg 72.5 kg Intake: IV 412.5 / 412.5 Zosyn 3.375 GM Premix 50 ML @ 150 / 150 100 mls/hr IV.SIG Q6H [facility] Rx#: [id number] Vancomycin Inj 1,250 MG In NS 262.5 / 262.5 Inj 250 ML @ 250 mls/hr IV.SIG Q24H [facility] Rx#:[id number] Intake (Blood Product) Amt 400 / 400 400 / 400 Rbc As-3 Leukoreduced Unit 400 / 400 [id number] Rbc As-3 Leukoreduced Unit 0 / 0 400 / 400 [id number] Output: Urine 800 / 800 Other: # Voids 1 # Urine Diapers 1 - Constitutional no acute distress - Routine HEENT Exam Head: Present: normocephalic, atraumatic - Routine Abdominal Exam Present: soft, normoactive bowel sounds. Absent: tenderness, distended - Routine Skin Exam Present: dry, pallor, warm - Routine Neurological Exam Present: alert, oriented X3 <Liana Marques - Last Filed: 05/07/18 12:51> Vital signs: Vital Signs 05/06/18 18:04 05/06/18 18:40 05/06/18 19:03 Temperature 97.7 F Pulse Rate 90 Respiratory Rate 16 20 22 Blood Pressure 101/48 L Pulse Oximetry 93 L 05/06/18 19:30 05/06/18 20:00 05/06/18 20:40 Temperature 98.1 F Pulse Rate 98 H 91 H Respiratory Rate 20 Blood Pressure 104/56 L Pulse Oximetry 94 L 92 L 05/06/18 22:40 05/06/18 23:45 05/07/18 00:00 Temperature Pulse Rate 90 96 H Respiratory Rate 18 Blood Pressure Pulse Oximetry 100 97 05/07/18 00:55 05/07/18 00:57 05/07/18 01:12 Temperature 98.4 F 98.4 F Pulse Rate 117 H 110 H Respiratory Rate 20 19 Blood Pressure 126/65 122/60 Pulse Oximetry 97 100 100 05/07/18 01:22 05/07/18 02:00 05/07/18 04:00 Temperature 98.4 F Pulse Rate 84 Respiratory Rate 19 20 Blood Pressure 115/62 107/64 Pulse Oximetry 100 100 100 05/07/18 04:31 05/07/18 04:52 05/07/18 05:10 Temperature Pulse Rate 90 86 Respiratory Rate 19 22 Blood Pressure 109/63 123/64 Pulse Oximetry 100 100 99 05/07/18 05:15 05/07/18 07:36 05/07/18 07:39 Temperature 98.4 F Pulse Rate 92 H Respiratory Rate 12 Blood Pressure Pulse Oximetry 99 05/07/18 07:40 05/07/18 07:50 05/07/18 08:04 Temperature 97.3 F L Pulse Rate 96 H 108 H Respiratory Rate 20 Blood Pressure 118/64 Pulse Oximetry 96 94 L 05/07/18 10:56 05/07/18 12:00 05/07/18 15:19 Temperature 97.6 F 98.0 F Pulse Rate 80 83 Respiratory Rate 20 18 Blood Pressure 98/64 L 123/66 Pulse Oximetry 99 99 99 05/07/18 16:00 Temperature Pulse Rate 80 Respiratory Rate Blood Pressure Pulse Oximetry Intake & Output 05/06/18 05/07/18 05/07/18 18:59 06:59 18:59 Intake Total 812.5 / 812.5 640 / 640 Output Total 800 / 800 Balance 12.5 / 12.5 640 / 640 Weight 72.575 kg 72.5 kg Intake: IV 412.5 / 412.5 Zosyn 3.375 GM Premix 50 ML @ 150 / 150 100 mls/hr IV.SIG Q6H [facility] Rx#: [id number] Vancomycin Inj 1,250 MG In NS 262.5 / 262.5 Inj 250 ML @ 250 mls/hr IV.SIG Q24H [facility] Rx#:[id number] Oral 240 / 240 Intake (Blood Product) Amt 400 / 400 400 / 400 Rbc As-3 Leukoreduced Unit 400 / 400 [id number] Rbc As-3 Leukoreduced Unit 0 / 0 400 / 400 [id number] Output: Urine 800 / 800 Other: # Voids 1 4 # Urine Diapers 1 # Bowel Movements 1 <Tatum Moore - Last Filed: 05/07/18 17:12> Results - Labs CBC & Chem 7: 05/07/18 11:20 05/07/18 11:20 Labs: Laboratory Results - last 24 hr 05/06/18 05/06/18 05/06/18 14:36 14:36 14:36 WBC 10.9 RBC 1.85 L Hgb 6.2 L* Hct 17.3 L* MCV 93.7 MCH 33.4 MCHC 35.6 RDW 19.7 H Plt Count 264 MPV 7.9 Prelim Diff (Auto) Slide review pending Neut % (Auto) 86.8 H Lymph % (Auto) 4.2 L [place] % (Auto) 6.3 Eos % (Auto) 0.6 Baso % (Auto) 2.1 H Neut # (Auto) 9.4 H Lymph # (Auto) 0.5 L [place] # (Auto) 0.7 Eos # (Auto) 0.1 Baso # (Auto) 0.2 WBC Differential Manual diff final Diff Scan Seg Neuts % (Manual) 82 H Band Neuts % (Manual) 1 Lymphocytes % (Manual) 7 L Monocytes % (Manual) 8 Basophils % (Manual) 2 Abs Neuts (Manual) 9.0 H Nucleated RBCs/100 WBC 2 H Differential Comment . Platelet Estimate Normal Platelet Morphology Normal Polychromasia 4.4 H Sodium 149 H Potassium 3.7 Chloride 114 H Carbon Dioxide 25.6 Anion Gap 9 BUN 27 H Creatinine 0.99 Estimated GFR 73 L Random Glucose 127 H Calcium 8.9 Iron 34 L TIBC 210 L % Saturation 16.2 L Total Bilirubin 0.3 AST 15 ALT 24 Alkaline Phosphatase 93 Troponin I Less than 0.02 L B-Natriuretic Peptide 120 H Total Protein 6.0 L Albumin 2.1 L Blood Type Blood Type Recheck Antibody Screen MTS Gel Crossmatch 05/06/18 05/06/18 05/06/18 14:36 14:49 22:42 WBC RBC Hgb Hct MCV MCH MCHC RDW Plt Count MPV Prelim Diff (Auto) Neut % (Auto) Lymph % (Auto) [place] % (Auto) Eos % (Auto) Baso % (Auto) Neut # (Auto) Lymph # (Auto) [place] # (Auto) Eos # (Auto) Baso # (Auto) WBC Differential Diff Scan Seg Neuts % (Manual) Band Neuts % (Manual) Lymphocytes % (Manual) Monocytes % (Manual) Basophils % (Manual) Abs Neuts (Manual) Nucleated RBCs/100 WBC Differential Comment Platelet Estimate Platelet Morphology Polychromasia Sodium Potassium Chloride Carbon Dioxide Anion Gap BUN Creatinine Estimated GFR Random Glucose Calcium Iron Cancelled TIBC Cancelled % Saturation Cancelled Total Bilirubin AST ALT Alkaline Phosphatase Troponin I B-Natriuretic Peptide Total Protein Albumin Blood Type A Negative Blood Type Recheck Required Antibody Screen Negative MTS Gel Crossmatch See Detail 05/06/18 05/07/18 05/07/18 23:50 05:00 11:20 WBC 12.0 H RBC 2.41 L Hgb 5.6 L* 8.3 L D Hct 22.4 L MCV 93.0 MCH 34.5 H MCHC 37.2 H RDW 17.2 D Plt Count 209 MPV 8.0 Prelim Diff (Auto) Slide review pending Neut % (Auto) 90.9 H Lymph % (Auto) 2.5 L [place] % (Auto) 5.1 Eos % (Auto) 1.0 Baso % (Auto) 0.5 Neut # (Auto) 10.9 H Lymph # (Auto) 0.3 L [place] # (Auto) 0.6 Eos # (Auto) 0.1 Baso # (Auto) 0.1 WBC Differential . Diff Scan Auto diff confirmed Seg Neuts % (Manual) Band Neuts % (Manual) Lymphocytes % (Manual) Monocytes % (Manual) Basophils % (Manual) Abs Neuts (Manual) Nucleated RBCs/100 WBC Differential Comment . Platelet Estimate Platelet Morphology Polychromasia Sodium 148 H Potassium 3.6 Chloride 115 H Carbon Dioxide 22.4 Anion Gap 11 BUN 24 H Creatinine 0.94 Estimated GFR 78 L Random Glucose 89 Calcium 8.6 Iron TIBC % Saturation Total Bilirubin 2.1 H AST 13 L ALT 19 Alkaline Phosphatase 80 Troponin I B-Natriuretic Peptide Total Protein 5.3 L D Albumin 1.8 L Blood Type Blood Type Recheck Antibody Screen MTS Gel Crossmatch 05/07/18 11:20 WBC RBC Hgb Hct MCV MCH MCHC RDW Plt Count MPV Prelim Diff (Auto) Neut % (Auto) Lymph % (Auto) [place] % (Auto) Eos % (Auto) Baso % (Auto) Neut # (Auto) Lymph # (Auto) [place] # (Auto) Eos # (Auto) Baso # (Auto) WBC Differential Diff Scan Seg Neuts % (Manual) Band Neuts % (Manual) Lymphocytes % (Manual) Monocytes % (Manual) Basophils % (Manual) Abs Neuts (Manual) Nucleated RBCs/100 WBC Differential Comment Platelet Estimate Platelet Morphology Polychromasia Sodium 148 H Potassium 3.5 Chloride 112 H Carbon Dioxide 26.5 Anion Gap 10 BUN 26 H Creatinine 1.19 Estimated GFR 59 L Random Glucose 115 H Calcium 8.7 Iron TIBC % Saturation Total Bilirubin 2.2 H AST 14 L ALT 20 Alkaline Phosphatase 88 Troponin I B-Natriuretic Peptide Total Protein 5.7 L Albumin 2.0 L Blood Type Blood Type Recheck Antibody Screen MTS Gel Crossmatch - Imaging Impressions Chest X-Ray 05/06/18 14:29 CONCLUSION: Consolidation and emphysema identified. Since the previous study the consolidation has increased particularly at the right lung base. <Liana Marques - Last Filed: 05/07/18 12:51> - Labs CBC & Chem 7: 05/07/18 11:20 05/07/18 11:20 Labs: Laboratory Results - last 24 hr 05/06/18 05/06/18 05/06/18 14:36 14:36 14:36 WBC RBC Hgb Hct MCV MCH MCHC RDW Plt Count MPV Prelim Diff (Auto) Neut % (Auto) Lymph % (Auto) [place] % (Auto) Eos % (Auto) Baso % (Auto) Neut # (Auto) Lymph # (Auto) [place] # (Auto) Eos # (Auto) Baso # (Auto) WBC Differential Manual diff final Diff Scan Seg Neuts % (Manual) 82 H Band Neuts % (Manual) 1 Lymphocytes % (Manual) 7 L Monocytes % (Manual) 8 Basophils % (Manual) 2 Abs Neuts (Manual) 9.0 H Nucleated RBCs/100 WBC 2 H Differential Comment Platelet Estimate Normal Platelet Morphology Normal Polychromasia 4.4 H Sodium 149 H Potassium 3.7 Chloride 114 H Carbon Dioxide 25.6 Anion Gap 9 BUN 27 H Creatinine 0.99 Estimated GFR 73 L Random Glucose 127 H Calcium 8.9 Iron 34 L Cancelled TIBC 210 L Cancelled % Saturation 16.2 L Cancelled Total Bilirubin 0.3 AST 15 ALT 24 Alkaline Phosphatase 93 Troponin I Less than 0.02 L Total Protein 6.0 L Albumin 2.1 L MTS Gel Crossmatch 05/06/18 05/06/18 05/07/18 22:42 23:50 05:00 WBC RBC Hgb 5.6 L* Hct MCV MCH MCHC RDW Plt Count MPV Prelim Diff (Auto) Neut % (Auto) Lymph % (Auto) [place] % (Auto) Eos % (Auto) Baso % (Auto) Neut # (Auto) Lymph # (Auto) [place] # (Auto) Eos # (Auto) Baso # (Auto) WBC Differential Diff Scan Seg Neuts % (Manual) Band Neuts % (Manual) Lymphocytes % (Manual) Monocytes % (Manual) Basophils % (Manual) Abs Neuts (Manual) Nucleated RBCs/100 WBC Differential Comment Platelet Estimate Platelet Morphology Polychromasia Sodium 148 H Potassium 3.6 Chloride 115 H Carbon Dioxide 22.4 Anion Gap 11 BUN 24 H Creatinine 0.94 Estimated GFR 78 L Random Glucose 89 Calcium 8.6 Iron TIBC % Saturation Total Bilirubin 2.1 H AST 13 L ALT 19 Alkaline Phosphatase 80 Troponin I Total Protein 5.3 L D Albumin 1.8 L MTS Gel Crossmatch See Detail 05/07/18 05/07/18 11:20 11:20 WBC 12.0 H RBC 2.41 L Hgb 8.3 L D Hct 22.4 L MCV 93.0 MCH 34.5 H MCHC 37.2 H RDW 17.2 D Plt Count 209 MPV 8.0 Prelim Diff (Auto) Slide review pending Neut % (Auto) 90.9 H Lymph % (Auto) 2.5 L [place] % (Auto) 5.1 Eos % (Auto) 1.0 Baso % (Auto) 0.5 Neut # (Auto) 10.9 H Lymph # (Auto) 0.3 L [place] # (Auto) 0.6 Eos # (Auto) 0.1 Baso # (Auto) 0.1 WBC Differential . Diff Scan Auto diff confirmed Seg Neuts % (Manual) Band Neuts % (Manual) Lymphocytes % (Manual) Monocytes % (Manual) Basophils % (Manual) Abs Neuts (Manual) Nucleated RBCs/100 WBC Differential Comment . Platelet Estimate Platelet Morphology Polychromasia Sodium 148 H Potassium 3.5 Chloride 112 H Carbon Dioxide 26.5 Anion Gap 10 BUN 26 H Creatinine 1.19 Estimated GFR 59 L Random Glucose 115 H Calcium 8.7 Iron TIBC % Saturation Total Bilirubin 2.2 H AST 14 L ALT 20 Alkaline Phosphatase 88 Troponin I Total Protein 5.7 L Albumin 2.0 L MTS Gel Crossmatch - Imaging Impressions Chest X-Ray 05/06/18 14:29 CONCLUSION: Consolidation and emphysema identified. Since the previous study the consolidation has increased particularly at the right lung base. <Tatum Moore - Last Filed: 05/07/18 17:12> Assessment and Plan - Plan Assessment: - Anemia with Hemoccult positive stools Hgb was 10.4 in March during previous admission, he was sent from rehab facility due to acute drop in hgb 6.2 on admission. Pt denies nausea, vomiting, abdominal pain. However, according to daughter at bedside pt was complaining of pain in his abdomen earlier and appeared uncomfortable. According to at bedside pt with no formed BM in one week, has been having approximately 1 episode of diarrhea a day. Reports of black stools. Of note, pt is on iron supplements. She denies any reports of BRB in his stool. Last colonoscopy approx 8 years ago, reports of diverticulosis and 1 polyp. Last EGD in 1970, states was done because he was a heavy drinker - Lung cancer- was on maintenance therapy, however currently on hold while pt regains his strength in rehab Plan: EGD and colonoscopy tomorrow Obtain consent Clear liquids today Mag citrate prep NPO after MN Monitor H/H Oncology consult pending Further recommendations to follow Pt has been seen and examined by myself and Dr. Moore and this note is written on his behalf <Liana Marques - Last Filed: 05/07/18 12:51> - Plan Seen and examined with [employer] [employer], egd/colonoscopy planned tomorrow. Increased risks of anesthesia due to poor lung functions discussed with pt. and family at bedside. OPtions including barium studies and procedures without sedation discussed with them. Will proceed if stble tomorrow. Thank you - Attending Attestation The exam, history, and the medical decision-making described in the above note were completed with the assistance of the mid-level provider. I reviewed and agree with the findings presented. I attest that I had a [id number] encounter with the patient on the same day, and personally performed and documented my assessment and findings in the medical record. <Tatum Moore - Last Filed: 05/07/18 17:12>
[2018-05-07] MEDS: Sertraline 50 MG Tablet PO SCH (15:03)
[2018-05-07] MEDS: Ferrous Sulfate 325 MG Tablet PO SCH ×2 (15:04→18:45)
[2018-05-07] MEDS: Polyethylene Glycol 3350 17 GM Packet PO SCH (15:04)
[2018-05-07] MEDS: Docusate Sodium 100 MG Capsule PO SCH (15:04)
[2018-05-07] MEDS: Mirtazapine 15 MG Tablet PO SCH (15:04)
--- NOTE | 2018-05-07 15:30 | ECG ---
Date Performed: 05/06/2018 Time Performed: 14:32:49 PTAGE: 77 years EKG: Rhythm appears to be a chaotic supraventricular tachycardia But can not rule out atrial flu tter. Since previous tracing, no significant change noted Clinical correlation is recommended ABNORMA L RHYTHM ECG PREVIOUS TRACING : 04/17/2018 17.48 DOCTOR: Mehrdad Garzon Interpretating Date/Time 05/07/2018 15:28:39
[2018-05-07] MEDS ORDERED: Magnesium Citrate Liq 300 ML Bottle PO ONE ×2 (16:00→18:00)
[2018-05-07] MEDS: Budesonide-Formoterol 160/4.5 MCG 6 GM Inhaler INH SCH (16:31)
[2018-05-07] MEDS: Vancomycin Inj 1,250 MG in Sodium Chlor 0.9% Inj 250 ML IV.SIG SCH (19:29)
[2018-05-08] MEDS: Budesonide-Formoterol 160/4.5 MCG 6 GM Inhaler INH SCH ×2 (02:36→20:14)
[2018-05-08 05:28] LABS: Baso # (Auto) 0.1 th/mm3 (0.0-0.2); Baso % (Auto) 0.6 % (0.0-2.0); Eos # (Auto) 0.2 th/mm3 (0.0-0.4); Hemoglobin 7.9 gm/dL (13.0-17.0); Lymph # (Auto) 0.4 th/mm3 (1.0-4.8); Lymph % (Auto) 4.3 % (9.0-44.0); Mean Corpuscular Hemoglobin 33.2 pg (27.0-34.0); Mean Corpuscular Volume 92.3 fL (80.0-100.0); Mean Platelet Volume 7.8 fL (7.0-11.0); Mono # (Auto) 0.6 th/mm3 (0.0-0.9); Mono % (Auto) 6.2 % (0.0-8.0); Neut # (Auto) 8.7 th/mm3 (1.8-7.7); Neut % (Auto) 86.9 % (16.0-70.0); Platelet Count 196 th/mm3 (150-450); Red Blood Count 2.39 mil/mm3 (4.50-5.90); Red Cell Distribution Width 17.2 % (11.6-17.2)
[2018-05-08 05:36] LABS: INR 1.3 Ratio; Prothrombin Time 13.3 sec (9.8-11.6)
[2018-05-08 05:53] LABS: Albumin 1.9 g/dL (3.4-5.0); Anion Gap 7 meq/L (5-15); Aspartate Aminotransferase 10 U/L (15-37); Blood Urea Nitrogen 23 mg/dL (7-18); Calcium 8.8 mg/dL (8.5-10.1); Carbon Dioxide 27.1 meq/L (21.0-32.0); Chloride 114 meq/L (98-107); Glomerular Filtration Rate 72 mL/min (>89); Glucose,Random 89 mg/dL (74-106); Magnesium 2.6 mg/dL (1.5-2.5); Potassium 3.8 meq/L (3.5-5.1); Sodium 148 meq/L (136-145)
[2018-05-08] MEDS: Piperacil/Tazo 3.375 GM Premix 50 ML IV.SIG SCH ×3 (06:01→18:52)
[2018-05-08] MEDS: Pantoprazole Inj 40 MG Vial IV.PUSH SCH ×2 (06:01→18:52)
[2018-05-08 06:04] LABS: Alanine Aminotransferase 17 U/L (12-78); Alkaline Phosphatase 87 U/L (45-117); Free T4 (Free Thyroxine) 1.16 ng/dL (0.76-1.46); Phosphorus 2.6 mg/dL (2.5-4.9); Total Protein 5.7 g/dL (6.4-8.2)
[2018-05-08] MEDS: Ferrous Sulfate 325 MG Tablet PO SCH ×3 (09:00→21:44)
--- NOTE | 2018-05-08 11:14 | GIPROC ---
[facility] [address] [facility]. [facility], [address] EGD PROCEDURE REPORT EXAM DATE: 05/08/2018 PATIENT NAME: Tom Tiuts MR #: [id number] BIRTHDATE: 1940 ATTENDING: Tatum Moore MD ORDER #: [id number] METAL FABRICATOR HELPER: Christelle Varma Powell, Bianca, and Francesco Salgado STATUS: inpatient INDICATIONS: The patient is a 77 yr old male here for an EGD due to iron deficiency anemia PROCEDURE PERFORMED: EGD w/ biopsy MEDICATIONS: None and Per Anesthesia. TOPICAL ANESTHETIC: CONSENT: The patient understands the risks and benefits of the procedure and understands that these risks include, but are not limited to: sedation, allergic reaction, infection, perforation and/or bleeding. Alternative means of evaluation and treatment include, among others: physical exam, x-rays, and/or surgical intervention. The patient elects to proceed with this endoscopic procedure. medical equipment was checked for proper function. Hand hygiene and appropriate measures for infection prevention was taken. After the risks, benefits and alternatives of the procedure were thoroughly explained, Informed consent was verified, confirmed and timeout was successfully executed by the treatment team. The patient was anesthetized with topical anesthesia and the 1200 endoscope was introduced through the mouth and advanced to the second portion of the duodenum. Retroflexed views revealed no abnormalities The gastroscope was then slowly withdrawn and removed. ESOPHAGUS: The mucosa of the esophagus appeared normal. STOMACH: An ulcerated and fungating mass measuring 4 X 4cm in size was found in the gastric body. Multiple biopsies were performed using cold forceps. Sample sent for histology. DUODENUM: The duodenal mucosa appeared normal in the bulb and second portion of the duodenum. ADVERSE EVENTS: There were no complications. IMPRESSIONS: 1. The esophagus appeared normal 2. Mass measuring 4 X 4cm in size was found in the gastric body; multiple biopsies were performed 3. Normal duodenal mucosa in the bulb and second portion of the duodenum 4. Retroflexed views revealed no abnormalities RECOMMENDATIONS: 1. Await biopsy results. Biopsy results will not be ready for 7-10 days. If you don't hear from us in two weeks, call our office for biopsy results. 2. Anti-reflux regimen 3. Continue PPI PATIENT CONDITION: stable DISPOSITION: Inpatient REPEAT EXAM: Return as needed for EGD pending biopsy results Tatum Moore MD eSigned: Tatum Moore MD 05/08/2018 11:14 AM cc: PATIENT NAME: Tacho Tom Karol MR#: [id number]
--- NOTE | 2018-05-08 11:17 | GIPROC ---
[facility] [address] [facility]. [facility], [address] COLONOSCOPY PROCEDURE REPORT EXAM DATE: 05/08/2018 PATIENT NAME: Tom Titus MR #: [id number] BIRTHDATE: 1940 ENDOSCOPIST: Tatum Moore MD ORDER #: [id number] COMPLIANCE QUALITY PERFORMANCE ANALYST: Francesco Salgado Powell, Bianca, and Christelle Varma STATUS: inpatient INDICATIONS: The patient is a 77 yr old male here for a colonoscopy due to iron deficiency anemia PROCEDURE PERFORMED: Colonoscopy, incomplete MEDICATIONS: None and Per Anesthesia. PREP QUALITY: inadequate PREP TYPE:Magnesium Citrate ESTIMATED BLOOD LOSS: None CONSENT: The patient understands the risks and benefits of the procedure and understands that these risks include, but are not limited to: sedation, allergic reaction, infection, perforation and/or bleeding. Alternative means of evaluation and treatment include, among others: physical exam, x-rays, and/or surgical intervention. The patient elects to proceed with this endoscopic procedure. medical equipment was checked for proper function. Hand hygiene and appropriate measures for infection prevention was taken. After the risks, benefits and alternatives of the procedure were thoroughly explained, Informed consent was verified, confirmed and timeout was successfully executed by the treatment team. A digital exam revealed external hemorrhoids The EC-3490Li (Pedi C) endoscope was introduced through the anus and advanced to the sigmoid colon. The instrument was then slowly withdrawn as the colon was fully examined. COLON FINDINGS: Poor prep. Retroflexed views revealed internal hemorrhoids and Retroflexed views revealed medium internal hemorrhoids The scope was then completely withdrawn from the patient and the procedure terminated. ADVERSE EVENTS: There were no complications. IMPRESSIONS: 1. Poor prep 2. Retroflexed views revealed internal hemorrhoids 3. Retroflexed views revealed medium internal hemorrhoids 4. Revealed external hemorrhoids RECOMMENDATIONS: High fiber diet RECALL: NONE Tatum Moore MD eSigned: Tatum Moore MD 05/08/2018 11:17 AM cc:
--- NOTE | 2018-05-08 12:22 | P.PNIM ---
Subjective Interval history: This is a 77-year-old male with history of lung cancer and radiation, hypertension, atrial fibrillation Eliquis, presented emergency department from senior living facility for shortness of breath. Of note, the patient was recently seen at [facility] for generalized weakness and progressive shortness of breath. Patient was found to have pneumonia and finished a course of antibiotics. Patient was then discharged to rehab on 04/20/2018. While at the rehab facility, patient became progressively more short of breath in the last 3 days associated with a dry cough. There is no note of hemoptysis or hematuria. No active bleeding. Upon emergency department evaluation, the patient was found to have a positive guaiac stool and hemoglobin of 6.2. Patient denies any fever, nausea, vomiting, chest pain, abdominal pain or chills. 8-2 HAD TRANSFUSION FOLLOW UP ON ANEMIA WILL GET LABS NOW AM LABS DW RN AND PT AND FAMILY CONSULT GI AND ONCOLOGY RESTART HOME MEDS 8-3 HAD EGD AND COLONOSCOPY TODAY HAD MASS IN STOMACH DW RN AND PT AND FAMILY AM LABS Physical Exam Vital signs: Vital Signs 05/07/18 15:19 05/07/18 16:00 05/07/18 19:00 Temperature 98.0 F Pulse Rate 83 80 78 Respiratory Rate 18 Blood Pressure 123/66 Pulse Oximetry 99 05/07/18 20:00 05/07/18 21:00 05/07/18 21:50 Temperature 97.5 F L Pulse Rate 82 82 83 Respiratory Rate 20 20 Blood Pressure 112/59 L Pulse Oximetry 95 95 05/07/18 22:00 05/07/18 23:00 05/07/18 23:37 Temperature 97.5 F L Pulse Rate 92 H 82 78 Respiratory Rate 20 Blood Pressure 102/57 L Pulse Oximetry 98 05/08/18 00:00 05/08/18 00:04 05/08/18 01:00 Temperature Pulse Rate 83 76 86 Respiratory Rate 18 Blood Pressure Pulse Oximetry 05/08/18 02:00 05/08/18 03:00 05/08/18 04:00 Temperature 98.2 F Pulse Rate 88 94 H 92 H Respiratory Rate 20 Blood Pressure 103/68 Pulse Oximetry 98 05/08/18 05:00 05/08/18 07:32 05/08/18 08:00 Temperature 98.6 F Pulse Rate 92 H 95 H 107 H Respiratory Rate 20 24 Blood Pressure 118/71 Pulse Oximetry 96 94 L 05/08/18 08:52 05/08/18 11:26 Temperature 97.9 F Pulse Rate 87 Respiratory Rate 22 Blood Pressure 100/56 L Pulse Oximetry 94 L 100 Intake & Output 05/07/18 05/08/18 05/08/18 18:59 06:59 18:59 Intake Total 930 / 930 100 / 100 Output Total 600 / 600 Balance 930 / 930 -500 / -500 Weight 67.09 kg Intake: IV 50 / 50 100 / 100 Zosyn 3.375 GM Premix 50 ML @ 50 / 50 100 / 100 100 mls/hr IV.SIG Q6H NORMAN Rx#: [id number] Oral 480 / 480 0 / 0 Intake (Blood Product) Amt 400 / 400 Rbc As-3 Leukoreduced Unit 400 / 400 [id number] Output: Urine 600 / 600 Other: # Voids 2 # Urine Diapers 2 # Bowel Movements 1 0 Narrative: In VERY mild respiratory distress, mildly tachypneic. Appears weak. PERRL, pale conjunctivae conjunctiva without injection, anicteric Nose without bleeding, airway patent, oropharynx clear Supple neck, no masses or thyromegaly, trachea midline Borderline tachycardic, no murmurs. Positive crackles in the right base, no wheezing. Normal bowel sounds, soft, non-tender, nondistended, no guarding. Extremities without clubbing, cyanosis, or edema. No rash of generalized distribution. AAO x3, no cranial nerve deficits, moves all 4 extremities, no focal neurologic deficits Insight and judgment is good Mood and behavior somewhat appropriate Results - Labs CBC & Chem 7: 05/08/18 05:00 05/08/18 05:00 Laboratory Results - last 24 hr 05/07/18 05/07/18 05/08/18 11:20 11:20 05:00 WBC 10.0 RBC 2.39 L Hgb 7.9 L Hct 22.0 L MCV 92.3 MCH 33.2 MCHC 36.0 RDW 17.2 Plt Count 196 MPV 7.8 Prelim Diff (Auto) Slide review pending Neut % (Auto) 86.9 H Lymph % (Auto) 4.3 L Towns % (Auto) 6.2 Eos % (Auto) 2.0 Baso % (Auto) 0.6 Neut # (Auto) 8.7 H Lymph # (Auto) 0.4 L Towns # (Auto) 0.6 Eos # (Auto) 0.2 Baso # (Auto) 0.1 WBC Differential . . Diff Scan Auto diff confirmed Auto diff confirmed Differential Comment . PT INR Sodium Potassium Chloride Carbon Dioxide Anion Gap BUN Creatinine Estimated GFR Random Glucose Calcium Phosphorus Magnesium Total Bilirubin 2.2 H AST ALT Alkaline Phosphatase 88 Total Protein 5.7 L Albumin TSH Free T4 05/08/18 05/08/18 05:00 05:00 WBC RBC Hgb Hct MCV MCH MCHC RDW Plt Count MPV Prelim Diff (Auto) Neut % (Auto) Lymph % (Auto) Towns % (Auto) Eos % (Auto) Baso % (Auto) Neut # (Auto) Lymph # (Auto) Towns # (Auto) Eos # (Auto) Baso # (Auto) WBC Differential Diff Scan Differential Comment PT 13.3 H INR 1.3 Sodium 148 H Potassium 3.8 Chloride 114 H Carbon Dioxide 27.1 Anion Gap 7 BUN 23 H Creatinine 1.00 Estimated GFR 72 L Random Glucose 89 Calcium 8.8 Phosphorus 2.6 Magnesium 2.6 H Total Bilirubin 0.9 AST 10 L ALT 17 Alkaline Phosphatase 87 Total Protein 5.7 L Albumin 1.9 L TSH 1.140 Free T4 1.16 Microbiology 05/06/18 23:50 Blood - Peripheral Aerobic Blood Culture - Preliminary No growth in 1 day 05/06/18 23:50 Blood - Peripheral Anaerobic Blood Culture - Preliminary No growth in 1 day 05/06/18 23:55 Blood - Peripheral Aerobic Blood Culture - Preliminary No growth in 1 day 05/06/18 23:55 Blood - Peripheral Anaerobic Blood Culture - Final QNS - See aerobic report. - Imaging Chest X-Ray 05/06/18 14:29 CONCLUSION: Consolidation and emphysema identified. Since the previous study the consolidation has increased particularly at the right lung base. - Procedures EGD PROCEDURE REPORT EXAM DATE: 05/08/2018 PATIENT NAME: Tom Titus MR #: [id number] BIRTHDATE: 1940 ATTENDING: Tatum Moore MD ORDER #: [id number] INSURANCE ACCOUNT MANAGER: Christelle Varma Powell, Bianca, and Francesco Salgado STATUS: inpatient INDICATIONS: The patient is a 77 yr old male here for an EGD due to iron deficiency anemia PROCEDURE PERFORMED: EGD w/ biopsy MEDICATIONS: None and Per Anesthesia. TOPICAL ANESTHETIC: CONSENT: The patient understands the risks and benefits of the procedure and understands that these risks include, but are not limited to: sedation, allergic reaction, infection, perforation and/or bleeding. Alternative means of evaluation and treatment include, among others: physical exam, x-rays, and/or surgical intervention. The patient elects to proceed with this endoscopic procedure. medical equipment was checked for proper function. Hand hygiene and appropriate measures for infection prevention was taken. After the risks, benefits and alternatives of the procedure were thoroughly explained, Informed consent was verified, confirmed and timeout was successfully executed by the treatment team. The patient was anesthetized with topical anesthesia and the 1200 endoscope was introduced through the mouth and advanced to the second portion of the duodenum. Retroflexed views revealed no abnormalities The gastroscope was then slowly withdrawn and removed. ESOPHAGUS: The mucosa of the esophagus appeared normal. STOMACH: An ulcerated and fungating mass measuring 4 X 4cm in size was found in the gastric body. Multiple biopsies were performed using cold forceps. Sample sent for histology. DUODENUM: The duodenal mucosa appeared normal in the bulb and second portion of the duodenum. ADVERSE EVENTS: There were no complications. IMPRESSIONS: 1. The esophagus appeared normal 2. Mass measuring 4 X 4cm in size was found in the gastric body; multiple biopsies were performed 3. Normal duodenal mucosa in the bulb and second portion of the duodenum 4. Retroflexed views revealed no abnormalities RECOMMENDATIONS: 1. Await biopsy results. Biopsy results will not be ready for 7-10 days. If you don't hear from us in two weeks, call our office for biopsy results. 2. Anti-reflux regimen 3. Continue PPI PATIENT CONDITION: stable DISPOSITION: Inpatient REPEAT EXAM: Return as needed for EGD pending biopsy results COLONOSCOPY PROCEDURE REPORT EXAM DATE: 05/08/2018 PATIENT NAME: Tom Titus MR #: [id number] BIRTHDATE: 1940 ENDOSCOPIST: Tatum Moore MD ORDER #: [id number] INSURANCE ACCOUNT MANAGER: Francesco Salgado Powell, Bianca, and Wilcox-Hassen, Alice STATUS: inpatient INDICATIONS: The patient is a 77 yr old male here for a colonoscopy due to iron deficiency anemia PROCEDURE PERFORMED: Colonoscopy, incomplete MEDICATIONS: None and Per Anesthesia. PREP QUALITY: inadequate PREP TYPE:Magnesium Citrate ESTIMATED BLOOD LOSS: None CONSENT: The patient understands the risks and benefits of the procedure and understands that these risks include, but are not limited to: sedation, allergic reaction, infection, perforation and/or bleeding. Alternative means of evaluation and treatment include, among others: physical exam, x-rays, and/or surgical intervention. The patient elects to proceed with this endoscopic procedure. medical equipment was checked for proper function. Hand hygiene and appropriate measures for infection prevention was taken. After the risks, benefits and alternatives of the procedure were thoroughly explained, Informed consent was verified, confirmed and timeout was successfully executed by the treatment team. A digital exam revealed external hemorrhoids The EC-3490Li (Pedi C) endoscope was introduced through the anus and advanced to the sigmoid colon. The instrument was then slowly withdrawn as the colon was fully examined. COLON FINDINGS: Poor prep. Retroflexed views revealed internal hemorrhoids and Retroflexed views revealed medium internal hemorrhoids The scope was then completely withdrawn from the patient and the procedure terminated. ADVERSE EVENTS: There were no complications. IMPRESSIONS: 1. Poor prep 2. Retroflexed views revealed internal hemorrhoids 3. Retroflexed views revealed medium internal hemorrhoids 4. Revealed external hemorrhoids RECOMMENDATIONS: High fiber diet RECALL: NONE Assessment and Plan - Plan This is a 77-year-old male with history of lung cancer status post chemotherapy and radiation, depression, atrial fibrillation and anticoagulation presents emergency department for shortness of breath Shortness of breath likely secondary to anemia possibly secondary to GI bleeding versus anemia of chronic disease - patient on anticoagulation, hemoglobin of 6.2, check hemoglobin every 12 hours. No obvious source of bleeding noted in the GI tract. Consult GI, hold Eliquis. Check iron panel. 2 units of packed red blood cells ordered from the emergency department. Atrial fibrillation-currently controlled, hold anticoagulation, restart Cardizem. Hypoxic respiratory failure-chest x-ray is right lower lobe vascular infiltrates , on exam, he also has crackles in that area. Atelectasis versus pneumonia. Since patient is immune compromised, will start antibiotics for possible healthcare associated pneumonia with vancomycin. Patient however does not have any leukocytosis but with neutrophilia. Duo nebs around the clock and as needed Need to reconcile medications once medical reconciliation is done.--NOW DONE DUE TO BEING AVAILABLE Lung cancer-needs follow-up as outpatient, needs a PET scan as outpatient. requesting that the patient be routed to PET scan prior to SNF admission on discharge. DVT prophylaxis: High risk, pharmacological prophylaxis contraindicated because of possible GI bleed. CONSULT GI AND ONCOLOGY HAD EGD AND COLONOSCOPY ON 05-08 ELIQUIS ON HOLD DW RN AND PT AND FAMILY AM LABS Discussed Condition With: RN AND CM AND FAMILY Discharge Planning: PENDING CLEARANCE BY GI AND ONCOLOGY AND PULMONARY
[2018-05-08] MEDS ORDERED: Lidocaine PF 1% Inj 5 ML Syringe INFILTRATN ONE (14:22)
[2018-05-08 16:34] LABS: Hemoglobin A1c 4.4 % (4.3-6.0)
--- NOTE | 2018-05-08 18:09 | MB ---
cc: Michelle Rios MD DATE: 05/08/2018 CHIEF COMPLAINT: 1. History of squamous cell carcinoma of the lung. 2. Suspicious GI mass, suspicious for malignancy. HISTORY OF PRESENT ILLNESS: Mr. 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 He also has a history of hypertension and atrial fibrillation on Eliquis therapy, who presented to the emergency department from his [facility] facility for progressively worsening shortness of breath. He was previously hospitalized at [facility] for pneumonia, received antibiotics and was discharged to the nursing facility. In the emergency room, he was found to have hemoglobin of 6.2 and a positive stool for occult blood. REVIEW OF SYSTEMS: As above in the HPI, otherwise review of systems negative. PAST MEDICAL HISTORY: 1. Atrial fibrillation. 2. Hypertension. 3. Depression. 4. Chronic obstructive pulmonary disease. 5. Chronic anticoagulation with Eliquis. 6. Squamous cell carcinoma of the lung. SOCIAL HISTORY: Former tobacco user. Good support system with family. FAMILY HISTORY: No family history of malignancy. CURRENT MEDICATIONS: Include: 1. Albuterol. 2. Atorvastatin. 3. Symbicort. 4. Diltiazem. 5. Docusate. 6. Ferrous sulfate. 7. Lactulose. 8. Remeron. 9. Morphine. 10. Zofran. 11. Oxycodone. 12. Zosyn. 13. MiraLax. 14. Senna. 15. Sertraline. 16. Restoril. PHYSICAL EXAMINATION: VITAL SIGNS: Temperature 97.9, pulse 94, respiratory rate 22, blood pressure 100/56. GENERAL: Chronically ill-appearing man, resting in bed, in no distress. HEENT: Head is normocephalic, atraumatic. Eyes: PERRLA. EOMI. NECK: Supple. No palpable lymphadenopathy. CARDIOVASCULAR: Regular rate and rhythm. No murmurs. LUNGS: Clear to auscultation bilaterally. ABDOMEN: Soft, nontender and nondistended. Bowel sounds present. EXTREMITIES: No edema. ASSESSMENT AND PLAN: The patient has a history of squamous cell carcinoma of the lung, status post concurrent chemotherapy and radiation therapy with good response of disease to treatment. He was admitted with positive stool for occult blood and worsening hemoglobin. He underwent EGD done by Dr. Moore to date which found a bleeding ulcer that is highly suspicious for malignancy. Case discussed personally with Dr. Quezada well as with Dr. Moore. Pathology results are pending and will likely be back Friday. I also discussed the case extensively with family including significant other Ms. Obdulia Levy and a stepdaughter, Ms. Velasoc and the patient. Given progressively worsening performance status of the patient, he would not be a candidate for any sort of treatment for gastric cancer. The patient would like to go home with home hospice. Discussed hospice agencies with the patient and family and will consult [facility] to meet with the family. Inpatient oncology service will continue to follow. MD CHRISTOPHER Gill/BARB , 05:46 PM , 05:53 PM AYLEEN
[2018-05-08] MEDS: dilTIAZem CD 240 MG Capsule PO SCH (20:16)
[2018-05-08] MEDS: Vancomycin Inj 1,250 MG in Sodium Chlor 0.9% Inj 250 ML IV.SIG SCH (20:16)
[2018-05-08] MEDS: Mirtazapine 15 MG Tablet PO SCH (20:16)
--- NOTE | 2018-05-08 21:10 | P.PNPL ---
Subjective Interval history: 77 YOWM with Sq cell ca lung, COPD Feels weak Family at Decided for home with hospice Physical Exam Vital signs: Vital Signs 05/07/18 21:50 05/07/18 22:00 05/07/18 23:00 Temperature 97.5 F L Pulse Rate 83 92 H 82 Respiratory Rate 20 Blood Pressure 112/59 L Pulse Oximetry 95 05/07/18 23:37 05/08/18 00:00 05/08/18 00:04 Temperature 97.5 F L Pulse Rate 78 83 76 Respiratory Rate 20 18 Blood Pressure 102/57 L Pulse Oximetry 98 05/08/18 01:00 05/08/18 02:00 05/08/18 03:00 Temperature Pulse Rate 86 88 94 H Respiratory Rate Blood Pressure Pulse Oximetry 05/08/18 04:00 05/08/18 05:00 05/08/18 07:32 Temperature 98.2 F Pulse Rate 92 H 92 H 95 H Respiratory Rate 20 20 Blood Pressure 103/68 Pulse Oximetry 98 96 05/08/18 08:00 05/08/18 08:52 05/08/18 11:26 Temperature 98.6 F 97.9 F Pulse Rate 107 H 87 Respiratory Rate 24 22 Blood Pressure 118/71 100/56 L Pulse Oximetry 94 L 94 L 100 05/08/18 15:55 05/08/18 20:22 Temperature 97.7 F Pulse Rate 94 H 102 H Respiratory Rate 26 H 20 Blood Pressure 142/73 H Pulse Oximetry 97 Intake & Output 05/08/18 05/08/18 05/09/18 06:59 18:59 06:59 Intake Total 412.5 / 412.5 50 / 50 Output Total 600 / 600 Balance -187.5 / -187.5 50 / 50 Weight 67.09 kg Intake: IV 412.5 / 412.5 50 / 50 Zosyn 3.375 GM Premix 50 ML @ 150 / 150 50 / 50 100 mls/hr IV.SIG Q6H [facility]MAN Rx#: [id number] Vancomycin Inj 1,250 MG In NS 262.5 / 262.5 Inj 250 ML @ 250 mls/hr IV.SIG Q24H NORMAN Rx#:[id number] Oral 0 / 0 Output: Urine 600 / 600 Other: # Urine Diapers 2 # Bowel Movements 0 GENERAL: Frail elderly WM, Weak SKIN: Warm and dry. HEAD: Normocephalic. EYES: No scleral icterus. No injection or drainage. NECK: Supple, trachea midline. No JVD or lymphadenopathy. CARDIOVASCULAR: Regular rate and rhythm without murmurs, gallops, or rubs. RESPIRATORY: Breath sounds equal bilaterally. No accessory muscle use. GASTROINTESTINAL: Abdomen soft, non-tender, nondistended. MUSCULOSKELETAL: No cyanosis, or edema. BACK: Nontender without obvious deformity. No CVA tenderness. Assessment and Plan - Plan IMPRESSION: Sq Cell ca lung COPD HTN Pneumonia PLAN: Aerosol nebs Supplement 02 Cont Abx SQ Heparin Hospice eval.
[2018-05-08] MEDS: Docusate Sodium 100 MG Capsule PO SCH (21:42)
[2018-05-08] MEDS: Sertraline 50 MG Tablet PO SCH (21:43)
[2018-05-08] MEDS: Polyethylene Glycol 3350 17 GM Packet PO SCH (21:45)
[2018-05-09] MEDS: Piperacil/Tazo 3.375 GM Premix 50 ML IV.SIG SCH ×3 (00:35→12:14)
[2018-05-09] MEDS: Budesonide-Formoterol 160/4.5 MCG 6 GM Inhaler INH SCH (04:08)
[2018-05-09] MEDS: Pantoprazole Inj 40 MG Vial IV.PUSH SCH (05:18)
[2018-05-09 06:59] LABS: Baso % (Auto) 0.5 % (0.0-2.0); Eos # (Auto) 0.1 th/mm3 (0.0-0.4); Eos % (Auto) 1.2 % (0.0-4.0); Hematocrit 21.4 % (39.0-51.0); Hemoglobin 7.7 gm/dL (13.0-17.0); Lymph # (Auto) 0.4 th/mm3 (1.0-4.8); Lymph % (Auto) 5.1 % (9.0-44.0); Mean Corpuscular Hemoglobin 33.7 pg (27.0-34.0); Mean Platelet Volume 8.3 fL (7.0-11.0); Mono # (Auto) 0.5 th/mm3 (0.0-0.9); Mono % (Auto) 6.6 % (0.0-8.0); Neut # (Auto) 6.9 th/mm3 (1.8-7.7); Neut % (Auto) 86.6 % (16.0-70.0); Platelet Count 183 th/mm3 (150-450); White Blood Count 7.9 th/mm3 (4.0-11.0)
[2018-05-09 07:05] LABS: Mean Corpuscular HGB Conc 36.2 % (32.0-36.0)
[2018-05-09 07:18] LABS: Albumin 1.8 g/dL (3.4-5.0); Anion Gap 11 meq/L (5-15); Aspartate Aminotransferase 12 U/L (15-37); Blood Urea Nitrogen 16 mg/dL (7-18); Calcium 9.5 mg/dL (8.5-10.1); Carbon Dioxide 23.5 meq/L (21.0-32.0); Chloride 116 meq/L (98-107); Glomerular Filtration Rate Greater Than 89 mL/min (>89); Glucose,Random 78 mg/dL (74-106); Magnesium 2.6 mg/dL (1.5-2.5); Potassium 3.6 meq/L (3.5-5.1); Sodium 150 meq/L (136-145)
[2018-05-09 07:19] LABS: Alanine Aminotransferase 16 U/L (12-78)
[2018-05-09 07:21] LABS: Alkaline Phosphatase 94 U/L (45-117); Total Protein 5.8 g/dL (6.4-8.2)
[2018-05-09 08:46] LABS: Lymphocytes 7 % (9-44); Metamyelocytes 1 % (0-1); Monocytes 5 % (0-8); Myelocytes 1 % (0-0)
[2018-05-09 08:47] LABS: Platelet Estimate Normal (Normal); Platelet Morphology Normal (Normal)
[2018-05-09] MEDS: Ferrous Sulfate 325 MG Tablet PO SCH ×2 (09:42→13:33)
[2018-05-09] MEDS: Sertraline 50 MG Tablet PO SCH (09:42)
[2018-05-09] MEDS: dilTIAZem CD 240 MG Capsule PO SCH (09:42)
[2018-05-09] MEDS: Docusate Sodium 100 MG Capsule PO SCH (09:42)
[2018-05-09] MEDS: Mirtazapine 15 MG Tablet PO SCH (09:42)
[2018-05-09] MEDS: Polyethylene Glycol 3350 17 GM Packet PO SCH (09:43)
--- NOTE | 2018-05-09 09:51 | P.PNONC ---
Subjective Interval history: Afebrile. Patient sitting upright in bed, morris Acosta is at the bedside preparing to assist the patient with breakfast. The patient reports that he has had a normal appetite. He has no complaints at this time. He denies any bleeding. Objective Vital Signs/Intake & Output: Vital Signs 05/08/18 11:26 05/08/18 15:55 05/08/18 20:16 Temperature 97.9 F Pulse Rate 87 94 H 89 Respiratory Rate 22 26 H Blood Pressure 100/56 L Pulse Oximetry 100 05/08/18 20:22 05/08/18 20:53 05/08/18 23:52 Temperature 97.7 F Pulse Rate 102 H 103 H Respiratory Rate 20 28 H Blood Pressure 142/73 H Pulse Oximetry 97 96 05/09/18 00:30 05/09/18 04:00 05/09/18 08:00 Temperature 97.6 F 97.8 F Pulse Rate 103 H 90 92 H Respiratory Rate 22 24 26 H Blood Pressure 121/67 114/62 124/59 L Pulse Oximetry 94 L 94 L 93 L 05/09/18 09:05 Temperature Pulse Rate 94 H Respiratory Rate 16 Blood Pressure Pulse Oximetry Intake & Output 05/08/18 05/09/18 05/09/18 18:59 06:59 18:59 Intake Total 572.5 / 572.5 Output Total 300 / 300 Balance 272.5 / 272.5 Weight 66.5 kg Intake: IV 412.5 / 412.5 Zosyn 3.375 GM Premix 50 ML @ 150 / 150 100 mls/hr IV.SIG Q6H [facility] Rx#: [id number] Vancomycin Inj 1,250 MG In NS 262.5 / 262.5 Inj 250 ML @ 250 mls/hr IV.SIG Q24H [facility] Rx#:[id number] Oral 160 / 160 Output: Urine 300 / 300 Other: # Urine Diapers 1 Result Diagrams: 05/09/18 05:08 05/09/18 05:08 Laboratory Results: Laboratory Results - last 24 hr 05/08/18 05/09/18 05/09/18 05:00 05:08 05:08 WBC 7.9 RBC 2.30 L Hgb 7.7 L Hct 21.4 L MCV 93.0 MCH 33.7 MCHC 36.2 H RDW 18.0 H Plt Count 183 MPV 8.3 Prelim Diff (Auto) Slide review pending Neut % (Auto) 86.6 H Lymph % (Auto) 5.1 L Kinney % (Auto) 6.6 Eos % (Auto) 1.2 Baso % (Auto) 0.5 Neut # (Auto) 6.9 Lymph # (Auto) 0.4 L Kinney # (Auto) 0.5 Eos # (Auto) 0.1 Baso # (Auto) 0.0 WBC Differential Manual diff final Seg Neuts % (Manual) 85 H Band Neuts % (Manual) 1 Lymphocytes % (Manual) 7 L Monocytes % (Manual) 5 Metamyelocytes % (Man) 1 Myelocytes % (Man) 1 H Abs Neuts (Manual) 7.0 Differential Comment . Platelet Estimate Normal Platelet Morphology Normal Sodium 150 H Potassium 3.6 Chloride 116 H Carbon Dioxide 23.5 Anion Gap 11 BUN 16 Creatinine 0.79 Estimated GFR Greater than 89 Random Glucose 78 Hemoglobin A1c 4.4 Calcium 9.5 Phosphorus 3.0 Magnesium 2.6 H Total Bilirubin 0.7 AST 12 L ALT 16 Alkaline Phosphatase 94 Total Protein 5.8 L Albumin 1.8 L Culture Results: Microbiology 05/06/18 23:50 Aerobic Blood Culture - Preliminary Blood - Peripheral No growth in 1 day Anaerobic Blood Culture - Preliminary No growth in 1 day 05/06/18 23:55 Aerobic Blood Culture - Preliminary Blood - Peripheral No growth in 1 day Anaerobic Blood Culture - Final QNS - See aerobic report. Medications: Active Medications Generic Name Dose Route Start Last Admin Trade Name Freq PRN Reason Stop Dose Admin Acetaminophen 650 mg 05/06/18 16:55 05/07/18 15:03 Tylenol PO 650 mg Q4H PRN Administration Temp > 100.4 Albuterol 2.5 mg 05/07/18 00:00 05/09/18 09:05 Albuterol Neb ([facility]) NEB 2.5 mg Q8HR NEB [facility] Administration Albuterol 2.5 mg 05/06/18 17:08 05/06/18 18:01 Albuterol Neb (Prn) NEB 2.5 mg Q4HR NEB PRN Administration SOB/wheezing Atorvastatin Calcium 20 mg 05/07/18 14:00 05/08/18 09:00 Lipitor PO Not Given DAILY [facility] Budesonide/Formoterol Fumarate 2 puff 05/07/18 15:00 05/09/18 04:08 Symbicort 160/4.5 Mcg Inh INH Not Given Q12H [facility] Diltiazem HCl 240 mg 05/07/18 09:00 05/08/18 20:16 Cardizem Cd 24hr PO 240 mg DAILY [facility] Administration Docusate Sodium 100 mg 05/07/18 14:00 05/08/18 21:42 Colace PO Not Given DAILY [facility] Ferrous Sulfate 325 mg 05/07/18 14:00 05/08/18 21:44 Ferosul PO Not Given TID [facility] Piperacillin/Tazobactam/Dextrose 50 mls @ 100 mls/hr 05/06/18 18:00 05/09/18 05:48 Zosyn 3.375 Gm Premix IV.SIG Infused Q6H [facility] Infusion Vancomycin HCl 1,250 mg/ 262.5 mls @ 250 mls/hr 05/06/18 20:00 05/08/18 21:19 Sodium Chloride IV.SIG Infused Q24H [facility] Infusion Mirtazapine 15 mg 05/07/18 14:00 05/08/18 20:16 Remeron PO 15 mg DAILY [facility] Administration Pantoprazole Sodium 40 mg 05/06/18 18:00 05/09/18 05:18 Protonix Inj IV.PUSH 40 mg Q12H [facility] Administration Polyethylene Glycol 17 gm 05/07/18 14:00 05/08/18 21:45 Miralax PO Not Given DAILY [facility] Sertraline HCl 50 mg 05/07/18 14:00 05/08/18 21:43 Zoloft PO Not Given DAILY [facility] Objective Remarks: GENERAL: Chronically ill-appearing elderly male patient, sitting up in bed. Alert and oriented, in no acute distress. SKIN: Warm and dry. HEAD: Normocephalic. EYES: No scleral icterus. No injection or drainage. NECK: Supple, trachea midline. CARDIOVASCULAR: Regular rate and rhythm without murmurs. RESPIRATORY: Right expiratory wheezes, breath sounds equal bilaterally. No accessory muscle use. GASTROINTESTINAL: Abdomen flat, soft, non-tender, nondistended. EXTREMITIES: No cyanosis, or edema. MUSCULOSKELETAL: Adequate muscle tone. NEUROLOGICAL: No obvious focal deficit. Awake, alert, and oriented x3. PSYCHIATRIC: Appropriate mood and affect; insight and judgment normal. Assessment/Plan - Plan Mr. 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 He also has a history of hypertension and atrial fibrillation on Eliquis therapy, who presented to the emergency department from his assisted facility for progressively worsening shortness of breath. In the emergency room, he was found to have hemoglobin of 6.2 and a positive stool for occult blood. Patient underwent EGD, this hospitalization, with Dr. Salinas. He was noted to have a bleeding ulcer which was highly suspicious for malignancy. Pathology is pending. Hospice has been consulted. Plan: 1. Anemia, secondary to GI bleed. Status post 2 units of PRBCs on 05/07. Hemoglobin today 7.8. No transfusions necessary today. We will continue to monitor CBC. 2. Status post EGD yesterday, with findings of a bleeding ulcer-highly suspicious for malignancy. Hospice has been consulted. 3. O2 via nasal cannula. Continue breathing treatments as ordered. 4. Continue supportive care.
--- NOTE | 2018-05-09 12:54 | P.PNPL ---
Subjective Interval history: 77 YOWM with Sq cell ca lung, COPD Feels weak Family at BS Eating lunch, no difficulty swallowing Hospice evaluated pt Physical Exam Vital signs: Vital Signs 05/08/18 15:55 05/08/18 20:16 05/08/18 20:22 Temperature 97.7 F Pulse Rate 94 H 89 102 H Respiratory Rate 26 H 20 Blood Pressure 142/73 H Pulse Oximetry 97 05/08/18 20:53 05/08/18 23:52 05/09/18 00:30 Temperature 97.6 F Pulse Rate 103 H 103 H Respiratory Rate 28 H 22 Blood Pressure 121/67 Pulse Oximetry 96 94 L 05/09/18 04:00 05/09/18 08:00 05/09/18 09:05 Temperature 97.8 F Pulse Rate 90 92 H 94 H Respiratory Rate 24 26 H 16 Blood Pressure 114/62 124/59 L Pulse Oximetry 94 L 93 L 05/09/18 12:00 Temperature 97.6 F Pulse Rate 100 H Respiratory Rate 24 Blood Pressure 140/82 Pulse Oximetry 94 L Intake & Output 05/08/18 05/09/18 05/09/18 18:59 06:59 18:59 Intake Total 572.5 / 572.5 Output Total 300 / 300 Balance 272.5 / 272.5 Weight 66.5 kg Intake: IV 412.5 / 412.5 Zosyn 3.375 GM Premix 50 ML @ 150 / 150 100 mls/hr IV.SIG Q6H [facility] Rx#: [id number] Vancomycin Inj 1,250 MG In NS 262.5 / 262.5 Inj 250 ML @ 250 mls/hr IV.SIG Q24H [facility] Rx#:[id number] Oral 160 / 160 Output: Urine 300 / 300 Other: # Urine Diapers 1 GENERAL: Elderly WM,NAD SKIN: Warm and dry. HEAD: Normocephalic. EYES: No scleral icterus. No injection or drainage. NECK: Supple, trachea midline. No JVD or lymphadenopathy. CARDIOVASCULAR: Regular rate and rhythm without murmurs, gallops, or rubs. RESPIRATORY: Breath sounds equal bilaterally. No accessory muscle use. GASTROINTESTINAL: Abdomen soft, non-tender, nondistended. MUSCULOSKELETAL: No cyanosis, or edema. BACK: Nontender without obvious deformity. No CVA tenderness. Assessment and Plan - Plan IMPRESSION: Sq Cell ca lung COPD HTN Pneumonia PLAN: Aerosol nebs Supplement 02 Cont Abx SQ Heparin DC plans for home with Hospice
[2018-05-09] MEDS ORDERED: Heparin Central Flush 100 UNIT/ML 5 ML Vial IV.FLUSH PRN ×2 (13:19)
--- NOTE | 2018-05-09 13:59 | P.PNIM ---
Subjective Interval history: This is a 77-year-old male with history of lung cancer and radiation, hypertension, atrial fibrillation Eliquis, presented emergency department from [facility] for shortness of breath. Of note, the patient was recently seen at [facility] for generalized weakness and progressive shortness of breath. Patient was found to have pneumonia and finished a course of antibiotics. Patient was then discharged to rehab on 04/20/2018. While at the rehab facility, patient became progressively more short of breath in the last 3 days associated with a dry cough. There is no note of hemoptysis or hematuria. No active bleeding. Upon emergency department evaluation, the patient was found to have a positive guaiac stool and hemoglobin of 6.2. Patient denies any fever, nausea, vomiting, chest pain, abdominal pain or chills. 8-2 HAD TRANSFUSION FOLLOW UP ON ANEMIA WILL GET LABS NOW AM LABS DW RN AND PT AND FAMILY CONSULT GI AND ONCOLOGY RESTART HOME MEDS 8-3 HAD EGD AND COLONOSCOPY TODAY HAD MASS IN STOMACH DW RN AND PT AND FAMILY AM LABS 8-4 PATIENT HAS SIGNED UP WITH HOSPICE WILL GO TO HOME WITH HOME HOSPICE TODAY DW RN AND PT AND FAMILY AND CM Physical Exam Vital signs: Vital Signs 05/08/18 15:55 05/08/18 20:16 05/08/18 20:22 Temperature 97.7 F Pulse Rate 94 H 89 102 H Respiratory Rate 26 H 20 Blood Pressure 142/73 H Pulse Oximetry 97 05/08/18 20:53 05/08/18 23:52 05/09/18 00:30 Temperature 97.6 F Pulse Rate 103 H 103 H Respiratory Rate 28 H 22 Blood Pressure 121/67 Pulse Oximetry 96 94 L 05/09/18 04:00 05/09/18 08:00 05/09/18 09:05 Temperature 97.8 F Pulse Rate 90 92 H 94 H Respiratory Rate 24 26 H 16 Blood Pressure 114/62 124/59 L Pulse Oximetry 94 L 93 L 05/09/18 12:00 Temperature 97.6 F Pulse Rate 100 H Respiratory Rate 24 Blood Pressure 140/82 Pulse Oximetry 94 L Intake & Output 05/08/18 05/09/18 05/09/18 18:59 06:59 18:59 Intake Total 572.5 / 572.5 Output Total 300 / 300 Balance 272.5 / 272.5 Weight 66.5 kg Intake: IV 412.5 / 412.5 Zosyn 3.375 GM Premix 50 ML @ 150 / 150 100 mls/hr IV.SIG Q6H [facility] Rx#: [id number] Vancomycin Inj 1,250 MG In NS 262.5 / 262.5 Inj 250 ML @ 250 mls/hr IV.SIG Q24H [facility] Rx#:[id number] Oral 160 / 160 Output: Urine 300 / 300 Other: # Urine Diapers 1 Narrative: In VERY mild respiratory distress, mildly tachypneic. Appears weak. PERRL, pale conjunctivae conjunctiva without injection, anicteric Nose without bleeding, airway patent, oropharynx clear Supple neck, no masses or thyromegaly, trachea midline Borderline tachycardic, no murmurs. Positive crackles in the right base, no wheezing. Normal bowel sounds, soft, non-tender, nondistended, no guarding. Extremities without clubbing, cyanosis, or edema. No rash of generalized distribution. AAO x3, no cranial nerve deficits, moves all 4 extremities, no focal neurologic deficits Insight and judgment is good Mood and behavior somewhat appropriate Results - Labs CBC & Chem 7: 05/09/18 05:08 05/09/18 05:08 Laboratory Results - last 24 hr 05/08/18 05/09/18 05/09/18 05:00 05:08 05:08 WBC 7.9 RBC 2.30 L Hgb 7.7 L Hct 21.4 L MCV 93.0 MCH 33.7 MCHC 36.2 H RDW 18.0 H Plt Count 183 MPV 8.3 Prelim Diff (Auto) Slide review pending Neut % (Auto) 86.6 H Lymph % (Auto) 5.1 L Stafford % (Auto) 6.6 Eos % (Auto) 1.2 Baso % (Auto) 0.5 Neut # (Auto) 6.9 Lymph # (Auto) 0.4 L Stafford # (Auto) 0.5 Eos # (Auto) 0.1 Baso # (Auto) 0.0 WBC Differential Manual diff final Seg Neuts % (Manual) 85 H Band Neuts % (Manual) 1 Lymphocytes % (Manual) 7 L Monocytes % (Manual) 5 Metamyelocytes % (Man) 1 Myelocytes % (Man) 1 H Abs Neuts (Manual) 7.0 Differential Comment . Platelet Estimate Normal Platelet Morphology Normal Sodium 150 H Potassium 3.6 Chloride 116 H Carbon Dioxide 23.5 Anion Gap 11 BUN 16 Creatinine 0.79 Estimated GFR Greater than 89 Random Glucose 78 Hemoglobin A1c 4.4 Calcium 9.5 Phosphorus 3.0 Magnesium 2.6 H Total Bilirubin 0.7 AST 12 L ALT 16 Alkaline Phosphatase 94 Total Protein 5.8 L Albumin 1.8 L Microbiology 05/06/18 23:50 Blood - Peripheral Aerobic Blood Culture - Preliminary No growth in 2 days 05/06/18 23:50 Blood - Peripheral Anaerobic Blood Culture - Preliminary No growth in 2 days 05/06/18 23:55 Blood - Peripheral Aerobic Blood Culture - Preliminary No growth in 2 days 05/06/18 23:55 Blood - Peripheral Anaerobic Blood Culture - Final QNS - See aerobic report. - Imaging Chest X-Ray 05/06/18 14:29 CONCLUSION: Consolidation and emphysema identified. Since the previous study the consolidation has increased particularly at the right lung base. - Procedures EGD PROCEDURE REPORT EXAM DATE: 05/08/2018 PATIENT NAME: Tom Titus MR #: [id number] BIRTHDATE: 1940 ATTENDING: Tatum Moore MD ORDER #: [id number] OPHTHALMOLOGY ASSISTANT: Christelle Varma Powell, Bianca, and Francesco Salgado STATUS: inpatient INDICATIONS: The patient is a 77 yr old male here for an EGD due to iron deficiency anemia PROCEDURE PERFORMED: EGD w/ biopsy MEDICATIONS: None and Per Anesthesia. TOPICAL ANESTHETIC: CONSENT: The patient understands the risks and benefits of the procedure and understands that these risks include, but are not limited to: sedation, allergic reaction, infection, perforation and/or bleeding. Alternative means of evaluation and treatment include, among others: physical exam, x-rays, and/or surgical intervention. The patient elects to proceed with this endoscopic procedure. medical equipment was checked for proper function. Hand hygiene and appropriate measures for infection prevention was taken. After the risks, benefits and alternatives of the procedure were thoroughly explained, Informed consent was verified, confirmed and timeout was successfully executed by the treatment team. The patient was anesthetized with topical anesthesia and the 1200 endoscope was introduced through the mouth and advanced to the second portion of the duodenum. Retroflexed views revealed no abnormalities The gastroscope was then slowly withdrawn and removed. ESOPHAGUS: The mucosa of the esophagus appeared normal. STOMACH: An ulcerated and fungating mass measuring 4 X 4cm in size was found in the gastric body. Multiple biopsies were performed using cold forceps. Sample sent for histology. DUODENUM: The duodenal mucosa appeared normal in the bulb and second portion of the duodenum. ADVERSE EVENTS: There were no complications. IMPRESSIONS: 1. The esophagus appeared normal 2. Mass measuring 4 X 4cm in size was found in the gastric body; multiple biopsies were performed 3. Normal duodenal mucosa in the bulb and second portion of the duodenum 4. Retroflexed views revealed no abnormalities RECOMMENDATIONS: 1. Await biopsy results. Biopsy results will not be ready for 7-10 days. If you don't hear from us in two weeks, call our office for biopsy results. 2. Anti-reflux regimen 3. Continue PPI PATIENT CONDITION: stable DISPOSITION: Inpatient REPEAT EXAM: Return as needed for EGD pending biopsy results COLONOSCOPY PROCEDURE REPORT EXAM DATE: 05/08/2018 PATIENT NAME: Tom Titus MR #: [id number] BIRTHDATE: 1940 ENDOSCOPIST: Tatum Moore MD ORDER #: [id number] OPHTHALMOLOGY ASSISTANT: Francesco Salgado Powell, Bianca, and Christelle Varma STATUS: inpatient INDICATIONS: The patient is a 77 yr old male here for a colonoscopy due to iron deficiency anemia PROCEDURE PERFORMED: Colonoscopy, incomplete MEDICATIONS: None and Per Anesthesia. PREP QUALITY: inadequate PREP TYPE:Magnesium Citrate ESTIMATED BLOOD LOSS: None CONSENT: The patient understands the risks and benefits of the procedure and understands that these risks include, but are not limited to: sedation, allergic reaction, infection, perforation and/or bleeding. Alternative means of evaluation and treatment include, among others: physical exam, x-rays, and/or surgical intervention. The patient elects to proceed with this endoscopic procedure. medical equipment was checked for proper function. Hand hygiene and appropriate measures for infection prevention was taken. After the risks, benefits and alternatives of the procedure were thoroughly explained, Informed consent was verified, confirmed and timeout was successfully executed by the treatment team. A digital exam revealed external hemorrhoids The EC-3490Li (Pedi C) endoscope was introduced through the anus and advanced to the sigmoid colon. The instrument was then slowly withdrawn as the colon was fully examined. COLON FINDINGS: Poor prep. Retroflexed views revealed internal hemorrhoids and Retroflexed views revealed medium internal hemorrhoids The scope was then completely withdrawn from the patient and the procedure terminated. ADVERSE EVENTS: There were no complications. IMPRESSIONS: 1. Poor prep 2. Retroflexed views revealed internal hemorrhoids 3. Retroflexed views revealed medium internal hemorrhoids 4. Revealed external hemorrhoids RECOMMENDATIONS: High fiber diet RECALL: NONE Assessment and Plan - Plan This is a 77-year-old male with history of lung cancer status post chemotherapy and radiation, depression, atrial fibrillation and anticoagulation presents emergency department for shortness of breath Shortness of breath likely secondary to anemia possibly secondary to GI bleeding versus anemia of chronic disease - patient on anticoagulation, hemoglobin of 6.2, check hemoglobin every 12 hours. No obvious source of bleeding noted in the GI tract. Consult GI, hold Eliquis. Check iron panel. 2 units of packed red blood cells ordered from the emergency department. Atrial fibrillation-currently controlled, hold anticoagulation, restart Cardizem. Hypoxic respiratory failure-chest x-ray is right lower lobe vascular infiltrates , on exam, he also has crackles in that area. Atelectasis versus pneumonia. Since patient is immune compromised, will start antibiotics for possible healthcare associated pneumonia with vancomycin. Patient however does not have any leukocytosis but with neutrophilia. Duo nebs around the clock and as needed Need to reconcile medications once medical reconciliation is done.--NOW DONE DUE TO BEING AVAILABLE Lung cancer-needs follow-up as outpatient, needs a PET scan as outpatient. requesting that the patient be routed to PET scan prior to SNF admission on discharge. DVT prophylaxis: High risk, pharmacological prophylaxis contraindicated because of possible GI bleed. CONSULT GI AND ONCOLOGY HAD EGD AND COLONOSCOPY ON 8-3 ELIQUIS ON HOLD DW RN AND PT AND FAMILY DW RN AND PT AND FAMILY TO GO HOME WITH HOSPICE Code Status: DNR Discussed Condition With: RN AND PT AND CASE MANAGEMENT AND FAMILY Discharge Planning: TO GO HOME WITH HOME HOSPICE TODAY
--- NOTE | 2018-05-09 14:11 | P.DS ---
Date of admission: 05/06/18 16:23 Primary care physician: Usha Kerr MD Attending physician on discharge: Yamil Quezada Anticipated date of discharge: 05/09/18 Brief History from admission: This is a 77-year-old male with history of lung cancer and radiation, hypertension, atrial fibrillation Eliquis, presented emergency department from retirement facility for shortness of breath. Of note, the patient was recently seen at [facility] for generalized weakness and progressive shortness of breath. Patient was found to have pneumonia and finished a course of antibiotics. Patient was then discharged to rehab on 04/20/2018. While at the rehab facility, patient became progressively more short of breath in the last 3 days associated with a dry cough. There is no note of hemoptysis or hematuria. No active bleeding. Upon emergency department evaluation, the patient was found to have a positive guaiac stool and hemoglobin of 6.2. Patient denies any fever, nausea, vomiting, chest pain, abdominal pain or chills. Family history: Noncontributory. DS: Diagnosis - Discharge Diagnosis (1) Gastric mass Status: Acute (2) Anemia Status: Acute (3) Dyspnea Status: Chronic (4) Lung cancer Status: Chronic (5) Chest pain Status: Acute (6) Elevated troponin Status: Acute DS: Medications - Discharge Medications Prescriptions: albuterol sulfate 2.5 mg NEB Q4HR NEB PRN #180 amp PRN Reason: SOB/wheezing albuterol sulfate 2 puff INHALATION Q4H PRN #1 inh PRN Reason: Shortness Of Breath budesonide-formoterol [Symbicort] 2 puff INHALATION Q12H #1 inh diltiazem HCl 240 mg PO DAILY #30 cap ferrous sulfate [Iron (ferrous sulfate)] 325 mg PO TID #90 tab pantoprazole [Protonix] 40 mg PO BID #60 tab DS: Summary Hospital Course: This is a 77-year-old male with history of lung cancer and radiation, hypertension, atrial fibrillation Eliquis, presented emergency department from retirement facility for shortness of breath. Of note, the patient was recently seen at [facility] for generalized weakness and progressive shortness of breath. Patient was found to have pneumonia and finished a course of antibiotics. Patient was then discharged to rehab on 04/20/2018. While at the rehab facility, patient became progressively more short of breath in the last 3 days associated with a dry cough. There is no note of hemoptysis or hematuria. No active bleeding. Upon emergency department evaluation, the patient was found to have a positive guaiac stool and hemoglobin of 6.2. Patient denies any fever, nausea, vomiting, chest pain, abdominal pain or chills. 8-2 HAD TRANSFUSION FOLLOW UP ON ANEMIA WILL GET LABS NOW AM LABS DW RN AND PT AND FAMILY CONSULT GI AND ONCOLOGY RE[facility] HOME MEDS 8-3 HAD EGD AND COLONOSCOPY TODAY HAD MASS IN STOMACH DW RN AND PT AND FAMILY AM LABS 8-4 PATIENT HAS SIGNED UP WITH HOSPICE WILL GO TO HOME WITH HOME HOSPICE TODAY DW RN AND PT AND FAMILY AND CM - Time Spent with Patient Total time spent providing and/or coordinating discharge services: Greater than 30 minutes - Quality: VTE Deep Vein Thrombosis/Pulmonary Embolism Present on Admission: No Exam Vital signs: Vital Signs 05/08/18 15:55 05/08/18 20:16 05/08/18 20:22 Temperature 97.7 F Pulse Rate 94 H 89 102 H Respiratory Rate 26 H 20 Blood Pressure 142/73 H Pulse Oximetry 97 05/08/18 20:53 05/08/18 23:52 05/09/18 00:30 Temperature 97.6 F Pulse Rate 103 H 103 H Respiratory Rate 28 H 22 Blood Pressure 121/67 Pulse Oximetry 96 94 L 05/09/18 04:00 05/09/18 08:00 05/09/18 09:05 Temperature 97.8 F Pulse Rate 90 92 H 94 H Respiratory Rate 24 26 H 16 Blood Pressure 114/62 124/59 L Pulse Oximetry 94 L 93 L 05/09/18 12:00 Temperature 97.6 F Pulse Rate 100 H Respiratory Rate 24 Blood Pressure 140/82 Pulse Oximetry 94 L Intake & Output 05/08/18 05/09/18 05/09/18 18:59 06:59 18:59 Intake Total 572.5 / 572.5 Output Total 300 / 300 Balance 272.5 / 272.5 Weight 66.5 kg Intake: IV 412.5 / 412.5 Zosyn 3.375 GM Premix 50 ML @ 150 / 150 100 mls/hr IV.SIG Q6H [facility] Rx#: [id number] Vancomycin Inj 1,250 MG In NS 262.5 / 262.5 Inj 250 ML @ 250 mls/hr IV.SIG Q24H [facility] Rx#:[id number] Oral 160 / 160 Output: Urine 300 / 300 Other: # Urine Diapers 1 Narrative: In VERY mild respiratory distress, mildly tachypneic. Appears weak. PERRL, pale conjunctivae conjunctiva without injection, anicteric Nose without bleeding, airway patent, oropharynx clear Supple neck, no masses or thyromegaly, trachea midline Borderline tachycardic, no murmurs. Positive crackles in the right base, no wheezing. Normal bowel sounds, soft, non-tender, nondistended, no guarding. Extremities without clubbing, cyanosis, or edema. No rash of generalized distribution. AAO x3, no cranial nerve deficits, moves all 4 extremities, no focal neurologic deficits Insight and judgment is good Mood and behavior somewhat appropriate Results Procedures completed during hospitalization: EGD PROCEDURE REPORT EXAM DATE: 05/08/2018 PATIENT NAME: Tom Titus MR #: [id number] BIRTHDATE: 1940 ATTENDING: Tatum Moore MD ORDER #: [id number] ENAMEL SHADER: Christelle Varma Powell, Bianca, and Francesco Salgado STATUS: inpatient INDICATIONS: The patient is a 77 yr old male here for an EGD due to iron deficiency anemia PROCEDURE PERFORMED: EGD w/ biopsy MEDICATIONS: None and Per Anesthesia. TOPICAL ANESTHETIC: CONSENT: The patient understands the risks and benefits of the procedure and understands that these risks include, but are not limited to: sedation, allergic reaction, infection, perforation and/or bleeding. Alternative means of evaluation and treatment include, among others: physical exam, x-rays, and/or surgical intervention. The patient elects to proceed with this endoscopic procedure. medical equipment was checked for proper function. Hand hygiene and appropriate measures for infection prevention was taken. After the risks, benefits and alternatives of the procedure were thoroughly explained, Informed consent was verified, confirmed and timeout was successfully executed by the treatment team. The patient was anesthetized with topical anesthesia and the 1200 endoscope was introduced through the mouth and advanced to the second portion of the duodenum. Retroflexed views revealed no abnormalities The gastroscope was then slowly withdrawn and removed. ESOPHAGUS: The mucosa of the esophagus appeared normal. STOMACH: An ulcerated and fungating mass measuring 4 X 4cm in size was found in the gastric body. Multiple biopsies were performed using cold forceps. Sample sent for histology. DUODENUM: The duodenal mucosa appeared normal in the bulb and second portion of the duodenum. ADVERSE EVENTS: There were no complications. IMPRESSIONS: 1. The esophagus appeared normal 2. Mass measuring 4 X 4cm in size was found in the gastric body; multiple biopsies were performed 3. Normal duodenal mucosa in the bulb and second portion of the duodenum 4. Retroflexed views revealed no abnormalities RECOMMENDATIONS: 1. Await biopsy results. Biopsy results will not be ready for 7-10 days. If you don't hear from us in two weeks, call our office for biopsy results. 2. Anti-reflux regimen 3. Continue PPI PATIENT CONDITION: stable DISPOSITION: Inpatient REPEAT EXAM: Return as needed for EGD pending biopsy results COLONOSCOPY PROCEDURE REPORT EXAM DATE: 05/08/2018 PATIENT NAME: Tom Titus MR #: [id number] BIRTHDATE: 1940 ENDOSCOPIST: Tatum Moore MD ORDER #: [id number] ENAMEL SHADER: Francesco Salgado Powell, Bianca, and Christelle Varma STATUS: inpatient INDICATIONS: The patient is a 77 yr old male here for a colonoscopy due to iron deficiency anemia PROCEDURE PERFORMED: Colonoscopy, incomplete MEDICATIONS: None and Per Anesthesia. PREP QUALITY: inadequate PREP TYPE:Magnesium Citrate ESTIMATED BLOOD LOSS: None CONSENT: The patient understands the risks and benefits of the procedure and understands that these risks include, but are not limited to: sedation, allergic reaction, infection, perforation and/or bleeding. Alternative means of evaluation and treatment include, among others: physical exam, x-rays, and/or surgical intervention. The patient elects to proceed with this endoscopic procedure. medical equipment was checked for proper function. Hand hygiene and appropriate measures for infection prevention was taken. After the risks, benefits and alternatives of the procedure were thoroughly explained, Informed consent was verified, confirmed and timeout was successfully executed by the treatment team. A digital exam revealed external hemorrhoids The EC-3490Li (Pedi C) endoscope was introduced through the anus and advanced to the sigmoid colon. The instrument was then slowly withdrawn as the colon was fully examined. COLON FINDINGS: Poor prep. Retroflexed views revealed internal hemorrhoids and Retroflexed views revealed medium internal hemorrhoids The scope was then completely withdrawn from the patient and the procedure terminated. ADVERSE EVENTS: There were no complications. IMPRESSIONS: 1. Poor prep 2. Retroflexed views revealed internal hemorrhoids 3. Retroflexed views revealed medium internal hemorrhoids 4. Revealed external hemorrhoids RECOMMENDATIONS: High fiber diet RECALL: NONE Completed studies during hospitalization: Laboratory Results WBC 7.9 th/mm3 (4.0-11.0) 05/09/18 05:08 RBC 2.30 mil/mm3 (4.50-5.90) L 05/09/18 05:08 Hgb 7.7 gm/dL (13.0-17.0) L 05/09/18 05:08 Hct 21.4 % (39.0-51.0) L 05/09/18 05:08 MCV 93.0 fL (80.0-100.0) 05/09/18 05:08 MCH 33.7 pg (27.0-34.0) 05/09/18 05:08 MCHC 36.2 % (32.0-36.0) H 05/09/18 05:08 RDW 18.0 % (11.6-17.2) H 05/09/18 05:08 Plt Count 183 th/mm3 (150-450) 05/09/18 05:08 MPV 8.3 fL (7.0-11.0) 05/09/18 05:08 Prelim Diff (Auto) Slide review pending 05/09/18 05:08 Neut % (Auto) 86.6 % (16.0-70.0) H 05/09/18 05:08 Lymph % (Auto) 5.1 % (9.0-44.0) L 05/09/18 05:08 [place] % (Auto) 6.6 % (0.0-8.0) 05/09/18 05:08 Eos % (Auto) 1.2 % (0.0-4.0) 05/09/18 05:08 Baso % (Auto) 0.5 % (0.0-2.0) 05/09/18 05:08 Neut # (Auto) 6.9 th/mm3 (1.8-7.7) 05/09/18 05:08 Lymph # (Auto) 0.4 th/mm3 (1.0-4.8) L 05/09/18 05:08 [place] # (Auto) 0.5 th/mm3 (0.0-0.9) 05/09/18 05:08 Eos # (Auto) 0.1 th/mm3 (0.0-0.4) 05/09/18 05:08 Baso # (Auto) 0.0 th/mm3 (0.0-0.2) 05/09/18 05:08 WBC Differential Manual diff final 05/09/18 05:08 Diff Scan Auto diff confirmed 05/08/18 05:00 Seg Neuts % (Manual) 85 % (16-70) H 05/09/18 05:08 Band Neuts % (Manual) 1 % (0-6) 05/09/18 05:08 Lymphocytes % (Manual) 7 % (9-44) L 05/09/18 05:08 Monocytes % (Manual) 5 % (0-8) 05/09/18 05:08 Basophils % (Manual) 2 % (0-2) 05/06/18 14:36 Metamyelocytes % (Man) 1 % (0-1) 05/09/18 05:08 Myelocytes % (Man) 1 % (0-0) H 05/09/18 05:08 Abs Neuts (Manual) 7.0 th/mm3 (1.8-7.7) 05/09/18 05:08 Nucleated RBCs/100 WBC 2 /100 WBC (0-0) H 05/06/18 14:36 Differential Comment . 05/09/18 05:08 Platelet Estimate Normal (Normal) 05/09/18 05:08 Platelet Morphology Normal (Normal) 05/09/18 05:08 Polychromasia 4.4 % (0.0-1.9) H 05/06/18 14:36 PT 13.3 sec (9.8-11.6) H 05/08/18 05:00 INR 1.3 Ratio 05/08/18 05:00 Sodium 150 meq/L (136-145) H 05/09/18 05:08 Potassium 3.6 meq/L (3.5-5.1) 05/09/18 05:08 Chloride 116 meq/L (98-107) H 05/09/18 05:08 Carbon Dioxide 23.5 meq/L (21.0-32.0) 05/09/18 05:08 Anion Gap 11 meq/L (5-15) 05/09/18 05:08 BUN 16 mg/dL (7-18) 05/09/18 05:08 Creatinine 0.79 mg/dL (0.60-1.30) 05/09/18 05:08 Estimated GFR Greater than 89 mL/min (>89) 05/09/18 05:08 Random Glucose 78 mg/dL (74-106) 05/09/18 05:08 Hemoglobin A1c 4.4 % (4.3-6.0) 05/08/18 05:00 Calcium 9.5 mg/dL (8.5-10.1) 05/09/18 05:08 Phosphorus 3.0 mg/dL (2.5-4.9) 05/09/18 05:08 Magnesium 2.6 mg/dL (1.5-2.5) H 05/09/18 05:08 Iron 34 mcg/dL (65-175) L 05/06/18 14:36 TIBC 210 mcg/dL (250-450) L 05/06/18 14:36 % Saturation 16.2 % (20-50) L 05/06/18 14:36 Total Bilirubin 0.7 mg/dL (0.2-1.0) 05/09/18 05:08 AST 12 U/L (15-37) L 05/09/18 05:08 ALT 16 U/L (12-78) 05/09/18 05:08 Alkaline Phosphatase 94 U/L (45-117) 05/09/18 05:08 Troponin I Less than 0.02 ng/mL (0.02-0.05) L 05/06/18 14:36 B-Natriuretic Peptide 120 pg/mL (0-100) H 05/06/18 14:36 Total Protein 5.8 g/dL (6.4-8.2) L 05/09/18 05:08 Albumin 1.8 g/dL (3.4-5.0) L 05/09/18 05:08 TSH 1.140 uIU/mL (0.358-3.740) 05/08/18 05:00 Free T4 1.16 ng/dL (0.76-1.46) 05/08/18 05:00 Blood Type A Negative 05/06/18 14:49 Blood Type Recheck Required 05/06/18 14:49 Antibody Screen Negative 05/06/18 14:49 MTS Gel Crossmatch See Detail 05/06/18 22:42 Impressions Chest X-Ray 05/06/18 14:29 CONCLUSION: Consolidation and emphysema identified. Since the previous study the consolidation has increased particularly at the right lung base. Pending studies at discharge: Pending at discharge 05/08/18 Surgical [PTH] Routine Labs on day of discharge: Labs from last 24 hours 05/09/18 05/09/18 05/08/18 05:08 05:08 05:00 WBC 7.9 RBC 2.30 L Hgb 7.7 L Hct 21.4 L MCV 93.0 MCH 33.7 MCHC 36.2 H RDW 18.0 H Plt Count 183 MPV 8.3 Prelim Diff (Auto) Slide review pending Neut % (Auto) 86.6 H Lymph % (Auto) 5.1 L [place] % (Auto) 6.6 Eos % (Auto) 1.2 Baso % (Auto) 0.5 Neut # (Auto) 6.9 Lymph # (Auto) 0.4 L [place] # (Auto) 0.5 Eos # (Auto) 0.1 Baso # (Auto) 0.0 WBC Differential Manual diff final Seg Neuts % (Manual) 85 H Band Neuts % (Manual) 1 Lymphocytes % (Manual) 7 L Monocytes % (Manual) 5 Metamyelocytes % (Man) 1 Myelocytes % (Man) 1 H Abs Neuts (Manual) 7.0 Differential Comment . Platelet Estimate Normal Platelet Morphology Normal Sodium 150 H Potassium 3.6 Chloride 116 H Carbon Dioxide 23.5 Anion Gap 11 BUN 16 Creatinine 0.79 Estimated GFR Greater than 89 Random Glucose 78 Hemoglobin A1c 4.4 Calcium 9.5 Phosphorus 3.0 Magnesium 2.6 H Total Bilirubin 0.7 AST 12 L ALT 16 Alkaline Phosphatase 94 Total Protein 5.8 L Albumin 1.8 L Preliminary micro results at discharge 05/06/18 23:50 Aerobic Blood Culture - Preliminary Blood - Peripheral No growth in 2 days Anaerobic Blood Culture - Preliminary No growth in 2 days 05/06/18 23:55 Aerobic Blood Culture - Preliminary Blood - Peripheral No growth in 2 days - Impressions ITS Impressions Chest X-Ray 05/06/18 14:29 CONCLUSION: Consolidation and emphysema identified. Since the previous study the consolidation has increased particularly at the right lung base. Discharge Plan - Discharge Disposition Patient Disposition: 50 Hospice/Home - Discharge Condition Condition: Fair - Discharge Order Discharge Orders: Discharge Order (Routine); Ordered 05/09/18 Ordered By: Yamil Quezada - Discharge Details Anticipated Discharge Date: 05/09/18 Discharge Comment: DC TO HOME WITH HOME HOSPICE - Physicians Team Primary Care Provider: Usha Kerr Attending Provider: Yamil Quezada Other Providers: Rehab,[facility] ; Tatum Moore MD ; Michelle Rios
[2018-05-09] MEDS ORDERED: Pharmacy Ordered Lab Info OTHER ONE (19:45)
[2018-05-12 18:00] VITALS: BP 140/82; PULSE 100; RESP 24; TEMP 97.6; O2SAT 94
== END 2018-05-09 14:23 | disposition hospice, home (50) ==
LOC: NEPC 14:26 → NEDA 16:23 → HCIN 18:29
PROVIDERS: ADMIT Hospitalist; ATTEND Hospitalist
PROC: COLONOS (2018-05-08 11:03)
PROC: PANENDO (2018-05-08 11:03)